=== PATIENT | male | born 1965 | race Two or more races ===

== ENCOUNTER 2023-12-25 09:47 | Emergency (ER) | payer OTHER ==
[~2023-12-25] VITALS: Ht 165.1 cm; Wt 97.7 kg
[2023-12-25] MEDS ORDERED: CEPH500C PO (11:14)
[2023-12-25 11:27] VITALS: BP 117/74; PULSE 60; RESP 14; TEMP 98.1; O2SAT 98
== END 2023-12-25 11:29 | disposition home or self-care (01) ==
LOC: ER 09:47 → EDBD 09:47 → ER 11:29
DX: L03.011 Cellulitis of right finger (principal)

== ENCOUNTER 2024-02-15 07:28 | Inpatient (IN) | payer OTHER ==
[~2024-02-15] VITALS: Ht 165.1 cm; Wt 91.2 kg
[2024-02-15] VITALS (9 sets, daily range): BP systolic 159–192; BP diastolic 97–113; PULSE 81–101; RESP 18–20; TEMP 97.9–98.5; O2SAT 91–97
[~2024-02-15 07:28] MED LIST: CEPH500C PO
[2024-02-15] MEDS: SODIUM CHLORIDE 0.9% 1,000 ML IV ONE (08:10)
[2024-02-15] MEDS: levETIRAcetam 1000 mg/100ml 100 ML IV ONE (08:11)
[2024-02-15] MEDS: LORazepam 2MG/ML-1ML VIAL ONE (08:27)
[2024-02-15] MEDS: LORazepam 2MG/ML-1ML VIAL IV ONE (08:27)
[2024-02-15 08:48] LABS: Basophils # (auto) 0 10 ^3/uL (0-0.2); Basophils % (auto) 0.3 % (0.0-2.0); Eosinophils # (auto) 0.1 10 ^3/uL (0-0.8); Eosinophils % (auto) 1.4 % (0.0-7.0); Hematocrit 46.7 % (41.0-53.0); Hemoglobin 15.5 g/dL (13.5-17.5); Lymphocytes # (auto) 1.5 10 ^3/uL (0.4-5.4); Lymphocytes % (auto) 16.6 % (10.0-50.0); Mean Corpuscular Hemoglobin 25.5 pg (28.0-32.0); Mean Corpuscular Hgb Conc. 33.2 g/dL (32.0-36.0); Mean Corpuscular Volume 76.6 fL (80.0-100.0); Monocytes # (auto) 0.7 10 ^3/uL (0-1.3); Monocytes % (auto) 7.5 % (0.0-12.0); Neutrophils # (auto) 6.9 10 ^3/uL (1.6-8.6); Neutrophils % (auto) 74.2 % (37.0-80.0); Nucleated Red Blood Cells % 0.1 %; Platelet Count (auto) 137 10^3/uL (140-450); Red Blood Cells 6.09 10^6/uL (4.5-5.90); Red Cell Distribution Width 17.2 % (11.8-14.3); White Blood Cell 9.3 10^3/uL (4.4-10.8)
[2024-02-15 09:07] LABS: Alanine Aminotransferase 21 U/L (7-40); Albumin 4.2 g/dL (3.2-4.8); Alkaline Phosphatase 65 U/L (46-116); Anion Gap 5 (5-15); Aspartate Aminotransferase 14 U/L (13-40); BUN/Creatinine Ratio 12.7 (10.0-20.0); Blood Urea Nitrogen 8 mg/dL (9-23); Calcium 9.3 mg/dL (8.7-10.4); Carbon Dioxide 29 mmol/L (20-30); Chloride 102 mmol/L (98-107); Glucose 232 mg/dL (74-106); Potassium 3.9 mmol/L (3.5-5.1); Sodium 136 mmol/L (136-145)
[2024-02-15 09:08] LABS: Bilirubin, Total 0.7 mg/dL (0.2-1.0); Total Protein 7.3 g/dL (5.7-8.2)
[2024-02-15] MEDS ORDERED: NITROGLYCERIN 0.4 MG SL TAB SL PRN (10:45)
[2024-02-15] MEDS ORDERED: LORazepam 2MG/ML-1ML VIAL IV PRN ×2 (10:45)
[2024-02-15] MEDS: SODIUM CHLORIDE 0.9% 1,000 ML IV SCH (10:45)
[2024-02-15] MEDS ORDERED: DOCUSATE SOD 100 MG CAP PO PRN (10:45)
[2024-02-15] MEDS ORDERED: ONDANSETRON HCL 4 MG/2 ML VIAL IV PRN (10:45)
[2024-02-15] MEDS ORDERED: KEP500T PO (14:54)
[2024-02-15] MEDS ORDERED: NAP500T PO (15:03)
[2024-02-15] MEDS ORDERED: CARI-277 PO (15:03)
[2024-02-15] MEDS ORDERED: LORA-1121 PO (15:03)
[2024-02-15] MEDS ORDERED: ACET-1882 PO (15:03)
[2024-02-15] MEDS ORDERED: MELA3TAB27 PO (15:03)
[2024-02-15] MEDS ORDERED: DEXTROSE (50%) 50ML SYRG IV PRN (15:15)
[2024-02-15] MEDS: hydrALAZINE HCL 20 MG/ML VL IV PRN (16:13)
[2024-02-15] MEDS: MORPHINE SULFATE INJ 2 MG/ml SYRG IV PRN (16:52)
[2024-02-15] MEDS: InsuLIN REG 1unit/0.01ml Soln (100units/ml) SC SCH (18:00)
[2024-02-15] MEDS: ACCU-CHEK COMFORT CURVE STRIP VI SCH (18:00)
[2024-02-15] MEDS: LISINOPRIL 20 MG TAB PO ONE (18:54)
[2024-02-15] MEDS: levETIRAcetam 1000 mg/100ml 100 ML IV SCH (21:54)
[2024-02-15] MEDS: HYDROcodone-ACET 5/325MG TAB PO PRN (21:54)
[2024-02-16] VITALS (19 sets, daily range): BP systolic 114–162; BP diastolic 69–97; PULSE 75–93; RESP 13–20; TEMP 97.6–98.5; O2SAT 87–97
[2024-02-16 07:02] LABS: Basophils # (auto) 0 10 ^3/uL (0-0.2); Basophils % (auto) 0.3 % (0.0-2.0); Eosinophils # (auto) 0.1 10 ^3/uL (0-0.8); Eosinophils % (auto) 1.2 % (0.0-7.0); Lymphocytes # (auto) 2.2 10 ^3/uL (0.4-5.4); Mean Corpuscular Hemoglobin 25.6 pg (28.0-32.0); Monocytes # (auto) 0.8 10 ^3/uL (0-1.3); Neutrophils # (auto) 6.5 10 ^3/uL (1.6-8.6)
[2024-02-16 07:03] LABS: Hematocrit 47.1 % (41.0-53.0); Hemoglobin 15.6 g/dL (13.5-17.5); Lymphocytes % (auto) 22.4 % (10.0-50.0); Mean Corpuscular Hgb Conc. 33.1 g/dL (32.0-36.0); Mean Corpuscular Volume 77.3 fL (80.0-100.0); Monocytes % (auto) 8.7 % (0.0-12.0); Neutrophils % (auto) 67.4 % (37.0-80.0); Nucleated Red Blood Cells % 0.3 %; Platelet Count (auto) 149 10^3/uL (140-450); Red Blood Cells 6.08 10^6/uL (4.5-5.90); Red Cell Distribution Width 17.4 % (11.8-14.3); White Blood Cell 9.7 10^3/uL (4.4-10.8)
[2024-02-16 07:06] LABS: Alanine Aminotransferase 18 U/L (7-40); Albumin 4.1 g/dL (3.2-4.8); Alkaline Phosphatase 63 U/L (46-116); Anion Gap 6 (5-15); Aspartate Aminotransferase 17 U/L (13-40); Bilirubin, Total 0.8 mg/dL (0.2-1.0); Blood Urea Nitrogen 6 mg/dL (9-23); Calcium 9.4 mg/dL (8.7-10.4); Carbon Dioxide 28 mmol/L (20-30); Chloride 100 mmol/L (98-107); Glucose 187 mg/dL (74-106); Potassium 3.6 mmol/L (3.5-5.1); Sodium 134 mmol/L (136-145); Total Protein 7.2 g/dL (5.7-8.2)
[2024-02-16] MEDS: LISINOPRIL 20 MG TAB PO SCH (08:55)
[2024-02-16] MEDS: hydroCHLOROthiazide 25 MG TAB PO SCH (08:56)
[2024-02-16] MEDS: ASPirin 81 mg TAB PO ONE (13:48)
[2024-02-16] MEDS: ATORVASTATIN 20 MG TAB PO ONE (13:49)
[2024-02-16] MEDS: ENOXAPARIN SOD 40 MG/0.4 ML SYRINGE SC ONE (13:49)
[2024-02-16] MEDS ORDERED: ASPI-498 PO (13:52)
[2024-02-16] MEDS ORDERED: ATOR40TA52 PO (13:52)
[2024-02-16] MEDS ORDERED: QUET1TAB11 PO (13:52)
[2024-02-16] MEDS ORDERED: LABETALOL HCL 20 MG/4 ML VL IV PRN (18:00)
[2024-02-16 19:21] LABS: Basophils # (auto) 0.1 10 ^3/uL (0-0.2); Basophils % (auto) 0.5 % (0.0-2.0); Eosinophils # (auto) 0.1 10 ^3/uL (0-0.8); Eosinophils % (auto) 1.1 % (0.0-7.0); Hemoglobin 16.3 g/dL (13.5-17.5); Lymphocytes # (auto) 3.1 10 ^3/uL (0.4-5.4); Monocytes # (auto) 1.2 10 ^3/uL (0-1.3)
[2024-02-16 19:22] LABS: Hematocrit 49.3 % (41.0-53.0); Lymphocytes % (auto) 25.6 % (10.0-50.0); Mean Corpuscular Hemoglobin 25.4 pg (28.0-32.0); Mean Corpuscular Hgb Conc. 33.1 g/dL (32.0-36.0); Mean Corpuscular Volume 76.8 fL (80.0-100.0); Monocytes % (auto) 9.8 % (0.0-12.0); Neutrophils # (auto) 7.6 10 ^3/uL (1.6-8.6); Nucleated Red Blood Cells % 0.2 %; Platelet Count (auto) 165 10^3/uL (140-450); Red Blood Cells 6.42 10^6/uL (4.5-5.90); Red Cell Distribution Width 17.4 % (11.8-14.3); White Blood Cell 12.1 10^3/uL (4.4-10.8)
[2024-02-16 19:40] LABS: INR 1.18 (0.9-1.15); Partial Thromboplastin Time 30.5 SEC (24.5-34.5); Prothrombin Time 12.4 sec (9.3-11.8)
[2024-02-16 19:53] LABS: Alanine Aminotransferase 20 U/L (7-40); Albumin 4.4 g/dL (3.2-4.8); Alkaline Phosphatase 69 U/L (46-116); Anion Gap 5 (5-15); Aspartate Aminotransferase 13 U/L (13-40); BUN/Creatinine Ratio 10.4 (10.0-20.0); Blood Urea Nitrogen 7 mg/dL (9-23); Calcium 10.1 mg/dL (8.7-10.4); Carbon Dioxide 29 mmol/L (20-30); Chloride 99 mmol/L (98-107); Glucose 160 mg/dL (74-106); LDL Cholesterol 63 mg/dL (< 100); Magnesium 1.9 mg/dL (1.6-2.6); Potassium 3.5 mmol/L (3.5-5.1); Sodium 133 mmol/L (136-145); Triglycerides 128 mg/dL (< 150)
[2024-02-16 19:54] LABS: Bilirubin, Total 0.9 mg/dL (0.2-1.0); Cholesterol 126 mg/dL (< 200); HDL Cholesterol 41 mg/dL (40-59); Total Protein 7.6 g/dL (5.7-8.2)
[2024-02-17] VITALS (17 sets, daily range): BP systolic 90–141; BP diastolic 45–87; PULSE 77–98; RESP 12–32; TEMP 97.6–98.1; O2SAT 82–97
[2024-02-17 05:17] LABS: Basophils # (auto) 0 10 ^3/uL (0-0.2); Basophils % (auto) 0.4 % (0.0-2.0); Eosinophils # (auto) 0.1 10 ^3/uL (0-0.8); Eosinophils % (auto) 0.8 % (0.0-7.0); Hematocrit 51.4 % (41.0-53.0); Lymphocytes # (auto) 2.7 10 ^3/uL (0.4-5.4); Lymphocytes % (auto) 21.5 % (10.0-50.0); Mean Corpuscular Hemoglobin 25.6 pg (28.0-32.0); Mean Corpuscular Hgb Conc. 33.1 g/dL (32.0-36.0); Mean Corpuscular Volume 77.5 fL (80.0-100.0); Monocytes # (auto) 1.3 10 ^3/uL (0-1.3); Monocytes % (auto) 10.6 % (0.0-12.0); Neutrophils # (auto) 8.4 10 ^3/uL (1.6-8.6); Neutrophils % (auto) 66.7 % (37.0-80.0); Nucleated Red Blood Cells % 0.3 %; Platelet Count (auto) 163 10^3/uL (140-450); Red Blood Cells 6.63 10^6/uL (4.5-5.90); Red Cell Distribution Width 17.3 % (11.8-14.3); White Blood Cell 12.6 10^3/uL (4.4-10.8)
[2024-02-17 05:24] LABS: Alanine Aminotransferase 17 U/L (7-40); Albumin 4.2 g/dL (3.2-4.8); Alkaline Phosphatase 67 U/L (46-116); Anion Gap 7 (5-15); Aspartate Aminotransferase 13 U/L (13-40); BUN/Creatinine Ratio 10.7 (10.0-20.0); Bilirubin, Total 1.1 mg/dL (0.2-1.0); Blood Urea Nitrogen 9 mg/dL (9-23); Carbon Dioxide 27 mmol/L (20-30); Chloride 100 mmol/L (98-107); Glucose 199 mg/dL (74-106); Magnesium 1.9 mg/dL (1.6-2.6); Phosphorus 5.2 mg/dL (2.4-5.1); Potassium 3.9 mmol/L (3.5-5.1); Sodium 134 mmol/L (136-145); Total Protein 7.4 g/dL (5.7-8.2)
[2024-02-17] MEDS ORDERED: ASPirin 81 mg TAB PO SCH (10:00)
[2024-02-17] MEDS ORDERED: ENOXAPARIN SOD 40 MG/0.4 ML SYRINGE SC SCH (10:00)
[2024-02-17] MEDS: LISINOPRIL 20 MG TAB PO SCH (10:09)
[2024-02-17] MEDS ORDERED: ATORVASTATIN 20 MG TAB PO SCH (22:00)
== END 2024-02-17 16:14 | disposition short-term general hospital (02) | DRG 44 ==
LOC: EDBD 07:28 → ER 07:28 → OVERFLOW 10:44 → WEST WING 14:42 → TELE-WESTW 02-16 11:03 → DOU IN ICU 02-16 18:00
PROVIDERS: ADMIT Nurse Practitioner Family; ATTEND Internal Medicine Pulmonary Disease
DX: I62.9 Nontraumatic intracranial hemorrhage, unspecified (principal); I69.854 Hemiplegia and hemiparesis following other cerebrovascular disease affecting left non-dominant side; G40.909 Epilepsy, unspecified, not intractable, without status epilepticus; I16.1 Hypertensive emergency; E78.5 Hyperlipidemia, unspecified; Z79.4 Long term (current) use of insulin; Z79.899 Other long term (current) drug therapy; E11.65 Type 2 diabetes mellitus with hyperglycemia
CPT/HCPCS: 36415; 70450; 70551; 80053; 80061; 82306; 82550; 82607; 82962; 83036; 83605; 83735; 84100; 84443; 85025; 85610; 85730; 93306; 93886; G0378; J1815

== ENCOUNTER 2024-04-15 07:04 | Inpatient (IN) | payer MEDICAID ==
[~2024-04-15] VITALS: Ht 165.1 cm; Wt 107.8 kg
[~2024-04-15 07:04] MED LIST changes: +ACET-1882 PO; +ASPI-498 PO; +ATOR40TA52 PO; +CARI-277 PO; -CEPH500C PO; +LORA-1121 PO; +MELA3TAB27 PO; +NAP500T PO; +QUET1TAB11 PO
--- NOTE | 2024-04-15 07:22 | ED.PDOC ---
HPI (NEURO) HPI Comments 58Y M with PMHx DM, HTN, HLD, CVA with lt sided deficit, and seizure disorder presents to ED via EMS for chief complaint seizure. Pt states he was drinking coffee when his left hand began to shake/tremor. Pt states he also felt his "face stretching". Pt denies headache, SOB, chest pain, and pain, and new weakness. Pt is currently taking Keppra but is unsure of the dosage. Pt was last d/c from [facility] on 02/17/2024 with dx rt parietal-occipital intracranial hemorrhage. No known allergies. Chief Complaint: Seizure Time Seen by MD: 07:10 Primary Care Provider: UNKNOWN Reviewed Notes: Nurses Notes, Non Clinical Advisor Notes, Medications, Allergies Information Source: Patient, Emergency Med Personnel Mode of Arrival: EMS Brought in by: EMS Severity: Mild Dizziness/Weakness Severity: Does not affect activitie Headache Severity: None Timing: Hours Duration: Since onset Prehospital treatment: None Seizure Quality: Single Episodes Weakness Location: (L) Sided (s/p CVA) Onset: At rest Circumstances: Spontaneous Symptoms: None Before: Normal During: Awake After: Normal Mentation History of: CVA, DM, Hypertension, Seizure Disorder Modifying factors: Nothing Associated Signs and Symptoms: None Past Medical History PAST MEDICAL HISTORY: CVA, DM, High Lipids, HTN, Seizures Surgical History: Denies all surgeries Family History Family History: Unknown Social History Smoker: Non-Smoker Alcohol: Denies ETOH Use Drugs: Denies Drug Use Lives In: Other Constitutional: denies: chills, diaphoresis, fatigue, fever, malaise, sweats, weakness, others EENTM: denies: blurred vision, double vision, ear bleeding, ear discharge, ear drainage, ear pain, ear ringing, eye pain, eye redness, hearing loss, mouth pain, mouth swelling, nasal discharge, nose bleeding, nose congestion, nose pain, photophobia, tearing, throat pain, throat swelling, voice changes, others Respiratory: denies: cough, hemoptysis, orthopnea, SOB at rest, shortness of breath, SOB with excertion, stridor, wheezing, others Cardiovascular: denies: chest pain, dizzy spells, diaphoresis, Dyspnea on exertion, edema, irregular heart beat, left arm pain, lightheadedness, palpitations, PND, syncope, others Gastrointestinal: denies: abdomen distended, abdominal pain, blood streaked bowels, constipated, diarrhea, dysphagia, difficulty swallowing, hematemesis, melena, nausea, poor appetite, poor fluid intake, rectal bleeding, rectal pain, vomiting, others Genitourinary: denies: burning, dysuria, flank pain, frequency, hematuria, incontinence, penile discharge, penile sore, pain, testicle pain, testicle swelling, urgency, others Neurological: reports: left sided weakness; denies: dizziness, fainting, headache, left sided numbness, numbness, paresthesia, pre-existing deficit, right sided numbness, right sided weakness, seizure, speech problems, tingling, tremors, weakness, others Musculoskeletal: denies: back pain, gout, joint pain, joint swelling, muscle pain, muscle stiffness, neck pain, others Integumetry: denies: bruises, change in color, change in hair/nails, dryness, laceration, lesions, lumps, rash, wounds, others Allergic/Immunocompromised: denies: Difficulty Healing, Frequent Infections, Hives, Itching, others Hematologic/Lymphatic: denies: anemia, blood clots, easy bleeding, easy bruising, swollen glands, others Endocrine: denies: excessive hunger, excessive sweating, excessive thirst, excessive urination, flushing, intolerance to cold, intolerance to heat, unexplained weight gain, unexplained weight loss, others Psychiatric: denies: anxiety, bipolar disorder, depression, hopeless, panic disorder, schizophrenia, sleepless, suicidal, others All Other Systems: Reviewed and Negative Physical Exam General Appearance: No Apparent Distress, Normal HEENT: Normal ENT Inspection, Pharynx Normal, TMs Normal Neck: Full Range of Motion, Non-Tender, Normal, Normal Inspection Respiratory: Chest Non-Tender, Lungs Clear, No Accessory Muscle Use, No Respiratory Distress, Normal Breath Sounds Cardiovascular: No Edema, No JVD, No Murmur, No Gallop, Normal Peripheral Pulses, Regular Rate/Rhythm Breast Exam: Deferred Gastrointestinal: No Organomegaly, Non Tender, No Pulsatile Mass, Normal Bowel Sounds, Soft Genitalia: Deferred Pelvic: Deferred Rectal: Deferred Extremities: No calf tenderness, Normal capillary refill, Normal inspection, Normal range of motion, Non-tender, No pedal edema Musculoskeletal : Apperance: Normal 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 right bundle branch block, AZ interval 162, QRS duration 152, QTC 472, QRS axis -101. Was a procedure done? Was a procedure done?: No X-Ray, Labs, Meds, VS Vital Signs Date Time Temp Pulse Resp B/P (MAP) Pulse Ox O2 Delivery O2 Flow Rate FiO2 04/15/24 12:00 88 13 173/103 (126) 99 04/15/24 10:00 67 13 145/98 (114) 92 04/15/24 09:13 67 17 167/96 (119) 92 04/15/24 07:35 Room Air* 0 21 04/15/24 07:15 98.7 86 16 182/104 (130) 94 04/15/24 07:11 77 Lab Test 04/15/24 07:42 Range/Units White Blood Count 8.9 4.4-10.8 10^3/uL Red Blood Count 5.51 4.5-5.90 10^6/uL Hemoglobin 13.6 13.5-17.5 g/dL Hematocrit 41.5 41.0-53.0 % Mean Corpuscular Volume 75.3 L 80.0-100.0 fL Mean Corpuscular Hemoglobin 24.8 L 28.0-32.0 pg Mean Corpuscular Hemoglobin Concent 32.9 32.0-36.0 g/dL Red Cell Distribution Width 16.7 H 11.8-14.3 % Platelet Count 129 L 140-450 10^3/uL Mean Platelet Volume 8.4 6.9-10.8 fL Neutrophils (%) (Auto) 68.6 37.0-80.0 % Lymphocytes (%) (Auto) 21.3 10.0-50.0 % Monocytes (%) (Auto) 7.8 0.0-12.0 % Eosinophils (%) (Auto) 2.0 0.0-7.0 % Basophils (%) (Auto) 0.3 0.0-2.0 % Neutrophils # (Auto) 6.1 1.6-8.6 10 ^3/uL Lymphocytes # (Auto) 1.9 0.4-5.4 10 ^3/uL Monocytes # (Auto) 0.7 0-1.3 10 ^3/uL Eosinophils # (Auto) 0.2 0-0.8 10 ^3/uL Basophils # (Auto) 0 0-0.2 10 ^3/uL Nucleated Red Blood Cells 0.0 % Sodium Level 140 136-145 mmol/L Potassium Level 4.3 3.5-5.1 mmol/L Chloride Level 106 98-107 mmol/L Carbon Dioxide Level 27 20-31 mmol/L Anion Gap 7 5-15 Blood Urea Nitrogen 13 9-23 mg/dL Creatinine 0.71 0.700-1.30 mg/dL Glomerular Filtration Rate Calc 108 >90 mL/min BUN/Creatinine Ratio 18.3 10.0-20.0 Serum Glucose 211 H 74-106 mg/dL Calcium Level 9.5 8.7-10.4 mg/dL Total Bilirubin 0.3 0.2-1.0 mg/dL Aspartate Amino Transferase (AST) 11 L 13-40 U/L Alanine Aminotransferase (ALT) 17 7-40 U/L Alkaline Phosphatase 73 46-116 U/L Total Protein 7.3 5.7-8.2 g/dL Albumin 4.2 3.2-4.8 g/dL Current Medications Medications (Trade) Dose Ordered Sig/Cora Route Start Time Stop Time Status Last Admin Levetiracetam 100 ml @ 400 mls/hr ONCE ONCE IV 04/15/24 07:30 04/15/24 07:44 DC 04/15/24 07:35 Sodium Chloride 1,000 ml @ 1,000 mls/hr Q1H ONCE IV 04/15/24 07:30 04/15/24 08:29 DC 04/15/24 07:35 [place] [address] Ph: [phone] DIAGNOSTIC IMAGING Diagnostic Imaging Report : [id number] Signed with Hanane PATIENT: SAPPHIRE VELAZQUEZ ACCT: [id number] UNIT: [id number] : 1965 LOC: ER ROOM / BED: / AGE / SEX: 58 / M ADM STATUS: REG ER SERVICE [id number] ORDERING PHYSICIAN: PRO SALDAÑA MD PROCEDURE(s): HWOCT - HEAD WITHOUT CONTRAST REASON: Seizure, history of CVA and ICH ORDER NUMBER(s): [id number], ACCESSION NUMBER(s): [id number] ADDENDUM Report Patient Name: SAPPHIRE VELAZQUEZ Patient : 1965 Patient Gender: Male Patient Class: Emergency Patient Location: [facility] Reading Location: [facility] Signed Date: 04/15/2024 Ord. Doc: PRO SALDAÑA DOS: 04/15/2024 Status: Final Procedure: CT HEAD WITHOUT CONTRAST EXAM: CT HEAD WITHOUT CONTRAST INDICATION: Seizure, history of intracranial hemorrhage, history of CVA TECHNIQUE: CT of the head without intravenous contrast. Radiation dose : Head: CT Dose: CTDI volume is 68.42 mGy. Dose-length product is 1347.95 mGy*cm The dose indicators for CT are the volume computed tomography (CT) dose index (CTDIvol) and the dose length product (DLP), and are measured in units of mGy and mGy-cm, respectively. These indicators are not patient dose, but values generated from the CT scanner acquisition factors. The report includes radiation exposure data for exposures received during this examination. COMPARISON: CT HEAD WITHOUT CONTRAST on DOS: 02/17/24, CT HEAD WITHOUT CONTRAST on DOS: 02/16/24, CT HEAD WITHOUT CONTRAST on DOS: 02/16/24 FINDINGS: There is no evidence of acute intracranial hemorrhage, extra-axial collection, mass effect, midline shift, herniation or hydrocephalus. The ventricles, sulci and cisterns are age appropriate. The hernandez-white differentiation is intact. There is cystic encephelomalacia at the right vertex consistent with prior infarct or insult. There is a calcification at the left vertex. There is dense calcification of the vertebral and carotid arteries. The visualized paranasal sinuses and mastoid air cells are clear. The surrounding soft tissues and osseous structures are unremarkable. IMPRESSION: 1. No acute intracranial abnormality. Cystic encephelomalacia at the right vertex consistent with old infarct or insult. Previously seen hemorrhage in this region has resolved. Consider MRI of the brain with contrast to exclude underlying lesion. Radiation optimization: All CT scans at this facility use at least one of these dose optimization techniques: Automated exposure control mA and/or kV adjustment per patient size (includes targeted exams where dose is matched to clinical indication) or iterative reconstruction. HS:Y GER INCOME TAX DICTATED BY: JOHN PAZ MD DICTATED DATE/TIME: 04/15/24 0928 SIGNED BY: JOHN PAZ MD SIGNED DATE/TIME: 04/15/24 1044 CC: EXAM: CT HEAD WITHOUT CONTRAST INDICATION: Seizure, history of intracranial hemorrhage, history of CVA TECHNIQUE: CT of the head without intravenous contrast. Radiation dose : Head: CT Dose: CTDI volume is 68.42 mGy. Dose-length product is 1347.95 mGy*cm The dose indicators for CT are the volume computed tomography (CT) dose index (CTDIvol) and the dose length product (DLP), and are measured in units of mGy and mGy-cm, respectively. These indicators are not patient dose, but values generated from the CT scanner acquisition factors. The report includes radiation exposure data for exposures received during this examination. COMPARISON: CT HEAD WITHOUT CONTRAST on DOS: 02/17/24, CT HEAD WITHOUT CONTRAST on DOS: 02/16/24, CT HEAD WITHOUT CONTRAST on DOS: 02/16/24 FINDINGS: There is no evidence of acute intracranial hemorrhage, extra-axial collection, mass effect, midline shift, herniation or hydrocephalus. The ventricles, sulci and cisterns are age appropriate. The hernandez-white differentiation is intact. There is cystic encephelomalacia at the right vertex consistent with prior infarct or insult. There is a calcification at the left vertex. There is dense calcification of the vertebral and carotid arteries. The visualized paranasal sinuses and mastoid air cells are clear. The surrounding soft tissues and osseous structures are unremarkable. IMPRESSION: 1. No acute intracranial abnormality. Cystic encephelomalacia at the right vertex consistent with old infarct or insult. Previously seen hemorrhage in this region has resolved. Consider MRI of the brain with contrast to exclude underlying lesion. Radiation optimization: All CT scans at this facility use at least one of these dose optimization techniques: Automated exposure control mA and/or kV adjustment per patient size (includes targeted exams where dose is matched to clinical indication) or iterative reconstruction. HS:Y ATED BY: JOHN PAZ MD DICTATED DATE/TIME: 04/15/24927 SIGNED BY: JOHN PAZ MD SIGNED DATE/TIME: 04/15/24927 CC: Time of 1ST Reevaluation: 07:40 Reevaluation 1ST: Unchanged Patient Education/Counseling: Diagnosis, Treatment Family Education/Counseling: No Family Present Departure 1 Departure Time of Disposition: 11:17 Impression: Primary Impression: Seizure Disposition: 01 HOME / SELF CARE / HOMELESS Condition: Stable Additional Instructions: ED DISCHARGE INSTRUCTIONS Instructions: Please read all instructions provided in this packet carefully. Although you have been discharged from the Emergency Department, this does not mean that you have a "clean bill of health". It is possible that you are in the process of developing a serious illness. This is why you must return to the ED without fail if any new or worsening symptoms (especially if your symptoms include seizure, weakness, trouble speaking, chest pain, trouble breathing, abdominal pain, fever, headache, confusion, trouble seeing, or trouble walking) It is also very important that you see a primary care doctor within the next 3-5 days to follow up. If you are unable to get an appointment, return to the ED for re-evaluation. Overview Seizures are caused by abnormal patterns of electrical signals in the brain. They are different for each person. Seizures can affect movement, speech, vision, or awareness. Some people have only slight shaking of a hand and do not pass out. Other people may pass out and have shaking of the whole body. Some people appear to stare into space. They are awake, but they can't respond normally. Later, they may not remember what happened. You may need tests to identify the type and cause of the seizures. A seizure may occur only once, or you may have them more than one time. Taking medicines as directed and following up with your doctor may help keep you from having more seizures. The doctor has checked you carefully, but problems can develop later. If you notice any problems or new symptoms, get medical treatment right away. Follow-up care is a hayward part of your treatment and safety. Be sure to make and go to all appointments, and call your doctor if you are having problems. It's also a good idea to know your test results and keep a list of the medicines you take. How can you care for yourself at home? Be safe with medicines. Take your medicines exactly as prescribed. Call your doctor if you think you are having a problem with your medicine. Do not do any activity that could be dangerous to you or others until your doctor says it is safe to do so. For example, do not drive a car, operate Stylistpick, swim, or climb ladders. Be sure that anyone treating you for any health problem knows that you have had a seizure and what medicines you are taking for it. Identify and avoid things that may make you more likely to have a seizure. These may include lack of sleep, alcohol or drug use, stress, or not eating. If possible, take a shower instead of a bath. Having a seizure while in a bath can increase the risk of drowning. When should you call for help? Call 911 anytime you think you may need emergency care. For example, call if: You have another seizure. You have new symptoms, such as trouble walking, speaking, or thinking clearly. Call your doctor now or seek immediate medical care if: You are not acting normally. Watch closely for changes in your health, and be sure to contact your doctor if you have any problems. Discharged With: Relative Comments 58-year-old male with known seizure disorder. Brief focal seizure this morning, initially plan was to discharge patient is however prior to discharge she had a full tonic-clonic seizure lasting 45 seconds. He received Ativan. Patient re- evaluated after seizure, he is awake, oriented. Will admit patient for multiple seizures, not controlled on Keppra. Patient received IV fluids, Keppra bolus while in the ED. Patient admitted for further treatment, evaluation and monitoring. Critical Care Note Critical Care Time?: No Stability Stability form required: No I personally scribed for PRO SALDAÑA MD ([email or web address]) on 04/15/24 at 07:22. Electronically submitted by Samina Jay ([employer]). I personally scribed for PRO SALDAÑA MD ([email or web address]) on 04/15/24 at 10:53. Electronically submitted by Samina Jay ([employer]). PRO SALDAÑA MD Apr 15, 2024 07:22
[2024-04-15] MEDS: SODIUM CHLORIDE 0.9% 1,000 ML IV ONE (07:35)
[2024-04-15] MEDS: levETIRAcetam 1000 mg/100ml 100 ML IV ONE (07:35)
[2024-04-15 08:15] LABS: Basophils # (auto) 0 10 ^3/uL (0-0.2); Eosinophils # (auto) 0.2 10 ^3/uL (0-0.8); Hemoglobin 13.6 g/dL (13.5-17.5); Lymphocytes # (auto) 1.9 10 ^3/uL (0.4-5.4); Monocytes # (auto) 0.7 10 ^3/uL (0-1.3); Neutrophils # (auto) 6.1 10 ^3/uL (1.6-8.6); White Blood Cell 8.9 10^3/uL (4.4-10.8)
[2024-04-15 08:19] LABS: Basophils % (auto) 0.3 % (0.0-2.0); Hematocrit 41.5 % (41.0-53.0); Lymphocytes % (auto) 21.3 % (10.0-50.0); Mean Corpuscular Hemoglobin 24.8 pg (28.0-32.0); Mean Corpuscular Hgb Conc. 32.9 g/dL (32.0-36.0); Mean Corpuscular Volume 75.3 fL (80.0-100.0); Monocytes % (auto) 7.8 % (0.0-12.0); Neutrophils % (auto) 68.6 % (37.0-80.0); Platelet Count (auto) 129 10^3/uL (140-450); Red Blood Cells 5.51 10^6/uL (4.5-5.90); Red Cell Distribution Width 16.7 % (11.8-14.3)
[2024-04-15 08:34] LABS: Alanine Aminotransferase 17 U/L (7-40); Albumin 4.2 g/dL (3.2-4.8); Alkaline Phosphatase 73 U/L (46-116); Anion Gap 7 (5-15); Aspartate Aminotransferase 11 U/L (13-40); BUN/Creatinine Ratio 18.3 (10.0-20.0); Blood Urea Nitrogen 13 mg/dL (9-23); Calcium 9.5 mg/dL (8.7-10.4); Carbon Dioxide 27 mmol/L (20-31); Chloride 106 mmol/L (98-107); Glucose 211 mg/dL (74-106); Potassium 4.3 mmol/L (3.5-5.1); Sodium 140 mmol/L (136-145)
[2024-04-15 08:35] LABS: Bilirubin, Total 0.3 mg/dL (0.2-1.0); Total Protein 7.3 g/dL (5.7-8.2)
--- NOTE | 2024-04-15 10:37 | DVH ---
EXAM: CT HEAD WITHOUT CONTRAST INDICATION: Seizure, history of intracranial hemorrhage, history of CVA TECHNIQUE: CT of the head without intravenous contrast. Radiation dose : Head: CT Dose: CTDI volume is 68.42 mGy. Dose-length product is 1347.95 mGy*cm The dose indicators for CT are the volume computed tomography (CT) dose index (CTDIvol) and the dose length product (DLP), and are measured in units of mGy and mGy-cm, respectively. These indicators are not patient dose, but values generated from the CT scanner acquisition factors. The report includes radiation exposure data for exposures received during this examination. COMPARISON: CT HEAD WITHOUT CONTRAST on DOS: 02/17/24, CT HEAD WITHOUT CONTRAST on DOS: 02/16/24, CT HE AD WITHOUT CONTRAST on DOS: 02/16/24 FINDINGS: There is no evidence of acute intracranial hemorrhage, extra-axial collection, mass effect, midline s hift, herniation or hydrocephalus. The ventricles, sulci and cisterns are age appropriate. The hernandez-white differentiation is intact. There is cystic encephelomalacia at the right vertex consistent with prior infarct or insult. There i s a calcification at the left vertex. There is dense calcification of the vertebral and carotid arter ies. The visualized paranasal sinuses and mastoid air cells are clear. The surrounding soft tissues and osseous structures are unremarkable. IMPRESSION: 1. No acute intracranial abnormality. Cystic encephelomalacia at the right vertex consistent with old infarct or insult. Previously seen hemorrhage in this region has resolved. Consider MRI of the brain with contrast to exclude underlying lesion. Radiation optimization: All CT scans at this facility use at least one of these dose optimization arlet hniques: Automated exposure control mA and/or kV adjustment per patient size (includes targeted exams where dose is matched to clinical indication) or iterative reconstruction. HS:Y
[2024-04-15] MEDS: LORazepam 2MG/ML-1ML VIAL IV ONE (11:40)
[2024-04-15] MEDS: LORazepam 2MG/ML-1ML VIAL ONE (12:09)
[2024-04-15] MEDS ORDERED: ACETAMINOPHEN 325 MG TAB PO PRN (13:15)
[2024-04-15] MEDS ORDERED: DOCUSATE SOD 100 MG CAP PO PRN (13:15)
[2024-04-15] MEDS ORDERED: DEXTROSE (50%) 50ML SYRG IV PRN (13:15)
[2024-04-15] MEDS ORDERED: LORazepam 2MG/ML-1ML VIAL IV PRN (13:15)
[2024-04-15] MEDS ORDERED: ONDANSETRON HCL 4 MG/2 ML VIAL IV PRN (13:15)
--- NOTE | 2024-04-15 13:40 | DVHHP2 ---
History of Present Illness Reason for Visit: Seizure disorder History of Present Illness The patient is a 58-year-old male with past medical history of CVA with left- sided deficit, DM, hypertension, hyperlipidemia, and seizure who presented to [facility] ED for evaluation of seizures activity. Patient reports he was drinking coffee when left hand began to shake/tremor, felt his face stretching. Patient was discharged from [facility] on February 17, 2024 with diagnosis of right parietal occipital intracranial hemorrhage. Patient was seen and evaluated in the ED, laboratory data shows WBC 8.9, platelets 129, sodium 140, potassium 4.3, BUN 13, creatinine 0.71, glucose 211, blood pressure 173/103, heart rate 88, temperature 98.7 F, O2 saturation 99% on oxygen. Head CT showed no acute intracranial abnormality; cystic encephalomalacia at the right vertex consistent with old infarct or insult. Patient was started on IV Keppra, please see medication orders section in the computer. On my assessment, patient denies chest pain, no headache, no dizziness, no loss of consciousness, currently on oxygen, no nausea, no vomiting, no fever, no chills. Patient was admitted for further evaluation and medical management. Past Medical History CVA, DM, High Lipids, HTN, Seizures Past Surgical History Denies all surgeries Family History Reviewed, noncontributory to the management of this case. Past Social History The patient lives at home, denies smoking, alcohol or illicit drugs abuse. Review of Systems Constitutional: Yes: Weakness; No: Fever, Chills, Sweats, Malaise, Other Eyes: No: Pain, Vision change, Conjunctivae inflammation, Eyelid inflammation, Other, Redness ENT: No: Ear pain, Ear discharge, Nose pain, Nose discharge, Nose congestion, Mouth pain, Mouth swelling, Throat pain, Throat swelling, Other Respiratory: No: Cough, Dry, Shortness of breath, SOB with excertion, Wheezing, Hemoptysis, Pleuritic Pain, Sputum, Wheezing, Other Cardiovascular: No: Chest Pain, Palpitations, Orthopnea, Paroxysmal Noc. Dyspnea, Edema, Lt Headedness, Other Gastrointestinal: No: Nausea, Vomiting, Abdominal Pain, Diarrhea, Constipation, Melena, Hematochezia, Other Genitourinary: No Dysuria, No Frequency, No Incontinence, No Hematuria, No Retention, No Other Musculoskeletal: No: other, neck pain, shoulder pain, arm pain, back pain, hand pain, leg pain, foot pain Skin: No: Rash, Lesions, Jaundice, Bruising, Other Neurological: Seizures, Other (Left-sided weakness); No: Weakness, Numbness, Incoordination, Change in speech, Confusion Allergies: Coded Allergies: No Known Drug Allergy (Verified Allergy, Unknown, 12/25/23) Medications Current Medications Medications Dose Ordered Sig/Cora Route Start Time Stop Time Status Last Admin Dose Admin Aspirin 81 mg DAILY PO 04/16/24 10:00 Atorvastatin Calcium 20 mg HS PO 04/15/24 22:00 Levetiracetam 100 ml @ 400 mls/hr BID IV 04/15/24 22:00 Hydralazine HCl 10 mg Q6HP PRN IV 04/15/24 13:15 Lorazepam 1 mg Q2HP PRN IV 04/15/24 13:15 Diagnostic Test (Pha) 1 strip ACHS 04/15/24 17:00 Insulin Human Regular HS SC 04/15/24 22:00 Insulin Human Regular AC SC 04/15/24 17:00 Dextrose 50 ml UD PRN IV 04/15/24 13:15 Sodium Chloride 10 ml Q8HR IV 04/15/24 14:00 Acetaminophen/ Hydrocodone Bitart 1 tab Q4HP PRN PO 04/15/24 13:15 Ondansetron HCl 4 mg Q4HP PRN IV 04/15/24 13:15 Docusate Sodium 100 mg BIDPRN PRN PO 04/15/24 13:15 Acetaminophen 650 mg Q6HP PRN PO 04/15/24 13:15 Melatonin 5 mg HS PO 04/15/24 22:00 Exam Vital Signs Vital Signs Date Time Temp Pulse Resp B/P (MAP) Pulse Ox O2 Delivery O2 Flow Rate FiO2 04/15/24 12:00 88 13 173/103 (126) 99 04/15/24 07:35 Room Air* 0 21 04/15/24 07:15 98.7 General Appearance: Alert, Oriented X3, Cooperative, No acute distress HEENT: Atraumatic, PERRLA, EOMI, Mucous membr. moist/pink Respiratory: Clear to auscultation, Normal air movement Cardiovascular: Regular rate, Normal S1, Normal S2, No murmurs Abdominal: Normal bowel sounds, Soft, No tenderness, No hepatospenomegaly, No masses Extremities: No clubbing, No cyanosis, No edema, Normal pulses, No tenderness/swelling Skin: No rashes, No breakdown, No significant lesion Neuro: Normal speech, Normal tone, Sensation intact, Cranial nerves 3-12 NL, Reflexes 2+, Other (Left-sided weakness) Psych/Mental Status: Mental status NL, Mood NL Labs/Xrays Labs Test 04/15/24 07:42 Range/Units White Blood Count 8.9 4.4-10.8 10^3/uL Red Blood Count 5.51 4.5-5.90 10^6/uL Hemoglobin 13.6 13.5-17.5 g/dL Hematocrit 41.5 41.0-53.0 % Mean Corpuscular Volume 75.3 L 80.0-100.0 fL Mean Corpuscular Hemoglobin 24.8 L 28.0-32.0 pg Mean Corpuscular Hemoglobin Concent 32.9 32.0-36.0 g/dL Red Cell Distribution Width 16.7 H 11.8-14.3 % Platelet Count 129 L 140-450 10^3/uL Mean Platelet Volume 8.4 6.9-10.8 fL Neutrophils (%) (Auto) 68.6 37.0-80.0 % Lymphocytes (%) (Auto) 21.3 10.0-50.0 % Monocytes (%) (Auto) 7.8 0.0-12.0 % Eosinophils (%) (Auto) 2.0 0.0-7.0 % Basophils (%) (Auto) 0.3 0.0-2.0 % Neutrophils # (Auto) 6.1 1.6-8.6 10 ^3/uL Lymphocytes # (Auto) 1.9 0.4-5.4 10 ^3/uL Monocytes # (Auto) 0.7 0-1.3 10 ^3/uL Eosinophils # (Auto) 0.2 0-0.8 10 ^3/uL Basophils # (Auto) 0 0-0.2 10 ^3/uL Nucleated Red Blood Cells 0.0 % Sodium Level 140 136-145 mmol/L Potassium Level 4.3 3.5-5.1 mmol/L Chloride Level 106 98-107 mmol/L Carbon Dioxide Level 27 20-31 mmol/L Anion Gap 7 5-15 Blood Urea Nitrogen 13 9-23 mg/dL Creatinine 0.71 0.700-1.30 mg/dL Glomerular Filtration Rate Calc 108 >90 mL/min BUN/Creatinine Ratio 18.3 10.0-20.0 Serum Glucose 211 H 74-106 mg/dL Calcium Level 9.5 8.7-10.4 mg/dL Total Bilirubin 0.3 0.2-1.0 mg/dL Aspartate Amino Transferase (AST) 11 L 13-40 U/L Alanine Aminotransferase (ALT) 17 7-40 U/L Alkaline Phosphatase 73 46-116 U/L Total Protein 7.3 5.7-8.2 g/dL Albumin 4.2 3.2-4.8 g/dL PATIENT: SAPPHIRE VELAZQUEZ ACCT: [id number] UNIT: [id number] : 1965 LOC: ER ROOM / BED: / AGE / SEX: 58 / M ADM STATUS: REG ER SERVICE [id number] ORDERING PHYSICIAN: PRO SALDAÑA MD PROCEDURE(s): HWOCT - HEAD WITHOUT CONTRAST REASON: Seizure, history of CVA and ICH ORDER NUMBER(s): [id number], ACCESSION NUMBER(s): [id number] ADDENDUM Report Patient Name: SAPPHIRE VELAZQUEZ Patient : 1965 Patient Gender: Male Patient Class: Emergency Patient Location: [facility] Reading Location: [facility] Signed Date: 04/15/2024 Ord. Doc: PRO SALDAÑA DOS: 04/15/2024 Status: Final Procedure: CT HEAD WITHOUT CONTRAST EXAM: CT HEAD WITHOUT CONTRAST INDICATION: Seizure, history of intracranial hemorrhage, history of CVA TECHNIQUE: CT of the head without intravenous contrast. Radiation dose: Head: CT Dose: CTDI volume is 68.42 mGy. Dose-length product is 1347.95 mGy*cm The dose indicators for CT are the volume computed tomography (CT) dose index (CTDIvol) and the dose length product (DLP), and are measured in units of mGy and mGy-cm, respectively. These indicators are not patient dose, but values generated from the CT scanner acquisition factors. The report includes radiation exposure data for exposures received during this examination. COMPARISON: CT HEAD WITHOUT CONTRAST on DOS: 02/17/24, CT HEAD WITHOUT CONTRAST on DOS: 02/16/24, CT HEAD WITHOUT CONTRAST on DOS: 02/16/24 FINDINGS: There is no evidence of acute intracranial hemorrhage, extra-axial collection, mass effect, midline shift, herniation or hydrocephalus. The ventricles, sulci and cisterns are age appropriate. The hernandez-white differentiation is intact. There is cystic encephelomalacia at the right vertex consistent with prior infarct or insult. There is a calcification at the left vertex. There is dense calcification of the vertebral and carotid arteries. The visualized paranasal sinuses and mastoid air cells are clear. The surrounding soft tissues and osseous structures are unremarkable. IMPRESSION: 1. No acute intracranial abnormality. Cystic encephelomalacia at the right vertex consistent with old infarct or insult. Previously seen hemorrhage in this region has resolved. Consider MRI of the brain with contrast to exclude underlying lesion. CC: EXAM: CT HEAD WITHOUT CONTRAST INDICATION: Seizure, history of intracranial hemorrhage, history of CVA TECHNIQUE: CT of the head without intravenous contrast. Radiation dose: Head: CT Dose: CTDI volume is 68.42 mGy. Dose-length product is 1347.95 mGy*cm The dose indicators for CT are the volume computed tomography (CT) dose index (CTDIvol) and the dose length product (DLP), and are measured in units of mGy and mGy-cm, respectively. These indicators are not patient dose, but values generated from the CT scanner acquisition factors. The report includes radiation exposure data for exposures received during this examination. COMPARISON: CT HEAD WITHOUT CONTRAST on DOS: 02/17/24, CT HEAD WITHOUT CONTRAST on DOS: 02/16/24, CT HEAD WITHOUT CONTRAST on DOS: 02/16/24 FINDINGS: There is no evidence of acute intracranial hemorrhage, extra-axial collection, mass effect, midline shift, herniation or hydrocephalus. The ventricles, sulci and cisterns are age appropriate. The hernandez-white differentiation is intact. There is cystic encephelomalacia at the right vertex consistent with prior infarct or insult. There is a calcification at the left vertex. There is dense calcification of the vertebral and carotid arteries. The visualized paranasal sinuses and mastoid air cells are clear. The surrounding soft tissues and osseous structures are unremarkable. IMPRESSION: 1. No acute intracranial abnormality. Cystic encephelomalacia at the right vertex consistent with old infarct or insult. Previously seen hemorrhage in this region has resolved. Consider MRI of the brain with contrast to exclude underlying lesion. Assessment/Plan Assessment/Plan Seizure disorder Hypertensive urgency Generalized weakness Diabetes mellitus with hyperglycemia Plan 1. Admit to telemetry unit 2. Breathing treatment 3. Pain control management 4. Management of fluids and electrolytes 5. Consultation for Neurology/hospitalist 6. Diagnostic tests head CT 7. DVT prophylaxis on SCDs 8. Repeat labs CBC, CMP in a.m. 9. Continue with current medical management 10. Treatment plan discussed with patient and RN. Patient verbalized understanding. Plan discussed with: Patient, Other (RN) My Orders Orders - AMY NIXON DNP Procedure Category Date Status Time Consistent DIET 04/15/24 Transmitted Carb(Ccho)Diabetes Lunch Aspirin Tablet PHA 04/16/24 In Process 10:00 Atorvastatin (Lipitor) PHA 04/15/24 In Process 22:00 Levetiracetam 1000 PHA 04/15/24 In Process Mg/100ml (Levetiracet 22:00 Hydralazine Injection PHA 04/15/24 In Process (Apresoline Inject 13:15 Lorazepam 2mg/Ml Inj PHA 04/15/24 In Process (Ativan Inj) 13:15 Glucose Blood PHA 04/15/24 In Process (Accu-Chek Comfort 17:00 Insulin R (Human) PHA 04/15/24 In Process (Insulin R) 22:00 Insulin R (Human) PHA 04/15/24 In Process (Insulin R) 17:00 Dextrose 50% Syringe PHA 04/15/24 In Process 13:15 Allergies SIDDHARTHA 04/15/24 In Process 13:12 Code Status CODE 04/15/24 Transmitted 13:12 Sodium Chloride Lock PHA 04/15/24 In Process (Saline Lock Ns) 14:00 Oxygen Per Hour RT 04/15/24 Transmitted 13:12 Hydrocodone-Acet PHA 04/15/24 In Process 5/325mg Tab ([place] 13:15 Ondansetron Hcl PHA 04/15/24 In Process (Zofran) 13:15 Docusate Sodium PHA 04/15/24 In Process Capsule (Colace 13:15 Fall Risk Precautions SIDDHARTHA 04/15/[address] 13:12 Complete Blood Count LAB 04/16/24 Verified 04:00 Comprehensive LAB 04/16/24 Verified Metabolic Panel 04:00 Condition: Serious [facility] 04/15/24 In Process 13:12 Acetaminophen Tablet [facility] 04/15/24 In Process (Tylenol Tablet) 13:15 Sequential [facility] 04/15/24 In Process Compression Device Melatonin (Melatonin) PHA 04/15/24 In Process 22:00 Admit ADMIT 04/15/24 Verified 13:38 Nitroglycerin [facility] 04/15/24 Verified Sublingual (Ntrostat 13:45 Morphine Sulfate [facility] 04/15/24 Verified Injection 13:45 Notify Md Of Changes [facility] 04/15/24 Verified From Base 13:38 Supervisor Long Goods For [facility] 04/15/24 Verified 24 Hours 13:38 Emergency Dysrhythmia [facility] 04/15/24 Verified Protocol 13:38 Rhythm Strips Once [facility] 04/15/24 Verified Every Shift 13:38 Oxygen By Nasal RT 04/15/24 Verified Cannula 13:38 Problem List: (1) Seizure disorder (2) Hypertensive urgency (3) Generalized weakness (4) Diabetes mellitus with hyperglycemia Date of Service: Apr 15, 2024 Billing Provider: AMY NIXON DNP Common Visit Codes: [id number] INP/OBS CARE (HIGH) AMY NIXON DNP Apr 15, 2024 13:40
[2024-04-15] MEDS ORDERED: MORPHINE SULFATE INJ 2 MG/ml SYRG IV PRN ×2 (13:45→14:00)
[2024-04-15] MEDS ORDERED: NITROGLYCERIN 0.4 MG SL TAB SL PRN ×2 (13:45→14:00)
[2024-04-15] MEDS: SODIUM CHLOR 0.9% PF (SALINE LOCK) 10ML VIAL/SYR IV SCH (14:09)
[2024-04-15] MEDS: ACCU-CHEK COMFORT CURVE STRIP VI SCH (16:53)
[2024-04-15] MEDS: InsuLIN REG 1unit/0.01ml Soln (100units/ml) SC SCH ×2 (17:11→22:41)
[2024-04-15 19:40] VITALS: PULSE 84; RESP 14; O2SAT 95
[2024-04-15] MEDS: hydrALAZINE HCL 20 MG/ML VL IV PRN (19:52)
[2024-04-15 21:00] VITALS: BP 119/76; PULSE 89; RESP 17; TEMP 98.3; O2SAT 98
[2024-04-15 21:23] VITALS: BP 119/76; PULSE 89; RESP 17; TEMP 98.3; O2SAT 98
[2024-04-15] MEDS: levETIRAcetam 1000 mg/100ml 100 ML IV SCH (22:00)
[2024-04-15] MEDS: ATORVASTATIN 20 MG TAB PO SCH (22:29)
[2024-04-15] MEDS: MELATONIN 5 MG TAB PO SCH (22:29)
[2024-04-16] VITALS (7 sets, daily range): BP systolic 125–151; BP diastolic 78–97; PULSE 80–104; RESP 18; TEMP 97.7–98.6; O2SAT 92–98
[2024-04-16] MEDS: HYDROcodone-ACET 5/325MG TAB PO PRN (05:37)
--- NOTE | 2024-04-16 11:04 | ECG ---
[facility] Test Date: 2024-04-15 Test Time: 07:11:32 Pat Name: SAPPHIRE VELAZQUEZ Department: ED Room: [address] [place] [address] 6 Gender: M Independent [employer] Agent: [id number] : 1965 Requested By: PRO SALDAÑA Order Number: [id number] Reading MD: Jeffry Wright Measurements Intervals Ramona Rate: 77 P: 25 NM: 162 QRS: -101 QRSD: 152 T: 22 QT: 417 QTc: 472 Interpretive Statements Sinus rhythm RBBB and LAFB Baseline wander in lead(s) V1,V2 Electronically Signed On 04-18-2024 14:27:52 PDT by Jeffry Wright Please click the below link to view image of tracing.
[2024-04-16] MEDS: ASPirin 81 mg TAB PO SCH (11:32)
--- NOTE | 2024-04-16 16:14 | DVHPN2 ---
Subjective 52 cc year old male with history of CVA, seizures on Keppra, living in a retirement admitted for seizure. Patient is seen by me today during rounds Patient had a fall today, did not hit head. IV line removed and patient diffuse new IV. We will changing IV to p.o.. Any neuro clearance Reviewed: Care Plan, H&P, Labs, Medications, Previous Orders, Radiology Changes from previous H/P or p: No Changes Eyes: No Pain, No Vision change, No Conjunctivae inflammation, No Eyelid inflammation, No Other, No Redness ENT: No Ear pain, No Ear discharge, No Nose pain, No Nose discharge, No Nose congestion, No Mouth pain, No Mouth swelling, No Throat pain, No Throat swelling, No Other Cardiovascular: No Chest Pain, No Palpitations, No Orthopnea, No Paroxysmal Noc. Dyspnea, No Edema, No Lt Headedness, No Other Respiratory: No Cough, No Dry, No Shortness of breath, No SOB with excertion, No Wheezing, No Hemoptysis, No Pleuritic Pain, No Sputum, No Other Gastrointestinal: No Nausea, No Vomiting, No Abdominal Pain, No Diarrhea, No Constipation, No Melena, No Hematochezia, No Other Genitourinary: No Dysuria, No Frequency, No Incontinence, No Hematuria, No Retention, No Other Musculoskeletal: No other, No neck pain, No shoulder pain, No arm pain, No back pain, No hand pain, No leg pain, No foot pain Skin: No Rash, No Lesions, No Jaundice, No Bruising, No Other Objective Vitals Vital Signs Date Time Temp Pulse Resp B/P (MAP) Pulse Ox O2 Delivery O2 Flow Rate FiO2 04/16/24 13:16 98.0 82 18 137/87 (104) 94 98.0 04/16/24 08:00 Room Air* 0 21 Intake/Output Intake and Output 04/16/24 07:00 Intake Total 1300 ml Balance 1300 ml Intake Oral 200 ml IV Total 1100 ml # Voids 2 Exam Alert, oriented x3 PERRLA No JVD Clear breath sounds bilaterally S1-S2 regular rate and rhythm no murmur Abdomen soft nontender, no hepatomegaly Unable to move the left leg, baseline Left upper extremity weaker than right, baseline No lower extremity edema Medications Current Medications Medications Dose Ordered Sig/Cora Route Start Time Stop Time Status Last Admin Dose Admin Aspirin 81 mg DAILY PO 04/16/24 10:00 04/16/24 11:32 81 MG Atorvastatin Calcium 20 mg HS PO 04/15/24 22:00 04/15/24 22:29 20 MG Levetiracetam 100 ml @ 400 mls/hr BID IV 04/15/24 22:00 04/16/24 11:31 400 MLS/HR Hydralazine HCl 10 mg Q6HP PRN IV 04/15/24 13:15 04/15/24 19:52 10 MG Lorazepam 1 mg Q2HP PRN IV 04/15/24 13:15 Diagnostic Test (Pha) 1 strip ACHS 04/15/24 17:00 04/16/24 11:50 1 STRIP Insulin Human Regular HS SC 04/15/24 22:00 04/15/24 22:41 4 UNITS Insulin Human Regular AC SC 04/15/24 17:00 04/16/24 11:50 6 UNITS Dextrose 50 ml UD PRN IV 04/15/24 13:15 Sodium Chloride 10 ml Q8HR IV 04/15/24 14:00 04/16/24 14:00 10 ML Acetaminophen/ Hydrocodone Bitart 1 tab Q4HP PRN PO 04/15/24 13:15 04/16/24 05:37 1 TAB Ondansetron HCl 4 mg Q4HP PRN IV 04/15/24 13:15 Docusate Sodium 100 mg BIDPRN PRN PO 04/15/24 13:15 Acetaminophen 650 mg Q6HP PRN PO 04/15/24 13:15 Melatonin 5 mg HS PO 04/15/24 22:00 04/15/24 22:29 5 MG Morphine Sulfate 2 mg Q30M PRN IV 04/15/24 14:00 Nitroglycerin 0.4 mg Q5MINP PRN SL 04/15/24 14:00 Laboratory Results Laboratory Tests 04/15/24 07:42 Assessment/Plan Assessment/Plan History of hemorrhagic stroke with left-sided residual deficit Seizure secondary to above Gait instability secondary to above Continue with Keppra Diazepam p.r.n. seizure Neurology consult Patient likely had a breakthrough seizure Would benefit from further increase in antiepileptics Diet DVT prophylaxis Lovenox Plan discussed with: Patient My Orders Orders - ANNIE JAIME MD Procedure Category Date Status Time Levetiracetam Tablet PHA 04/16/24 Verified (Keppra Tablet) 22:00 Date of Service: Apr 16, 2024 Billing Provider: ANNIE JAIME MD Common Visit Codes: [id number] INP/OBS CARE(HIGH) ANNIE JAIME MD Apr 16, 2024 16:14
[2024-04-16] MEDS: levETIRAcetam 500 MG TAB PO SCH (21:38)
--- NOTE | 2024-04-16 23:23 | DVHINCON2 ---
Date of service: Apr 16, 2024 Referring Physician Shi Reason for Consultation Seizure History of Present Illness Mr. Carrion is a 58 years old right-handed gentleman with a history of hypertension, diabetes, dyslipidemia, stroke, obesity the patient came to the hospital on 04/15/24 with a chief company seizure activity. At tis time, he is alert and fully oriented, he provided following history On 04/15/2024, when he was drinking coffee, he developed shaking in the whole left upper extremity, and the left face was stretching, but he has no altered mental status, he relates this is the 1st time in his life In the end of 01/2024, he developed acute left-sided weakness, without headache or other symptoms, the patient was found to have brain bleeding, he was treated conservatively, he was residual left-sided weakness, in that he is not able to move the left leg He snores, his sleep is non-refreshing, he was except time daytime sleepiness/fatigue WBC/HB/PLT/MCV, 04/15/2024: 8.9/13.6/129/75.3 CMP, 04/15/2024: Unremarkable HGB A1c, 02/16/2024: 9.2 TG/HDL/LDL/HDL, 01/2024: 128/126/63/41 Vitamin B12, 01/2024: 1355 TSH, 01/2024: 1.88 CT head, 02/16/2024: 4.0 x 2.2 x 2.2 cm intracranial hemorrhage in the right parietal, occipital lobe. Area of encephalomalacia in the right parietal lobe with mild ex vacuo dilation of the right lateral ventricle. Critical Result: Intracranial hemorrhage CT head, 04/15/2024: No acute intracranial abnormality. Cystic encephelomalacia at the right vertex consistent with old infarct or insult. Previously seen hemorrhage in this region has resolved. Consider MRI of the brain with contrast to exclude underlying lesion MRI head, 02/16/2024: Grossly stable, acute intraparenchymal hematoma in the medial right upper parietal lobe measuring 4.1 x 2.3 cm with mass effect on the adjacent corpus callosum and right lateral ventricle. No midline shift. No intraventricular extension this time. No large acute territorial ischemia Past Medical History Hypertension, diabetes, dyslipidemia, stroke Past Surgical History None Family History: Patient reports no known family medical history. Family History No major medical problems Social History He was tobacco smoke, he was a heavy alcohol drinker, but no history of drug abuse Allergies: Coded Allergies: No Known Drug Allergy (Verified Allergy, Unknown, 12/25/23) Home Meds Reported Medications Aspirin (ASPIRIN 81) 81 Mg Tab, 81 MG PO DAILY, TAB 02/16/24 Quetiapine Fumerate (QUETIAPINE FUMARATE) 25 Mg Tab, 12.5 MG PO BID, TAB 02/16/24 Atorvastatin Calcium (ATORVASTATIN CALCIUM) 40 Mg Tab, 40 MG PO HS, TAB 02/16/24 Melatonin (KP MELATONIN) 3 Mg Tab, 3 MG PO QHSP, TAB 02/15/24 Acetaminophen (Acetaminophen) 325 Mg Tab, 325 MG PO Q6HR PRN for PAIN SCALE 1 THRU 6, TAB 02/15/24 Naproxen (NAPROSYN TABLET) 500 Mg Tb, 250 MG PO TIDP, TAB 02/15/24 Carisoprodol (Soma) 350 Mg Tab, 350 MG PO TIDP, TAB 02/15/24 Lorazepam (ATIVAN TABLET) 0.5 Mg Tb, 0.5 MG PO Q6HPRN, TAB 02/15/24 Current Medications Current Medications Medications (Trade) Dose Ordered Sig/Cora Route PRN Reason Start Time Stop Time Status Last Admin Aspirin 81 mg DAILY PO 04/16/24 10:00 04/16/24 11:32 Levetiracetam (Keppra Tablet) 500 mg BID PO 04/16/24 22:00 04/16/24 21:38 Review of Systems As above, the other systems are negative Vital Signs Vital Signs Date Time Temp Pulse Resp B/P (MAP) Pulse Ox O2 Delivery O2 Flow Rate FiO2 04/16/24 17:00 98.2 87 18 151/97 (115) 95 98.2 04/16/24 08:00 Room Air* 0 21 Physical Exam GENERAL EXAM: General: the patient is well developed and nourished. No acute distress. HEENT: Normocephalic, neck is supple, no carotid bruits. No mass. RESPIRATORY: Normal respiratory effort with symmetrical lung expansion. Lungs clear to auscultation. CARDIOVASCULAR: Regular rate and rhythm with no murmurs. S1, S2. ABDOMEN: Soft, nontender, normal bowel sound NEUROLOGICAL: MENTAL STATUS: Awake and alert. Oriented to person, place, time and general circumstances. Able to give personal history SPEECH, LANGUAGE, HIGHER CORTICAL FUNCTION: no aphasia or dysathria. CRANIAL NERVES: #2: Intact visual myers to confrontation. The optic discs were sharp #3,4,6: Pupils are equal, round and reactive. EOMs full and conjugate. No nystagmus. #5: Facial sensation intact in all three divisions bilaterally. Mandibular strength intact. #7: Facial muscles symmetrical and strength intact. #8: Hearing grossly normal to voice. #9,10: Uvula and soft palate rise in the midline. Swallow and voice are normal. #11: Trapezius and sternomastoid strength intact bilaterally. #12: Tongue midline. No fasciculations or atrophy. SENSATION: Sensation to touch and pinprick is normal. MOTOR: Normal tone in the upper and lower extremity. Normal muscle bulk. No f asciculations. No abnormal movements or posturing. Muscle strength of the major groups in the right extremities is 5/5. Muscle strength of the major groups in the lower extremities is: Arm: 4/5, le/5. REFLEXES: Deep tendon reflexes normal and symmetrical. No pathological reflexes. CEREBELLAR/COORDINATION: Finger to nose is normal bilaterally. GAIT/STATION: deferred. Labs/Diagnostic Data Labs Test 04/16/24 21:40 04/15/24 07:42 Range/Units POC Glucose 226 H 70-106 mg/dl White Blood Count 8.9 4.4-10.8 10^3/uL Red Blood Count 5.51 4.5-5.90 10^6/uL Hemoglobin 13.6 13.5-17.5 g/dL Hematocrit 41.5 41.0-53.0 % Mean Corpuscular Volume 75.3 L 80.0-100.0 fL Mean Corpuscular Hemoglobin 24.8 L 28.0-32.0 pg Mean Corpuscular Hemoglobin Concent 32.9 32.0-36.0 g/dL Red Cell Distribution Width 16.7 H 11.8-14.3 % Platelet Count 129 L 140-450 10^3/uL Mean Platelet Volume 8.4 6.9-10.8 fL Neutrophils (%) (Auto) 68.6 37.0-80.0 % Lymphocytes (%) (Auto) 21.3 10.0-50.0 % Monocytes (%) (Auto) 7.8 0.0-12.0 % Eosinophils (%) (Auto) 2.0 0.0-7.0 % Basophils (%) (Auto) 0.3 0.0-2.0 % Neutrophils # (Auto) 6.1 1.6-8.6 10 ^3/uL Lymphocytes # (Auto) 1.9 0.4-5.4 10 ^3/uL Monocytes # (Auto) 0.7 0-1.3 10 ^3/uL Eosinophils # (Auto) 0.2 0-0.8 10 ^3/uL Basophils # (Auto) 0 0-0.2 10 ^3/uL Nucleated Red Blood Cells 0.0 % Sodium Level 140 136-145 mmol/L Potassium Level 4.3 3.5-5.1 mmol/L Chloride Level 106 98-107 mmol/L Carbon Dioxide Level 27 20-31 mmol/L Anion Gap 7 5-15 Blood Urea Nitrogen 13 9-23 mg/dL Creatinine 0.71 0.700-1.30 mg/dL Glomerular Filtration Rate Calc 108 >90 mL/min BUN/Creatinine Ratio 18.3 10.0-20.0 Serum Glucose 211 H 74-106 mg/dL Calcium Level 9.5 8.7-10.4 mg/dL Total Bilirubin 0.3 0.2-1.0 mg/dL Aspartate Amino Transferase (AST) 11 L 13-40 U/L Alanine Aminotransferase (ALT) 17 7-40 U/L Alkaline Phosphatase 73 46-116 U/L Total Protein 7.3 5.7-8.2 g/dL Albumin 4.2 3.2-4.8 g/dL Assessment Simple partial seizure secondary chronic stroke History of intra cerebral hemorrhage Left hemiplegia Obesity Sleep-related breathing disorder Plan/Recommendation Monitoring Supportive treatment Telemetry EEG Keppra 500 mg b.i.d. Ativan for seizure breakthrough Sleep hygiene tips discussed Weight control Trial of APAP in the hospital Follow-up with his doctors on discharge for ongoing care Progress: Poor This medical document was created using an electronic medical record system with [employer] system. Although this document has been carefully reviewed, there may still be some phonetic and typographical errors. These areas are purely typographical due to imperfections of the software programs, an d do not reflect any compromise in the patient's medical care. Plan discussed with: Patient, Other DELTA TERRELL MD Apr 16, 2024 23:22
[2024-04-17] VITALS (10 sets, daily range): BP systolic 126–151; BP diastolic 86–97; PULSE 75–98; RESP 17–20; TEMP 97.2–98.6; O2SAT 93–96
[2024-04-17] MEDS ORDERED: KEP500T PO (09:54)
--- NOTE | 2024-04-17 12:05 | DVHDS2 ---
Discharge Summary Date of Admission Apr 15, 2024 at 13:38 Date of Discharge: Apr 17, 2024 Labs/Diagnostic Data: Laboratory Results Test 04/17/24 05:34 04/15/24 07:42 POC Glucose 179 mg/dl (70-106) White Blood Count 8.9 10^3/uL (4.4-10.8) Red Blood Count 5.51 10^6/uL (4.5-5.90) Hemoglobin 13.6 g/dL (13.5-17.5) Hematocrit 41.5 % (41.0-53.0) Mean Corpuscular Volume 75.3 fL (80.0-100.0) Mean Corpuscular Hemoglobin 24.8 pg (28.0-32.0) Mean Corpuscular Hemoglobin Concent 32.9 g/dL (32.0-36.0) Red Cell Distribution Width 16.7 % (11.8-14.3) Platelet Count 129 10^3/uL (140-450) Mean Platelet Volume 8.4 fL (6.9-10.8) Neutrophils (%) (Auto) 68.6 % (37.0-80.0) Lymphocytes (%) (Auto) 21.3 % (10.0-50.0) Monocytes (%) (Auto) 7.8 % (0.0-12.0) Eosinophils (%) (Auto) 2.0 % (0.0-7.0) Basophils (%) (Auto) 0.3 % (0.0-2.0) Neutrophils # (Auto) 6.1 10 ^3/uL (1.6-8.6) Lymphocytes # (Auto) 1.9 10 ^3/uL (0.4-5.4) Monocytes # (Auto) 0.7 10 ^3/uL (0-1.3) Eosinophils # (Auto) 0.2 10 ^3/uL (0-0.8) Basophils # (Auto) 0 10 ^3/uL (0-0.2) Nucleated Red Blood Cells 0.0 % Sodium Level 140 mmol/L (136-145) Potassium Level 4.3 mmol/L (3.5-5.1) Chloride Level 106 mmol/L (98-107) Carbon Dioxide Level 27 mmol/L (20-31) Anion Gap 7 (5-15) Blood Urea Nitrogen 13 mg/dL (9-23) Creatinine 0.71 mg/dL (0.700-1.30) Glomerular Filtration Rate Calc 108 mL/min (>90) BUN/Creatinine Ratio 18.3 (10.0-20.0) Serum Glucose 211 mg/dL (74-106) Calcium Level 9.5 mg/dL (8.7-10.4) Total Bilirubin 0.3 mg/dL (0.2-1.0) Aspartate Amino Transferase (AST) 11 U/L (13-40) Alanine Aminotransferase (ALT) 17 U/L (7-40) Alkaline Phosphatase 73 U/L (46-116) Total Protein 7.3 g/dL (5.7-8.2) Albumin 4.2 g/dL (3.2-4.8) Other Laboratory Tests 04/15/24 07:42 Brief Hx & Hospital Course: 58-year-old male with history of hemorrhagic stroke and seizures admitted for breakthrough seizure. Patient was seen by Neurology, continue on Keppra 500 twice a day. Patient to follow up with his outpatient neurologist. Patient also had a fall in this admission, did not hit head. [facility] Condition at Discharge: Good Final Diagnosis/Problems List breakthrough seizure Discharge Disposition: Assisted Living Facility Discharge Instruct/Medications Diet: Consistent carbohydrate Activity: No Restrictions, As Tolerated Follow Up/Referral: follow up with pcp and neurologist Medications: keppra 500 mg twice daily Discharge Statement: "Patient was advised to return to the ER or call 911 if any headaches, dizziness, shortness of breath, chest pain, abdominal pain, bleeding, fevers, or worsening of medical condition. Patient was counseled about treatment plan, medications, possible side effects, patientverbalized understanding. All questions were answered to the best of my ability. This discharge took greater then 30 minutes in planning, reviewing documentation, counseling the patient, and discussing with other team members." ASSESSMENT ASSESSMENT Assessment breakthrough seizure Date of Service: Apr 17, 2024 Billing Provider: ANNIE JAIME MD Common Visit Codes: 28291-KCA/OBS DISCH DAY >30min ANNIE JAIME MD Apr 17, 2024 12:05
--- NOTE | 2024-04-18 00:42 | DVHEEG2 ---
Neurology EEG Procedural Note Procedural Note EXAM DATE: 04/17/2024 REFERRING DOCTOR: Dr. Terrell TECHNIQUE: Eighteen channels of EEG, 2 channels of EOG, and 1 channel of EKG were recorded using the [employer] 10/20 system. CLINICAL DATA: The patient was referred for an EEG evaluation for the evidence of seizure disorder. MEDICATIONS: See chart BACKGROUND ACTIVITY: While the patient was awake, the background activity consisted of fairly regulated 8-9 Hz rhythmic waveforms, symmetrically distributed over both posterior quadrants and was reactive to eye opening. ACTIVATION: Hyperventilation: Not done Photic Stimulation: Not done Sleep: Noticed IMPRESSION: This is a normal EEG. No focal, lateralized, or epileptiform features are noted. If clinically indicated to rule out a seizure disorder, recommend repeat EEG with sleep deprivation. The EKG channel showed a regular heart rate of 84/min. [place] [address] DELTA TERRELL MD Apr 18, 2024 00:42
== END 2024-04-17 17:30 | disposition home or self-care (01) | DRG 53 ==
LOC: EDBD 07:04 → ER 07:04 → TELE 13:38 → ER 13:39 → TELE-E-ADS 21:15
PROVIDERS: ADMIT Nurse Practitioner Family; ATTEND Student in an Organized Health Care Education/Training Program
DX: G40.109 Localization-related (focal) (partial) symptomatic epilepsy and epileptic syndromes with simple partial seizures, not intractable, without status epilepticus (principal); I69.354 Hemiplegia and hemiparesis following cerebral infarction affecting left non-dominant side; E11.65 Type 2 diabetes mellitus with hyperglycemia; I16.0 Hypertensive urgency; I10 Essential (primary) hypertension; E78.5 Hyperlipidemia, unspecified; E66.9 Obesity, unspecified; R26.89 Other abnormalities of gait and mobility; Z68.39 Body mass index [BMI] 39.0-39.9, adult
CPT/HCPCS: 36415; 70450; 80053; 82962; 85025; 93005; 95819; 96365; 96372; G0378; J1815

== ENCOUNTER 2024-08-15 18:23 | Inpatient (IN) | payer OTHER ==
[~2024-08-15] VITALS: Ht 165.1 cm; Wt 90.8 kg
[2024-08-15] MEDS: SODIUM CHLORIDE 0.9% 1,000 ML IV SCH (02:45)
[~2024-08-15 18:23] MED LIST changes: +KEP500T PO
[2024-08-15 19:02] LABS: Basophils # (auto) 0 10 ^3/uL (0-0.2); Basophils % (auto) 0.4 % (0.0-2.0); Eosinophils # (auto) 0.1 10 ^3/uL (0-0.8); Lymphocytes # (auto) 1.7 10 ^3/uL (0.4-5.4); Red Cell Distribution Width 19.4 % (11.8-14.3)
[2024-08-15 19:03] LABS: Eosinophils % (auto) 0.8 % (0.0-7.0); Lymphocytes % (auto) 15.8 % (10.0-50.0); Mean Corpuscular Hemoglobin 23.2 pg (28.0-32.0); Mean Corpuscular Volume 68.2 fL (80.0-100.0); Monocytes % (auto) 9.2 % (0.0-12.0); Neutrophils # (auto) 8.1 10 ^3/uL (1.6-8.6); Neutrophils % (auto) 73.8 % (37.0-80.0); Nucleated Red Blood Cells % 0.1 %; Platelet Count (auto) 267 10^3/uL (140-450); White Blood Cell 10.9 10^3/uL (4.4-10.8)
--- NOTE | 2024-08-15 19:03 | DVH ---
CHEST RADIOGRAPH Indication: weakness Technique: Single frontal view of the chest was obtained Comparison: None FINDINGS: Lines and Tubes: None Lungs: Bibasilar areas of scarring or atelectasis. Pleura: No effusion. No pneumothorax. Cardiomediastinal contours: Unremarkable Bones: No acute osseous abnormality. IMPRESSION: 1. Bibasilar areas of scarring or atelectasis. HS:Y
[2024-08-15 19:12] LABS: Anion Gap 8 (5-15); Carbon Dioxide 29 mmol/L (20-31); Chloride 98 mmol/L (98-107); Potassium 3.5 mmol/L (3.5-5.1)
[2024-08-15 19:13] LABS: Calcium 9.1 mg/dL (8.7-10.4)
[2024-08-15 19:14] LABS: Hemoglobin 4.4 g/dL (13.5-17.5)
[2024-08-15 19:18] LABS: Blood Urea Nitrogen 23 mg/dL (9-23)
[2024-08-15 19:25] LABS: Glucose 170 mg/dL (74-106); Sodium 135 mmol/L (136-145)
[2024-08-15 19:59] LABS: Platelet Estimate Adequate
[2024-08-15 20:02] LABS: Hypochromia Moderate
--- NOTE | 2024-08-15 20:40 | ED.PDOC ---
History of Present Illness HPI Comments This is a 58-year-old male who comes in with chief complaint of generalized weakness. Patient is coming from a halfway and according to the staff, the patient had a low oxygen saturation around 80. The patient denies any vomiting or diarrhea. Upon arrival, the patient was denying any symptoms but looks very pale. They stated that when the paramedics arrived, the patient's oxygen saturation was actually 100%. He denies any previous blood transfusions. He denies any chest pain or shortness for breath. He denies any black stool or hematemesis. Chief Complaint: General Weakness Time Seen by MD: 18:26 Primary Care Provider: UNKNOWN Reviewed Notes: Nurses Notes, Gelatin Maker Utility Notes, Medications, Allergies (No allergies to medications) Allergies: Coded Allergies: No Known Drug Allergy (Verified Allergy, Unknown, 12/25/23) Home Meds Active Scripts Levetiracetam (KEPPRA TABLET) 500 Mg Tb, 500 MG PO BID for 30 Days, #60 TAB Prov:ANNIE JAIME MD 04/17/24 Reported Medications Aspirin (ASPIRIN 81) 81 Mg Tab, 81 MG PO DAILY, TAB 02/16/24 Quetiapine Fumerate (QUETIAPINE FUMARATE) 25 Mg Tab, 12.5 MG PO BID, TAB 02/16/24 Atorvastatin Calcium (ATORVASTATIN CALCIUM) 40 Mg Tab, 40 MG PO HS, TAB 02/16/24 Melatonin (KP MELATONIN) 3 Mg Tab, 3 MG PO QHSP, TAB 02/15/24 Acetaminophen (Acetaminophen) 325 Mg Tab, 325 MG PO Q6HR PRN for PAIN SCALE 1 THRU 6, TAB 02/15/24 Naproxen (NAPROSYN TABLET) 500 Mg Tb, 250 MG PO TIDP, TAB 02/15/24 Carisoprodol (Soma) 350 Mg Tab, 350 MG PO TIDP, TAB 02/15/24 Lorazepam (ATIVAN TABLET) 0.5 Mg Tb, 0.5 MG PO Q6HPRN, TAB 02/15/24 Information Source: Patient, Emergency Med Personnel Mode of Arrival: EMS Severity: Moderate Timing: Days Duration: Since onset Prehospital treatment: IVF Past Medical History PAST MEDICAL HISTORY: CVA, DM, High Lipids, HTN, Seizures Surgical History: Denies all surgeries Family History Family History: Unknown Social History Smoker: Non-Smoker Alcohol: Denies ETOH Use Drugs: Denies Drug Use Lives In: Other Physical Exam General Appearance: Moderate Distress HEENT: Pale [place]ae (L), Pale Conjuntivae (R), Pharynx Normal, TMs Normal Neck: Full Range of Motion, Non-Tender, Normal, Normal Inspection Respiratory: Chest Non-Tender, Lungs Clear, No Accessory Muscle Use, No Respiratory Distress, Normal Breath Sounds Cardiovascular: No Edema, No JVD, No Murmur, No Gallop, Normal Peripheral Pulses, Regular Rate/Rhythm Breast Exam: Deferred Gastrointestinal: No Organomegaly, Non Tender, No Pulsatile Mass, Normal Bowel Sounds, Soft Genitalia: Deferred Pelvic: Deferred Rectal: Deferred Extremities: No calf tenderness, Normal capillary refill, No pedal edema Musculoskeletal : Apperance: Normal 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 Was a procedure done?: No Differential Dx Considerations may include: Generalized weakness, anemia, dehydration X-Ray, Labs, Meds, VS Vital Signs Date Time Temp Pulse Resp B/P (MAP) Pulse Ox O2 Delivery O2 Flow Rate FiO2 08/15/24 18:51 99.3 97 18 108/73 (85) 95 08/15/24 18:29 97 Lab Test 08/15/24 18:40 Range/Units White Blood Count 10.9 H 4.4-10.8 10^3/uL Red Blood Count 1.90 L 4.5-5.90 10^6/uL Hemoglobin 4.4 *L 13.5-17.5 g/dL Hematocrit 13.0 L 41.0-53.0 % Mean Corpuscular Volume 68.2 L 80.0-100.0 fL Mean Corpuscular Hemoglobin 23.2 L 28.0-32.0 pg Mean Corpuscular Hemoglobin Concent 34.0 32.0-36.0 g/dL Red Cell Distribution Width 19.4 H 11.8-14.3 % Platelet Count 267 140-450 10^3/uL Mean Platelet Volume 7.7 6.9-10.8 fL Neutrophils (%) (Auto) 73.8 37.0-80.0 % Lymphocytes (%) (Auto) 15.8 10.0-50.0 % Monocytes (%) (Auto) 9.2 0.0-12.0 % Eosinophils (%) (Auto) 0.8 0.0-7.0 % Basophils (%) (Auto) 0.4 0.0-2.0 % Neutrophils # (Auto) 8.1 1.6-8.6 10 ^3/uL Lymphocytes # (Auto) 1.7 0.4-5.4 10 ^3/uL Monocytes # (Auto) 1.0 0-1.3 10 ^3/uL Eosinophils # (Auto) 0.1 0-0.8 10 ^3/uL Basophils # (Auto) 0 0-0.2 10 ^3/uL Nucleated Red Blood Cells 0.1 % Platelet Estimate Adequate Hypochromasia (manual) Moderate Microcytosis Marked Sodium Level 135 L 136-145 mmol/L Potassium Level 3.5 3.5-5.1 mmol/L Chloride Level 98 98-107 mmol/L Carbon Dioxide Level 29 20-31 mmol/L Anion Gap 8 5-15 Blood Urea Nitrogen 23 9-23 mg/dL Creatinine 0.96 0.700-1.30 mg/dL Glomerular Filtration Rate Calc 93 >90 mL/min BUN/Creatinine Ratio 24.0 H 10.0-20.0 Serum Glucose 170 H 74-106 mg/dL Calcium Level 9.1 8.7-10.4 mg/dL Troponin I High Sensitivity 41 </=54 ng/L IV Hep-Lock was established. The patient's CBC shows an elevated white blood cell count of 10.9 The hemoglobin came back at only 4.4 and hematocrit of 13 The platelets are within normal limits The chemistry panel is within normal limits The troponin is negative We did go ahead and we examined the patient and he still states that he has no symptoms The patient will be admitted to the hospitalist at this time The diagnosis is severe anemia The patient was admitted Images Reviewed?: Images reviewed and evaluated by me Time of 1ST Reevaluation: 20:49 Reevaluation 1ST: Unchanged Patient Education/Counseling: Diagnosis, Treatment, Prognosis Family Education/Counseling: No Family Present Departure 1 Departure Time of Disposition: 20:49 Impression: Primary Impression: Severe anemia Additional Impression: Generalized weakness Disposition: 09 ADMITTED INPATIENT Admit to: [facility] Condition: Fair Critical Care Note Critical Care Time?: Yes (45 min-critical care time only) Stability Stability form required: Yes Unstable for transfer: Telemetry monitoring (Telemetry monitoring required), ED Physician Assesment (Clinical assesment) Heart Score Heart Score: Heart Score Response (Comments) Value History N/A 0 EKG N/A 0 Age N/A 0 Risk Factors N/A 0 Troponin N/A 0 Total 0 ROHAN CORRALES MD Aug 15, 2024 20:40
[2024-08-15 21:15] VITALS: PULSE 94; RESP 12; O2SAT 95
[2024-08-15] MEDS: SODIUM CHLORIDE 0.9% 500 ML IV ONE (21:18)
[2024-08-15] MEDS ORDERED: NITROGLYCERIN 0.4 MG SL TAB SL PRN (21:45)
[2024-08-15] MEDS ORDERED: MORPHINE SULFATE INJ 2 MG/ml SYRG IV PRN (21:45)
[2024-08-15] MEDS ORDERED: ACETAMINOPHEN 325 MG TAB PO PRN (21:45)
[2024-08-15] MEDS: SODIUM CHLOR 0.9% PF (SALINE LOCK) 10ML VIAL/SYR IV SCH (22:09)
[2024-08-15 22:15] VITALS: BP 108/68; PULSE 92; RESP 12; TEMP 97.7
[2024-08-15 22:31] LABS: INR 1.16 (0.9-1.15); Partial Thromboplastin Time 25.7 SEC (24.5-34.5); Prothrombin Time 12.1 sec (9.3-11.8)
[2024-08-15 22:42] LABS: Blood Alcohol 3.4 mg/dL (<10)
[2024-08-15 22:43] VITALS: BP 108/61; PULSE 92; RESP 12; RESP 20; TEMP 97.8
[2024-08-15 22:43] LABS: Magnesium 2.2 mg/dL (1.6-2.6)
[2024-08-15 23:39] LABS: % Iron Saturation 87.3 % (20-55)
[2024-08-15 23:50] LABS: Albumin 3.8 g/dL (3.2-4.8); Alkaline Phosphatase 65 U/L (46-116); Bilirubin, Direct 0.3 mg/dL (<0.3); Bilirubin, Total 0.5 mg/dL (0.2-1.0)
--- NOTE | 2024-08-15 23:54 | DVHHPRES ---
History of Present Illness Resident Creating Document: NIKOLAI ÁLVAREZ RESIDENT History of Present Illness Tin Carrion 58 years old male with a PMH of type 2 DM, HTN, CVA x3, seizures presented to the ED with the chief complaints of shortness of breath and generalized weakness. Patient reported that he has been having sudden shortness of breath associated with palpitations and cough for 1 day, patient is living in [facility] which showed oxygen saturation around 80 which prompted them to visit ED. on my assessment patient denies fever, nausea, vomiting, active blood loss, abdominal pain, melena, hematochezia, hematemesis, recent trauma, sick contacts and other associated symptoms. PMH: Type 2 DM, HTN, CVA x3, seizure disorder PSH: Denies Family history: Unknown Social history: [facility]. Denies smoking, alcohol and other drug abuse Allergies: No known allergies Review of Systems Constitutional: Yes: Weakness Eyes: No: Pain, Vision change, Conjunctivae inflammation, Eyelid inflammation, Other, Redness Respiratory: Shortness of breath Cardiovascular: Palpitations Gastrointestinal: No: Nausea, Vomiting, Abdominal Pain, Diarrhea, Constipation, Melena, Hematochezia, Other Genitourinary: No Dysuria, No Frequency, No Incontinence, No Hematuria, No Retention, No Other Musculoskeletal: No: other, neck pain, shoulder pain, arm pain, back pain, hand pain, leg pain, foot pain Skin: No: Rash, Lesions, Jaundice, Bruising, Other Neurological: Weakness Allergies: Coded Allergies: No Known Drug Allergy (Verified Allergy, Unknown, 12/25/23) Medications Current Medications Medications Dose Ordered Sig/Cora Route Start Time Stop Time Status Last Admin Dose Admin Sodium Chloride 10 ml Q8HR IV 08/15/24 22:00 08/15/24 22:09 10 ML Sodium Chloride 1,000 ml @ 120 mls/hr Q8H20M IV 08/15/24 21:45 Acetaminophen 650 mg Q6HP PRN PO 08/15/24 21:45 Nitroglycerin 0.4 mg Q5MINP PRN SL 08/15/24 21:45 Morphine Sulfate 2 mg Q30M PRN IV 08/15/24 21:45 Pantoprazole Sodium 40 mg DAILY IV 08/16/24 10:00 Exam Vital Signs Vital Signs Date Time Temp Pulse Resp B/P (MAP) Pulse Ox O2 Delivery O2 Flow Rate FiO2 08/15/24 22:43 97.8 92 20 108/61 97.8 08/15/24 21:06 93 Exam Pt is lying on bed General Appearance: Alert, Oriented X3, Cooperative, mild distress HEENT: Atraumatic, Mucous membranes dry, conjunctiva pallor Respiratory: Clear to auscultation, Normal air movement, Cardiovascular: Regular rate, Normal S1, Normal S2, Abdominal: Active bowel sounds, Soft, no distention, no tenderness Extremities: No edema, Normal pulses, No tenderness/swelling Skin: No Significant rash, except past surgical scars Neuro: Normal speech, left-sided weakness due to old CVA Psych/Mental Status: Mental status NL, Mood NL Nurse was there as sharperone during examination Labs/Xrays Labs Test 08/15/24 22:00 08/15/24 18:40 Range/Units Reticulocyte Count (auto) 0.29 L 0.5-1.5 % Magnesium Level 2.2 1.6-2.6 mg/dL Iron Level 186 H 65-175 ug/dL Total Iron Binding Capacity 213 L 250-425 ug/dL Percent Iron Saturation 87.3 H 20-55 % Ammonia < 10 L 11-32 umol/L Troponin I High Sensitivity 34 </=54 ng/L Plasma/Serum Blood Alcohol 3.4 <10 mg/dL White Blood Count 10.9 H 4.4-10.8 10^3/uL Red Blood Count 1.90 L 4.5-5.90 10^6/uL Hemoglobin 4.4 *L 13.5-17.5 g/dL Hematocrit 13.0 L 41.0-53.0 % Mean Corpuscular Volume 68.2 L 80.0-100.0 fL Mean Corpuscular Hemoglobin 23.2 L 28.0-32.0 pg Mean Corpuscular Hemoglobin Concent 34.0 32.0-36.0 g/dL Red Cell Distribution Width 19.4 H 11.8-14.3 % Platelet Count 267 140-450 10^3/uL Mean Platelet Volume 7.7 6.9-10.8 fL Neutrophils (%) (Auto) 73.8 37.0-80.0 % Lymphocytes (%) (Auto) 15.8 10.0-50.0 % Monocytes (%) (Auto) 9.2 0.0-12.0 % Eosinophils (%) (Auto) 0.8 0.0-7.0 % Basophils (%) (Auto) 0.4 0.0-2.0 % Neutrophils # (Auto) 8.1 1.6-8.6 10 ^3/uL Lymphocytes # (Auto) 1.7 0.4-5.4 10 ^3/uL Monocytes # (Auto) 1.0 0-1.3 10 ^3/uL Eosinophils # (Auto) 0.1 0-0.8 10 ^3/uL Basophils # (Auto) 0 0-0.2 10 ^3/uL Nucleated Red Blood Cells 0.1 % Platelet Estimate Adequate Hypochromasia (manual) Moderate Microcytosis Marked Prothrombin Time 12.1 H 9.3-11.8 sec Prothrombin Time INR 1.16 H 0.9-1.15 Activated Partial Thromboplast Time 25.7 24.5-34.5 SEC D-Dimer, Quantitative 0.34 0.0-0.49 mg/L FEU Sodium Level 135 L 136-145 mmol/L Potassium Level 3.5 3.5-5.1 mmol/L Chloride Level 98 98-107 mmol/L Carbon Dioxide Level 29 20-31 mmol/L Anion Gap 8 5-15 Blood Urea Nitrogen 23 9-23 mg/dL Creatinine 0.96 0.700-1.30 mg/dL Glomerular Filtration Rate Calc 93 >90 mL/min BUN/Creatinine Ratio 24.0 H 10.0-20.0 Serum Glucose 170 H 74-106 mg/dL Calcium Level 9.1 8.7-10.4 mg/dL B-Type Natriuretic Peptide 67.64 0-100 pg/mL Thyroid Stimulating Hormone (TSH) 2.38 0.55-4.78 uIU/mL Assessment/Plan Assessment/Plan # chronic vs acute hypochromic, microcytic anemia -currently receiving 2 PRBC -ordered iron panel -ordered CT abdominal pelvis -giving IVF -closely monitor lab # T2 DM -closely monitor with Accu-Cheks # history of CVA # seizure disorder -resumed home meds -seizure precaution # bed-bound status PUD PPX: Protonix VTE PPX: SCD ( no lovenox bc anemic) Diet: Cardiac diet Goals of care discussed with the patient for more than 29 minutes: Full code status Case discussed with Dr. Gaming, patient and nurse Plan discussed with: Patient My Orders Orders - NIKOLAI ÁLVAREZ RESIDENT Procedure Category Date Status Time Admit ADMIT 08/15/24 Transmitted 21:42 Allergies SIDDHARTHA 08/15/24 In Process 21:42 Code Status CODE 08/15/24 Transmitted 21:42 Sodium Chloride Lock PHA 08/15/24 In Process (Saline Lock Ns) 22:00 Sodium Chloride 0.9% PHA 08/15/24 In Process 21:45 Complete Blood Count LAB 08/16/24 Verified 04:00 Comprehensive LAB 08/16/24 Verified Metabolic Panel 04:00 Npo (Nothing By DIET 08/16/24 Transmitted Mouth) Diet Breakfast Echo 2d Mode Cardiac US 08/15/24 Logged DOP 21:42 Condition: Fair SIDDHARTHA 08/15/24 In Process 21:42 Acetaminophen Tablet PHA 08/15/24 In Process (Tylenol Tablet) 21:45 Sequential SIDDHARTHA 08/15/24 In Process Compression Device Nitroglycerin PHA 08/15/24 In Process Sublingual (Ntrostat 21:45 Morphine Sulfate PHA 08/15/24 In Process Injection 21:45 Oxygen By Nasal RT 08/15/24 Transmitted Cannula 21:42 Stat Ekg For Chest SIDDHARTHA 08/15/24 In Process Pain 21:42 Notify Of Changes SIDDHARTHA 08/15/24 In Process From Base 21:42 Betting Agency Counter Clerk For SIDDHARTHA 08/15/24 In Process 24 Hours 21:42 Emergency Dysrhythmia SIDDHARTHA 08/15/24 In Process Protocol 21:42 Rhythm Strips Once SIDDHARTHA 08/15/24 In Process Every Shift 21:42 Urinalysis LAB 08/15/24 Logged 21:42 Rapid Influenza A&B LAB 08/15/24 Logged 21:42 Drug Screen LAB 08/15/24 Logged 21:42 Stool Occult Blood LAB 08/15/24 Logged 21:42 Fibrinogen LAB 08/15/24 In Process 22:55 Pantoprazole PHA 08/16/24 In Process (Protonix) 10:00 Ferritin LAB 08/15/24 In Process 22:57 Hepatic Panel LAB 08/15/24 In Process 23:28 Ct Ab Pel Wo Con-No CT 08/15/24 Logged Oral Or Iv 23:30 Hemoglobin A1c LAB 08/15/24 Logged 23:49 Date of Service: Aug 15, 2024 Billing Provider: ELSA GAMING MD Common Visit Codes: [id number] INP/OBS CARE (HIGH) NIKOLAI ÁLVAREZ RESIDENT Aug 15, 2024 23:54 ELSA GAMING MD Aug 16, 2024 08:55
[2024-08-16] VITALS (12 sets, daily range): BP systolic 103–118; BP diastolic 61–78; PULSE 72–85; RESP 14–19; TEMP 96.6–98.2; O2SAT 100
[2024-08-16] MEDS ORDERED: DEXTROSE (50%) 50ML SYRG IV PRN
[2024-08-16 00:07] LABS: Alanine Aminotransferase < 9 U/L (7-40); Aspartate Aminotransferase 10 U/L (13-40)
[2024-08-16] MEDS: ATORVASTATIN 20 MG TAB PO ONE (00:30)
[2024-08-16] MEDS: levETIRAcetam 500 MG TAB PO ONE (00:30)
[2024-08-16] MEDS: QUEtiapine FUMARATE 25 MG TAB PO ONE (00:30)
[2024-08-16] MEDS ORDERED: LORazepam 2MG/ML-1ML VIAL IV PRN (00:30)
--- NOTE | 2024-08-16 03:33 | DVH ---
Exam: CT CT AB PEL WO CON-NO ORAL OR IV History: gi bleed or lesion Comparison Study: None available at time of dictation. Technique: Multidetector spiral CT of the abdomen was performed from lung bases to pubic symphysis. Imaging was performed without IV contrast. Axial, coronal and sagittal multiplanar reformats were ob tained from the axial data set by the technologist. Radiation Dose : 1. Abdomen/Pelvis: CTDIvol 22.91 mGy, DLP 1536.05 mGy*cm. Findings: Evaluation of solid organs is limited due to lack of intravenous contrast use. Lung Bases: Streaky and ground-glass opacities are noted in the visualized portions of the lungs. Liver: The liver is normal in size. No focal lesions. Gallbladder and Biliary Tree: A calcified stone is noted within the partially distended gallbladder. Spleen: Unremarkable Pancreas: The pancreas is grossly normal in appearance. Adrenal Glands: Unremarkable Kidneys: Kidneys are grossly normal without calculi or hydronephrosis. Bladder: Grossly unremarkable for degree of distention. Bowel: The stomach is grossly normal in appearance. Small bowel and colon are normal in caliber and d istribution. Normal appendix is visualized in the right lower quadrant without findings of appendici tis. Ascites: Absent Lymphadenopathy: No mesenteric, retroperitoneal or periportal lymphadenopathy. Abdominal Wall and Mesentery: Unremarkable. Vasculature: The visualized abdominal aorta is normal in size and caliber. Evaluation of abdominal a nd pelvic vessels is limited due to lack of intravenous contrast. Pelvic Organs: Unremarkable Musculoskeletal: No aggressive focal bony lesions, acute fractures or dislocation. IMPRESSION: 1. Cholelithiasis. Radiation optimization: All CT scans at this facility use at least one of these dose optimization arlet hniques: automated exposure control mA and/or kV adjustment per patient size (includes targeted exam s where dose is matched to clinical indication) or iterative reconstruction.
[2024-08-16 04:55] LABS: COVID19 ANTIGEN SOFIA FIA NEGATIVE (NEGATIVE); Rapid Influenza A Negative (Negative); Rapid Influenza B Negative (Negative)
[2024-08-16 05:16] LABS: Basophils # (auto) 0.1 10 ^3/uL (0-0.2); Basophils % (auto) 0.6 % (0.0-2.0); Eosinophils # (auto) 0.1 10 ^3/uL (0-0.8); Monocytes # (auto) 0.8 10 ^3/uL (0-1.3); Platelet Count (auto) 211 10^3/uL (140-450)
[2024-08-16 05:19] LABS: Eosinophils % (auto) 1.3 % (0.0-7.0); Hematocrit 19.9 % (41.0-53.0); Lymphocytes # (auto) 1.3 10 ^3/uL (0.4-5.4); Lymphocytes % (auto) 14.8 % (10.0-50.0); Mean Corpuscular Hemoglobin 26.1 pg (28.0-32.0); Mean Corpuscular Hgb Conc. 33.9 g/dL (32.0-36.0); Mean Corpuscular Volume 76.9 fL (80.0-100.0); Monocytes % (auto) 9.2 % (0.0-12.0); Neutrophils # (auto) 6.6 10 ^3/uL (1.6-8.6); Neutrophils % (auto) 74.1 % (37.0-80.0); Red Blood Cells 2.58 10^6/uL (4.5-5.90)
[2024-08-16 05:29] LABS: Red Cell Distribution Width 21.8 % (11.8-14.3)
[2024-08-16 05:30] LABS: Albumin 3.4 g/dL (3.2-4.8); Alkaline Phosphatase 58 U/L (46-116); Anion Gap 10 (5-15); Bilirubin, Total 0.8 mg/dL (0.2-1.0); Blood Urea Nitrogen 21 mg/dL (9-23); Carbon Dioxide 25 mmol/L (20-31); Chloride 102 mmol/L (98-107); Hemoglobin 6.7 g/dL (13.5-17.5); Potassium 3.7 mmol/L (3.5-5.1); Sodium 137 mmol/L (136-145)
[2024-08-16 05:42] LABS: Alanine Aminotransferase < 9 U/L (7-40); Aspartate Aminotransferase 10 U/L (13-40); Calcium 8.4 mg/dL (8.7-10.4); Glucose 157 mg/dL (74-106); Total Protein 5.2 g/dL (5.7-8.2)
[2024-08-16 06:12] LABS: Anisocytosis Slight
[2024-08-16 06:13] LABS: Ovalocytes FEW; Platelet Estimate Adequate
--- NOTE | 2024-08-16 06:56 | ECG ---
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
[2024-08-16] MEDS: InsuLIN REG 1unit/0.01ml Soln (100units/ml) SC SCH (07:00)
[2024-08-16] MEDS: ACCU-CHEK COMFORT CURVE STRIP VI SCH (07:00)
--- NOTE | 2024-08-16 07:07 | DVHPNRES ---
Progress Note Date Seen: Aug 16, 2024 Resident Creating Document: MED BRIONES RESIDENT Medical Necessity Reason Pt with a Central, PICC or Fol: No Subjective Review of Systems Tin Carrion is a 58-year-old male patient who presents to the ED with the complaint of generalized weakness, fatigue and shortness of breath for the past week. Patient reports melena. Reports that last bowel movement was more than 1 week ago. Denies chest pain/cough/diarrhea/fevers/chills. Patient is a poor historian, lives at [facility]. Per chart review, his O2 saturation was around 80 at [facility] therefore he was sent to the ER. Denies lifetime history of colonoscopy. 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 Patient refers to have had a brain bleed two years ago (patient has mild-moderate amnesia) Surgical history: Thrombectomy Family history: Noncontributory Social history: Lives in assisted living facility. Denies current tobacco, alcohol and other drug abuse Allergies: Denies Home medication: Tylenol, aspirin 81 mg p.o. daily, atorvastatin 40 mg p.o. daily, carisoprodol 350 mg p.o. t.i.d., lorazepam 0.5 mg p.o. p.r.n., melatonin 3 mg p.o. daily, Naprosyn 500 mg p.o. t.i.d., quetiapine 12.5 PO bid, levetiracetam 500 mg p.o. bid Admitted in 2024 for breakthrough seizure.Patient was seen by Neurology, continue on Keppra 500 twice a day. Patient seen and examined at bedside. Rectal exam performed, normal tone, no hemorrhoids, no masses felt, prostatomegaly, no active bleeding, dark brown stool collected sent to lab, stool occult negative. CT head ordered, ABG ordered. Objective vital signs Vital Sign Date Time Temp Pulse Resp B/P (MAP) Pulse Ox O2 Delivery O2 Flow Rate FiO2 08/16/24 05:15 83 11 109/77 (88) 100 08/16/24 02:55 98.0 98.0 08/15/24 21:15 Nasal Cannula* 08 16 Total Intake and Output 08/15/24 08/15/24 08/16/24 15:00 23:00 07:00 Intake Total 1145 ml Output Total 0 ml Balance 1145 ml medications Current Medications Medications Dose Ordered Sig/Cora Route Start Time Stop Time Status Last Admin Dose Admin Sodium Chloride 10 ml Q8HR IV 08/15/24 22:00 08/16/24 06:12 10 ML Sodium Chloride 1,000 ml @ 120 mls/hr Q8H20M IV 08/15/24 21:45 08/16/24 06:12 120 MLS/HR Acetaminophen 650 mg Q6HP PRN PO 08/15/24 21:45 Nitroglycerin 0.4 mg Q5MINP PRN SL 08/15/24 21:45 Morphine Sulfate 2 mg Q30M PRN IV 08/15/24 21:45 Pantoprazole Sodium 40 mg DAILY IV 08/16/24 10:00 Diagnostic Test (Pha) 1 strip ACHS 08/16/24 07:00 Insulin Human Regular ACHS SC 08/16/24 07:00 Dextrose 50 ml UD PRN IV 08/16/24 00:00 Atorvastatin Calcium 40 mg HS PO 08/16/24 22:00 Levetiracetam 500 mg BID PO 08/16/24 10:00 Lorazepam 0.5 mg Q6HP PRN IV 08/16/24 00:30 Quetiapine Fumarate 25 mg BID PO 08/16/24 10:00 Examination Patient lying in bed, in no acute distress General: Well-built, afebrile, palor, mucosae are moist Cardiovascular: Regular S1 and S2. No murmurs, gallops or rubs. No JVD elevation. Minimal pitting edema bilaterally Respiratory: Bilateral basilar crackles heard on auscultation. Abdomen: Soft, nontender, nondistended, normoactive bowel sounds, no rebound tenderness, no organomegaly, no masses. Rectal exam performed, normal tone, no hemorrhoids, no masses felt, prostatomegaly, no active bleeding, dark brown stool collected sent to lab, stool occult negative Genitourinary: Deferred MSK/skin: Mobilizes 4 limbs. Skin is dry and warm Neurological: No motor, no sensitive deficits, normal speech. Pupils are isocoric and reactive. Psych/Mental Status: A/Ox3 laboratory and microbiology Laboratory Tests 08/16/24 05:00 Test 08/16/24 05:00 Range/Units Serum Glucose 157 H 74-106 mg/dL Labs and/or images reviewed: Labs reviewed by me, Image(s) reviewed by me Problem List/Assessment/Plan Problem List/Assessment/Plan Severe microcytic anemia with minimal reticulocyte count requiring transfusion Iron-deficiency versus chronic anemia versus thalassemia versus sideroblastic anemia with increased iron and ferritin Reticulocyte production index 0 Retic count 0.29 Hemoglobin 13.6 on 03/2024 Hemoglobin on arrival 4.4, MCV 68 - transfuse 2 packed RBCs, 1 pending [employer] consulted-recommends marrow biopsy by Radiology and sent for pathology, flow cytometry and cytogenetic CT abdomen unremarkable Stool occult is negative. Rectal exam performed, normal tone, no hemorrhoids, no masses felt, prostatomegaly, no active bleeding, dark brown stool collected sent to lab, stool occult negative Ferritin 600s Fibrinogen/D-dimer unremarkable SUKH/rheumatoid/anti CCP/hepatitis/HIV panel pending CT head ordered, ABG ordered. Type 2 diabetes mellitus-hemoglobin A1c 8.9 On ISS History of stroke Seizure disorder Continue home medication Keppra 500 b.i.d. PUD PPX: Protonix VTE PPX: SCD ( no lovenox bc anemic) Diet: Cardiac diet Plan discussed with patient in which all questions have been answered Goals of care discussed with patient for more than 27 minutes, full code status Case discussed with Dr. Hanson Plan discussed with: Patient CC Plasma Assessment Blood Product Administration S: 0100 Date of Service: Aug 16, 2024 Billing Provider: STAN TAYLOR MD Common Visit Codes: [id number] INP/OBS CARE(HIGH) MED BRIONES RESIDENT Aug 16, 2024 07:07 STAN TAYLOR MD Aug 26, 2024 01:20
[2024-08-16] MEDS: PANTOPRAZOLE 40 MG/10 ML VIAL INJ IV SCH (09:58)
[2024-08-16] MEDS: levETIRAcetam 500 MG TAB PO SCH (09:58)
[2024-08-16] MEDS: QUEtiapine FUMARATE 25 MG TAB PO SCH (09:58)
--- NOTE | 2024-08-16 12:09 | DVH ---
Bilateral lower extremity venous duplex Clinical History: Swelling, r/o dvt Comparison: None Technique: Duplex Doppler evaluation of the deep venous systems of both lower extremities from the common femora l veins to the popliteal veins including color Doppler and spectral/pulsed waveform analysis was perf ormed. Findings: RIGHT SIDE: The common femoral vein demonstrates appropriate compressibility and waveform variability. There is compressibility/patency of the great saphenous vein at the proximal thigh. The femoral vein demonstrates appropriate compressibility and waveform variability. The deep femoral vein demonstrates appropriate compressibility and waveform variability. The popliteal vein demonstrates appropriate compressibility and waveform variability. There is normal compressibility at the tibioperoneal trunk. LEFT SIDE: The common femoral vein demonstrates appropriate compressibility and waveform variability. There is compressibility/patency of the great saphenous vein at the proximal thigh. The femoral vein demonstrates appropriate compressibility and waveform variability. The deep femoral vein demonstrates appropriate compressibility and waveform variability. The popliteal vein demonstrates appropriate compressibility and waveform variability. There is normal compressibility at the tibioperoneal trunk. Impression: No right or left femoropopliteal venous thrombosis.
[2024-08-16] MEDS ORDERED: LOSA-534 PO (16:04)
[2024-08-16] MEDS ORDERED: HYDR12.59 PO (16:04)
[2024-08-16] MEDS ORDERED: FERR325T20 PO (16:04)
[2024-08-16] MEDS ORDERED: INSUINJ37 SC (16:04)
[2024-08-16] MEDS ORDERED: ITRA100C3 PO (16:04)
[2024-08-16] MEDS ORDERED: FLUO1TAB12 PO (16:04)
[2024-08-16] MEDS ORDERED: DICL1GEL59 EX (16:04)
[2024-08-16] MEDS ORDERED: FOLI-119 PO (16:04)
[2024-08-16] MEDS ORDERED: DOCU250C12 PO (16:04)
[2024-08-16] MEDS ORDERED: INSREG3 SUBCUT (16:04)
[2024-08-16] MEDS ORDERED: METF-370 PO (16:04)
--- NOTE | 2024-08-16 18:54 | DVHSR ---
APPROVED REPORT EXAM: LIMITED Two-dimensional and M-mode echocardiogram with Doppler and color Doppler. Blood Pressure: 109/77 mmHg INDICATION possible heart failure RISK FACTORS Obesity: Height: 5'9, Weight: 180 DIMENSIONS LVDd3.8 (3.8-5.7cm)LA (2D)3.6 (1.9-4.0cm)Aortic Root3.8 (2.0-3.7cm) LVDs2.3 (2.5-4.0cm)LA (MM) (1.9-4.0cm)Aortic Cusp Exc0.8 (1.5-2.0cm) EF (%) 70.0 (55-70%)Rt. Atrium3.9 (1.9-4.0cm)Asc. Aorta3.3 cm IVSd1.7 (0.7-1.1cm)RV (D) (1.8-2.4cm) PWd1.5 (0.7-1.1cm) Mitral Valve MitralMitral Stenosis E wave0.85m/sMV Mean GR.mmHg A wave0.96m/sMV Peak GR.mmHg E/A ratio0.92D MVAcm2 DECEL [id number] 1/2 Timems Aortic Valve Aortic ValveAortic Stenosis V11.01m/Alverto Mean GR.7mmHg V21.73m/Alverto Peak GR.12mmHg LVOT Diameter2.1 (1.8-2.4cm)Doppler AVA2.02cm2 Pulmonic Valve V20.89m/s Tricuspid Valve TR Velocity2.80m/s [id number] Other Information Quality : Technically LimitedRhythm : Technically limited study due to body habitus.pt sitting up Conclusion Technically difficult study. Difficult acoustic windows. Concentric LVH. Mild aortic root enlargement. Dilation of the sinuses of Valsalva. Moderate mitral annular calcification. Thickening of the base of the posterior mitral leaflet. Mild aortic sclerosis. Calcification of the sinuses of Valsalva. The tricuspid and pulmonic or structur ally normal. Left ventricular function is preserved at 60% with normal RV function. Dopplers unremarkable. No pericardial effusion masses or vegetations noted
--- NOTE | 2024-08-16 21:11 | DVH ---
CT STROKE CTH INDICATION: Possible stroke EXAM DATE: 08/16/2024 08:46 PM COMPARISON: CT HEAD WITHOUT CONTRAST on DOS: 04/15/24, CT HEAD WITHOUT CONTRAST on DOS: 02/17/24, CT H EAD WITHOUT CONTRAST on DOS: 02/16/24 TECHNIQUE: CT of the head without intravenous contrast. RADIATION DOSE: CTDIvol: 58.53 mGy, DLP: 1036.38 mGy*cm FINDINGS: There are dense calcifications in the vertebral arteries. There is generalized cortical atrophy which extends into the cerebellum. There is evidence for old stroke with encephalomalacia involving right anterior watershed and associa cristin white matter. Orbits are unremarkable. There is moderately severe sinus disease involving the maxillary sinuses, et hmoid air cells and sphenoid sinuses. There is sparing of the frontal sinuses. Mastoid air cells internal auditory canals and middle ears are generally unremarkable. The calvarium is intact. Hippocampal structures are symmetric and there are no midline shifts. . IMPRESSION: 1. Moderately large old stroke involving the right anterior watershed and associated right frontal lo be. Sinus disease. Generalized cortical atrophy. No evidence for acute stroke. But I would recommend follow-up MRI examination.
[2024-08-16 21:22] LABS: Base Excess 1.5 mmol/L (-2.0-3.0)
[2024-08-16] MEDS: ATORVASTATIN 20 MG TAB PO SCH (22:00)
[2024-08-17] VITALS (7 sets, daily range): BP systolic 104–135; BP diastolic 63–66; PULSE 72–82; RESP 14–19; TEMP 97.5–98.7; O2SAT 96–100
[2024-08-17 07:18] LABS: Basophils # (auto) 0 10 ^3/uL (0-0.2); Basophils % (auto) 0.2 % (0.0-2.0); Eosinophils # (auto) 0.1 10 ^3/uL (0-0.8); Eosinophils % (auto) 1.7 % (0.0-7.0); Hematocrit 21.7 % (41.0-53.0); Hemoglobin 7.2 g/dL (13.5-17.5); Lymphocytes # (auto) 1.1 10 ^3/uL (0.4-5.4); Lymphocytes % (auto) 20.4 % (10.0-50.0); Mean Corpuscular Hemoglobin 26.1 pg (28.0-32.0); Mean Corpuscular Hgb Conc. 33.5 g/dL (32.0-36.0); Mean Corpuscular Volume 78.1 fL (80.0-100.0); Monocytes # (auto) 0.4 10 ^3/uL (0-1.3); Monocytes % (auto) 8.1 % (0.0-12.0); Neutrophils # (auto) 3.6 10 ^3/uL (1.6-8.6); Neutrophils % (auto) 69.6 % (37.0-80.0); Nucleated Red Blood Cells % 0.2 %; Platelet Count (auto) 190 10^3/uL (140-450); Red Blood Cells 2.77 10^6/uL (4.5-5.90); Red Cell Distribution Width 20.5 % (11.8-14.3); White Blood Cell 5.2 10^3/uL (4.4-10.8)
[2024-08-17 07:49] LABS: Alanine Aminotransferase < 9 U/L (7-40); Albumin 3.3 g/dL (3.2-4.8); Alkaline Phosphatase 61 U/L (46-116); Anion Gap 7 (5-15); Aspartate Aminotransferase 12 U/L (13-40); BUN/Creatinine Ratio 21.4 (10.0-20.0); Bilirubin, Total 0.8 mg/dL (0.2-1.0); Blood Urea Nitrogen 15 mg/dL (9-23); Calcium 8.1 mg/dL (8.7-10.4); Carbon Dioxide 26 mmol/L (20-31); Chloride 105 mmol/L (98-107); Glucose 122 mg/dL (74-106); Potassium 3.6 mmol/L (3.5-5.1); Sodium 138 mmol/L (136-145); Total Protein 5.5 g/dL (5.7-8.2)
[2024-08-17 08:07] LABS: Rheumatoid Arthritis Factor <10.0 IU/mL (<14.0)
--- NOTE | 2024-08-17 18:40 | DVHPN2 ---
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 Patient refers to have had a brain bleed two years ago (patient has mild-moderate amnesia); Presents to the ED with the complaint of generalized weakness, fatigue and shortness of breath for the past week. Patient reports melena. Reports that last bowel movement was more than 1 week ago. Denies chest pain/cough/diarrhea/fevers/chills. Patient is a poor historian, lives at [facility]. Per chart review, [facility] therefore he was sent to the ER. Denies lifetime history of colonoscopy. 08/17 patient remains at his baseline, this hemoglobin this a.m. is improved to 7.1. Patient continues to remain on oxygen. Oncology/hematology is on board IR bone marrow sample pending. We will evaluate and monitor for another 24 hours to still ensure hemoglobin stabilization Reviewed: H&P Changes from previous H/P or p: No Changes General: Per HPI Eyes: No Pain, No Vision change, No Conjunctivae inflammation, No Eyelid inflammation, No Other, No Redness Cardiovascular: Palpitations Respiratory: Shortness of breath Gastrointestinal: No Nausea, No Vomiting, No Abdominal Pain, No Diarrhea, No Constipation, No Melena, No Hematochezia, No Other Genitourinary: No Dysuria, No Frequency, No Incontinence, No Hematuria, No Retention, No Other Musculoskeletal: No other, No neck pain, No shoulder pain, No arm pain, No back pain, No hand pain, No leg pain, No foot pain Skin: No Rash, No Lesions, No Jaundice, No Bruising, No Other Objective Vitals Vital Signs Date Time Temp Pulse Resp B/P (MAP) Pulse Ox O2 Delivery O2 Flow Rate FiO2 08/17/24 17:00 97.8 77 16 135/63 (87) 98 97.8 08/17/24 09:00 Nasal Cannula* 2 28 Intake/Output Intake and Output 08/17/24 07:00 Intake Total 900 ml Balance 900 ml Intake Oral 400 ml Blood Product 250 ml Other 250 ml # Voids 1 Exam General: Well-built, afebrile, palor, mucosae are moist Cardiovascular: Regular S1 and S2. No murmurs, gallops or rubs. No JVD elevation. Minimal pitting edema bilaterally Respiratory: Bilateral basilar crackles heard on auscultation. Abdomen: Soft, nontender, nondistended, normoactive bowel sounds, no rebound tenderness, no organomegaly, no masses. Rectal exam performed, normal tone, no hemorrhoids, no masses felt, prostatomegaly, no active bleeding, dark brown stool collected sent to lab, stool occult negative Genitourinary: Deferred MSK/skin: Mobilizes 4 limbs. Skin is dry and warm Neurological: No motor, no sensitive deficits, normal speech. Pupils are isocoric and reactive. Psych/Mental Status: A/Ox3 Medications Current Medications Medications Dose Ordered Sig/Cora Route Start Time Stop Time Status Last Admin Dose Admin Sodium Chloride 10 ml Q8HR IV 08/15/24 22:00 08/17/24 14:00 10 ML Sodium Chloride 1,000 ml @ 120 mls/hr Q8H20M IV 08/15/24 21:45 08/17/24 16:00 120 MLS/HR Acetaminophen 650 mg Q6HP PRN PO 08/15/24 21:45 Nitroglycerin 0.4 mg Q5MINP PRN SL 08/15/24 21:45 Morphine Sulfate 2 mg Q30M PRN IV 08/15/24 21:45 Pantoprazole Sodium 40 mg DAILY IV 08/16/24 10:00 08/17/24 08:56 40 MG Diagnostic Test (Pha) 1 strip ACHS 08/16/24 07:00 08/17/24 17:00 1 STRIP Insulin Human Regular ACHS SC 08/16/24 07:00 08/17/24 11:53 2 UNITS Dextrose 50 ml UD PRN IV 08/16/24 00:00 Atorvastatin Calcium 40 mg HS PO 08/16/24 22:00 Levetiracetam 500 mg BID PO 08/16/24 10:00 08/17/24 08:55 500 MG Lorazepam 0.5 mg Q6HP PRN IV 08/16/24 00:30 Quetiapine Fumarate 25 mg BID PO 08/16/24 10:00 08/17/24 08:55 25 MG Laboratory Results Laboratory Tests 08/17/24 06:29 Chemistry Test 08/17/24 06:29 Albumin 3.3 g/dL (3.2-4.8) Calcium Level 8.1 mg/dL (8.7-10.4) L Total Protein 5.5 g/dL (5.7-8.2) L LFT Test 08/17/24 06:29 Alanine Aminotransferase (ALT) < 9 U/L (7-40) Alkaline Phosphatase 61 U/L (46-116) Aspartate Amino Transferase (AST) 12 U/L (13-40) L Total Bilirubin 0.8 mg/dL (0.2-1.0) Blood Gas Results Test 08/16/24 21:16 Arterial Blood pH 7.418 (7.350-7.450) FiO2 % 28.0 Labs and/or images reviewed: Labs reviewed by me, Image(s) reviewed by me Assessment/Plan Assessment/Plan 08/17 patient remains at his baseline, this hemoglobin this a.m. is improved to 7.1. Patient continues to remain on oxygen. Oncology/hematology is on board IR bone marrow sample pending. We will evaluate and monitor for another 24 hours to still ensure hemoglobin stabilization Severe microcytic anemia with minimal reticulocyte count requiring transfusion Iron-deficiency versus chronic anemia versus thalassemia versus sideroblastic anemia with increased iron and ferritin Reticulocyte production index 0 Retic count 0.29 Hemoglobin 13.6 on 03/2024 Hemoglobin on arrival 4.4, MCV 68 - transfuse 2 packed RBCs, 1 pending Facilities Administrator consulted-recommends marrow biopsy by Radiology and sent for pathology, flow cytometry and cytogenetic CT abdomen unremarkable Stool occult is negative. Rectal exam performed, normal tone, no hemorrhoids, no masses felt, prostatomegaly, no active bleeding, dark brown stool collected sent to lab, stool occult negative Ferritin 600s Fibrinogen/D-dimer unremarkable SUKH/rheumatoid/anti CCP/hepatitis/HIV panel pending CT head ordered, ABG ordered. - hemoglobin this a.m. is improved to 7.1. Patient continues to remain on oxygen. Oncology/hematology is on board IR bone marrow sample pending. We will evaluate and monitor for another 24 hours to still ensure hemoglobin stabilization Type 2 diabetes mellitus-hemoglobin A1c 8.9 On ISS History of stroke Seizure disorder Continue home medication Keppra 500 b.i.d. PUD PPX: Protonix VTE PPX: SCD ( no lovenox bc anemic) Diet: Cardiac diet Plan discussed with: Patient Date of Service: Aug 17, 2024 Billing Provider: STAN TAYLOR MD Common Visit Codes: [id number] INP/OBS CARE(HIGH) STAN TAYLOR MD Aug 17, 2024 18:40
[2024-08-17 20:06] LABS: CCP IgG/IgA Antibody 0 units (0-19)
[2024-08-18] VITALS (13 sets, daily range): BP systolic 119–151; BP diastolic 57–81; PULSE 71–86; RESP 16–18; TEMP 97.4–98.9; O2SAT 96–100
[2024-08-18 07:11] LABS: Basophils # (auto) 0 10 ^3/uL (0-0.2); Eosinophils # (auto) 0.1 10 ^3/uL (0-0.8); Lymphocytes # (auto) 0.8 10 ^3/uL (0.4-5.4); Monocytes # (auto) 0.3 10 ^3/uL (0-1.3); Neutrophils # (auto) 1.8 10 ^3/uL (1.6-8.6); Red Blood Cells 2.66 10^6/uL (4.5-5.90); White Blood Cell 2.9 10^3/uL (4.4-10.8)
[2024-08-18 07:15] LABS: Basophils % (auto) 0.3 % (0.0-2.0); Eosinophils % (auto) 2.3 % (0.0-7.0); Hematocrit 20.8 % (41.0-53.0); Lymphocytes % (auto) 26.8 % (10.0-50.0); Mean Corpuscular Hemoglobin 26.1 pg (28.0-32.0); Mean Corpuscular Hgb Conc. 33.3 g/dL (32.0-36.0); Mean Corpuscular Volume 78.4 fL (80.0-100.0); Neutrophils % (auto) 60.6 % (37.0-80.0); Platelet Count (auto) 151 10^3/uL (140-450); Red Cell Distribution Width 20.2 % (11.8-14.3)
[2024-08-18 07:23] LABS: Hemoglobin 6.9 g/dL (13.5-17.5)
[2024-08-18 07:29] LABS: Urine Bacteria FEW /hpf (None Seen); Urine Blood Negative /uL (Negative); Urine Clarity Turbid (Clear); Urine Color Colorless (Yellow); Urine Protein, UAD Negative (Negative); Urine Specific Gravity 1.011 (1.001-1.035); Urine Squamous Epithelial Cell FEW /hpf (<5); Urine Urobilinogen 2 mg/dL (Negative); Urine WBC 17 /HPF (0-3)
[2024-08-18 07:35] LABS: Alkaline Phosphatase 57 U/L (46-116); Anion Gap 7 (5-15); BUN/Creatinine Ratio 18.4 (10.0-20.0); Carbon Dioxide 25 mmol/L (20-31); Sodium 140 mmol/L (136-145)
[2024-08-18 07:36] LABS: Bilirubin, Total 0.6 mg/dL (0.2-1.0)
[2024-08-18 07:38] LABS: Aspartate Aminotransferase 12 U/L (13-40); Blood Urea Nitrogen 9 mg/dL (9-23); Chloride 108 mmol/L (98-107); Glucose 113 mg/dL (74-106); Potassium 3.5 mmol/L (3.5-5.1)
[2024-08-18 07:39] LABS: Alanine Aminotransferase < 9 U/L (7-40); Albumin 3.2 g/dL (3.2-4.8); Calcium 8.4 mg/dL (8.7-10.4); Total Protein 5.4 g/dL (5.7-8.2)
[2024-08-18] MEDS: cefTRIAXone 1GM/50ML D5W 50 ML IV SCH (09:50)
--- NOTE | 2024-08-18 14:07 | DVH ---
Date: 08/18/2024 12:34 PM Examination: XY KUB ABDOMEN SINGLE VIEW History: hypoactive BS, r/o sbo Comparison: None TECHNIQUE: Frontal views of the abdomen was obtained. FINDINGS: Bowel gas pattern is unremarkable. The lung bases are unremarkable. No acute osseous abnormality identified. RUQ gallstotnes IMPRESSION: Nonobstructive bowel gas pattern.
--- NOTE | 2024-08-18 15:31 | DVHPNRES ---
Progress Note Date Seen: Aug 18, 2024 Resident Creating Document: MED BRIONES RESIDENT Medical Necessity Reason Pt with a Central, PICC or Fol: No Subjective Review of Systems Tin Carrion is a 58-year-old male patient who presents to the ED with the complaint of generalized weakness, fatigue and shortness of breath for the past week. Patient reports melena. Reports that last bowel movement was more than 1 week ago. Denies chest pain/cough/diarrhea/fevers/chills. Patient is a poor historian, lives at [facility]. Per chart review, his O[facility] therefore he was sent to the ER. Denies lifetime history of colonoscopy. 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 Patient refers to have had a brain bleed two years ago (patient has mild-moderate amnesia) Surgical history: Thrombectomy Family history: Noncontributory Social history: Lives in assisted living facility. Denies current tobacco, alcohol and other drug abuse Allergies: Denies Home medication: Tylenol, aspirin 81 mg p.o. daily, atorvastatin 40 mg p.o. daily, carisoprodol 350 mg p.o. t.i.d., lorazepam 0.5 mg p.o. p.r.n., melatonin 3 mg p.o. daily, Naprosyn 500 mg p.o. t.i.d., quetiapine 12.5 PO bid, levetiracetam 500 mg p.o. bid Admitted in 2024 for breakthrough seizure.Patient was seen by Neurology, continue on Keppra 500 twice a day. 08/16 - Patient seen and examined at bedside. Rectal exam performed, normal tone, no hemorrhoids, no masses felt, prostatomegaly, no active bleeding, dark brown stool collected sent to lab, stool occult negative. CT head ordered, ABG ordered. 08/18-patient seen and examined at bedside. Denies urinary complaints but UA shows UTI. IV ceftriaxone started. Patient declined Hawikns catheter he is incontinent. Hemoglobin dropped to 6.9, 1 packed RBC transfused. Objective vital signs Vital Sign Date Time Temp Pulse Resp B/P (MAP) Pulse Ox O2 Delivery O2 Flow Rate FiO2 08/18/24 15:13 97.6 75 18 141/81 97.6 08/18/24 13:00 99 08/18/24 08:00 Nasal Cannula* 2 28 Total Intake and Output 08/17/24 08/17/24 08/18/24 15:00 23:00 07:00 Intake Total 300 ml 1720 ml Output Total 3 ml 200 ml Balance 297 ml 1520 ml medications Current Medications Medications Dose Ordered Sig/Cora Route Start Time Stop Time Status Last Admin Dose Admin Sodium Chloride 10 ml Q8HR IV 08/15/24 22:00 08/18/24 06:02 10 ML Sodium Chloride 1,000 ml @ 120 mls/hr Q8H20M IV 08/15/24 21:45 08/18/24 04:02 120 MLS/HR Acetaminophen 650 mg Q6HP PRN PO 08/15/24 21:45 Nitroglycerin 0.4 mg Q5MINP PRN SL 08/15/24 21:45 Morphine Sulfate 2 mg Q30M PRN IV 08/15/24 21:45 Pantoprazole Sodium 40 mg DAILY IV 08/16/24 10:00 08/18/24 10:03 40 MG Diagnostic Test (Pha) 1 strip ACHS 08/16/24 07:00 08/18/24 10:04 1 STRIP Insulin Human Regular ACHS SC 08/16/24 07:00 08/17/24 22:31 2 UNITS Dextrose 50 ml UD PRN IV 08/16/24 00:00 Atorvastatin Calcium 40 mg HS PO 08/16/24 22:00 Levetiracetam 500 mg BID PO 08/16/24 10:00 08/18/24 09:58 500 MG Lorazepam 0.5 mg Q6HP PRN IV 08/16/24 00:30 Quetiapine Fumarate 25 mg BID PO 08/16/24 10:00 08/18/24 09:58 25 MG Ceftriaxone Sodium 50 ml @ 100 mls/hr DAILY@09 IV 08/18/24 09:00 08/18/24 09:50 100 MLS/HR Examination Patient lying in bed, in no acute distress General: Well-built, afebrile, palor, mucosae are moist Cardiovascular: Regular S1 and S2. No murmurs, gallops or rubs. No JVD elevation. Minimal pitting edema bilaterally Respiratory: Bilateral basilar crackles heard on auscultation. Abdomen: Soft, nontender, nondistended, normoactive bowel sounds, no rebound tenderness, no organomegaly, no masses. Rectal exam performed, normal tone, no hemorrhoids, no masses felt, prostatomegaly, no active bleeding, dark brown stool collected sent to lab, stool occult negative Genitourinary: Deferred MSK/skin: Mobilizes 4 limbs. Skin is dry and warm Neurological: No motor, no sensitive deficits, normal speech. Pupils are isocoric and reactive. Psych/Mental Status: A/Ox3 laboratory and microbiology Laboratory Tests 08/18/24 05:40 Test 08/18/24 05:40 Range/Units Serum Glucose 113 H 74-106 mg/dL Labs and/or images reviewed: Labs reviewed by me, Image(s) reviewed by me Problem List/Assessment/Plan Problem List/Assessment/Plan Severe microcytic anemia with minimal reticulocyte count requiring transfusion Iron-deficiency versus chronic anemia versus thalassemia versus sideroblastic anemia with increased iron and ferritin Reticulocyte production index 0 Retic count 0.29 Hemoglobin 13.6 on 03/2024 Hemoglobin on arrival 4.4, MCV 68 - transfuse 3 packed RBCs, 1 pending [employer] consulted-recommends marrow biopsy by Radiology and sent for pathology, flow cytometry and cytogenetic CT abdomen unremarkable Stool occult is negative. Rectal exam performed, normal tone, no hemorrhoids, no masses felt, prostatomegaly, no active bleeding, dark brown stool collected sent to lab, stool occult negative Ferritin 600s Fibrinogen/D-dimer unremarkable rheumatoid/HIV panel unremarkable EBV studies pending, hepatitis panel pending, SUKH pending ABG unremarkable Prior CVA Head CT shows moderately large old stroke involving the right anterior watershed and associated right frontal lobe Holding aspirin for now Atorvastatin 40 mg daily Constipation: X-ray KUB shows nonobstructive bowel gas pattern Docusate 100 mg b.i.d. along with MiraLax 17 g p.o. daily Acute cystitis IV ceftriaxone starting 08/18 Urine bacterial culture pending Type 2 diabetes mellitus-hemoglobin A1c 8.9 On ISS History of stroke Seizure disorder Continue home medication Keppra 500 b.i.d. PUD PPX: Protonix VTE PPX: SCD ( no lovenox bc anemic) Diet: Cardiac diet , NPO starting midnight for bone marrow biopsy 08/19 Plan discussed with patient in which all questions have been answered Goals of care discussed with patient for more than 27 minutes, full code status Case discussed with Dr. Hanson Plan discussed with: Patient My Orders My Orders Orders - MED BRIONES Procedure Category Date Status Time Type And Screen BBK 08/18/24 In Process 08:05 Ceftriaxone 1gm/50ml PHA 08/18/24 In Process D5w (Rocephin) 09:00 Urine Bacterial RODRICK 08/18/24 In Process Culture 08:05 Pt Request For Service PT 08/18/24 Logged 10:12 Kub Abdomen Single XY 08/18/24 Resulted View 10:44 Bladder Scan ED NURSING 08/18/24 Transmitted Npo After Midnight DIET 08/18/24 Transmitted Lunch Dietary Evaluation Review Recommendations by RD: Dietary education by RD Comments: 1) Advance to 60g CCHO cardiac diet when medically feasible, per COMMUNITY COORDINATOR approval 2) Consider ferrous sulfate @ 325 mg qd if iron-deficiency anemia does not improve s/p additional PRBC 3) Continue to monitor appetite, labs, and skin integrity. Will consider oral nutrition supplementation if PO intake drops < 50%. 4) F/u with oncology and hematology 5) Refer to outpatient RD/CDCES for diabetes education d/t uncontrolled HbA1c - 8.9% Expected Outcomes/Goals: 1) appetite and labs to improve 2) diet to advance 3) skin integrity to improve 4) f/u in 5 days CC Plasma Assessment Blood Product Administration S: [id number] Date of Service: Aug 18, 2024 Billing Provider: STAN TAYLOR MD Common Visit Codes: [id number] INP/OBS CARE(HIGH) MED BRIONES Aug 18, 2024 15:31 STAN TAYLOR MD Aug 26, 2024 01:30
[2024-08-18] MEDS: DOCUSATE SOD 100 MG CAP PO ONE (18:06)
[2024-08-18] MEDS: POLYETHYLENE GLYCOL 17 GM PWDR PO ONE (18:07)
[2024-08-18] MEDS: DOCUSATE SOD 100 MG CAP PO SCH (21:25)
[2024-08-19] VITALS (9 sets, daily range): BP systolic 112–149; BP diastolic 70–83; PULSE 74–87; RESP 16–18; TEMP 97.6–98.7; O2SAT 93–100
[2024-08-19] MEDS: LIDOCAINE 2%HCL (LOCAL ANESTH.) INJ 10ml MDV ONE (07:36)
[2024-08-19 07:53] LABS: Anion Gap 9 (5-15); Carbon Dioxide 26 mmol/L (20-31); Chloride 105 mmol/L (98-107); Potassium 3.6 mmol/L (3.5-5.1); Sodium 140 mmol/L (136-145)
[2024-08-19 07:55] LABS: Calcium 8.8 mg/dL (8.7-10.4)
[2024-08-19 07:59] LABS: BUN/Creatinine Ratio 10.3 (10.0-20.0); Glucose 105 mg/dL (74-106)
[2024-08-19 08:00] LABS: Basophils # (auto) 0 10 ^3/uL (0-0.2); Eosinophils # (auto) 0.1 10 ^3/uL (0-0.8); Magnesium 1.9 mg/dL (1.6-2.6); Monocytes # (auto) 0.3 10 ^3/uL (0-1.3); Neutrophils # (auto) 2.4 10 ^3/uL (1.6-8.6); White Blood Cell 3.6 10^3/uL (4.4-10.8)
[2024-08-19 08:02] LABS: Blood Urea Nitrogen 6 mg/dL (9-23)
[2024-08-19 08:04] LABS: Basophils % (auto) 0.5 % (0.0-2.0); Eosinophils % (auto) 1.9 % (0.0-7.0); Hematocrit 23.8 % (41.0-53.0); Hemoglobin 7.9 g/dL (13.5-17.5); Lymphocytes # (auto) 0.9 10 ^3/uL (0.4-5.4); Lymphocytes % (auto) 24.6 % (10.0-50.0); Mean Corpuscular Hemoglobin 26.8 pg (28.0-32.0); Mean Corpuscular Hgb Conc. 33.3 g/dL (32.0-36.0); Mean Corpuscular Volume 80.5 fL (80.0-100.0); Monocytes % (auto) 7.5 % (0.0-12.0); Neutrophils % (auto) 65.5 % (37.0-80.0); Platelet Count (auto) 175 10^3/uL (140-450); Red Blood Cells 2.96 10^6/uL (4.5-5.90); Red Cell Distribution Width 19.3 % (11.8-14.3)
[2024-08-19] MEDS: MIDAZOLAM HCL 2MG/2ML 2ml VIAL (1mg/ml) IV ONE (08:15)
[2024-08-19] MEDS: fentaNYL CITRATE 100 MCG/2 ML VL IV ONE (08:15)
--- NOTE | 2024-08-19 08:59 | DVH ---
CT PELVIS WO CONTRAST, HISTORY: BONE MARROW BX COMPARISON: None PROCEDURE: Informed consent and time-out was performed before the procedure. Conscious sedation was p erformed by the interventional radiology nurse. The pelvic bone was marked, sterilized, draped, and l ocally anesthetized using approximately 9 ml of 1% lidocaine. Axial CT images were used for localizat ion. A 11 gauge [employer] Bone Biopsy kit was used to take 14 mL aspirate and 1 core sample. The biop sy needle was then removed. No immediate complications noted. FINDINGS: Axial CT images demonstrates biopsy needle within the left posterior pelvic bone. IMPRESSION: Successful CT-guided biopsy of the left posterior pelvic bone.
--- NOTE | 2024-08-19 08:59 | DVH ---
PROCEDURE: CT GUIDED BIOPSY OF HISTORY: BONE MARROW BX COMPARISON: None PROCEDURE: Informed consent and time-out was performed before the procedure. Conscious sedation was p erformed by the interventional radiology nurse. The pelvic bone was marked, sterilized, draped, and l ocally anesthetized using approximately 9 ml of 1% lidocaine. Axial CT images were used for localizat ion. A 11 gauge [employer] Bone Biopsy kit was used to take 14 mL aspirate and 1 core sample. The biop sy needle was then removed. No immediate complications noted. FINDINGS: Axial CT images demonstrates biopsy needle within the left posterior pelvic bone. IMPRESSION: Successful CT-guided biopsy of the left posterior pelvic bone.
--- NOTE | 2024-08-19 09:17 | DVHINCON2 ---
Date of service: Aug 19, [address] Pancho Noble Reason for Consultation Microcytic hypochromic anemia History of Present Illness 58 years old gentleman with a past history of type 2 diabetes, hypertension, CVA x3, seizures. He was admitted with severe weakness and tiredness and microcytic hypochromic anemia and some shortness of breath and palpitations. He does complain of having black stools at least for the last one week. No abdominal pains nausea or vomiting On 08/08 [address]1991: White count 10.9 hemoglobin 4.4 hematocrit [address] atelets 267 confirmed on the blood smear with a normal differential. Retic count 0.29. Haptoglobin 195 Normal renal functions and hepatic functions. B12 1647 , TSH 2.38. Total protein 5.4 albumin 3.2 LDH 128 alkaline phosphatase 57 0.6. Serum iron 86 saturation 87.3 (before the transfusion). Direct Ford was negative He has been transfused 4 units of packed red cells The CBC from 08/19/2024 showed a white count of 3.6 hemoglobin 7.9 platelets 175 Stool guaiac is reported negative. Rheumatoid factor less than 10 anti CCP antibodies 0 HIV one and two is negative, COVID is negative CT of the abdomen pelvis without contrast showed cholelithiasis otherwise unremarkable. No splenomegaly or hepatomegaly Chest x-ray showed bibasilar area of scarring or atelectasis No complaints of weight loss. No fevers night sweats Past Medical History Diabetes Hypertension CVA Seizures Family History: Patient reports no known family medical history. Family History Unremarkable for malignancy or hematological disorder Social History No smoking drinking or drugs Allergies: Coded Allergies: No Known Drug Allergy (Verified Allergy, Unknown, 12/25/23) Home Meds Active Scripts Levetiracetam (KEPPRA TABLET) 500 Mg Tb, 500 MG PO BID for 30 Days, #60 TAB Prov:ANNIE JAIME MD 04/17/24 Reported Medications Metformin Hydrochloride (Metformin Hcl) 500 Mg Tab, 1 TAB PO BID, #60 TAB 3 Refills 08/16/24 Losartan Potassium (Losartan Potassium) 50 Mg Tab, 1 TAB PO BID, #30 TAB 5 Refills 08/16/24 Insulin Glargine (Lantus Solostar) 100 Unit/Ml Inj, 10 UNIT SC DAILY, INJ 08/16/24 Itraconazole (Itraconazole) 100 Mg Cap, 200 MG PO DAILY, CAP 2/28/25 Hydrochlorothiazide (Hydrochlorothiazide) 12.5 Mg Cap, 1 CAP PO DAILY, #30 CAP 5 Refills 08/16/24 Insulin Regular (Human) (Humulin R) 100 Unit/Ml Inj, 100 UNIT SUBCUT, INJ 08/16/24 Folic Acid (Folic Acid) 1 Mg Tab, 1 MG PO DAILY, TAB 08/16/24 Fluoxetine HCl (Pmdd) (Fluoxetine HCl) 10 Mg Tab, 10 MG PO DAILY, TAB 08/16/24 Ferrous Sulfate (Ferosul) 325 Mg Tab, 325 MG PO DAILY, TAB 08/16/24 Docusate Sodium (Docusate Sodium) 250 Mg Cap, 250 MG PO DAILY, CAP 08/16/24 Diclofenac Sodium (Topical) (Voltaren Arthritis Pain) 1 % Gel, 1 % EX, GEL 08/16/24 Aspirin (ASPIRIN 81) 81 Mg Tab, 81 MG PO DAILY, TAB 02/16/24 Quetiapine Fumerate (QUETIAPINE FUMARATE) 25 Mg Tab, 12.5 MG PO BID, TAB 02/16/24 Atorvastatin Calcium (ATORVASTATIN CALCIUM) 40 Mg Tab, 40 MG PO HS, TAB 02/16/24 Melatonin (KP MELATONIN) 3 Mg Tab, 3 MG PO QHSP, TAB 02/15/24 Acetaminophen (Acetaminophen) 325 Mg Tab, 325 MG PO Q6HR PRN for PAIN SCALE 1 THRU 6, TAB 02/15/24 Naproxen (NAPROSYN TABLET) 500 Mg Tb, 250 MG PO TIDP, TAB 02/15/24 Carisoprodol (Soma) 350 Mg Tab, 350 MG PO TIDP, TAB 02/15/24 Lorazepam (ATIVAN TABLET) 0.5 Mg Tb, 0.5 MG PO Q6HPRN, TAB 02/15/24 Current Medications Current Medications Medications (Trade) Dose Ordered Sig/Cora Route PRN Reason Start Time Stop Time Status Last Admin Polyethylene Glycol (Miralax 17GM Powder) 17 gm DAILY PO 08/19/24 10:00 Docusate Sodium (Colace Capsule) 100 mg BID PO 08/18/24 22:00 08/18/24 21:25 Vital Signs Vital Signs Date Time Temp Pulse Resp B/P (MAP) Pulse Ox O2 Delivery O2 Flow Rate FiO2 08/19/24 08:30 83 16 93 Room Air* 0 21 08/19/24 05:00 98.0 149/70 (96) 98.0 Physical Exam Moderately built and nourished, in no acute distress, alert and oriented. No jaundice Head and neck: Unremarkable for any masses or neck nodes. No conjunctival or mucosal hemorrhage Lungs: Clear Cardiovascular: S1-S2 heard well Abdomen: No organomegaly, tenderness or ascites. Bowel sounds are present. Extremities: No clubbing edema cyanosis or calf tenderness. Skin: Unremarkable for petechia purpura ecchymosis Lymphadenopathy: None Neurological exam: No focal deficit Labs/Diagnostic Data Labs Test 08/19/24 06:53 08/19/24 06:28 08/18/24 06:50 08/18/24 05:40 Range/Units White Blood Count 3.6 L 4.4-10.8 10^3/uL Red Blood Count 2.96 L 4.5-5.90 10^6/uL Hemoglobin 7.9 L 13.5-17.5 g/dL Hematocrit 23.8 #L 41.0-53.0 % Mean Corpuscular Volume 80.5 80.0-100.0 fL Mean Corpuscular Hemoglobin 26.8 L 28.0-32.0 pg Mean Corpuscular Hemoglobin Concent 33.3 32.0-36.0 g/dL Red Cell Distribution Width 19.3 H 11.8-14.3 % Platelet Count 175 140-450 10^3/uL Mean Platelet Volume 7.9 6.9-10.8 fL Neutrophils (%) (Auto) 65.5 37.0-80.0 % Lymphocytes (%) (Auto) 24.6 10.0-50.0 % Monocytes (%) (Auto) 7.5 0.0-12.0 % Eosinophils (%) (Auto) 1.9 0.0-7.0 % Basophils (%) (Auto) 0.5 0.0-2.0 % Neutrophils # (Auto) 2.4 1.6-8.6 10 ^3/uL Lymphocytes # (Auto) 0.9 0.4-5.4 10 ^3/uL Monocytes # (Auto) 0.3 0-1.3 10 ^3/uL Eosinophils # (Auto) 0.1 0-0.8 10 ^3/uL Basophils # (Auto) 0 0-0.2 10 ^3/uL Nucleated Red Blood Cells 0.0 % Sodium Level 140 136-145 mmol/L Potassium Level 3.6 3.5-5.1 mmol/L Chloride Level 105 98-107 mmol/L Carbon Dioxide Level 26 20-31 mmol/L Anion Gap 9 5-15 Blood Urea Nitrogen 6 L 9-23 mg/dL Creatinine 0.58 L 0.700-1.30 mg/dL Glomerular Filtration Rate Calc 114 >90 mL/min BUN/Creatinine Ratio 10.3 10.0-20.0 Serum Glucose 105 74-106 mg/dL Calcium Level 8.8 8.7-10.4 mg/dL Magnesium Level 1.9 1.6-2.6 mg/dL POC Glucose 107 H 70-106 mg/dl Urine Color Colorless Yellow Urine Clarity Turbid H Clear Urine pH 6.0 5.0-9.0 Urine Specific [place] 1.011 1.001-1.035 Urine Protein Negative Negative Urine Ketones Negative Negative Urine Blood Negative Negative /uL Urine Nitrite Negative Negative Urine Bilirubin Negative Negative Urine Urobilinogen 2 H Negative mg/dL Urine Leukocyte Esterase 1+ Negative /uL Urine RBC <1 0 - 3 /hpf Urine Microscopic WBC 17 H 0-3 /HPF Urine Squamous Epithelial Cells Few <5 /hpf Urine Bacteria Few H None Seen /hpf Urine Glucose Normal Normal mg/dL Total Bilirubin 0.6 0.2-1.0 mg/dL Aspartate Amino Transferase (AST) 12 L 13-40 U/L Alanine Aminotransferase (ALT) < 9 7-40 U/L Alkaline Phosphatase 57 46-116 U/L Total Protein 5.4 L 5.7-8.2 g/dL Albumin 3.2 3.2-4.8 g/dL Test 08/17/24 06:29 08/16/24 21:16 08/16/24 12:55 08/16/24 11:15 Range/Units Haptoglobin 195 29-370 mg/dL Lactate Dehydrogenase 128 120-246 U/L Vitamin B12 Level 1647 H 211-911 pg/mL Blood Gas Specimen Type Arterial Blood Gas Sample Site Right radial Blood Gas Patient Temperature 37.0 Arterial Blood Date Drawn [id number] Arterial Blood pH 7.418 7.350-7.450 Arterial Blood Partial Pressure CO2 41.4 35.0-48.0 mmHg Arterial Blood Partial Pressure O2 108.7 H 83.0-108.0 mmHg Arterial Blood HCO3 26.1 21.0-28.0 mmol/L Arterial Blood Oxygen Saturation 97.3 94.0-98.0 % Arterial Blood Base Excess 1.5 -2.0-3.0 mmol/L Arterial Blood Oxyhemoglobin 96.1 94.0-98.0 % Arterial Blood Carboxyhemoglobin 0.8 0.5-1.5 % Arterial Blood Methemoglobin 0.4 0.0-1.5 % Arun Test Yes Blood Gas Total Hemoglobin 7.50 L 13.5-17.5 g/dL Blood Gas Modality Nasal cannula FiO2 % 28.0 Stool Occult Blood Negative Negative Stool Occult Blood Sample #3 Negative Rheumatoid Factor <10.0 <14.0 IU/mL Anti-Cyclic Citrullinated Peptide 0 0-19 units HIV (1&2) Antibody Negative Negative Test 08/16/24 05:00 08/16/24 03:55 08/15/24 22:00 08/15/24 18:40 Range/Units Platelet Estimate Adequate Anisocytosis (manual) Slight Microcytosis Slight Ovalocytes Few Influenza Type A Antigen Negative Negative Influenza Type B Antigen Negative Negative SARS-CoV-2 Antigen (Rapid) Negative NEGATIVE Reticulocyte Count (auto) 0.29 L 0.5-1.5 % Fibrinogen 405 H 177-375 mg/dL Iron Level 186 H 65-175 ug/dL Total Iron Binding Capacity 213 L 250-425 ug/dL Percent Iron Saturation 87.3 H 20-55 % Ferritin 677.9 H 22-322 ng/mL Direct Bilirubin 0.3 <0.3 mg/dL Ammonia < 10 L 11-32 umol/L Troponin I High Sensitivity 34 </=54 ng/L Plasma/Serum Blood Alcohol 3.4 <10 mg/dL Hypochromasia (manual) Moderate Prothrombin Time 12.1 H 9.3-11.8 sec Prothrombin Time INR 1.16 H 0.9-1.15 Activated Partial Thromboplast Time 25.7 24.5-34.5 SEC D-Dimer, Quantitative 0.34 0.0-0.49 mg/L FEU Hemoglobin A1c 8.9 H <5.7 % A1C B-Type Natriuretic Peptide 67.64 0-100 pg/mL Thyroid Stimulating Hormone (TSH) 2.38 0.55-4.78 uIU/mL Assessment 1. Microcytic hypochromic anemia with black stools, may rule out GI bleeding, iron saturation is increased, may rule out sideroblastic anemia (his hemoglobin on 04/15/2024 was 13.6 and MCV was 75.3). Retic count 0.29% Status post 4 units of packed red cells Direct Ford was negative. LDH is normal A bone marrow biopsy down today Anti CCP antibodies, rheumatoid factor was negative HIV and COVID was negative CT abdomen pelvis was not Chest x-ray showed some atelectasis 2. History of CVA 4. history of type 2 diabetes Plan/Recommendation For the black stools and microcytic hypochromic anemia we will suggest a GI evaluation Wait for the bone marrow report to rule out the possibility of sideroblastic anemia or myelodysplasia Try to keep the hemoglobin over seven Plan discussed with: Patient SARAVANANOSCAR MD Aug 19, 2024 09:17
[2024-08-19 09:39] LABS: Hepatitis B Surface Antibody Negative (Negative); Hepatitis B Surface Antigen Negative (Negative)
[2024-08-19] MEDS: POLYETHYLENE GLYCOL 17 GM PWDR PO SCH (10:12)
[2024-08-19 10:43] LABS: Hepatitis B Core IgM Negative (Negative)
[2024-08-19 11:14] LABS: Folate (Folic Acid) 7.22 ng/mL (>5.38)
[2024-08-19] MEDS: POTASSIUM EFFERVESENT TAB 25 MEQ PO ONE (11:47)
--- NOTE | 2024-08-19 15:54 | DVHPNRES ---
Progress Note Date Seen: Aug 19, 2024 Resident Creating Document: MED BRIONES RESIDENT Medical Necessity Reason Pt with a Central, PICC or Fol: No Subjective Review of Systems Tin Carrion is a 58-year-old male patient who presents to the ED with the complaint of generalized weakness, fatigue and shortness of breath for the past week. Patient reports melena. Reports that last bowel movement was more than 1 week ago. Denies chest pain/cough/diarrhea/fevers/chills. Patient is a poor historian, lives at [facility]. Per chart review, his O2 saturation [facility] around [facility] therefore he was sent to the ER. Denies lifetime history of colonoscopy. 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 Patient refers to have had a brain bleed two years ago (patient has mild-moderate amnesia) Surgical history: Thrombectomy Family history: Noncontributory Social history: Lives in assisted living facility. Denies current tobacco, alcohol and other drug abuse Allergies: Denies Home medication: Tylenol, aspirin 81 mg p.o. daily, atorvastatin 40 mg p.o. daily, carisoprodol 350 mg p.o. t.i.d., lorazepam 0.5 mg p.o. p.r.n., melatonin 3 mg p.o. daily, Naprosyn 500 mg p.o. t.i.d., quetiapine 12.5 PO bid, levetiracetam 500 mg p.o. bid Admitted in 2024 for breakthrough seizure.Patient was seen by Neurology, continue on Keppra 500 twice a day. 08/16 - Patient seen and examined at bedside. Rectal exam performed, normal tone, no hemorrhoids, no masses felt, prostatomegaly, no active bleeding, dark brown stool collected sent to lab, stool occult negative. CT head ordered, ABG ordered. 08/18-patient seen and examined at bedside. Denies urinary complaints but UA shows UTI. IV ceftriaxone started. Patient declined Hawkins catheter he is incontinent. Hemoglobin dropped to 6.9, 1 packed RBC transfused. 08/19-patient seen and examined at the bedside hemoglobin stable. Consulted GI. Objective vital signs Vital Sign Date Time Temp Pulse Resp B/P (MAP) Pulse Ox O2 Delivery O2 Flow Rate FiO2 08/19/24 12:34 98.2 87 18 112/71 (85) 95 98.2 08/19/24 08:30 Room Air* 0 21 Total Intake and Output 08/18/24 08/18/24 08/19/24 15:00 23:00 07:00 Intake Total 50 ml 537 ml 0 ml Balance 50 ml 537 ml 0 ml medications Current Medications Medications Dose Ordered Sig/Cora Route Start Time Stop Time Status Last Admin Dose Admin Sodium Chloride 10 ml Q8HR IV 08/15/24 22:00 08/19/24 06:00 10 ML Acetaminophen 650 mg Q6HP PRN PO 08/15/24 21:45 Nitroglycerin 0.4 mg Q5MINP PRN SL 08/15/24 21:45 Morphine Sulfate 2 mg Q30M PRN IV 08/15/24 21:45 Pantoprazole Sodium 40 mg DAILY IV 08/16/24 10:00 08/19/24 10:12 40 MG Diagnostic Test (Pha) 1 strip ACHS 08/16/24 07:00 08/19/24 11:47 1 STRIP Insulin Human Regular ACHS SC 08/16/24 07:00 08/19/24 11:50 2 UNITS Dextrose 50 ml UD PRN IV 08/16/24 00:00 Atorvastatin Calcium 40 mg HS PO 08/16/24 22:00 Levetiracetam 500 mg BID PO 08/16/24 10:00 08/19/24 10:12 500 MG Lorazepam 0.5 mg Q6HP PRN IV 08/16/24 00:30 Quetiapine Fumarate 25 mg BID PO 08/16/24 10:00 08/19/24 10:12 25 MG Ceftriaxone Sodium 50 ml @ 100 mls/hr DAILY@09 IV 08/18/24 09:00 08/19/24 08:55 100 MLS/HR Polyethylene Glycol 17 gm DAILY PO 08/19/24 10:00 08/19/24 10:12 17 GM Docusate Sodium 100 mg BID PO 08/18/24 22:00 08/19/24 10:12 100 MG Examination Patient lying in bed, in no acute distress General: Well-built, afebrile, palor, mucosae are moist Cardiovascular: Regular S1 and S2. No murmurs, gallops or rubs. No JVD elevation. Minimal pitting edema bilaterally Respiratory: Bilateral basilar crackles heard on auscultation. Abdomen: Soft, nontender, nondistended, normoactive bowel sounds, no rebound tenderness, no organomegaly, no masses. Rectal exam performed, normal tone, no hemorrhoids, no masses felt, prostatomegaly, no active bleeding, dark brown stool collected sent to lab, stool occult negative Genitourinary: Deferred MSK/skin: Mobilizes 4 limbs. Skin is dry and warm Neurological: No motor, no sensitive deficits, normal speech. Pupils are isocoric and reactive. Psych/Mental Status: A/Ox3 laboratory and microbiology Laboratory Tests 08/19/24 06:53 Test 08/19/24 06:53 Range/Units Serum Glucose 105 74-106 mg/dL Microbiology Date/Time Source Procedure Growth Status 08/18/24 06:50 Voided Urine Urine Culture - Preliminary Resulted Labs and/or images reviewed: Labs reviewed by me, Image(s) reviewed by me Problem List/Assessment/Plan Problem List/Assessment/Plan Severe microcytic anemia with minimal reticulocyte count requiring transfusion Iron-deficiency versus chronic anemia versus thalassemia versus sideroblastic anemia with increased iron and ferritin status post bone marrow biopsy 08/19 Reticulocyte production index 0 Retic count 0.29 Hemoglobin 13.6 on 03/2024 Hemoglobin on arrival 4.4, MCV 68 - transfuse 3 packed RBCs, 1 pending [employer] Consultant consulted-recommends marrow biopsy by Radiology and sent for pathology, flow cytometry and cytogenetic CT abdomen unremarkable Stool occult is negative. Rectal exam performed, normal tone, no hemorrhoids, no masses felt, prostatomegaly, no active bleeding, dark brown stool collected sent to lab, stool occult negative Ferritin 600s Fibrinogen/D-dimer unremarkable rheumatoid/HIV panel unremarkable EBV studies pending, hepatitis panel pending, SUKH pending ABG unremarkable GI consulted. Prior CVA Head CT shows moderately large old stroke involving the right anterior watershed and associated right frontal lobe Holding aspirin for now Atorvastatin 40 mg daily Constipation: X-ray KUB shows nonobstructive bowel gas pattern Docusate 100 mg b.i.d. along with MiraLax 17 g p.o. daily Acute cystitis IV ceftriaxone starting 08/18 Urine bacterial culture showing Gram-negative rods Type 2 diabetes mellitus-hemoglobin A1c 8.9 On ISS History of stroke Seizure disorder Continue home medication Keppra 500 b.i.d. PUD PPX: Protonix VTE PPX: SCD ( no lovenox bc anemic) Diet: Cardiac diet , pending GI consultation Plan discussed with patient in which all questions have been answered Goals of care discussed with patient for more than 27 minutes, full code status Case discussed with Dr. Hanson Plan discussed with: Patient My Orders My Orders Orders - MED BRIONES Procedure Category Date Status Time Ct Guidance For CT 08/19/24 Resulted Needle Placeme 08:[address] 08/19/24 Resulted 08:18 * Dietary Consult CONS 08/19/24 Transmitted 09:23 * Wound Consult CONS 08/19/24 Transmitted Cardiac DIET 08/19/24 Transmitted Diet-2gna,Lofat,Lochol Lunch * Gi Dvh Geochemical Manager CONS 08/19/24 Transmitted 11:29 Dietary Evaluation Review Recommendations by RD: Dietary education by RD Comments: 1) Advance to 60g CCHO cardiac diet when medically feasible, per AT [employer] SPECIALIST approval 2) Consider ferrous sulfate @ 325 mg qd if iron-deficiency anemia does not improve s/p additional PRBC 3) Continue to monitor appetite, labs, and skin integrity. Will consider oral nutrition supplementation if PO intake drops < 50%. 4) F/u with oncology and hematology 5) Refer to outpatient RD/CDCES for diabetes education d/t uncontrolled HbA1c - 8.9% Expected Outcomes/Goals: 1) appetite and labs to improve 2) diet to advance 3) skin integrity to improve 4) f/u in 5 days CC Plasma Assessment Blood Product Administration S: [id number] Date of Service: Aug 19, 2024 Billing Provider: STAN TAYLOR MD Common Visit Codes: [id number] INP/OBS CARE(HIGH) MED BRIONES Aug 19, 2024 15:54 STAN TAYLOR MD Aug 26, 2024 01:35
[2024-08-20] VITALS (8 sets, daily range): BP systolic 106–148; BP diastolic 56–82; PULSE 68–88; RESP 17–20; TEMP 97.7–98.6; O2SAT 93–98
[2024-08-20 08:11] LABS: Anion Gap 7 (5-15); Carbon Dioxide 29 mmol/L (20-31); Chloride 105 mmol/L (98-107); Potassium 3.5 mmol/L (3.5-5.1); Sodium 141 mmol/L (136-145)
[2024-08-20 08:12] LABS: Calcium 8.9 mg/dL (8.7-10.4)
[2024-08-20 08:13] LABS: Basophils # (auto) 0 10 ^3/uL (0-0.2); Basophils % (auto) 0.7 % (0.0-2.0); Eosinophils # (auto) 0.1 10 ^3/uL (0-0.8); Monocytes # (auto) 0.3 10 ^3/uL (0-1.3); Nucleated Red Blood Cells % 0.2 %
[2024-08-20 08:16] LABS: Eosinophils % (auto) 2.4 % (0.0-7.0); Hematocrit 23.7 % (41.0-53.0); Hemoglobin 8.2 g/dL (13.5-17.5); Mean Corpuscular Hemoglobin 27.4 pg (28.0-32.0); Mean Corpuscular Hgb Conc. 34.4 g/dL (32.0-36.0); Mean Corpuscular Volume 79.7 fL (80.0-100.0); Monocytes % (auto) 9.1 % (0.0-12.0); Neutrophils % (auto) 57.8 % (37.0-80.0); Platelet Count (auto) 185 10^3/uL (140-450); Red Blood Cells 2.98 10^6/uL (4.5-5.90); Red Cell Distribution Width 19.8 % (11.8-14.3); White Blood Cell 3.4 10^3/uL (4.4-10.8)
[2024-08-20 08:17] LABS: BUN/Creatinine Ratio 9.7 (10.0-20.0)
[2024-08-20 08:18] LABS: Blood Urea Nitrogen 6 mg/dL (9-23); Glucose 113 mg/dL (74-106); Magnesium 1.9 mg/dL (1.6-2.6)
[2024-08-20] MEDS: POTASSIUM EFFERVESENT TAB 25 MEQ PO ONE (11:58)
--- NOTE | 2024-08-20 14:35 | DVHPNRES ---
Progress Note Date Seen: Aug 20, 2024 Resident Creating Document: MED BRIONES RESIDENT Medical Necessity Reason Pt with a Central, PICC or Fol: No Subjective Review of Systems Tin Carrion is a 58-year-old male patient who presents to the ED with the complaint of generalized weakness, fatigue and shortness of breath for the past week. Patient reports melena. Reports that last bowel movement was more than 1 week ago. Denies chest pain/cough/diarrhea/fevers/chills. Patient is a poor historian, [facility]. Per chart review, [facility] therefore he was sent to the ER. Denies lifetime history of colonoscopy. 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 Patient refers to have had a brain bleed two years ago (patient has mild-moderate amnesia) Surgical history: Thrombectomy Family history: Noncontributory Social history: Lives in assisted living facility. Denies current tobacco, alcohol and other drug abuse Allergies: Denies Home medication: Tylenol, aspirin 81 mg p.o. daily, atorvastatin 40 mg p.o. daily, carisoprodol 350 mg p.o. t.i.d., lorazepam 0.5 mg p.o. p.r.n., melatonin 3 mg p.o. daily, Naprosyn 500 mg p.o. t.i.d., quetiapine 12.5 PO bid, levetiracetam 500 mg p.o. bid Admitted in 2024 for breakthrough seizure.Patient was seen by Neurology, continue on Keppra 500 twice a day. 08/16 - Patient seen and examined at bedside. Rectal exam performed, normal tone, no hemorrhoids, no masses felt, prostatomegaly, no active bleeding, dark brown stool collected sent to lab, stool occult negative. CT head ordered, ABG ordered. 08/18-patient seen and examined at bedside. Denies urinary complaints but UA shows UTI. IV ceftriaxone started. Patient declined Hawkins catheter he is incontinent. Hemoglobin dropped to 6.9, 1 packed RBC transfused. 08/19-patient seen and examined at the bedside hemoglobin stable. Consulted GI. 08/20 - patient seen and examined at the bedside, hemoglobin 8.2 today., GI recommended EGD, patient agreed. EGD planned for 08/21. Objective vital signs Vital Sign Date Time Temp Pulse Resp B/P (MAP) Pulse Ox O2 Delivery O2 Flow Rate FiO2 08/20/24 13:00 97.8 83 17 134/82 (99) 93 97.8 08/20/24 08:29 Room Air* 0 21 Total Intake and Output 08/19/24 08/19/24 08/20/24 15:00 23:00 07:00 Intake Total 50 ml 400 ml 900 ml Balance 50 ml 400 ml 900 ml medications Current Medications Medications Dose Ordered Sig/Cora Route Start Time Stop Time Status Last Admin Dose Admin Sodium Chloride 10 ml Q8HR IV 08/15/24 22:00 08/20/24 05:27 10 ML Acetaminophen 650 mg Q6HP PRN PO 08/15/24 21:45 Nitroglycerin 0.4 mg Q5MINP PRN SL 08/15/24 21:45 Morphine Sulfate 2 mg Q30M PRN IV 08/15/24 21:45 Pantoprazole Sodium 40 mg DAILY IV 08/16/24 10:00 08/20/24 09:54 40 MG Diagnostic Test (Pha) 1 strip ACHS 08/16/24 07:00 08/20/24 11:58 1 STRIP Insulin Human Regular ACHS SC 08/16/24 07:00 08/20/24 12:01 3 UNITS Dextrose 50 ml UD PRN IV 08/16/24 00:00 Atorvastatin Calcium 40 mg HS PO 08/16/24 22:00 08/19/24 22:10 40 MG Levetiracetam 500 mg BID PO 08/16/24 10:00 08/20/24 09:55 500 MG Lorazepam 0.5 mg Q6HP PRN IV 08/16/24 00:30 Quetiapine Fumarate 25 mg BID PO 08/16/24 10:00 08/19/24 22:10 25 MG Ceftriaxone Sodium 50 ml @ 100 mls/hr DAILY@09 IV 08/18/24 09:00 08/20/24 09:54 100 MLS/HR Polyethylene Glycol 17 gm DAILY PO 08/19/24 10:00 08/20/24 09:54 17 GM Docusate Sodium 100 mg BID PO 08/18/24 22:00 08/20/24 09:55 100 MG Examination Patient lying in bed, in no acute distress General: Well-built, afebrile, palor, mucosae are moist Cardiovascular: Regular S1 and S2. No murmurs, gallops or rubs. No JVD elevation. Minimal pitting edema bilaterally Respiratory: Bilateral basilar crackles heard on auscultation. Abdomen: Soft, nontender, nondistended, normoactive bowel sounds, no rebound tenderness, no organomegaly, no masses. Rectal exam performed, normal tone, no hemorrhoids, no masses felt, prostatomegaly, no active bleeding, dark brown stool collected sent to lab, stool occult negative Genitourinary: Deferred MSK/skin: Mobilizes 4 limbs. Skin is dry and warm Neurological: No motor, no sensitive deficits, normal speech. Pupils are isocoric and reactive. Psych/Mental Status: A/Ox3 laboratory and microbiology Laboratory Tests 08/20/24 07:37 Test 08/20/24 07:37 Range/Units Serum Glucose 113 H 74-106 mg/dL Microbiology Date/Time Source Procedure Growth Status 08/18/24 06:50 Voided Urine Urine Culture - Final Escherichia coli Complete Labs and/or images reviewed: Labs reviewed by me, Image(s) reviewed by me Problem List/Assessment/Plan Problem List/Assessment/Plan Severe microcytic anemia with minimal reticulocyte count requiring transfusion Iron-deficiency versus chronic anemia versus thalassemia versus sideroblastic anemia with increased iron and ferritin status post bone marrow biopsy 08/19 Reticulocyte production index 0 Retic count 0.29 Hemoglobin 13.6 on 03/2024 Hemoglobin on arrival 4.4, MCV 68 - transfuse 3 packed RBCs, 1 pending 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 Rectal exam performed, normal tone, no hemorrhoids, no masses felt, prostatomegaly, no active bleeding, dark brown stool collected sent to lab, stool occult negative Ferritin 600s Fibrinogen/D-dimer unremarkable rheumatoid/HIV panel unremarkable EBV studies pending, hepatitis panel pending, SUKH pending ABG unremarkable GI consulted, scheduled for EGD 08/21. NPO after midnight. Prior CVA Head CT shows moderately large old stroke involving the right anterior watershed and associated right frontal lobe Holding aspirin for now Atorvastatin 40 mg daily Constipation: X-ray KUB shows nonobstructive bowel gas pattern Docusate 100 mg b.i.d. along with MiraLax 17 g p.o. daily Acute cystitis IV ceftriaxone starting 08/18 Urine bacterial culture showing Gram-negative rods Type 2 diabetes mellitus-hemoglobin A1c 8.9 On ISS History of stroke Seizure disorder Continue home medication Keppra 500 b.i.d. PUD PPX: Protonix VTE PPX: SCD ( no lovenox bc anemic) Diet: Cardiac diet , NPO after midnight Scheduled for EGD 08/21 Plan discussed with patient in which all questions have been answered Goals of care discussed with patient for more than 27 minutes, full code status Case discussed with Dr. 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 Will consider oral nutrition supplementation if PO intake drops < 50%. 4) F/u with oncology and hematology 5) Refer to outpatient RD/CDCES for diabetes education d/t uncontrolled HbA1c - 8.9% Expected Outcomes/Goals: 1) appetite and labs to improve 2) diet to advance 3) skin integrity to improve 4) f/u in 5 days CC Plasma Assessment Blood Product Administration S: 2227 Date of Service: Aug 20, 2024 Billing Provider: STAN TAYLOR MD Common Visit Codes: [id number] INP/OBS CARE(HIGH) MED BRIONES Aug 20, 2024 14:35 STAN TAYLOR MD Aug 26, 2024 01:57
--- NOTE | 2024-08-20 17:08 | DVHINCON2 ---
Date of service: Aug 20, [address] Noble Reason for Consultation Microcytic anemia History of Present Illness 58 years old gentleman with a past history of type 2 diabetes, hypertension, CVA x3, seizures. He was admitted with severe weakness and tiredness and microcytic hypochromic anemia and some shortness of breath and palpitations. He does complain of having black stools at least for the last one week. No abdominal pains nausea or vomiting. Patient has not had a recent endoscopy or colonoscopy Patient states he had a history of anemia since his childhood. Stool guaiac is reported negative. Patient underwent a bone marrow biopsy yesterday and is be ing evaluated by Hematology CT of the abdomen pelvis without contrast showed cholelithiasis otherwise unremarkable. No splenomegaly or hepatomegaly Chest x-ray showed bibasilar area of scarring or atelectasis Patient initially had a hemoglobin of 4.4 and has received 4 units PRBC. 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 Allergies: Coded Allergies: No Known Drug Allergy (Verified Allergy, Unknown, 12/25/23) Home Meds Active Scripts Levetiracetam (KEPPRA TABLET) 500 Mg Tb, 500 MG PO BID for 30 Days, #60 TAB Prov:ANNIE JAIME MD 04/17/24 Reported Medications Metformin Hydrochloride (Metformin Hcl) 500 Mg Tab, 1 TAB PO BID, #60 TAB 3 Refills 08/16/24 Losartan Potassium (Losartan Potassium) 50 Mg Tab, 1 TAB PO BID, #30 TAB 5 Refills 08/16/24 Insulin Glargine (Lantus Solostar) 100 Unit/Ml Inj, 10 UNIT SC DAILY, INJ 08/16/24 Itraconazole (Itraconazole) 100 Mg Cap, 200 MG PO DAILY, CAP 08/16/24 Hydrochlorothiazide (Hydrochlorothiazide) 12.5 Mg Cap, 1 CAP PO DAILY, #30 CAP 5 Refills 08/16/24 Insulin Regular (Human) (Humulin R) 100 Unit/Ml Inj, 100 UNIT SUBCUT, INJ 08/16/24 Folic Acid (Folic Acid) 1 Mg Tab, 1 MG PO DAILY, TAB 08/16/24 Fluoxetine HCl (Pmdd) (Fluoxetine HCl) 10 Mg Tab, 10 MG PO DAILY, TAB 08/16/24 Ferrous Sulfate (Ferosul) 325 Mg Tab, 325 MG PO DAILY, TAB 08/16/24 Docusate Sodium (Docusate Sodium) 250 Mg Cap, 250 MG PO DAILY, CAP 08/16/24 Diclofenac Sodium (Topical) (Voltaren Arthritis Pain) 1 % Gel, 1 % EX, GEL 08/16/24 Aspirin (ASPIRIN 81) 81 Mg Tab, 81 MG PO DAILY, TAB 02/16/24 Quetiapine Fumerate (QUETIAPINE FUMARATE) 25 Mg Tab, 12.5 MG PO BID, TAB 02/16/24 Atorvastatin Calcium (ATORVASTATIN CALCIUM) 40 Mg Tab, 40 MG PO HS, TAB 02/16/24 Melatonin (KP MELATONIN) 3 Mg Tab, 3 MG PO QHSP, TAB 02/15/24 Acetaminophen (Acetaminophen) 325 Mg Tab, 325 MG PO Q6HR PRN for PAIN SCALE 1 THRU 6, TAB 02/15/24 Naproxen (NAPROSYN TABLET) 500 Mg Tb, 250 MG PO TIDP, TAB 02/15/24 Carisoprodol (Soma) 350 Mg Tab, 350 MG PO TIDP, TAB 02/15/24 Lorazepam (ATIVAN TABLET) 0.5 Mg Tb, 0.5 MG PO Q6HPRN, TAB 02/15/24 Vital Signs Vital Signs Date Time Temp Pulse Resp B/P (MAP) Pulse Ox O2 Delivery O2 Flow Rate FiO2 08/20/24 13:00 97.8 83 17 134/82 (99) 93 97.8 08/20/24 08:29 Room Air* 0 21 Physical Exam Moderately built and nourished, in no acute distress, alert and oriented. Head and neck: Pupils equal and react to light, no scleral icterus No conjunctival or mucosal hemorrhage Lungs: Clear Cardiovascular: S1-S2 heard well Abdomen: No organomegaly, tenderness or ascites. Bowel sounds are present. Extremities: No clubbing edema cyanosis or calf tenderness. Skin: Unremarkable for petechia purpura ecchymosis Lymphadenopathy: None Neurological exam: No focal deficit Labs/Diagnostic Data Labs Test 08/20/24 11:36 08/20/24 07:37 08/18/24 06:50 08/18/24 05:40 Range/Units POC Glucose 172 H 70-106 mg/dl White Blood Count 3.4 L 4.4-10.8 10^3/uL Red Blood Count 2.98 L 4.5-5.90 10^6/uL Hemoglobin 8.2 L 13.5-17.5 g/dL Hematocrit 23.7 L 41.0-53.0 % Mean Corpuscular Volume 79.7 L 80.0-100.0 fL Mean Corpuscular Hemoglobin 27.4 L 28.0-32.0 pg Mean Corpuscular Hemoglobin Concent 34.4 32.0-36.0 g/dL Red Cell Distribution Width 19.8 H 11.8-14.3 % Platelet Count 185 140-450 10^3/uL Mean Platelet Volume 8.1 6.9-10.8 fL Neutrophils (%) (Auto) 57.8 37.0-80.0 % Lymphocytes (%) (Auto) 30.0 10.0-50.0 % Monocytes (%) (Auto) 9.1 0.0-12.0 % Eosinophils (%) (Auto) 2.4 0.0-7.0 % Basophils (%) (Auto) 0.7 0.0-2.0 % Neutrophils # (Auto) 2.0 1.6-8.6 10 ^3/uL Lymphocytes # (Auto) 1.0 0.4-5.4 10 ^3/uL Monocytes # (Auto) 0.3 0-1.3 10 ^3/uL Eosinophils # (Auto) 0.1 0-0.8 10 ^3/uL Basophils # (Auto) 0 0-0.2 10 ^3/uL Nucleated Red Blood Cells 0.2 % Sodium Level 141 136-145 mmol/L Potassium Level 3.5 3.5-5.1 mmol/L Chloride Level 105 98-107 mmol/L Carbon Dioxide Level 29 20-31 mmol/L Anion Gap 7 5-15 Blood Urea Nitrogen 6 L 9-23 mg/dL Creatinine 0.62 L 0.700-1.30 mg/dL Glomerular Filtration Rate Calc 112 >90 mL/min BUN/Creatinine Ratio 9.7 L 10.0-20.0 Serum Glucose 113 H 74-106 mg/dL Calcium Level 8.9 8.7-10.4 mg/dL Magnesium Level 1.9 1.6-2.6 mg/dL Urine Color Colorless Yellow Urine Clarity Turbid H Clear Urine pH 6.0 5.0-9.0 Urine Specific [place] 1.011 1.001-1.035 Urine Protein Negative Negative Urine Ketones Negative Negative Urine Blood Negative Negative /uL Urine Nitrite Negative Negative Urine Bilirubin Negative Negative Urine Urobilinogen 2 H Negative mg/dL Urine Leukocyte Esterase 1+ Negative /uL Urine RBC <1 0 - 3 /hpf Urine Microscopic WBC 17 H 0-3 /HPF Urine Squamous Epithelial Cells Few <5 /hpf Urine Bacteria Few H None Seen /hpf Urine Glucose Normal Normal mg/dL Total Bilirubin 0.6 0.2-1.0 mg/dL Aspartate Amino Transferase (AST) 12 L 13-40 U/L Alanine Aminotransferase (ALT) < 9 7-40 U/L Alkaline Phosphatase 57 46-116 U/L Total Protein 5.4 L 5.7-8.2 g/dL Albumin 3.2 3.2-4.8 g/dL Test 08/17/24 06:29 08/16/24 21:16 08/16/24 12:55 08/16/24 11:15 Range/Units Haptoglobin 195 29-370 mg/dL Lactate Dehydrogenase 128 120-246 U/L Vitamin B12 Level 1647 H 211-911 pg/mL Folic Acid 7.22 >5.38 ng/mL Blood Gas Specimen Type Arterial Blood Gas Sample Site Right radial Blood Gas Patient Temperature 37.0 Arterial Blood Date Drawn [id number] Arterial Blood pH 7.418 7.350-7.450 Arterial Blood Partial Pressure CO2 41.4 35.0-48.0 mmHg Arterial Blood Partial Pressure O2 108.7 H 83.0-108.0 mmHg Arterial Blood HCO3 26.1 21.0-28.0 mmol/L Arterial Blood Oxygen Saturation 97.3 94.0-98.0 % Arterial Blood Base Excess 1.5 -2.0-3.0 mmol/L Arterial Blood Oxyhemoglobin 96.1 94.0-98.0 % Arterial Blood Carboxyhemoglobin 0.8 0.5-1.5 % Arterial Blood Methemoglobin 0.4 0.0-1.5 % Arun Test Yes Blood Gas Total Hemoglobin 7.50 L 13.5-17.5 g/dL Blood Gas Modality Nasal cannula FiO2 % 28.0 Stool Occult Blood Negative Negative Stool Occult Blood Sample #3 Negative Rheumatoid Factor <10.0 <14.0 IU/mL Anti-Cyclic Citrullinated Peptide 0 0-19 units Hepatitis B Surface Antigen Negative Negative Hepatitis B Surface Antibody Negative Negative Hepatitis B Core IgM Antibody Negative Negative HIV (1&2) Antibody Negative Negative Test 08/16/24 05:00 08/16/24 03:55 08/15/24 22:00 08/15/24 18:40 Range/Units Platelet Estimate Adequate Anisocytosis (manual) Slight Microcytosis Slight Ovalocytes Few Influenza Type A Antigen Negative Negative Influenza Type B Antigen Negative Negative SARS-CoV-2 Antigen (Rapid) Negative NEGATIVE Reticulocyte Count (auto) 0.29 L 0.5-1.5 % Fibrinogen 405 H 177-375 mg/dL Iron Level 186 H 65-175 ug/dL Total Iron Binding Capacity 213 L 250-425 ug/dL Percent Iron Saturation 87.3 H 20-55 % Ferritin 677.9 H 22-322 ng/mL Direct Bilirubin 0.3 <0.3 mg/dL Ammonia < 10 L 11-32 umol/L Troponin I High Sensitivity 34 </=54 ng/L Plasma/Serum Blood Alcohol 3.4 <10 mg/dL Hypochromasia (manual) Moderate Prothrombin Time 12.1 H 9.3-11.8 sec Prothrombin Time INR 1.16 H 0.9-1.15 Activated Partial Thromboplast Time 25.7 24.5-34.5 SEC D-Dimer, Quantitative 0.34 0.0-0.49 mg/L FEU Hemoglobin A1c 8.9 H <5.7 % A1C B-Type Natriuretic Peptide 67.64 0-100 pg/mL Thyroid Stimulating Hormone (TSH) 2.38 0.55-4.78 uIU/mL Microbiology Date/Time Source Procedure Growth Status 08/18/24 06:50 Voided Urine Urine Culture - Final Escherichia coli Complete Problems(with codes): (1) Generalized weakness (2) Severe anemia (3) Seizure (4) Diabetes mellitus with hyperglycemia (5) Hypertensive urgency Plan/Recommendation Plan I will plan an endoscopy for 08/21/2024 NPO after midnight Protonix 40 mg IV daily Continue to monitor labs Elective colonoscopy to be considered after the above if there was no active source of GI bleeding Plan discussed with: Patient, Other (Nurse) IRMA NERI MD Aug 20, 2024 17:08
[2024-08-21] VITALS (9 sets, daily range): BP systolic 120–144; BP diastolic 69–91; PULSE 75–85; RESP 16–19; TEMP 97.4–97.9; O2SAT 91–100
--- NOTE | 2024-08-21 05:18 | DVH ---
EXAM: XR Chest, 1 View CLINICAL INDICATION: Procedure TECHNIQUE: Frontal view of the chest. COMPARISON: XY CHEST PORTABLE on DOS: 08/15/24 FINDINGS: LUNGS AND PLEURAL SPACES: Unremarkable. No consolidation. No pneumothorax. HEART: Unremarkable. No cardiomegaly. MEDIASTINUM: Unremarkable. Normal mediastinal contour. BONES/JOINTS: Unremarkable. No acute fracture. OTHER FINDINGS: . None. IMPRESSION: No acute cardiopulmonary process.
[2024-08-21 06:06] LABS: Basophils # (auto) 0 10 ^3/uL (0-0.2); Basophils % (auto) 0.7 % (0.0-2.0); Eosinophils # (auto) 0.1 10 ^3/uL (0-0.8); Lymphocytes # (auto) 1.2 10 ^3/uL (0.4-5.4); Monocytes # (auto) 0.4 10 ^3/uL (0-1.3); Neutrophils # (auto) 1.8 10 ^3/uL (1.6-8.6)
[2024-08-21 06:09] LABS: Eosinophils % (auto) 3.4 % (0.0-7.0); Hematocrit 23.3 % (41.0-53.0); Hemoglobin 7.9 g/dL (13.5-17.5); Lymphocytes % (auto) 34.2 % (10.0-50.0); Mean Corpuscular Hemoglobin 27.2 pg (28.0-32.0); Mean Corpuscular Hgb Conc. 34.1 g/dL (32.0-36.0); Mean Corpuscular Volume 79.8 fL (80.0-100.0); Monocytes % (auto) 11.1 % (0.0-12.0); Neutrophils % (auto) 50.6 % (37.0-80.0); Nucleated Red Blood Cells % 0.1 %; Platelet Count (auto) 191 10^3/uL (140-450); Red Blood Cells 2.92 10^6/uL (4.5-5.90); Red Cell Distribution Width 19.6 % (11.8-14.3); White Blood Cell 3.5 10^3/uL (4.4-10.8)
[2024-08-21 06:20] LABS: INR 1.19 (0.9-1.15); Partial Thromboplastin Time 29.2 SEC (24.5-34.5); Prothrombin Time 12.4 sec (9.3-11.8)
[2024-08-21 06:25] LABS: Chloride 101 mmol/L (98-107); Potassium 3.5 mmol/L (3.5-5.1); Sodium 139 mmol/L (136-145)
[2024-08-21 06:26] LABS: Anion Gap 5 (5-15); Calcium 9.2 mg/dL (8.7-10.4)
[2024-08-21 06:31] LABS: BUN/Creatinine Ratio 9.5 (10.0-20.0)
[2024-08-21 06:32] LABS: Magnesium 1.7 mg/dL (1.6-2.6)
[2024-08-21 06:34] LABS: Blood Urea Nitrogen 6 mg/dL (9-23); Carbon Dioxide 33 mmol/L (20-31); Glucose 110 mg/dL (74-106)
[2024-08-21] MEDS ORDERED: LIDOCAINE 2% (LOCAL ANESTH.) PF 5ml SDV ONE (12:00)
[2024-08-21] MEDS ORDERED: fentaNYL CITRATE 100 MCG/2 ML VL ONE (12:00)
[2024-08-21] MEDS ORDERED: PROPOFOL 10 MG/ML 20 ML IV ONE (12:00)
[2024-08-21] MEDS ORDERED: ONDANSETRON HCL 4 MG/2 ML VIAL ONE (12:00)
[2024-08-21] MEDS ORDERED: MIDAZOLAM HCL 2MG/2ML 2ml VIAL (1mg/ml) ONE (12:00)
[2024-08-21] MEDS ORDERED: GLYCOPYRROLATE 0.2 MG/ML 1ML VIAL ONE (12:01)
[2024-08-21] MEDS ORDERED: HYDROmorphone HCL 2 MG/ML VL/or syr IV PRN (12:30)
--- NOTE | 2024-08-21 12:56 | DVHOP2 ---
Operative Report DATE OF OPERATION: 08/21/24 PROCEDURE: Upper Endoscopy with biopsy. PREOPERATIVE INDICATION: The patient is a 58 -year-old male undergoing endoscopy for anemia POSTOPERATIVE DIAGNOSES: 1. Mild gastroduodenitis with some superficial erosions 2. 0.5-1 cm sliding-type hiatal hernia otherwise normal examination up to the 2nd and 3rd part of the duodenum PROCEDURE PERFORMED BY: Irma Alejandre GI NURSE: Laura SCOPE: Olympus videoendoscope. ASA CLASS: PREOPERATIVE MEDICATIONS: Dr. Shiva Suggs PROCEDURE IN DETAIL: After obtaining an informed consent, the patient was placed on left lateral decubitus position. The patient was then sedated with th e above medications. A bite block was placed between her teeth. The endoscope was then passed through the oropharynx, into the esophagus, and through the stomach and pylorus up to the second and third part of the duodenum. The endoscope was then withdrawn. The 2nd and 3rd part of the duodenal were normal. Duodenal bulb showed mild duodenitis with hyperemia erythema The pre-pyloric area antrum and distal body showed mild gastritis with superficial gastric erosions. There was no fresh or old blood in the stomach On retroflexion the fundus cardia and angularis were normal. Gastric biopsies were obtained. The endoscope was then withdrawn into the distal esophagus. Patient had a 0.5-1 cm sliding-type hiatal hernia with no significant erosive esophagitis. The remaining distal and proximal esophagus and oropharynx were unremarkable The patient tolerated the procedure well without difficulty. COMPLICATIONS : None SPECIMENS: Duodenal biopsies Gastric biopsies DISPOSITION: Transfer back to the floor Stable PLAN: 1. Await for biopsy result 2. Will place pt on Protonix 40 mg bid p.o. 3. Carafate 1 g p.o. 2 times a day 4. Clear liquid diet bowel prep and schedule colonoscopy on 08/23/2024 IRMA ALEJANDRE MD Aug 21, 2024 12:56
--- NOTE | 2024-08-21 14:46 | DVHPNRES ---
Progress Note Date Seen: Aug 21, 2024 Resident Creating Document: MED BRIONES RESIDENT Medical Necessity Reason Pt with a Central, PICC or Fol: No Subjective Review of Systems Tin Carrion is a 58-year-old male patient who presents to the ED with the complaint of generalized weakness, fatigue and shortness of breath for the past week. Patient reports melena. Reports that last bowel movement was more than 1 week ago. Denies chest pain/cough/diarrhea/fevers/chills. Patient is a poor historian, lives at [facility]. Per chart review, [facility] therefore he was sent to the ER. Denies lifetime history of colonoscopy. 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 Patient refers to have had a brain bleed two years ago (patient has mild-moderate amnesia) Surgical history: Thrombectomy Family history: Noncontributory Social history: Lives in assisted living facility. Denies current tobacco, alcohol and other drug abuse Allergies: Denies Home medication: Tylenol, aspirin 81 mg p.o. daily, atorvastatin 40 mg p.o. daily, carisoprodol 350 mg p.o. t.i.d., lorazepam 0.5 mg p.o. p.r.n., melatonin 3 mg p.o. daily, Naprosyn 500 mg p.o. t.i.d., quetiapine 12.5 PO bid, levetiracetam 500 mg p.o. bid Admitted in 2024 for breakthrough seizure.Patient was seen by Neurology, continue on Keppra 500 twice a day. 08/16 - Patient seen and examined at bedside. Rectal exam performed, normal tone, no hemorrhoids, no masses felt, prostatomegaly, no active bleeding, dark brown stool collected sent to lab, stool occult negative. CT head ordered, ABG ordered. 08/18-patient seen and examined at bedside. Denies urinary complaints but UA shows UTI. IV ceftriaxone started. Patient declined Hawkins catheter he is incontinent. Hemoglobin dropped to 6.9, 1 packed RBC transfused. 08/19-patient seen and examined at the bedside hemoglobin stable. Consulted GI. 08/20 - patient seen and examined at the bedside, hemoglobin 8.2 today., GI recommended EGD, patient agreed. EGD planned for 08/21. 08/21-patient seen and examined at bedside. Underwent EGD, no active bleeding. GI scheduled for colonoscopy 08/23. Objective vital signs Vital Sign Date Time Temp Pulse Resp B/P (MAP) Pulse Ox O2 Delivery O2 Flow Rate FiO2 08/21/24 12:40 89 14 142/91 (108) 97 08/21/24 12:12 Mask 7.0 100 08/21/24 12:12 97.4 97.4 Total Intake and Output 08/20/24 08/20/24 08/21/24 15:00 23:00 07:00 Intake Total 50 ml 0 ml Balance 50 ml 0 ml medications Current Medications Medications Dose Ordered Sig/Cora Route Start Time Stop Time Status Last Admin Dose Admin Sodium Chloride 10 ml Q8HR IV 08/15/24 22:00 08/21/24 05:53 10 ML Acetaminophen 650 mg Q6HP PRN PO 08/15/24 21:45 Nitroglycerin 0.4 mg Q5MINP PRN SL 08/15/24 21:45 Morphine Sulfate 2 mg Q30M PRN IV 08/15/24 21:45 Pantoprazole Sodium 40 mg DAILY IV 08/16/24 10:00 08/21/24 09:27 40 MG Diagnostic Test (Pha) 1 strip ACHS 08/16/24 07:00 08/21/24 11:04 1 STRIP Insulin Human Regular ACHS SC 08/16/24 07:00 08/20/24 21:27 2 UNITS Dextrose 50 ml UD PRN IV 08/16/24 00:00 Atorvastatin Calcium 40 mg HS PO 08/16/24 22:00 08/20/24 21:02 40 MG Levetiracetam 500 mg BID PO 08/16/24 10:00 08/21/24 10:04 500 MG Lorazepam 0.5 mg Q6HP PRN IV 08/16/24 00:30 Quetiapine Fumarate 25 mg BID PO 08/16/24 10:00 08/21/24 10:04 25 MG Ceftriaxone Sodium 50 ml @ 100 mls/hr DAILY@09 IV 08/18/24 09:00 08/21/24 09:27 100 MLS/HR Polyethylene Glycol 17 gm DAILY PO 08/19/24 10:00 08/20/24 09:54 17 GM Docusate Sodium 100 mg BID PO 08/18/24 22:00 08/20/24 21:01 100 MG Examination Patient lying in bed, in no acute distress General: Well-built, afebrile, palor, mucosae are moist Cardiovascular: Regular S1 and S2. No murmurs, gallops or rubs. No JVD elevation. Minimal pitting edema bilaterally Respiratory: Bilateral basilar crackles heard on auscultation. Abdomen: Soft, nontender, nondistended, normoactive bowel sounds, no rebound tenderness, no organomegaly, no masses. Rectal exam performed, normal tone, no hemorrhoids, no masses felt, prostatomegaly, no active bleeding, dark brown stool collected sent to lab, stool occult negative Genitourinary: Deferred MSK/skin: Mobilizes 4 limbs. Skin is dry and warm Neurological: No motor, no sensitive deficits, normal speech. Pupils are isocoric and reactive. Psych/Mental Status: A/Ox3 laboratory and microbiology Laboratory Tests 08/21/24 05:17 Test 08/21/24 05:17 Range/Units Serum Glucose 110 H 74-106 mg/dL Microbiology Date/Time Source Procedure Growth Status 08/18/24 06:50 Voided Urine Urine Culture - Final Escherichia coli Complete Labs and/or images reviewed: Labs reviewed by me, Image(s) reviewed by me Problem List/Assessment/Plan Problem List/Assessment/Plan Acute blood loss anemia --- Iron-deficiency versus chronic anemia versus thalassemia versus sideroblastic anemia with increased iron and ferritin Severe microcytic anemia with minimal reticulocyte count requiring transfusion status post bone marrow biopsy 08/19 Reticulocyte production index 0 Retic count 0.29 Hemoglobin 13.6 on 03/2024 Hemoglobin on arrival 4.4, MCV 68 - transfuse 3 packed RBCs, 1 pending Proposal Editor consulted-recommends marrow biopsy by Radiology and sent for pathology, flow cytometry and cytogenetic CT abdomen unremarkable Stool occult is negative. Rectal exam performed, normal tone, no hemorrhoids, no masses felt, prostatomegaly, no active bleeding, dark brown stool collected sent to lab, stool occult negative Ferritin 600s Fibrinogen/D-dimer unremarkable rheumatoid/HIV panel unremarkable EBV studies pending, hepatitis panel pending, SUKH pending ABG unremarkable GI consulted, EGD 08/21 showed Mild gastroduodenitis with some superficial erosions. 0.5-1 cm sliding-type hiatal hernia otherwise normal examination up to the 2nd and 3rd part of the duodenum Await for biopsy result Continue Protonix 40 mg bid p.o. and Carafate 1 g p.o. 2 times a day Clear liquid diet bowel prep and schedule colonoscopy on 08/23/[address] shows moderately large old stroke involving the right anterior watershed and associated right frontal lobe Holding aspirin for now Atorvastatin 40 mg daily Constipation: X-ray KUB shows nonobstructive bowel gas pattern Docusate 100 mg b.i.d. along with MiraLax 17 g p.o. daily Acute cystitis IV ceftriaxone starting 08/18 Urine bacterial culture showing Gram-negative rods Type 2 diabetes mellitus-hemoglobin A1c 8.9 On ISS History of stroke Seizure disorder Continue home medication Keppra 500 b.i.d. PUD PPX: Protonix VTE PPX: SCD ( no lovenox bc anemic) Diet: Cardiac diet Scheduled for colonoscopy on 08/23/2024. Plan discussed with patient in which all questions have been answered Goals of care discussed with patient for more than 27 minutes, full code status Case discussed with Dr. Hanson Plan discussed with: Patient My Orders My Orders Orders - MED BRIONES Procedure Category Date Status Time Chest Portable XY 08/21/24 Resulted 03:24 Electrocardigram EKG 08/21/24 Logged 03:24 Electrocardigram EKG 08/21/24 Logged 06:24 Dietary Evaluation Review Recommendations by RD: Dietary education by RD Comments: 1) Advance to 60g CCHO cardiac diet when medically feasible, per PROOFER approval 2) Consider ferrous sulfate @ 325 mg qd if iron-deficiency anemia does not improve s/p additional PRBC 3) Continue to monitor appetite, labs, and skin integrity. Will consider oral nutrition supplementation if PO intake drops < 50%. 4) F/u with oncology and hematology 5) Refer to outpatient RD/CDCES for diabetes education d/t uncontrolled HbA1c - 8.9% Expected Outcomes/Goals: 1) appetite and labs to improve 2) diet to advance 3) skin integrity to improve 4) f/u in 5 days CC Plasma Assessment Blood Product Administration S: 2227 Date of Service: Aug 21, 2024 Billing Provider: STAN TAYLOR MD Common Visit Codes: [id number] INP/OBS CARE(HIGH) MED BRIONES Aug 21, 2024 14:46 STAN TAYLOR MD Aug 26, 2024 01:39
[2024-08-21] MEDS: PANTOPRAZOLE 40 MG/10 ML VIAL INJ IV ONE (15:00)
[2024-08-21] MEDS: SUCRALFATE 1 GM/10 ML ORAL SUSP PO SCH (22:42)
[2024-08-22] VITALS (8 sets, daily range): BP systolic 116–150; BP diastolic 64–78; PULSE 71–81; RESP 16–20; TEMP 97.3–98.2; O2SAT 89–95
[2024-08-22] MEDS: PANTOPRAZOLE 40 MG/10 ML VIAL INJ IV SCH (09:33)
[2024-08-22 09:56] LABS: Basophils # (auto) 0 10 ^3/uL (0-0.2); Basophils % (auto) 0.9 % (0.0-2.0); Eosinophils # (auto) 0.1 10 ^3/uL (0-0.8); Eosinophils % (auto) 3.2 % (0.0-7.0); Hematocrit 23.9 % (41.0-53.0); Hemoglobin 8.2 g/dL (13.5-17.5); Lymphocytes # (auto) 1.6 10 ^3/uL (0.4-5.4); Lymphocytes % (auto) 38.4 % (10.0-50.0); Mean Corpuscular Hemoglobin 27.6 pg (28.0-32.0); Mean Corpuscular Hgb Conc. 34.3 g/dL (32.0-36.0); Mean Corpuscular Volume 80.5 fL (80.0-100.0); Monocytes # (auto) 0.4 10 ^3/uL (0-1.3); Monocytes % (auto) 9.3 % (0.0-12.0); Neutrophils % (auto) 48.2 % (37.0-80.0); Nucleated Red Blood Cells % 0.2 %; Platelet Count (auto) 225 10^3/uL (140-450); Red Blood Cells 2.97 10^6/uL (4.5-5.90); White Blood Cell 4.1 10^3/uL (4.4-10.8)
[2024-08-22 10:07] LABS: Chloride 105 mmol/L (98-107); Potassium 3.5 mmol/L (3.5-5.1); Sodium 139 mmol/L (136-145)
[2024-08-22 10:08] LABS: Anion Gap 1 (5-15); Calcium 9.2 mg/dL (8.7-10.4)
[2024-08-22 10:13] LABS: Glucose 97 mg/dL (74-106)
[2024-08-22 10:14] LABS: Magnesium 1.8 mg/dL (1.6-2.6)
[2024-08-22 10:22] LABS: BUN/Creatinine Ratio 7.1 (10.0-20.0); Blood Urea Nitrogen < 5 mg/dL (9-23); Carbon Dioxide 33 mmol/L (20-31)
[2024-08-22] MEDS: GOLYTELY 4L KIT PO ONE (13:47)
--- NOTE | 2024-08-22 18:48 | DVHPN2 ---
Progress Note - Dictate Date Seen: Aug 22, 2024 Medical Necessity Reason Pt with a Central, PICC or Fol: No Subjective No new complaints Pt has started his bowel prep Hb stable at 8.2 vital signs Vital Sign Date Time Temp Pulse Resp B/P (MAP) Pulse Ox O2 Delivery O2 Flow Rate FiO2 08/22/24 17:00 97.3 74 16 144/78 (100) 92 97.3 08/22/24 08:00 Room Air* 0 21 Total Intake and Output 08/21/24 08/21/24 08/22/24 15:00 23:00 07:00 Intake Total 150 ml 220 ml 200 ml Balance 150 ml 220 ml 200 ml medications Current Medications Medications Dose Ordered Sig/Cora Route Start Time Stop Time Status Last Admin Dose Admin Sodium Chloride 10 ml Q8HR IV 08/15/24 22:00 08/22/24 14:40 10 ML Acetaminophen 650 mg Q6HP PRN PO 08/15/24 21:45 Nitroglycerin 0.4 mg Q5MINP PRN SL 08/15/24 21:45 Morphine Sulfate 2 mg Q30M PRN IV 08/15/24 21:45 Pantoprazole Sodium 40 mg DAILY IV 08/16/24 10:00 08/22/24 09:24 40 MG Diagnostic Test (Pha) 1 strip ACHS 08/16/24 07:00 08/22/24 17:24 1 STRIP Insulin Human Regular ACHS SC 08/16/24 07:00 08/20/24 21:27 2 UNITS Dextrose 50 ml UD PRN IV 08/16/24 00:00 Atorvastatin Calcium 40 mg HS PO 08/16/24 22:00 08/21/24 22:42 40 MG Levetiracetam 500 mg BID PO 08/16/24 10:00 08/22/24 09:24 500 MG Lorazepam 0.5 mg Q6HP PRN IV 08/16/24 00:30 Quetiapine Fumarate 25 mg BID PO 08/16/24 10:00 08/22/24 09:24 25 MG Ceftriaxone Sodium 50 ml @ 100 mls/hr DAILY@09 IV 08/18/24 09:00 08/22/24 09:29 100 MLS/HR Polyethylene Glycol 17 gm DAILY PO 08/19/24 10:00 08/22/24 09:24 17 GM Docusate Sodium 100 mg BID PO 08/18/24 22:00 08/22/24 09:24 100 MG Pantoprazole Sodium 40 mg DAILY IV 08/22/24 10:00 08/22/24 09:33 40 MG Sucralfate 1 gm TID@0600,1130,2200 PO 08/21/24 22:00 08/22/24 11:04 1 GM objective Moderately built and nourished, in no acute distress, alert and oriented. Head and neck: Pupils equal and react to light, no scleral icterus No conjunctival or mucosal hemorrhage Lungs: Clear; Cardiovascular: S1-S2 rrr Abdomen: No organomegaly, tenderness or ascites. Bowel sounds are present. Extremities: No clubbing edema cyanosis or calf tenderness. Skin: Unremarkable for petechia purpura ecchymosis Lymphadenopathy: None Neurological exam: pt bedbound unable to move laboratory and microbiology Laboratory Tests 08/22/24 09:42 Test 08/22/24 09:42 Range/Units Serum Glucose 97 74-106 mg/dL Problems(with codes): (1) Diabetes mellitus with hyperglycemia (2) Hypertensive urgency (3) Seizure (4) Generalized weakness (5) Severe anemia Prognosis PLAN Complete bowel prep tonight Nurse advised on NGT and rectal tube if required Colonoscopy tomorrow Dietary Evaluation Review Recommendations by RD: Dietary education by RD Comments: 1) Advance to 60g [facility] cardiac diet when medically feasible, per CNC MACHINIST approval 2) Consider ferrous sulfate @ 325 mg qd if iron-deficiency anemia does not improve s/p additional PRBC 3) Continue to monitor appetite, labs, and skin integrity. Will consider oral nutrition supplementation if PO intake drops < 50%. 4) F/u with oncology and hematology 5) Refer to outpatient RD/CDCES for diabetes education d/t uncontrolled HbA1c - 8.9% Expected Outcomes/Goals: 1) appetite and labs to improve 2) diet to advance 3) skin integrity to improve 4) f/u in 5 days Plan discussed with: Patient, Other (Nurse) CC Plasma Assessment Blood Product Administration S: [id number] IRMA NERI MD Aug 22, 2024 18:48
--- NOTE | 2024-08-22 19:05 | DVHPNRES ---
Progress Note Date Seen: Aug 22, 2024 Resident Creating Document: MED BRIONES RESIDENT Medical Necessity Reason Pt with a Central, PICC or Fol: No Subjective Review of Systems Tin Carrion is a 58-year-old male patient who presents to the ED with the complaint of generalized weakness, fatigue and shortness of breath for the past week. Patient reports melena. Reports that last bowel movement was more than 1 week ago. Denies chest pain/cough/diarrhea/fevers/chills. Patient is a poor historian, lives at [facility]. Per chart review, his O[facility] saturation was around [facility] at [facility] therefore he was sent to the ER. Denies lifetime history of colonoscopy. 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 Patient refers to have had a brain bleed two years ago (patient has mild-moderate amnesia) Surgical history: Thrombectomy Family history: Noncontributory Social history: Lives in assisted living facility. Denies current tobacco, alcohol and other drug abuse Allergies: Denies Home medication: Tylenol, aspirin 81 mg p.o. daily, atorvastatin 40 mg p.o. daily, carisoprodol 350 mg p.o. t.i.d., lorazepam 0.5 mg p.o. p.r.n., melatonin 3 mg p.o. daily, Naprosyn 500 mg p.o. t.i.d., quetiapine 12.5 PO bid, levetiracetam 500 mg p.o. bid Admitted in 2024 for breakthrough seizure.Patient was seen by Neurology, continue on Keppra 500 twice a day. 08/16 - Patient seen and examined at bedside. Rectal exam performed, normal tone, no hemorrhoids, no masses felt, prostatomegaly, no active bleeding, dark brown stool collected sent to lab, stool occult negative. CT head ordered, ABG ordered. 08/18-patient seen and examined at bedside. Denies urinary complaints but UA shows UTI. IV ceftriaxone started. Patient declined Hawkins catheter he is incontinent. Hemoglobin dropped to 6.9, 1 packed RBC transfused. 08/19-patient seen and examined at the bedside hemoglobin stable. Consulted GI. 08/20 - patient seen and examined at the bedside, hemoglobin 8.2 today., GI recommended EGD, patient agreed. EGD planned for 08/21-patient seen and examined at bedside. Underwent EGD, no active bleeding. GI scheduled for colonoscopy 08/22-patient seen and examined at bedside. Bowel prep started. No active complaint. Objective vital signs Vital Sign Date Time Temp Pulse Resp B/P (MAP) Pulse Ox O2 Delivery O2 Flow Rate FiO2 08/22/24 17:00 97.3 74 16 144/78 (100) 92 97.3 08/22/24 08:00 Room Air* 0 21 Total Intake and Output 08/21/24 08/21/24 08/22/24 15:00 23:00 07:00 Intake Total 150 ml 220 ml 200 ml Balance 150 ml 220 ml 200 ml medications Current Medications Medications Dose Ordered Sig/Cora Route Start Time Stop Time Status Last Admin Dose Admin Sodium Chloride 10 ml Q8HR IV 08/15/24 22:00 08/22/24 14:40 10 ML Acetaminophen 650 mg Q6HP PRN PO 08/15/24 21:45 Nitroglycerin 0.4 mg Q5MINP PRN SL 08/15/24 21:45 Morphine Sulfate 2 mg Q30M PRN IV 08/15/24 21:45 Pantoprazole Sodium 40 mg DAILY IV 08/16/24 10:00 08/22/24 09:24 40 MG Diagnostic Test (Pha) 1 strip ACHS 08/16/24 07:00 08/22/24 17:24 1 STRIP Insulin Human Regular ACHS SC 08/16/24 07:00 08/20/24 21:27 2 UNITS Dextrose 50 ml UD PRN IV 08/16/24 00:00 Atorvastatin Calcium 40 mg HS PO 08/16/24 22:00 08/21/24 22:42 40 MG Levetiracetam 500 mg BID PO 08/16/24 10:00 08/22/24 09:24 500 MG Lorazepam 0.5 mg Q6HP PRN IV 08/16/24 00:30 Quetiapine Fumarate 25 mg BID PO 08/16/24 10:00 08/22/24 09:24 25 MG Ceftriaxone Sodium 50 ml @ 100 mls/hr DAILY@09 IV 08/18/24 09:00 08/22/24 09:29 100 MLS/HR Polyethylene Glycol 17 gm DAILY PO 08/19/24 10:00 08/22/24 09:24 17 GM Docusate Sodium 100 mg BID PO 08/18/24 22:00 08/22/24 09:24 100 MG Pantoprazole Sodium 40 mg DAILY IV 08/22/24 10:00 08/22/24 09:33 40 MG Sucralfate 1 gm TID@0600,1130,2200 PO 08/21/24 22:00 08/22/24 11:04 1 GM Examination Patient lying in bed, in no acute distress General: Well-built, afebrile, palor, mucosae are moist Cardiovascular: Regular S1 and S2. No murmurs, gallops or rubs. No JVD elevation. Minimal pitting edema bilaterally Respiratory: Bilateral basilar crackles heard on auscultation. Abdomen: Soft, nontender, nondistended, normoactive bowel sounds, no rebound tenderness, no organomegaly, no masses. Rectal exam performed, normal tone, no hemorrhoids, no masses felt, prostatomegaly, no active bleeding, dark brown stool collected sent to lab, stool occult negative Genitourinary: Deferred MSK/skin: Mobilizes 4 limbs. Skin is dry and warm Neurological: No motor, no sensitive deficits, normal speech. Pupils are isocoric and reactive. Psych/Mental Status: A/Ox3 laboratory and microbiology Laboratory Tests 08/22/24 09:42 Test 08/22/24 09:42 Range/Units Serum Glucose 97 74-106 mg/dL Microbiology Date/Time Source Procedure Growth Status 08/18/24 06:50 Voided Urine Urine Culture - Final Escherichia coli Complete Labs and/or images reviewed: Labs reviewed by me, Image(s) reviewed by me Problem List/Assessment/Plan Problem List/Assessment/Plan Acute blood loss anemia --- Iron-deficiency versus chronic anemia versus thalassemia versus sideroblastic anemia with increased iron and ferritin Severe microcytic anemia with minimal reticulocyte count requiring transfusion status post bone marrow biopsy 08/19 Reticulocyte production index 0 Retic count 0.29 Hemoglobin 13.6 on 03/2024 Hemoglobin on arrival 4.4, MCV 68 - transfuse 3 packed RBCs, 1 pending Spool Worker consulted-recommends marrow biopsy by Radiology and sent for pathology, flow cytometry and cytogenetic CT abdomen unremarkable Stool occult is negative. Rectal exam performed, normal tone, no hemorrhoids, no masses felt, prostatomegaly, no active bleeding, dark brown stool collected sent to lab, stool occult negative Ferritin 600s Fibrinogen/D-dimer unremarkable rheumatoid/HIV panel unremarkable EBV studies pending, hepatitis panel pending, SUKH pending ABG unremarkable GI consulted, EGD 08/21 showed Mild gastroduodenitis with some superficial erosions. 0.5-1 cm sliding-type hiatal hernia otherwise normal examination up to the 2nd and 3rd part of the duodenum Await for biopsy result Continue Protonix 40 mg bid p.o. and Carafate 1 g p.o. 2 times a day Clear liquid diet bowel prep and schedule colonoscopy on 08/23/[address] shows moderately large old stroke involving the right anterior watershed and associated right frontal lobe Holding aspirin for now Atorvastatin 40 mg daily Constipation: X-ray KUB shows nonobstructive bowel gas pattern Docusate 100 mg b.i.d. along with MiraLax 17 g p.o. daily Acute cystitis IV ceftriaxone starting 08/18 Urine bacterial culture showing Gram-negative rods Type 2 diabetes mellitus-hemoglobin A1c 8.9 On ISS History of stroke Seizure disorder Continue home medication Keppra 500 b.i.d. PUD PPX: Protonix VTE PPX: SCD ( no lovenox bc anemic) Diet: Clear liquid Scheduled for colonoscopy on 08/23/2024. Clear liquid diet Plan discussed with patient in which all questions have been answered Goals of care discussed with patient for more than 27 minutes, full code status Case discussed with Dr. Hanson Plan discussed with: Patient Dietary Evaluation Review Recommendations by RD: Dietary education by RD Comments: 1) Advance to 60g CCHO cardiac diet when medically feasible, per DIGITAL FIELD SERVICE TECHNICIAN approval 2) Consider ferrous sulfate @ 325 mg qd if iron-deficiency anemia does not improve s/p additional PRBC 3) Continue to monitor appetite, labs, and skin integrity. Will consider oral nutrition supplementation if PO intake drops < 50%. 4) F/u with oncology and hematology 5) Refer to outpatient RD/CDCES for diabetes education d/t uncontrolled HbA1c - 8.9% Expected Outcomes/Goals: 1) appetite and labs to improve 2) diet to advance 3) skin integrity to improve 4) f/u in 5 days CC Plasma Assessment Blood Product Administration S: 2227 Date of Service: Aug 22, 2024 Billing Provider: STAN TAYLOR MD Common Visit Codes: [id number] INP/OBS CARE(HIGH) MED BRIONES RESIDENT Aug 22, 2024 19:05 STAN TAYLOR MD Aug 26, 2024 01:46
[2024-08-23] VITALS (9 sets, daily range): BP systolic 117–145; BP diastolic 67–78; PULSE 73–95; RESP 18–20; TEMP 97.4–98.4; O2SAT 91–99
[2024-08-23] MEDS: MAGNESIUM CITRATE SOLUTION 300 ML BTL PO ONE (06:06)
[2024-08-23] MEDS: GOLYTELY 4L KIT PO ONE (06:19)
[2024-08-23 06:58] LABS: Anion Gap 5 (5-15); Carbon Dioxide 31 mmol/L (20-31); Chloride 103 mmol/L (98-107); Potassium 3.8 mmol/L (3.5-5.1); Sodium 139 mmol/L (136-145)
[2024-08-23 06:59] LABS: Calcium 9.4 mg/dL (8.7-10.4)
[2024-08-23 07:04] LABS: Glucose 98 mg/dL (74-106)
[2024-08-23 07:08] LABS: BUN/Creatinine Ratio 7.6 (10.0-20.0); Blood Urea Nitrogen < 5 mg/dL (9-23)
[2024-08-23 07:11] LABS: Basophils # (auto) 0 10 ^3/uL (0-0.2); Basophils % (auto) 0.6 % (0.0-2.0); Eosinophils # (auto) 0.1 10 ^3/uL (0-0.8); Eosinophils % (auto) 2.3 % (0.0-7.0); Hematocrit 24.2 % (41.0-53.0); Hemoglobin 8.5 g/dL (13.5-17.5); Lymphocytes # (auto) 1.3 10 ^3/uL (0.4-5.4); Lymphocytes % (auto) 32.4 % (10.0-50.0); Mean Corpuscular Hgb Conc. 35.1 g/dL (32.0-36.0); Mean Corpuscular Volume 79.8 fL (80.0-100.0); Monocytes # (auto) 0.4 10 ^3/uL (0-1.3); Monocytes % (auto) 8.9 % (0.0-12.0); Neutrophils # (auto) 2.2 10 ^3/uL (1.6-8.6); Neutrophils % (auto) 55.8 % (37.0-80.0); Nucleated Red Blood Cells % 0.1 %; Platelet Count (auto) 252 10^3/uL (140-450); Red Blood Cells 3.04 10^6/uL (4.5-5.90); Red Cell Distribution Width 19.7 % (11.8-14.3)
[2024-08-23] MEDS ORDERED: MIDAZOLAM HCL 2MG/2ML 2ml VIAL (1mg/ml) ONE (13:56)
[2024-08-23] MEDS ORDERED: ONDANSETRON HCL 4 MG/2 ML VIAL ONE (13:57)
[2024-08-23] MEDS ORDERED: GLYCOPYRROLATE 0.2 MG/ML 1ML VIAL ONE (13:57)
[2024-08-23] MEDS ORDERED: PROPOFOL 10 MG/ML 20 ML IV ONE (13:57)
--- NOTE | 2024-08-23 14:40 | DVHOP2 ---
Operative Report DATE OF OPERATION: 08/23/24 PROCEDURE: Colonoscopy with cold biopsy. PREOPERATIVE INDICATION: The patient is a 58 -year-old male undergoing colonoscopy for evaluation of anemia and colon cancer screening POSTOPERATIVE DIAGNOSES: 1. There was a 2 mm benign-appearing polyp seen in the cecum that was removed completely via cold biopsy forceps 2. Trace to 1+ internal hemorrhoids, long and tortuous colon otherwise normal examination up to the cecum and terminal ileum PROCEDURE PERFORMED BY: Irma Alejandre M.D. SCOPE: Olympus videocolonoscope. ASA CLASS: 3 PREOPERATIVE MEDICATIONS: Dr. Shiva Suggs PROCEDURE IN DETAIL: After obtaining an informed consent, the patient was placed on left lateral decubitus position. He was then sedated with the above medications. A rectal examination was performed that was normal. The colonoscope was then passed through the anus into the rectosigmoid and through the descending, transverse, and ascending colon up to the cecum with visualization of the appendiceal orifice, base of the cecum and the ileocecal valve. The colonoscope was then withdrawn. The distal 5 cm of the terminal ileum were normal In the base of the cecum there was a 1-2 mm polyp that was removed completely via cold biopsy forceps No other polyps or masses were seen. Patient had a somewhat long tortuous and redundant colon. On retroflexion and straight on view he had trace to 1+ internal hemorrhoids The patient tolerated the procedure well without difficulty. WITHDRAWAL TIME: 7 minutes QUALITY OF THE PREP: [place] Bowel Prep score: 8. COMPLICATIONS : None SPECIMENS: Cecal polyp DISPOSITION: Transfer back to the floor Stable PLAN: 1. Repeat colonoscopy base on biopsy result likely in 5-7 years 2. Resume GI soft diet advance as tolerated 3. Continue stool softeners and increase fluid and fiber intake 4. [facility] or as needed IRMA ALEJANDRE MD Aug 23, 2024 14:40
[2024-08-23] MEDS ORDERED: HYDROmorphone HCL 2 MG/ML VL/or syr IV PRN (14:45)
--- NOTE | 2024-08-23 15:40 | DVHDSRES ---
Discharge Summary Date of Admission Resident Creating Document: MED BRIONES RESIDENT Aug 15, 2024 at 21:42 Date of Discharge: Aug 24, 2024 Labs/Diagnostic Data: Laboratory Results Test 08/23/24 12:44 08/23/24 06:02 08/22/24 09:42 08/21/24 05:17 POC Glucose 101 mg/dl (70-106) White Blood Count 4.0 10^3/uL (4.4-10.8) Red Blood Count 3.04 10^6/uL (4.5-5.90) Hemoglobin 8.5 g/dL (13.5-17.5) Hematocrit 24.2 % (41.0-53.0) Mean Corpuscular Volume 79.8 fL (80.0-100.0) Mean Corpuscular Hemoglobin 28.0 pg (28.0-32.0) Mean Corpuscular Hemoglobin Concent 35.1 g/dL (32.0-36.0) Red Cell Distribution Width 19.7 % (11.8-14.3) Platelet Count 252 10^3/uL (140-450) Mean Platelet Volume 7.5 fL (6.9-10.8) Neutrophils (%) (Auto) 55.8 % (37.0-80.0) Lymphocytes (%) (Auto) 32.4 % (10.0-50.0) Monocytes (%) (Auto) 8.9 % (0.0-12.0) Eosinophils (%) (Auto) 2.3 % (0.0-7.0) Basophils (%) (Auto) 0.6 % (0.0-2.0) Neutrophils # (Auto) 2.2 10 ^3/uL (1.6-8.6) Lymphocytes # (Auto) 1.3 10 ^3/uL (0.4-5.4) Monocytes # (Auto) 0.4 10 ^3/uL (0-1.3) Eosinophils # (Auto) 0.1 10 ^3/uL (0-0.8) Basophils # (Auto) 0 10 ^3/uL (0-0.2) Nucleated Red Blood Cells 0.1 % Sodium Level 139 mmol/L (136-145) Potassium Level 3.8 mmol/L (3.5-5.1) Chloride Level 103 mmol/L (98-107) Carbon Dioxide Level 31 mmol/L (20-31) Anion Gap 5 (5-15) Blood Urea Nitrogen < 5 mg/dL (9-23) Creatinine 0.66 mg/dL (0.700-1.30) Glomerular Filtration Rate Calc 110 mL/min (>90) BUN/Creatinine Ratio 7.6 (10.0-20.0) Serum Glucose 98 mg/dL (74-106) Calcium Level 9.4 mg/dL (8.7-10.4) Magnesium Level 1.8 mg/dL (1.6-2.6) Prothrombin Time 12.4 sec (9.3-11.8) Prothrombin Time INR 1.19 (0.9-1.15) Activated Partial Thromboplast Time 29.2 SEC (24.5-34.5) Test 08/18/24 06:50 08/18/24 05:40 08/17/24 06:29 08/16/24 21:16 Urine Color Colorless (Yellow) Urine Clarity Turbid (Clear) Urine pH 6.0 (5.0-9.0) Urine Specific [place] 1.011 (1.001-1.035) Urine Protein Negative (Negative) Urine Ketones Negative (Negative) Urine Blood Negative /uL (Negative) Urine Nitrite Negative (Negative) Urine Bilirubin Negative (Negative) Urine Urobilinogen 2 mg/dL (Negative) Urine Leukocyte Esterase 1+ /uL (Negative) Urine RBC <1 /hpf (0 - 3) Urine Microscopic WBC 17 /HPF (0-3) Urine Squamous Epithelial Cells Few /hpf (<5) Urine Bacteria Few /hpf (None Seen) Urine Glucose Normal mg/dL (Normal) Total Bilirubin 0.6 mg/dL (0.2-1.0) Aspartate Amino Transferase (AST) 12 U/L (13-40) Alanine Aminotransferase (ALT) < 9 U/L (7-40) Alkaline Phosphatase 57 U/L (46-116) Total Protein 5.4 g/dL (5.7-8.2) Albumin 3.2 g/dL (3.2-4.8) Haptoglobin 195 mg/dL (29-370) Lactate Dehydrogenase 128 U/L (120-246) Vitamin B12 Level 1647 pg/mL (211-911) Folic Acid 7.22 ng/mL (>5.38) Blood Gas Specimen Type Arterial Blood Gas Sample Site Right radial Blood Gas Patient Temperature 37.0 Arterial Blood Date Drawn [id number] Arterial Blood pH 7.418 (7.350-7.450) Arterial Blood Partial Pressure CO2 41.4 mmHg (35.0-48.0) Arterial Blood Partial Pressure O2 108.7 mmHg (83.0-108.0) Arterial Blood HCO3 26.1 mmol/L (21.0-28.0) Arterial Blood Oxygen Saturation 97.3 % (94.0-98.0) Arterial Blood Base Excess 1.5 mmol/L (-2.0-3.0) Arterial Blood Oxyhemoglobin 96.1 % (94.0-98.0) Arterial Blood Carboxyhemoglobin 0.8 % (0.5-1.5) Arterial Blood Methemoglobin 0.4 % (0.0-1.5) Arun Test Yes Blood Gas Total Hemoglobin 7.50 g/dL (13.5-17.5) Blood Gas Modality Nasal cannula FiO2 % 28.0 Test 08/16/24 12:55 08/16/24 11:15 08/16/24 05:00 08/16/24 03:55 Stool Occult Blood Negative (Negative) Stool Occult Blood Sample #3 (Negative) Rheumatoid Factor <10.0 IU/mL (<14.0) Anti-Cyclic Citrullinated Peptide 0 units (0-19) Hepatitis B Surface Antigen Negative (Negative) Hepatitis B Surface Antibody Negative (Negative) Hepatitis B Core IgM Antibody Negative (Negative) HIV (1&2) Antibody Negative (Negative) Platelet Estimate Adequate Anisocytosis (manual) Slight Microcytosis Slight Ovalocytes Few Influenza Type A Antigen Negative (Negative) Influenza Type B Antigen Negative (Negative) SARS-CoV-2 Antigen (Rapid) Negative (NEGATIVE) Test 08/15/24 22:00 08/15/24 18:40 Reticulocyte Count (auto) 0.29 % (0.5-1.5) Fibrinogen 405 mg/dL (177-375) Iron Level 186 ug/dL (65-175) Total Iron Binding Capacity 213 ug/dL (250-425) Percent Iron Saturation 87.3 % (20-55) Ferritin 677.9 ng/mL (22-322) Direct Bilirubin 0.3 mg/dL (<0.3) Ammonia < 10 umol/L (11-32) Troponin I High Sensitivity 34 ng/L (</=54) Plasma/Serum Blood Alcohol 3.4 mg/dL (<10) Hypochromasia (manual) Moderate D-Dimer, Quantitative 0.34 mg/L FEU (0.0-0.49) Hemoglobin A1c 8.9 % A1C (<5.7) B-Type Natriuretic Peptide 67.64 pg/mL (0-100) Thyroid Stimulating Hormone (TSH) 2.38 uIU/mL (0.55-4.78) Other Laboratory Tests 08/23/24 06:02 Brief Hx & Hospital Course: Tin Carrion is a 58-year-old male patient who presents to the ED with the complaint of generalized weakness, fatigue and shortness of breath for the past week. Patient reports melena. Reports that last bowel movement was more than 1 week ago. Denies chest pain/cough/diarrhea/fevers/chills. Patient is a poor historian, lives at [facility]. Per chart review, [facility] therefore he was sent to the ER. Denies lifetime history of colonoscopy. 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 Patient refers to have had a brain bleed two years ago (patient has mild-moderate amnesia) Surgical history: Thrombectomy Family history: Noncontributory Social history: Lives in assisted living facility. Denies current tobacco, alcohol and other drug abuse Allergies: Denies Home medication: Tylenol, aspirin 81 mg p.o. daily, atorvastatin 40 mg p.o. daily, carisoprodol 350 mg p.o. t.i.d., lorazepam 0.5 mg p.o. p.r.n., melatonin 3 mg p.o. daily, Naprosyn 500 mg p.o. t.i.d., quetiapine 12.5 PO bid, levetiracetam 500 mg p.o. bid Admitted in 2024 for breakthrough seizure.Patient was seen by Neurology, continue on Keppra 500 twice a day. During the hospitalization, patient's hemoglobin was 4.4 grams/deciliter on arrival, Rectal exam performed, normal tone, no hemorrhoids, no masses felt, prostatomegaly, no active bleeding, dark brown stool collected sent to lab, stool occult negative. He was transfused 4 packed RBCs. Hemoglobin went up to 8. Given low reticulocyte production index, station gateman was consulted who recommended bone marrow biopsy. Patient underwent bone marrow biopsy 08/19 which was sent for pathology/flow cytometry and cytogenetic studies. Patient's fibrinogen/D-dimer were unremarkable. HIV and rheumatoid panel unremarkable. Hepatitis studies were negative, station gateman also recommended GI consultation for microcytic anemia. Patient underwent upper EGD 08/21 showed Mild gastroduodenitis with some superficial erosions. 0.5-1 cm sliding-type hiatal hernia otherwise normal examination up to the 2nd and 3rd part of the duodenum Await for biopsy result. GI recommended colonoscopy patient underwent bowel prep 08/22 and had colonoscopy 08/23 which showed 2 mm benign-appearing polyp seen in the cecum that was removed completely via cold biopsy forceps. Patient was started on Protonix 40 mg and Carafate 1 g p.o. twice daily.Head CT shows moderately large old stroke involving the right anterior watershed and associated right frontal lobe, we started aspirin after ruling out GI bleed. Atorvastatin 40 mg daily HS was started. He was also diagnosed with the acute cystitis for which she received IV ceftriaxone. Patient was incontinent and denied Hawkins catheterization. We continued his home medication Keppra 500 mg b.i.d. for seizures. 08/23/2024-patient is hemodynamically stable, clinically stable and vitally stable therefore is being discharged to his previous living facility with the following instructions: Follow up with primary care physician within 7 days Follow up with discharge clinic appointment within 7 days Follow up with GI as outpatient within 2 weeks to follow up with colonoscopy and endoscopy biopsy results Follow up with the station gateman as outpatient within 2 weeks to follow up with bone marrow biopsy results Continue Protonix 40 mg daily and Carafate 1 g p.o. b.i.d. Continue aspirin 81 mg daily and atorvastatin 40 mg HS daily Discharge diagnosis: Acute blood loss anemia --- Iron-deficiency versus chronic anemia versus thalassemia versus sideroblastic anemia with increased iron and ferritin Severe microcytic anemia with minimal reticulocyte count requiring transfusion status post bone marrow biopsy 08/19 Ruled out active GI bleeding status post EGD and colonoscopy Prior CVA-started aspirin 81 mg daily and atorvastatin Acute cystitis Type 2 diabetes mellitus-hemoglobin A1c 8.9 History of stroke Seizure disorder 0.5-1 cm sliding-type hiatal hernia 1+ internal hemorrhoids Obesity Operations or Procedures Operative Report DATE OF OPERATION: 08/23/24 PROCEDURE: Colonoscopy with cold biopsy. PREOPERATIVE INDICATION: The patient is a 58 -year-old male undergoing colonoscopy for evaluation of anemia and colon cancer screening POSTOPERATIVE DIAGNOSES: 1. There was a 2 mm benign-appearing polyp seen in the cecum that was removed completely via cold biopsy forceps 2. Trace to 1+ internal hemorrhoids, long and tortuous colon otherwise normal examination up to the cecum and terminal ileum PROCEDURE PERFORMED BY: Irma Neri M.D. SCOPE: Olympus videocolonoscope. ASA CLASS: 3 PREOPERATIVE MEDICATIONS: Dr. Shiva Suggs PROCEDURE IN DETAIL: After obtaining an informed consent, the patient was placed on left lateral decubitus position. He was then sedated with the above medications. A rectal examination was performed that was normal. The colonoscope was then passed through the anus into the rectosigmoid and through the descending, transverse, and ascending colon up to the cecum with visualization of the appendiceal orifice, base of the cecum and the ileocecal valve. The colonoscope was then withdrawn. The distal 5 cm of the terminal ileum were normal In the base of the cecum there was a 1-2 mm polyp that was removed completely via cold biopsy forceps No other polyps or masses were seen. Patient had a somewhat long tortuous and redundant colon. On retroflexion and straight on view he had trace to 1+ internal hemorrhoids The patient tolerated the procedure well without difficulty. WITHDRAWAL TIME: 7 minutes QUALITY OF THE PREP: Falcon Bowel Prep score: 8. COMPLICATIONS : None SPECIMENS: Cecal polyp DISPOSITION: Transfer back to the floor Stable PLAN: 1. Repeat colonoscopy base on biopsy result likely in 5-7 years 2. Resume GI soft diet advance as tolerated 3. Continue stool softeners and increase fluid and fiber intake 4. Outpatient follow up with me next available appointment or as needed IRMA NERI MD Aug 23, 2024 14:40 DICTATED BY:IRMA NERI MD DICTATED DATE/TIME:08/23/24 144 ELECTRONICALLY SIGNED BY:IRMA NERI MD 08/23/24 144 ELECTRONICALLY CO-SIGNED BY: Operative Report DATE OF OPERATION: 08/21/24 PROCEDURE: Upper Endoscopy with biopsy. PREOPERATIVE INDICATION: The patient is a 58 -year-old male undergoing endoscopy for anemia POSTOPERATIVE DIAGNOSES: 1. Mild gastroduodenitis with some superficial erosions 2. 0.5-1 cm sliding-type hiatal hernia otherwise normal examination up to the 2nd and 3rd part of the duodenum PROCEDURE PERFORMED BY: Irma Neri GI NURSE: Laura SCOPE: Olympus videoendoscope. ASA CLASS: PREOPERATIVE MEDICATIONS: Mac artie, Dr. Shannon PROCEDURE IN DETAIL: After obtaining an informed consent, the patient was placed on left lateral decubitus position. The patient was then sedated with the above medications. A bite block was placed between her teeth. The endoscope was then passed through the oropharynx, into the esophagus, and through the stomach and pylorus up to the second and third part of the duodenum. The endoscope was then withdrawn. The 2nd and 3rd part of the duodenal were normal. Duodenal bulb showed mild duodenitis with hyperemia erythema The pre-pyloric area antrum and distal body showed mild gastritis with superficial gastric erosions. There was no fresh or old blood in the stomach On retroflexion the fundus cardia and angularis were normal. Gastric biopsies were obtained. The endoscope was then withdrawn into the distal esophagus. Patient had a 0.5-1 cm sliding-type hiatal hernia with no significant erosive esophagitis. The remaining distal and proximal esophagus and oropharynx were unremarkable The patient tolerated the procedure well without difficulty. COMPLICATIONS : None SPECIMENS: Duodenal biopsies Gastric biopsies DISPOSITION: Transfer back to the floor Stable PLAN: 1. Await for biopsy result 2. Will place pt on Protonix 40 mg bid p.o. 3. Carafate 1 g p.o. 2 times a day 4. Clear liquid diet bowel prep and schedule colonoscopy on 08/23/2024 IRMA NERI MD Aug 21, 2024 12:56 DICTATED BY:IRMA NERI MD DICTATED DATE/TIME:08/21/24 1256 ELECTRONICALLY SIGNED BY:IRMA NERI MD 08/21/24 1256 ELECTRONICALLY CO-SIGNED BY: Condition at Discharge: Stable Final Diagnosis/Problems List Acute blood loss anemia --- Iron-deficiency versus chronic anemia versus thalassemia versus sideroblastic anemia with increased iron and ferritin Severe microcytic anemia with minimal reticulocyte count requiring transfusion status post bone marrow biopsy 3/3 Ruled out active GI bleeding status post EGD and colonoscopy Prior CVA-started aspirin 81 mg daily and atorvastatin Acute cystitis Type 2 diabetes mellitus-hemoglobin A1c 8.9 History of stroke Seizure disorder 0.5-1 cm sliding-type hiatal hernia 1+ internal hemorrhoids Obesity Discharge Disposition: Home Discharge Instruct/Medications Diet: Cardiac 2g Na,low cholest Activity: No Restrictions, As Tolerated Follow Up/Referral: Follow up with station gateman as outpatient within 7 days Follow up with GI within 7 days Follow up with primary care physician within 7 days Medications: Per EMR Discharge Statement: "Patient was advised to return to the ER or call 911 if any headaches, dizziness, shortness of breath, chest pain, abdominal pain, bleeding, fevers, or worsening of medical condition. Patient was counseled about treatment plan, medications, possible side effects, patientverbalized understanding. All questions were answered to the best of my ability. This discharge took greater then 30 minutes in planning, reviewing documentation, counseling the patient, and discussing with other team members." ASSESSMENT ASSESSMENT Assessment Acute blood loss anemia --- Iron-deficiency versus chronic anemia versus thalassemia versus sideroblastic anemia with increased iron and ferritin Severe microcytic anemia with minimal reticulocyte count requiring transfusion status post bone marrow biopsy 08/19 MED BRIONES RESIDENT Aug 23, 2024 15:40
[2024-08-23] MEDS ORDERED: PANT-62 PO (15:42)
[2024-08-23] MEDS ORDERED: SUCR1TAB31 OR (15:42)
--- NOTE | 2024-08-23 19:39 | DVHPNRES ---
Progress Note Date Seen: Aug 23, 2024 Resident Creating Document: MED BRIONES RESIDENT Medical Necessity Reason Pt with a Central, PICC or Fol: No Subjective Review of Systems Tin Carrion is a 58-year-old male patient who presents to the ED with the complaint of generalized weakness, fatigue and shortness of breath for the past week. Patient reports melena. Reports that last bowel movement was more than 1 week ago. Denies chest pain/cough/diarrhea/fevers/chills. Patient is a poor historian, lives at [facility]. Per chart review, his O2 saturation [facility] therefore he was sent to the ER. Denies lifetime history of colonoscopy. 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 Patient refers to have had a brain bleed two years ago (patient has mild-moderate amnesia) Surgical history: Thrombectomy Family history: Noncontributory Social history: Lives in assisted living facility. Denies current tobacco, alcohol and other drug abuse Allergies: Denies Home medication: Tylenol, aspirin 81 mg p.o. daily, atorvastatin 40 mg p.o. daily, carisoprodol 350 mg p.o. t.i.d., lorazepam 0.5 mg p.o. p.r.n., melatonin 3 mg p.o. daily, Naprosyn 500 mg p.o. t.i.d., quetiapine 12.5 PO bid, levetiracetam 500 mg p.o. bid Admitted in 2024 for breakthrough seizure.Patient was seen by Neurology, continue on Keppra 500 twice a day. 08/16 - Patient seen and examined at bedside. Rectal exam performed, normal tone, no hemorrhoids, no masses felt, prostatomegaly, no active bleeding, dark brown stool collected sent to lab, stool occult negative. CT head ordered, ABG ordered. 08/18-patient seen and examined at bedside. Denies urinary complaints but UA shows UTI. IV ceftriaxone started. Patient declined Hawkins catheter he is incontinent. Hemoglobin dropped to 6.9, 1 packed RBC transfused. 08/19-patient seen and examined at the bedside hemoglobin stable. Consulted GI. 08/20 - patient seen and examined at the bedside, hemoglobin 8.2 today., GI recommended EGD, patient agreed. EGD planned for 08/21. 08/21-patient seen and examined at bedside. Underwent EGD, no active bleeding. GI scheduled for colonoscopy 08/23. 08/22-patient seen and examined at bedside. Bowel prep started. No active complaint. 08/23-patient seen and examined at the bedside. bowel prep completed, colonoscopy completed Objective vital signs Vital Sign Date Time Temp Pulse Resp B/P (MAP) Pulse Ox O2 Delivery O2 Flow Rate FiO2 08/23/24 17:00 97.5 95 20 117/76 (90) 96 97.5 08/23/24 14:29 Mask 6.0 08/23/24 14:29 99 Total Intake and Output 08/22/24 08/22/24 08/23/24 15:00 23:00 07:00 Intake Total 290 ml 240 ml 900 ml Balance 290 ml 240 ml 900 ml medications Current Medications Medications Dose Ordered Sig/Cora Route Start Time Stop Time Status Last Admin Dose Admin Sodium Chloride 10 ml Q8HR IV 08/15/24 22:00 08/23/24 17:28 10 ML Acetaminophen 650 mg Q6HP PRN PO 08/15/24 21:45 Nitroglycerin 0.4 mg Q5MINP PRN SL 08/15/24 21:45 Morphine Sulfate 2 mg Q30M PRN IV 08/15/24 21:45 Pantoprazole Sodium 40 mg DAILY IV 08/16/24 10:00 08/23/24 09:23 40 MG Diagnostic Test (Pha) 1 strip ACHS 08/16/24 07:00 08/23/24 17:00 1 STRIP Insulin Human Regular ACHS SC 08/16/24 07:00 08/20/24 21:27 2 UNITS Dextrose 50 ml UD PRN IV 08/16/24 00:00 Atorvastatin Calcium 40 mg HS PO 08/16/24 22:00 08/22/24 21:38 40 MG Levetiracetam 500 mg BID PO 08/16/24 10:00 08/23/24 09:23 500 MG Lorazepam 0.5 mg Q6HP PRN IV 08/16/24 00:30 Quetiapine Fumarate 25 mg BID PO 08/16/24 10:00 08/23/24 12:43 25 MG Ceftriaxone Sodium 50 ml @ 100 mls/hr DAILY@09 IV 08/18/24 09:00 08/23/24 09:23 100 MLS/HR Polyethylene Glycol 17 gm DAILY PO 08/19/24 10:00 08/22/24 09:24 17 GM Docusate Sodium 100 mg BID PO 08/18/24 22:00 08/23/24 09:23 100 MG Pantoprazole Sodium 40 mg DAILY IV 08/22/24 10:00 08/22/24 09:33 40 MG Sucralfate 1 gm TID@0600,1130,2200 PO 08/21/24 22:00 08/23/24 09:24 1 GM Examination Patient lying in bed, in no acute distress General: Well-built, afebrile, palor, mucosae are moist Cardiovascular: Regular S1 and S2. No murmurs, gallops or rubs. No JVD elevation. Minimal pitting edema bilaterally Respiratory: Bilateral basilar crackles heard on auscultation. Abdomen: Soft, nontender, nondistended, normoactive bowel sounds, no rebound tenderness, no organomegaly, no masses. Rectal exam performed, normal tone, no hemorrhoids, no masses felt, prostatomegaly, no active bleeding, dark brown stool collected sent to lab, stool occult negative Genitourinary: Deferred MSK/skin: Mobilizes 4 limbs. Skin is dry and warm Neurological: No motor, no sensitive deficits, normal speech. Pupils are isocoric and reactive. Psych/Mental Status: A/Ox3 laboratory and microbiology Laboratory Tests 08/23/24 06:02 Test 08/23/24 06:02 Range/Units Serum Glucose 98 74-106 mg/dL Microbiology Date/Time Source Procedure Growth Status 08/18/24 06:50 Voided Urine Urine Culture - Final Escherichia coli Complete Labs and/or images reviewed: Labs reviewed by me, Image(s) reviewed by me Problem List/Assessment/Plan Problem List/Assessment/Plan Acute blood loss anemia --- Iron-deficiency versus chronic anemia versus thalassemia versus sideroblastic anemia with increased iron and ferritin Severe microcytic anemia with minimal reticulocyte count requiring transfusion status post bone marrow biopsy 08/19 Reticulocyte production index 0 Retic count 0.29 Hemoglobin 13.6 on 03/2024 Hemoglobin on arrival 4.4, MCV 68 - transfuse 3 packed RBCs, 1 pending Assistant Import Manager consulted-recommends marrow biopsy by Radiology and sent for pathology, flow cytometry and cytogenetic CT abdomen unremarkable Stool occult is negative. Rectal exam performed, normal tone, no hemorrhoids, no masses felt, prostatomegaly, no active bleeding, dark brown stool collected sent to lab, stool occult negative Ferritin 600s Fibrinogen/D-dimer unremarkable rheumatoid/HIV panel unremarkable EBV studies pending, hepatitis panel pending, SUKH pending ABG unremarkable GI consulted, EGD 08/21 showed Mild gastroduodenitis with some superficial erosions. 0.5-1 cm sliding-type hiatal hernia otherwise normal examination up to the 2nd and 3rd part of the duodenum Await for biopsy result Continue Protonix 40 mg bid p.o. and Carafate 1 g p.o. 2 times a day Status post colonoscopy 08/[address] shows moderately large old stroke involving the right anterior watershed and associated right frontal lobe Holding aspirin for now Atorvastatin 40 mg daily Constipation: X-ray KUB shows nonobstructive bowel gas pattern Docusate 100 mg b.i.d. along with MiraLax 17 g p.o. daily Acute cystitis IV ceftriaxone starting 08/18 Urine bacterial culture showing Gram-negative rods Type 2 diabetes mellitus-hemoglobin A1c 8.9 On ISS History of stroke Seizure disorder Continue home medication Keppra 500 b.i.d. PUD PPX: Protonix VTE PPX: SCD ( no lovenox bc anemic) Diet: Clear liquid Continue soft diet Plan discussed with patient in which all questions have been answered Goals of care discussed with patient for more than 27 minutes, full code status Case discussed with Dr. Hanson Plan discussed with: Patient My Orders My Orders Orders - MED BRIONES RESIDENT Procedure Category Date Status Time Discharge DISCHARGE 08/23/24 Transmitted 15:38 Schedule For Dc SIDDHARTHA 08/23/24 In Process Clinic F/U 15:38 Dietary Evaluation Review Recommendations by RD: Dietary education by RD Comments: 1) Advance to 60g CCHO cardiac diet when medically feasible, per [employer] approval 2) Consider ferrous sulfate @ 325 mg qd if iron-deficiency anemia does not improve s/p additional PRBC 3) Continue to monitor appetite, labs, and skin integrity. Will consider oral nutrition supplementation if PO intake drops < 50%. 4) F/u with oncology and hematology 5) Refer to outpatient RD/CDCES for diabetes education d/t uncontrolled HbA1c - 8.9% Expected Outcomes/Goals: 1) appetite and labs to improve 2) diet to advance 3) skin integrity to improve 4) f/u in 5 days CC Plasma Assessment Blood Product Administration S: 2228 Date of Service: Aug 23, 2024 Billing Provider: STAN TAYLOR MD Common Visit Codes: [id number] INP/OBS CARE(HIGH) MED BRIONES RESIDENT Aug 23, 2024 19:38 STAN TAYLOR MD Aug 26, 2024 01:50
[2024-08-24 01:00] VITALS: BP 139/79; PULSE 86; RESP 18; TEMP 97.7; O2SAT 92
[2024-08-24 08:00] VITALS: PULSE 73; PULSE 85
[2024-08-24 09:00] VITALS: BP 133/76; PULSE 85; RESP 17; TEMP 97.2; O2SAT 93
--- NOTE | 2024-08-24 10:56 | DVHPNRES ---
Progress Note Date Seen: Aug 24, 2024 Resident Creating Document: MED BRIONES RESIDENT Medical Necessity Reason Pt with a Central, PICC or Fol: No Subjective Review of Systems Tin Carrion is a 58-year-old male patient who presents to the ED with the complaint of generalized weakness, fatigue and shortness of breath for the past week. Patient reports melena. Reports that last bowel movement was more than 1 week ago. Denies chest pain/cough/diarrhea/fevers/chills. Patient is a poor historian, lives at [facility]. Per chart review, his O2 saturation [facility] around [facility] therefore he was sent to the ER. Denies lifetime history of colonoscopy. 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 Patient refers to have had a brain bleed two years ago (patient has mild-moderate amnesia) Surgical history: Thrombectomy Family history: Noncontributory Social history: Lives in assisted living facility. Denies current tobacco, alcohol and other drug abuse Allergies: Denies Home medication: Tylenol, aspirin 81 mg p.o. daily, atorvastatin 40 mg p.o. daily, carisoprodol 350 mg p.o. t.i.d., lorazepam 0.5 mg p.o. p.r.n., melatonin 3 mg p.o. daily, Naprosyn 500 mg p.o. t.i.d., quetiapine 12.5 PO bid, levetiracetam 500 mg p.o. bid Admitted in 2024 for breakthrough seizure.Patient was seen by Neurology, continue on Keppra 500 twice a day. 08/16 - Patient seen and examined at bedside. Rectal exam performed, normal tone, no hemorrhoids, no masses felt, prostatomegaly, no active bleeding, dark brown stool collected sent to lab, stool occult negative. CT head ordered, ABG ordered. 08/18-patient seen and examined at bedside. Denies urinary complaints but UA shows UTI. IV ceftriaxone started. Patient declined Hawkins catheter he is incontinent. Hemoglobin dropped to 6.9, 1 packed RBC transfused. 08/19-patient seen and examined at the bedside hemoglobin stable. Consulted GI. 08/20 - patient seen and examined at the bedside, hemoglobin 8.2 today., GI recommended EGD, patient agreed. EGD planned for 08/21. 08/21-patient seen and examined at bedside. Underwent EGD, no active bleeding. GI scheduled for colonoscopy 08/23. 08/22-patient seen and examined at bedside. Bowel prep started. No active complaint. 08/23-patient seen and examined at the bedside. bowel prep completed, colonoscopy completed repo answered pending for discharge 08/24 seen and examined at the bedside. pending transport Objective vital signs Vital Sign Date Time Temp Pulse Resp B/P (MAP) Pulse Ox O2 Delivery O2 Flow Rate FiO2 08/24/24 01:00 97.7 86 18 139/79 (99) 92 97.7 08/23/24 20:00 Room Air* 0 21 Total Intake and Output 08/23/24 08/23/24 08/24/24 15:00 23:00 07:00 Intake Total 60 ml 120 ml 450 ml Balance 60 ml 120 ml 450 ml medications Current Medications Medications Dose Ordered Sig/Cora Route Start Time Stop Time Status Last Admin Dose Admin Sodium Chloride 10 ml Q8HR IV 08/15/24 22:00 08/24/24 06:22 10 ML Acetaminophen 650 mg Q6HP PRN PO 08/15/24 21:45 Nitroglycerin 0.4 mg Q5MINP PRN SL 08/15/24 21:45 Morphine Sulfate 2 mg Q30M PRN IV 08/15/24 21:45 Pantoprazole Sodium 40 mg DAILY IV 08/16/24 10:00 08/23/24 09:23 40 MG Diagnostic Test (Pha) 1 strip ACHS 08/16/24 07:00 08/24/24 06:22 1 STRIP Insulin Human Regular ACHS SC 08/16/24 07:00 08/20/24 21:27 2 UNITS Dextrose 50 ml UD PRN IV 08/16/24 00:00 Atorvastatin Calcium 40 mg HS PO 08/16/24 22:00 08/23/24 22:36 40 MG Levetiracetam 500 mg BID PO 08/16/24 10:00 08/23/24 22:36 500 MG Lorazepam 0.5 mg Q6HP PRN IV 08/16/24 00:30 Quetiapine Fumarate 25 mg BID PO 08/16/24 10:00 08/23/24 22:36 25 MG Ceftriaxone Sodium 50 ml @ 100 mls/hr DAILY@09 IV 08/18/24 09:00 08/23/24 09:23 100 MLS/HR Polyethylene Glycol 17 gm DAILY PO 08/19/24 10:00 08/22/24 09:24 17 GM Docusate Sodium 100 mg BID PO 08/18/24 22:00 08/23/24 22:36 100 MG Pantoprazole Sodium 40 mg DAILY IV 08/22/24 10:00 08/22/24 09:33 40 MG Sucralfate 1 gm TID@0600,1130,2200 PO 08/21/24 22:00 08/24/24 06:31 1 GM Examination Patient lying in bed, in no acute distress General: Well-built, afebrile, palor, mucosae are moist Cardiovascular: Regular S1 and S2. No murmurs, gallops or rubs. No JVD elevation. Minimal pitting edema bilaterally Respiratory: Bilateral basilar crackles heard on auscultation. Abdomen: Soft, nontender, nondistended, normoactive bowel sounds, no rebound tenderness, no organomegaly, no masses. Rectal exam performed, normal tone, no hemorrhoids, no masses felt, prostatomegaly, no active bleeding, dark brown stool collected sent to lab, stool occult negative Genitourinary: Deferred MSK/skin: Mobilizes 4 limbs. Skin is dry and warm Neurological: No motor, no sensitive deficits, normal speech. Pupils are isocoric and reactive. Psych/Mental Status: A/Ox3 laboratory and microbiology Laboratory Tests 08/23/24 06:02 Test 08/23/24 06:02 Range/Units Serum Glucose 98 74-106 mg/dL Microbiology Date/Time Source Procedure Growth Status 08/18/24 06:50 Voided Urine Urine Culture - Final Escherichia coli Complete Labs and/or images reviewed: Labs reviewed by me, Image(s) reviewed by me Problem List/Assessment/Plan Problem List/Assessment/Plan Acute blood loss anemia --- Iron-deficiency versus chronic anemia versus thalassemia versus sideroblastic anemia with increased iron and ferritin Severe microcytic anemia with minimal reticulocyte count requiring transfusion status post bone marrow biopsy 08/19 Reticulocyte production index 0 Retic count 0.29 Hemoglobin 13.6 on 03/2024 Hemoglobin on arrival 4.4, MCV 68 - transfuse 3 packed RBCs, 1 pending Defensive Fire Control Systems Operator consulted-recommends marrow biopsy by Radiology and sent for pathology, flow cytometry and cytogenetic CT abdomen unremarkable Stool occult is negative. Rectal exam performed, normal tone, no hemorrhoids, no masses felt, prostatomegaly, no active bleeding, dark brown stool collected sent to lab, stool occult negative Ferritin 600s Fibrinogen/D-dimer unremarkable rheumatoid/HIV panel unremarkable EBV studies pending, hepatitis panel pending, SUKH pending ABG unremarkable GI consulted, EGD 08/21 showed Mild gastroduodenitis with some superficial erosions. 0.5-1 cm sliding-type hiatal hernia otherwise normal examination up to the 2nd and 3rd part of the duodenum Await for biopsy result Continue Protonix 40 mg bid p.o. and Carafate 1 g p.o. 2 times a day Status post colonoscopy 08/23 - There was a 2 mm benign-appearing polyp seen in the cecum that was removed completely via cold biopsy forceps Prior CVA Head CT shows moderately large old stroke involving the right anterior watershed and associated right frontal lobe Holding aspirin for now Atorvastatin 40 mg daily Constipation: X-ray KUB shows nonobstructive bowel gas pattern Docusate 100 mg b.i.d. along with MiraLax 17 g p.o. daily Acute cystitis IV ceftriaxone starting 08/18 Urine bacterial culture showing Gram-negative rods Type 2 diabetes mellitus-hemoglobin A1c 8.9 On ISS History of stroke Seizure disorder Continue home medication Keppra 500 b.i.d. PUD PPX: Protonix VTE PPX: SCD ( no lovenox bc anemic) Diet: Clear liquid Pending discharge transportation Plan discussed with patient in which all questions have been answered Goals of care discussed with patient for more than 27 minutes, full code status Case discussed with Dr. Hanson Plan discussed with: Patient My Orders My Orders Orders - MED BRIONES RESIDENT Procedure Category Date Status Time Discharge DISCHARGE 08/23/24 Transmitted 15:38 Schedule For Dc SIDDHARTHA 08/23/24 In Process Clinic F/U 15:38 * Cat Sitter CONS 08/24/24 Transmitted Consult Dietary Evaluation Review Recommendations by RD: Dietary education by RD Comments: 1) Advance to 60g CCHO cardiac diet when medically feasible, per [employer] COMM[employer]ICATION[employer] SPECIALIST approval 2) Consider ferrous sulfate @ 325 mg qd if iron-deficiency anemia does not improve s/p additional PRBC 3) Continue to monitor appetite, labs, and skin integrity. Will consider oral nutrition supplementation if PO intake drops < 50%. 4) F/u with oncology and hematology 5) Refer to outpatient RD/CDCES for diabetes education d/t uncontrolled HbA1c - 8.9% Expected Outcomes/Goals: 1) appetite and labs to improve 2) diet to advance 3) skin integrity to improve 4) f/u in 5 days CC Plasma Assessment Blood Product Administration S: [id number] Date of Service: Aug 24, 2024 Billing Provider: FRANTZ RICH MD Common Visit Codes: [id number] INP/OBS CARE(HIGH) MED BRIONES RESIDENT Aug 24, 2024 10:56 FRANTZ RICH MD Aug 25, 2024 17:39
[2024-08-24 11:08] VITALS: BP 132/70; PULSE 83; RESP 18; TEMP 97.9; O2SAT 94
[2024-08-24 13:00] VITALS: BP 133/76; PULSE 85; RESP 17; TEMP 97.2; O2SAT 93
--- NOTE | 2024-08-24 14:22 | DVHPN2 ---
Progress Note - Dictate Date Seen: Aug 24, 2024 Medical Necessity Reason Pt with a Central, PICC or Fol: No Subjective No new complaints No active GI bleeding Hb stable at 8.5 Colonoscopy showed a small cecal polyp and 1+ hemorrhoids otherwise normal examination Endoscopic had shown mild gastroduodenitis with superficial erosions vital signs Vital Sign Date Time Temp Pulse Resp B/P (MAP) Pulse Ox O2 Delivery O2 Flow Rate FiO2 08/24/24 13:00 97.2 85 17 133/76 (95) 93 97.2 08/24/24 08:00 Room Air* 0 21 Total Intake and Output 08/23/24 08/23/24 08/24/24 15:00 23:00 07:00 Intake Total 60 ml 120 ml 450 ml Balance 60 ml 120 ml 450 ml medications Current Medications Medications Dose Ordered Sig/Cora Route Start Time Stop Time Status Last Admin Dose Admin Sodium Chloride 10 ml Q8HR IV 08/15/24 22:00 08/24/24 13:41 10 ML Acetaminophen 650 mg Q6HP PRN PO 08/15/24 21:45 Nitroglycerin 0.4 mg Q5MINP PRN SL 08/15/24 21:45 Morphine Sulfate 2 mg Q30M PRN IV 08/15/24 21:45 Pantoprazole Sodium 40 mg DAILY IV 08/16/24 10:00 08/23/24 09:23 40 MG Diagnostic Test (Pha) 1 strip ACHS 08/16/24 07:00 08/24/24 11:30 1 STRIP Insulin Human Regular ACHS SC 08/16/24 07:00 08/20/24 21:27 2 UNITS Dextrose 50 ml UD PRN IV 08/16/24 00:00 Atorvastatin Calcium 40 mg HS PO 08/16/24 22:00 08/23/24 22:36 40 MG Levetiracetam 500 mg BID PO 08/16/24 10:00 08/23/24 22:36 500 MG Lorazepam 0.5 mg Q6HP PRN IV 08/16/24 00:30 Quetiapine Fumarate 25 mg BID PO 08/16/24 10:00 08/23/24 22:36 25 MG Ceftriaxone Sodium 50 ml @ 100 mls/hr DAILY@09 IV 08/18/24 09:00 08/23/24 09:23 100 MLS/HR Polyethylene Glycol 17 gm DAILY PO 08/19/24 10:00 08/22/24 09:24 17 GM Docusate Sodium 100 mg BID PO 08/18/24 22:00 08/23/24 22:36 100 MG Pantoprazole Sodium 40 mg DAILY IV 08/22/24 10:00 08/22/24 09:33 40 MG Sucralfate 1 gm TID@0600,1130,2200 PO 08/21/24 22:00 08/24/24 06:31 1 GM objective Moderately built and nourished, in no acute distress, alert and oriented. Head and neck: Pupils equal and react to light, no scleral icterus No conjunctival or mucosal hemorrhage Lungs: Clear; Cardiovascular: S1-S2 rrr Abdomen: No organomegaly, tenderness or ascites. Bowel sounds are present. Extremities: No clubbing edema cyanosis or calf tenderness. Skin: Unremarkable for petechia purpura ecchymosis Lymphadenopathy: None Neurological exam: pt bedbound unable to move laboratory and microbiology Laboratory Tests 08/23/24 06:02 Test 08/23/24 06:02 Range/Units Serum Glucose 98 74-106 mg/dL Problems(with codes): (1) Cecal polyp (2) Gastroduodenitis (3) Diabetes mellitus with hyperglycemia (4) Hypertensive urgency (5) Generalized weakness (6) Severe anemia Prognosis Plan Continue supportive care Advance to regular diet as tolerated Avoid aspirin NSAIDs Outpatient follow up with me in 4-6 weeks to review pathology results Discharge planning is in progress Dietary Evaluation Review Recommendations by RD: Dietary education by RD Comments: 1) Advance to 60g [facility] cardiac diet when medically feasible, per [employer]GR[employer] approval 2) Consider ferrous sulfate @ 325 mg qd if iron-deficiency anemia does not improve s/p additional PRBC 3) Continue to monitor appetite, labs, and skin integrity. Will consider oral nutrition supplementation if PO intake drops < 50%. 4) F/u with oncology and hematology 5) Refer to outpatient RD/CDCES for diabetes education d/t uncontrolled HbA1c - 8.9% Expected Outcomes/Goals: 1) appetite and labs to improve 2) diet to advance 3) skin integrity to improve 4) f/u in 5 days Plan discussed with: Patient CC Plasma Assessment Blood Product Administration S: [id number] IRMA NERI MD Aug 24, 2024 14:22
== END 2024-08-24 15:15 | disposition home or self-care (01) | DRG 720 ==
LOC: EDBD 18:23 → ER 18:23 → OVERFLOW 21:42 → TELE-EAST 08-16 12:23 → EAST 08-21 08:09
PROVIDERS: ADMIT Student in an Organized Health Care Education/Training Program; ATTEND Student in an Organized Health Care Education/Training Program
PROC: 30233N1 Transfusion of Nonautologous Red Blood Cells into Peripheral Vein, Percutaneous Approach (ICD-10-PCS; principal; 2024-08-15)
PROC: 07DT3ZX Extraction of Bone Marrow, Percutaneous Approach, Diagnostic (ICD-10-PCS; 2024-08-15)
PROC: 0DBH8ZX Excision of Cecum, Via Natural or Artificial Opening Endoscopic, Diagnostic (ICD-10-PCS; 2024-08-21)
PROC: 0DB98ZX Excision of Duodenum, Via Natural or Artificial Opening Endoscopic, Diagnostic (ICD-10-PCS; 2024-08-21)
PROC: 0DB68ZX Excision of Stomach, Via Natural or Artificial Opening Endoscopic, Diagnostic (ICD-10-PCS; 2024-08-23)
DX: A41.9 Sepsis, unspecified organism (principal); R53.2 Functional quadriplegia; K25.4 Chronic or unspecified gastric ulcer with hemorrhage; D62 Acute posthemorrhagic anemia; G81.94 Hemiplegia, unspecified affecting left nondominant side; D64.3 Other sideroblastic anemias; Q43.8 Other specified congenital malformations of intestine; K29.70 Gastritis, unspecified, without bleeding; K29.90 Gastroduodenitis, unspecified, without bleeding; D56.9 Thalassemia, unspecified; E11.9 Type 2 diabetes mellitus without complications; E78.5 Hyperlipidemia, unspecified; E66.9 Obesity, unspecified; D50.9 Iron deficiency anemia, unspecified; G40.909 Epilepsy, unspecified, not intractable, without status epilepticus; I10 Essential (primary) hypertension; K44.9 Diaphragmatic hernia without obstruction or gangrene; N30.00 Acute cystitis without hematuria; K80.20 Calculus of gallbladder without cholecystitis without obstruction; K64.9 Unspecified hemorrhoids; K59.00 Constipation, unspecified; K63.5 Polyp of colon; K29.80 Duodenitis without bleeding; Z86.73 Personal history of transient ischemic attack (TIA), and cerebral infarction without residual deficits; Z79.82 Long term (current) use of aspirin; Z79.899 Other long term (current) drug therapy; Z74.01 Bed confinement status; Z68.30 Body mass index [BMI] 30.0-30.9, adult
CPT/HCPCS: 10005; 36415; 36600; 70450; 71045; 72192; 74018; 74176; 77012; 80048; 80053; 80076; 80320; 81001; 82140; 82270; 82607; 82728; 82746; 82805; 82962; 83010; 83036; 83540; 83550; 83615; 83735; 83880; 84443; 84484; 85025; 85045; 85379; 85384; 85610; 85730; 86038; 86200; 86431; 86664; 86703; 86705; 86706; 86850; 86880; 86900; 86901; 86920; 87086; 87088; 87186; 87340; 87426; 87804; 93005; 93306; 93970; 97110; 97163; 97530; 99291; G0378; J1815; J2003; J2250; J2405; J2470; J2704

== ENCOUNTER 2024-10-04 09:49 | Inpatient (IN) | payer OTHER ==
[~2024-10-04] VITALS: Ht 170.2 cm; Wt 86.7 kg
[~2024-10-04 09:49] MED LIST changes: +DICL1GEL59 EX; +DOCU250C12 PO; +FERR325T20 PO; +FLUO1TAB12 PO; +FOLI-119 PO; +HYDR12.59 PO; +INSREG3 SUBCUT; +INSUINJ37 SC; +LOSA-534 PO; +METF-370 PO; +PANT-62 PO; +SUCR1TAB31 OR
--- NOTE | 2024-10-04 10:11 | ED.PDOC ---
HPI Comments 58 year old male SINGH presents to the ED with chief complaint of syncope. EMS reports that the patient is coming from [facility] for a witnessed syncope episode while sitting, being noted to be unconscious for 10 minutes. EMS relays that the patient was noted to have a HR in the low 50s and a low BP, however, when provided Atropine, the patient's BP improved along with his mentation. EMS states that the patient has no history of recent illness or surgery, only experiencing generalized weakness at this time. Patient denies any chest pain, headache, SOB, dizziness, or N/V/D. Time Seen by MD: 10:07 Primary Care Provider: UNKNOWN Reviewed Notes: Nurses Notes, Tone Cabinet Assembler Notes, Medications, Allergies Allergies: Coded Allergies: No Known Drug Allergy (Verified Allergy, Unknown, 12/25/23) Home Meds Active Scripts Sucralfate (CARAFATE) 1 Gm Tab, 1 GM OR BID for 30 Days, #60 TAB 0 Refills Prov:MED BRIONES RESIDENT 08/23/24 Pantoprazole Sodium Sesquihydr (Pantoprazole Sodium Dr) 40 Mg Tab, 40 MG PO DAILY for 30 Days, #30 TAB 0 Refills Prov:MED BRIONES RESIDENT 08/23/24 Levetiracetam (KEPPRA TABLET) 500 Mg Tb, 500 MG PO BID for 30 Days, #60 TAB Prov:ANNIE JAIME MD 04/17/24 Reported Medications Metformin Hydrochloride (Metformin Hcl) 500 Mg Tab, 1 TAB PO BID, #60 TAB 3 Refills 08/16/24 Losartan Potassium (Losartan Potassium) 50 Mg Tab, 1 TAB PO BID, #30 TAB 5 Refills 08/16/24 Insulin Glargine (Lantus Solostar) 100 Unit/Ml Inj, 10 UNIT SC DAILY, INJ 08/16/24 Hydrochlorothiazide (Hydrochlorothiazide) 12.5 Mg Cap, 1 CAP PO DAILY, #30 CAP 5 Refills 08/16/24 Insulin Regular (Human) (Humulin R) 100 Unit/Ml Inj, 100 UNIT SUBCUT, INJ 08/16/24 Folic Acid (Folic Acid) 1 Mg Tab, 1 MG PO DAILY, TAB 08/16/24 Fluoxetine HCl (Pmdd) (Fluoxetine HCl) 10 Mg Tab, 10 MG PO DAILY, TAB 08/16/24 Ferrous Sulfate (Ferosul) 325 Mg Tab, 325 MG PO DAILY, TAB 08/16/24 Docusate Sodium (Docusate Sodium) 250 Mg Cap, 250 MG PO DAILY, CAP 08/16/24 Diclofenac Sodium (Topical) (Voltaren Arthritis Pain) 1 % Gel, 1 % EX, GEL 08/16/24 Aspirin (ASPIRIN 81) 81 Mg Tab, 81 MG PO DAILY, TAB 02/16/24 Quetiapine Fumerate (QUETIAPINE FUMARATE) 25 Mg Tab, 12.5 MG PO BID, TAB 02/16/24 Atorvastatin Calcium (ATORVASTATIN CALCIUM) 40 Mg Tab, 40 MG PO HS, TAB 02/16/24 Melatonin (KP MELATONIN) 3 Mg Tab, 3 MG PO QHSP, TAB 02/15/24 Acetaminophen (Acetaminophen) 325 Mg Tab, 325 MG PO Q6HR PRN for PAIN SCALE 1 THRU 6, TAB 02/15/24 Naproxen (NAPROSYN TABLET) 500 Mg Tb, 250 MG PO TIDP, TAB 02/15/24 Carisoprodol (Soma) 350 Mg Tab, 350 MG PO TIDP, TAB 02/15/24 Lorazepam (ATIVAN TABLET) 0.5 Mg Tb, 0.5 MG PO Q6HPRN, TAB 02/15/24 Information Source: Patient, Emergency Med Personnel Mode of Arrival: EMS Severity: Moderate Timing: Hours Duration: Since onset Prehospital treatment: None Onset: At Rest Cardiac Risk Factors: HTN, Diabetes PE Risk Factors: None Associated Signs and Symptoms: Syncope Past Medical History PAST MEDICAL HISTORY: CVA, DM, High Lipids, HTN, Seizures Surgical History: Denies all surgeries Family History Family History: Unknown Social History Smoker: Non-Smoker Alcohol: Denies ETOH Use Drugs: Denies Drug Use Lives In: Other Constitutional: denies: chills, diaphoresis, fatigue, fever, malaise, sweats, weakness, others EENTM: denies: blurred vision, double vision, ear bleeding, ear discharge, ear drainage, ear pain, ear ringing, eye pain, eye redness, hearing loss, mouth pain, mouth swelling, nasal discharge, nose bleeding, nose congestion, nose pain, photophobia, tearing, throat pain, throat swelling, voice changes, others Respiratory: denies: cough, hemoptysis, orthopnea, SOB at rest, shortness of breath, SOB with excertion, stridor, wheezing, others Cardiovascular: reports: syncope; denies: chest pain, dizzy spells, diaphoresis, Dyspnea on exertion, edema, irregular heart beat, left arm pain, lightheadedness, palpitations, PND, others Gastrointestinal: denies: abdomen distended, abdominal pain, blood streaked bowels, constipated, diarrhea, dysphagia, difficulty swallowing, hematemesis, melena, nausea, poor appetite, poor fluid intake, rectal bleeding, rectal pain, vomiting, others Genitourinary: denies: burning, dysuria, flank pain, frequency, hematuria, incontinence, penile discharge, penile sore, pain, testicle pain, testicle swelling, urgency, others Neurological: reports: weakness; denies: dizziness, fainting, headache, left sided numbness, left sided weakness, numbness, paresthesia, pre-existing deficit, right sided numbness, right sided weakness, seizure, speech problems, tingling, tremors, others Musculoskeletal: denies: back pain, gout, joint pain, joint swelling, muscle pain, muscle stiffness, neck pain, others Integumetry: denies: bruises, change in color, change in hair/nails, dryness, laceration, lesions, lumps, rash, wounds, others Allergic/Immunocompromised: denies: Difficulty Healing, Frequent Infections, Hives, Itching, others Hematologic/Lymphatic: denies: anemia, blood clots, easy bleeding, easy bruising, swollen glands, others Endocrine: denies: excessive hunger, excessive sweating, excessive thirst, excessive urination, flushing, intolerance to cold, intolerance to heat, unexplained weight gain, unexplained weight loss, others Psychiatric: denies: anxiety, bipolar disorder, depression, hopeless, panic disorder, schizophrenia, sleepless, suicidal, others All Other Systems: Reviewed and Negative Physical Exam General Appearance: Moderate Distress, Normal HEENT: Normal ENT Inspection, PERRL/EOMI Neck: Full Range of Motion, Non-Tender, Normal, Normal Inspection Respiratory: Chest Non-Tender, Lungs Clear, No Accessory Muscle Use, No Respiratory Distress, Normal Breath Sounds Cardiovascular: Bradycardia, No Edema, No JVD, No Murmur, No Gallop, Normal Peripheral Pulses Breast Exam: Deferred Gastrointestinal: No Organomegaly, Non Tender, No Pulsatile Mass, Normal Bowel Sounds, Soft Genitalia: Deferred Pelvic: Deferred Rectal: Deferred Extremities: Decreased range of motion (Left upper lower extremity), No calf tenderness, Normal capillary refill, Non-tender, No pedal edema Musculoskeletal : Apperance: Normal Neurologic: Alert, rug shampooer II-XII nml as Tested, Motor Weakness (Left upper lower extremity), Normal Affect, Normal Mood, No Sensory Deficits Cerebellar Function: Normal Reflexes: Normal Skin: Dry, Normal Color, Warm Peripheral Pulses: 3+ Radial (R), 3+ Radial (L) Lymphatic: No Adenopathy EKG EKG : Pulse Rate (adult): 68 [place]: Normal Cardiac Rhythm: NSR Block: RBBB Hypertrophy: None ST: Normal Was a procedure done? Was a procedure done?: No CP Differential Dx Differential Diagnosis: A-fib, A-Flutter, Angina, Anxiety / Panic Attack, Atrial Dysrhythmia, Electrolyte Disorder X-Ray, Labs, Meds, VS Vital Signs Date Time Temp Pulse Resp B/P (MAP) Pulse Ox O2 Delivery O2 Flow Rate FiO2 10/04/24 15:14 52 10 116/23 (54) 100 10/04/24 12:52 57 12 92 Room Air* 0 21 10/04/24 12:51 59 9 115/94 (101) 94 10/04/24 12:00 58 10/04/24 10:45 60 11 112/29 (56) 100 10/04/24 10:15 68 10/04/24 10:09 98.9 66 12 90/53 (65) 99 98.9 10/04/24 09:54 68 Lab Test 10/04/24 10:28 Range/Units White Blood Count 3.8 L 4.4-10.8 10^3/uL Red Blood Count 2.90 L 4.5-5.90 10^6/uL Hemoglobin 7.1 L 13.5-17.5 g/dL Hematocrit 22.0 L 41.0-53.0 % Mean Corpuscular Volume 75.7 L 80.0-100.0 fL Mean Corpuscular Hemoglobin 24.5 L 28.0-32.0 pg Mean Corpuscular Hemoglobin Concent 32.4 32.0-36.0 g/dL Red Cell Distribution Width 23.0 H 11.8-14.3 % Platelet Count 216 140-450 10^3/uL Mean Platelet Volume 8.7 6.9-10.8 fL Neutrophils (%) (Auto) 43.3 37.0-80.0 % Lymphocytes (%) (Auto) 43.1 10.0-50.0 % Monocytes (%) (Auto) 9.3 0.0-12.0 % Eosinophils (%) (Auto) 3.5 0.0-7.0 % Basophils (%) (Auto) 0.8 0.0-2.0 % Neutrophils # (Auto) 1.6 1.6-8.6 10 ^3/uL Lymphocytes # (Auto) 1.6 0.4-5.4 10 ^3/uL Monocytes # (Auto) 0.4 0-1.3 10 ^3/uL Eosinophils # (Auto) 0.1 0-0.8 10 ^3/uL Basophils # (Auto) 0 0-0.2 10 ^3/uL Nucleated Red Blood Cells 0.0 % Platelet Estimate Adequate Hypochromasia (manual) Slight Microcytosis Slight Sodium Level 140 136-145 mmol/L Potassium Level 4.1 3.5-5.1 mmol/L Chloride Level 102 98-107 mmol/L Carbon Dioxide Level 30 20-31 mmol/L Anion Gap 8 5-15 Blood Urea Nitrogen 38 H 9-23 mg/dL Creatinine 2.29 H 0.700-1.30 mg/dL Glomerular Filtration Rate Calc 33 >90 mL/min BUN/Creatinine Ratio 16.6 10.0-20.0 Serum Glucose 119 H 74-106 mg/dL Hemoglobin A1c 5.9 H <5.7 % A1C Calcium Level 9.1 8.7-10.4 mg/dL Troponin I High Sensitivity 24 </=54 ng/L Current Medications Medications (Trade) Dose Ordered Sig/Cora Route Start Time Stop Time Status Last Admin Sodium Chloride 1,000 ml @ 1,000 mls/hr Q1H ONCE IV 10/04/24 10:15 10/04/24 11:14 DC 10/04/24 10:22 Sodium Chloride 1,000 ml @ 150 mls/hr Q6H40M ONCE IV 10/04/24 10:15 10/04/24 16:54 DC 10/04/24 11:30 Patient alert. Possible syncope. Vitals stable. Answering questions. History of CVA. Cardiac marker within normal limits. Establish intravenous access. Was given fluids. EKG reviewed does show bradycardia. Severe anemia. Blood transfusion. Reviewed his history. Explained to the patient. Continue monitoring. Time of 1ST Reevaluation: 11:07 Reevaluation 1ST: Unchanged Patient Education/Counseling: Diagnosis, Treatment Family Education/Counseling: No Family Present Additional Information The following tests were ordered, and results were reviewed by me: BMP, CBC, CXR, Troponin Additional Information was gathered from interviewing the following independent historians: EMS I reviewed and agreed with the following test results read by other providers: CXR I discussed treatment and results with medical personnel and: Patient Comprehensive systems review obtained and negative except for what is stated in the HPI. Departure 1 Departure Time of Disposition: 12:01 Impression: Primary Impression: Bradycardia Additional Impressions: Symptomatic anemia Syncope Qualified Codes: R55 - Syncope and collapse Acute tubular necrosis Disposition: ADMITTED INPATIENT Admit to: Med Surg Condition: Guarded Critical Care Note Critical Care Time?: Yes (90 min-critical care time only) Critical care comment: Continue to monitor Stability Stability form required: No Heart Score Heart Score: Heart Score Response (Comments) Value History Highly Suspicious 2 EKG Normal 0 Age 45-64 1 Risk Factors >3 or Hx ASHD 2 Troponin Normal limit 0 Total 5 I personally scribed for MARII SELLERS MD ([email or web address]) on 10/04/24 at 10:10. Electronically submitted by Quinten Hooker ([email or web address]). I personally scribed for MARII SELLERS MD ([email or web address]) on 10/04/24 at 10:15. Electronically submitted by Quinten Hooker ([email or web address]). MARII SELLERS MD Oct 04, 2024 10:10
[2024-10-04] MEDS: SODIUM CHLORIDE 0.9% 1,000 ML IV ONE ×2 (10:22→11:30)
--- NOTE | 2024-10-04 10:46 | DVH ---
EXAM: XY CHEST PORTABLE Indication: sob Technique: Single frontal view of the chest was obtained Comparison: XY CHEST PORTABLE on DOS: 08/21/24, XY CHEST PORTABLE on DOS: 08/15/24 FINDINGS: Lines and Tubes: None Lungs: No focal consolidation. Low lung volumes. Pleura: No effusion. No pneumothorax. Cardiomediastinal contours: Unremarkable Bones: No acute osseous abnormality. IMPRESSION: No acute cardiopulmonary disease.
[2024-10-04 11:03] LABS: Basophils # (auto) 0 10 ^3/uL (0-0.2); Basophils % (auto) 0.8 % (0.0-2.0); Eosinophils # (auto) 0.1 10 ^3/uL (0-0.8); Eosinophils % (auto) 3.5 % (0.0-7.0); Hemoglobin 7.1 g/dL (13.5-17.5); Lymphocytes # (auto) 1.6 10 ^3/uL (0.4-5.4); Lymphocytes % (auto) 43.1 % (10.0-50.0); Mean Corpuscular Hemoglobin 24.5 pg (28.0-32.0); Mean Corpuscular Hgb Conc. 32.4 g/dL (32.0-36.0); Mean Corpuscular Volume 75.7 fL (80.0-100.0); Monocytes # (auto) 0.4 10 ^3/uL (0-1.3); Monocytes % (auto) 9.3 % (0.0-12.0); Neutrophils # (auto) 1.6 10 ^3/uL (1.6-8.6); Neutrophils % (auto) 43.3 % (37.0-80.0); Platelet Count (auto) 216 10^3/uL (140-450); White Blood Cell 3.8 10^3/uL (4.4-10.8)
[2024-10-04 11:08] LABS: Chloride 102 mmol/L (98-107); Potassium 4.1 mmol/L (3.5-5.1); Sodium 140 mmol/L (136-145)
[2024-10-04 11:09] LABS: Calcium 9.1 mg/dL (8.7-10.4)
[2024-10-04 11:14] LABS: BUN/Creatinine Ratio 16.6 (10.0-20.0)
[2024-10-04 11:15] LABS: Blood Urea Nitrogen 38 mg/dL (9-23); Glucose 119 mg/dL (74-106)
[2024-10-04 11:20] LABS: Anion Gap 8 (5-15); Carbon Dioxide 30 mmol/L (20-31)
[2024-10-04 11:25] LABS: Hypochromia Slight; Platelet Estimate Adequate
[2024-10-04 12:52] VITALS: PULSE 57; RESP 12; O2SAT 92
[2024-10-04] MEDS ORDERED: NITROGLYCERIN 0.4 MG SL TAB SL PRN (16:30)
[2024-10-04] MEDS ORDERED: ONDANSETRON HCL 4 MG/2 ML VIAL IV PRN (16:30)
[2024-10-04] MEDS ORDERED: MORPHINE SULFATE INJ 2 MG/ml SYRG IV PRN (16:30)
[2024-10-04] MEDS: SODIUM CHLORIDE 0.9% 1,000 ML IV SCH (16:30)
[2024-10-04] MEDS ORDERED: ACETAMINOPHEN 325 MG TAB PO PRN (16:30)
--- NOTE | 2024-10-04 16:44 | DVHHP2 ---
History of Present Illness Reason for Visit: Syncope History of Present Illness Tin Carrion is a 58-year-old male with past medical history of hypertension, diabetes type 2, CVA with left-sided deficits, seizures, schizophrenia, and colonoscopy who presents to the ED for syncope. Patient reports that he was having breakfast this morning when he suddenly passed out in his kitchen and dining room table. He states that his caregiver called EMS for help. Patient reports that [facility] [place] [facility]. He also reports that he uses a wheelchair to get around. Patient does report that he takes seizure medications and has not had a seizure recently. Patient denies any chest pain, shortness of breath, fever, chills, numbness, weakness, dizziness, abdominal pain, nausea, vomiting, diarrhea, recent travels,or recent ingestion of spoiled food. Patient also reports that he does not use oxygen at home. 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 seizures) Psych: Schizophrenia Endocrine: Diabetes Past Surgical History: Other (Colonoscopy) Family History: None Smoke: No ALCOHOL: none Drugs: None Lives: Other Domestic Violence: Neg Review of Systems Constitutional: Yes: Other (Syncope) Allergies: Coded Allergies: No Known Drug Allergy (Verified Allergy, Unknown, 12/25/23) Medications Current Medications Medications Dose Ordered Sig/Cora Route Start Time Stop Time Status Last Admin Dose Admin Sodium Chloride 1,000 ml @ 60 mls/hr [id number] IV 10/04/24 16:30 UNV Ondansetron HCl 4 mg Q4HP PRN IV 10/04/24 16:30 UNV Enoxaparin Sodium 30 mg DAILY SC 10/05/24 10:00 UNV Acetaminophen 650 mg Q6HP PRN PO 10/04/24 16:30 UNV Nitroglycerin 0.4 mg Q5MINP PRN SL 10/04/24 16:30 UNV Morphine Sulfate 2 mg Q30M PRN IV 10/04/24 16:30 UNV Exam Vital Signs Vital Signs Date Time Temp Pulse Resp B/P (MAP) Pulse Ox O2 Delivery O2 Flow Rate FiO2 10/04/24 15:14 52 10 116/23 (54) 100 10/04/24 12:52 Room Air* 0 21 10/04/24 10:09 98.9 98.9 General Appearance: Alert, Oriented X3, Cooperative, No acute distress HEENT: Atraumatic, PERRLA, EOMI, Mucous membr. moist/pink Respiratory: Clear to auscultation, Normal air movement Cardiovascular: Normal S1, Normal S2, No murmurs Abdominal: Normal bowel sounds, Soft, No tenderness, No hepatospenomegaly, No masses Extremities: No clubbing, No cyanosis, No edema, Normal pulses Skin: No significant lesion Neuro: Normal speech, Normal tone, Sensation intact Psych/Mental Status: Mental status NL, Mood NL Labs/Xrays Labs Test 10/04/24 10:28 Range/Units White Blood Count 3.8 L 4.4-10.8 10^3/uL Red Blood Count 2.90 L 4.5-5.90 10^6/uL Hemoglobin 7.1 L 13.5-17.5 g/dL Hematocrit 22.0 L 41.0-53.0 % Mean Corpuscular Volume 75.7 L 80.0-100.0 fL Mean Corpuscular Hemoglobin 24.5 L 28.0-32.0 pg Mean Corpuscular Hemoglobin Concent 32.4 32.0-36.0 g/dL Red Cell Distribution Width 23.0 H 11.8-14.3 % Platelet Count 216 140-450 10^3/uL Mean Platelet Volume 8.7 6.9-10.8 fL Neutrophils (%) (Auto) 43.3 37.0-80.0 % Lymphocytes (%) (Auto) 43.1 10.0-50.0 % Monocytes (%) (Auto) 9.3 0.0-12.0 % Eosinophils (%) (Auto) 3.5 0.0-7.0 % Basophils (%) (Auto) 0.8 0.0-2.0 % Neutrophils # (Auto) 1.6 1.6-8.6 10 ^3/uL Lymphocytes # (Auto) 1.6 0.4-5.4 10 ^3/uL Monocytes # (Auto) 0.4 0-1.3 10 ^3/uL Eosinophils # (Auto) 0.1 0-0.8 10 ^3/uL Basophils # (Auto) 0 0-0.2 10 ^3/uL Nucleated Red Blood Cells 0.0 % Platelet Estimate Adequate Hypochromasia (manual) Slight Microcytosis Slight Sodium Level 140 136-145 mmol/L Potassium Level 4.1 3.5-5.1 mmol/L Chloride Level 102 98-107 mmol/L Carbon Dioxide Level 30 20-31 mmol/L Anion Gap 8 5-15 Blood Urea Nitrogen 38 H 9-23 mg/dL Creatinine 2.29 H 0.700-1.30 mg/dL Glomerular Filtration Rate Calc 33 >90 mL/min BUN/Creatinine Ratio 16.6 10.0-20.0 Serum Glucose 119 H 74-106 mg/dL Calcium Level 9.1 8.7-10.4 mg/dL Troponin I High Sensitivity 24 </=54 ng/L EXAM: XY CHEST PORTABLE Indication: sob Technique: Single frontal view of the chest was obtained Comparison: XY CHEST PORTABLE on DOS: 08/21/24, XY CHEST PORTABLE on DOS: 08/15/24 FINDINGS: Lines and Tubes: None Lungs: No focal consolidation. Low lung volumes. Pleura: No effusion. No pneumothorax. Cardiomediastinal contours: Unremarkable Bones: No acute osseous abnormality. IMPRESSION: No acute cardiopulmonary disease. Assessment/Plan Assessment/Plan Assessment Autonomic imbalance Acute hypoxic respiratory failure Sinus bradycardia Severe anemia LUIZA History of hypertension History of diabetes type 2 Plan Admit to tele Supportive oxygen NS 2L given in ED EKG RBC morphology Trend labs Chest x-ray noted Troponin Echo ordered UDS Diet Antiemetics Home medications reconciled DVT prophylaxis-SCDs PUD prophylaxis-Protonix, continue home medication Discussed plan of care with patient and nurse Nephro consult Cardiology consult Plan discussed with: Patient My Orders Orders - GOPAL ORONA SALOONKEEPER Procedure Category Date Status Time Admit ADMIT 10/04/24 Transmitted 16:25 Allergies SIDDHARTHA 10/04/24 In Process 16:25 Code Status CODE 10/04/24 Transmitted 16:25 Sodium Chloride 0.9% PHA 10/04/24 Logged 16:30 Ondansetron Hcl PHA 10/04/24 Logged (Zofran) 16:30 Complete Blood Count LAB 10/05/24 Verified 04:00 Comprehensive LAB 10/05/24 Verified Metabolic Panel 04:00 Cardiac DIET 10/04/24 Transmitted Diet-2gna,Lofat,Lochol Dinner Enoxaparin Sodium PHA 10/05/24 Logged (Lovenox) 10:00 Acetaminophen Tablet PHA 10/04/24 Logged (Tylenol Tablet) 16:30 Nitroglycerin PHA 10/04/24 Logged Sublingual (Ntrostat 16:30 Morphine Sulfate PHA 10/04/24 Logged Injection 16:30 Stat Ekg For Chest SIDDHARTHA 10/04/24 In Process Pain 16:25 Notify Of Changes SIDDHARTHA 10/04/24 In Process From Base 16:25 Air Crew Officer For SIDDHARTHA 10/04/24 In Process 24 Hours 16:25 Emergency Dysrhythmia [facility] 10/04/24 In Process Protocol 16:25 Rhythm Strips Once [facility] 10/04/24 In Process Every Shift 16:25 Oxygen By Nasal RT 10/04/24 Transmitted Cannula 16:25 *Dr. [facility] CONS 10/04/24 Transmitted -[place] 16:25 Echo 2d Mode Cardiac US 10/04/24 Logged DOP 16:25 Drug Screen LAB 10/04/24 Logged 16:25 * Cardiology Consult CONS 10/04/24 Transmitted 16:25 Urinalysis LAB 10/04/24 Logged 16:31 Date of Service: Oct 04, 2024 Billing Provider: GOPAL ORONA Common Visit Codes: [id number] INP/OBS CARE (HIGH) GOPAL ORONA Oct 04, 2024 16:44
[2024-10-04] MEDS ORDERED: DEXTROSE (50%) 50ML SYRG IV PRN (16:45)
[2024-10-04] MEDS: ACCU-CHEK COMFORT CURVE STRIP VI SCH (17:00)
[2024-10-04] MEDS: InsuLIN REG 1unit/0.01ml Soln (100units/ml) SC SCH (17:30)
[2024-10-04 20:02] VITALS: PULSE 69; RESP 69; O2SAT 92
[2024-10-04 21:00] VITALS: BP 90/43; PULSE 69; RESP 19; TEMP 97.6; O2SAT 92
[2024-10-04] MEDS: MELATONIN 3 MG PO SCH (22:00)
[2024-10-04 22:42] VITALS: BP 90/43; PULSE 69; RESP 19; TEMP 97.6; O2SAT 92
[2024-10-05] VITALS (8 sets, daily range): BP systolic 85–140; BP diastolic 49–90; PULSE 43–109; RESP 14–18; TEMP 37; O2SAT 84–100
[2024-10-05] MEDS: CARISOPRODOL 350 MG TAB PO SCH (00:10)
[2024-10-05] MEDS: SUCRALFATE 1 GM TAB PO SCH (00:12)
[2024-10-05] MEDS: QUEtiapine FUMARATE 25 MG TAB PO SCH (00:13)
[2024-10-05] MEDS: levETIRAcetam 500 MG TAB PO SCH (00:13)
[2024-10-05] MEDS: LOSARTAN POTASSIUM 50 MG TAB PO SCH (00:39)
[2024-10-05 06:27] LABS: Basophils # (auto) 0 10 ^3/uL (0-0.2); Eosinophils # (auto) 0 10 ^3/uL (0-0.8); Hemoglobin 7.7 g/dL (13.5-17.5); Mean Corpuscular Volume 77.3 fL (80.0-100.0); Monocytes # (auto) 0.3 10 ^3/uL (0-1.3); Neutrophils # (auto) 5.2 10 ^3/uL (1.6-8.6)
[2024-10-05 06:31] LABS: Basophils % (auto) 0.3 % (0.0-2.0); Eosinophils % (auto) 0.4 % (0.0-7.0); Hematocrit 23.8 % (41.0-53.0); Lymphocytes # (auto) 0.9 10 ^3/uL (0.4-5.4); Lymphocytes % (auto) 13.9 % (10.0-50.0); Mean Corpuscular Hemoglobin 25.1 pg (28.0-32.0); Mean Corpuscular Hgb Conc. 32.4 g/dL (32.0-36.0); Neutrophils % (auto) 80.4 % (37.0-80.0); Platelet Count (auto) 273 10^3/uL (140-450); Red Blood Cells 3.08 10^6/uL (4.5-5.90); White Blood Cell 6.4 10^3/uL (4.4-10.8)
[2024-10-05 06:33] LABS: Alkaline Phosphatase 67 U/L (46-116); Anion Gap 11 (5-15); BUN/Creatinine Ratio 15.9 (10.0-20.0); Blood Urea Nitrogen 18 mg/dL (9-23); Calcium 9.8 mg/dL (8.7-10.4); Carbon Dioxide 26 mmol/L (20-31); Chloride 101 mmol/L (98-107); Potassium 3.5 mmol/L (3.5-5.1); Sodium 138 mmol/L (136-145); Total Protein 7.4 g/dL (5.7-8.2)
[2024-10-05 06:34] LABS: Albumin 4.3 g/dL (3.2-4.8); Bilirubin, Total 0.5 mg/dL (0.2-1.0)
[2024-10-05 06:50] LABS: Alanine Aminotransferase 9 U/L (7-40); Aspartate Aminotransferase 12 U/L (13-40); Glucose 155 mg/dL (74-106)
[2024-10-05 07:15] LABS: Red Cell Distribution Width 22.6 % (11.8-14.3)
[2024-10-05] MEDS: DOCUSATE ORAL LIQUID 100 MG/10 ML UD PO SCH (08:51)
[2024-10-05] MEDS: PANTOPRAZOLE 40 MG TAB PO SCH (08:52)
[2024-10-05] MEDS: FLUoxetine HCL 10 MG CAP PO SCH (08:53)
[2024-10-05] MEDS: ASPirin-EC 81 mg tab PO SCH (08:53)
[2024-10-05] MEDS: FERROUS SULFATE 325mg EC TAB PO SCH (08:54)
[2024-10-05] MEDS: FOLIC ACID 1 MG TAB PO SCH (08:55)
[2024-10-05] MEDS: hydroCHLOROthiazide 25 MG TAB PO SCH (10:00)
[2024-10-05] MEDS ORDERED: ENOXAPARIN SOD 30 MG/0.3 ML SYRINGE SC SCH (10:00)
--- NOTE | 2024-10-05 13:16 | DVHPN2 ---
Objective Vitals Vital Signs Date Time Temp Pulse Resp B/P (MAP) Pulse Ox O2 Delivery O2 Flow Rate FiO2 10/05/24 12:41 98.6 43 14 120/82 (95) 84 98.6 10/05/24 08:00 Nasal Cannula* 1 24 Intake/Output Intake and Output 10/05/24 07:00 Intake Total 1990 ml Output Total 6 ml Balance 1984 ml Intake Oral 240 ml IV Total 1750 ml Output Urine Total 6 ml Medications Current Medications Medications Dose Ordered Sig/Croa Route Start Time Stop Time Status Last Admin Dose Admin Sodium Chloride 1,000 ml @ 60 mls/hr [id number] IV 10/04/24 16:30 Ondansetron HCl 4 mg Q4HP PRN IV 10/04/24 16:30 Acetaminophen 650 mg Q6HP PRN PO 10/04/24 16:30 Nitroglycerin 0.4 mg Q5MINP PRN SL 10/04/24 16:30 Morphine Sulfate 2 mg Q30M PRN IV 10/04/24 16:30 Diagnostic Test (Pha) 1 strip ACHS 10/04/24 17:00 10/05/24 11:30 1 STRIP Insulin Human Regular ACHS SC 10/04/24 17:00 10/05/24 07:01 2 UNITS Dextrose 50 ml UD PRN IV 10/04/24 16:45 Aspirin 81 mg DAILY PO 10/05/24 10:00 10/05/24 08:53 81 MG Carisoprodol 350 mg TIDP PO 10/04/24 22:00 10/05/24 06:55 350 MG Levetiracetam 500 mg BID PO 10/04/24 22:00 10/05/24 08:53 500 MG Losartan Potassium 50 mg BID PO 10/04/24 22:00 10/05/24 08:52 50 MG Pantoprazole Sodium 40 mg DAILY PO 10/05/24 10:00 10/05/24 08:52 40 MG Quetiapine Fumarate 12.5 mg BID PO 10/04/24 22:00 10/05/24 08:54 12.5 MG Sucralfate 1 gm BID PO 10/04/24 22:00 10/05/24 08:52 1 GM Atorvastatin Calcium 40 mg HS PO 10/05/24 22:00 Docusate Sodium 250 mg DAILY PO 10/05/24 10:00 10/05/24 08:51 250 MG Ferrous Sulfate 325 mg DAILY PO 10/05/24 10:00 10/05/24 08:54 325 MG Fluoxetine HCl 10 mg DAILY PO 10/05/24 10:00 10/05/24 08:53 10 MG Folic Acid 1 mg DAILY PO 10/05/24 10:00 10/05/24 08:55 1 MG Hydrochlorothiazide 12.5 mg DAILY PO 10/05/24 10:00 10/05/24 10:00 12.5 MG Patient Own Medication 3 mg QHSP PO 10/04/24 22:00 Laboratory Results Laboratory Tests 10/05/24 05:00 Chemistry Test 10/05/24 05:00 Albumin 4.3 g/dL (3.2-4.8) Calcium Level 9.8 mg/dL (8.7-10.4) Total Protein 7.4 g/dL (5.7-8.2) LFT Test 10/05/24 05:00 Alanine Aminotransferase (ALT) 9 U/L (7-40) Alkaline Phosphatase 67 U/L (46-116) Aspartate Amino Transferase (AST) 12 U/L (13-40) L Total Bilirubin 0.5 mg/dL (0.2-1.0) SANTIAGO LYNNE MD Oct 05, 2024 13:16
--- NOTE | 2024-10-05 14:13 | DVHINCON2 ---
Date of service: Oct 05, 2024 Referring Physician Jesus Reason for Consultation LUIZA History of Present Illness Patient is a 58 y/o male with past medical hx of HTN, type 2 DM, CVA with L sided deficits, seizures, and schizophrenia. Pt was admitted for Acute resp failure, bradycardia, anemia, LUIZA. On admission pt was found to have a BUN of 38, creat 2.29, GFR 30. Repeat labs on 10/05 BUN 18, creat 1.13, GFR 76. Pt denies hx of CKD. Pt reports HTN and DM are well controlled. Pt denies NSAID use. Past Medical History HTN, type 2 DM, CVA with L sided deficits, seizures, and schizophrenia. Allergies: Coded Allergies: No Known Drug Allergy (Verified Allergy, Unknown, 12/25/23) Home Meds Active Scripts Sucralfate (CARAFATE) 1 Gm Tab, 1 GM OR BID for 30 Days, #60 TAB 0 Refills Prov:MED BRIONES RESIDENT 08/23/24 Pantoprazole Sodium Sesquihydr (Pantoprazole Sodium Dr) 40 Mg Tab, 40 MG PO DAILY for 30 Days, #30 TAB 0 Refills Prov:ANSELMOMED RESIDENT 08/23/24 Levetiracetam (KEPPRA TABLET) 500 Mg Tb, 500 MG PO BID for 30 Days, #60 TAB Prov:ANNIE JAIME MD 04/17/24 Reported Medications Metformin Hydrochloride (Metformin Hcl) 500 Mg Tab, 1 TAB PO BID, #60 TAB 3 Refills 08/16/24 Losartan Potassium (Losartan Potassium) 50 Mg Tab, 1 TAB PO BID, #30 TAB 5 Refills 08/16/24 Insulin Glargine (Lantus Solostar) 100 Unit/Ml Inj, 10 UNIT SC DAILY, INJ 08/16/24 Hydrochlorothiazide (Hydrochlorothiazide) 12.5 Mg Cap, 1 CAP PO DAILY, #30 CAP 5 Refills 08/16/24 Insulin Regular (Human) (Humulin R) 100 Unit/Ml Inj, 100 UNIT SUBCUT, INJ 08/16/24 Folic Acid (Folic Acid) 1 Mg Tab, 1 MG PO DAILY, TAB 08/16/24 Fluoxetine HCl (Pmdd) (Fluoxetine HCl) 10 Mg Tab, 10 MG PO DAILY, TAB 08/16/24 Ferrous Sulfate (Ferosul) 325 Mg Tab, 325 MG PO DAILY, TAB 08/16/24 Docusate Sodium (Docusate Sodium) 250 Mg Cap, 250 MG PO DAILY, CAP 08/16/24 Diclofenac Sodium (Topical) (Voltaren Arthritis Pain) 1 % Gel, 1 % EX, GEL 08/16/24 Aspirin (ASPIRIN 81) 81 Mg Tab, 81 MG PO DAILY, TAB 02/16/24 Quetiapine Fumerate (QUETIAPINE FUMARATE) 25 Mg Tab, 12.5 MG PO BID, TAB 02/16/24 Atorvastatin Calcium (ATORVASTATIN CALCIUM) 40 Mg Tab, 40 MG PO HS, TAB 02/16/24 Melatonin (KP MELATONIN) 3 Mg Tab, 3 MG PO QHSP, TAB 02/15/24 Acetaminophen (Acetaminophen) 325 Mg Tab, 325 MG PO Q6HR PRN for PAIN SCALE 1 THRU 6, TAB 02/15/24 Naproxen (NAPROSYN TABLET) 500 Mg Tb, 250 MG PO TIDP, TAB 02/15/24 Carisoprodol (Soma) 350 Mg Tab, 350 MG PO TIDP, TAB 02/15/24 Lorazepam (ATIVAN TABLET) 0.5 Mg Tb, 0.5 MG PO Q6HPRN, TAB 02/15/24 Current Medications Current Medications Medications (Trade) Dose Ordered Sig/Cora Route PRN Reason Start Time Stop Time Status Last Admin Enoxaparin Sodium (Lovenox) 30 mg DAILY SC 10/05/24 10:00 10/04/24 17:09 DC Aspirin (Ecotrin Enteric Coated Tablet) 81 mg DAILY PO 10/05/24 10:00 10/05/24 21:55 DC 10/05/24 08:53 Pantoprazole Sodium (Protonix Tablet) 40 mg DAILY PO 10/05/24 10:00 10/05/24 21:55 DC 10/05/24 08:52 Atorvastatin Calcium (Lipitor) 40 mg HS PO 10/05/24 22:00 10/05/24 21:55 DC Docusate Sodium (Colace Liquid) 250 mg DAILY PO 10/05/24 10:00 10/05/24 21:55 DC 10/05/24 08:51 Ferrous Sulfate 325 mg DAILY PO 10/05/24 10:00 10/05/24 21:55 DC 10/05/24 08:54 Fluoxetine HCl (PROzac CAPSULE) 10 mg DAILY PO 10/05/24 10:00 10/05/24 21:55 DC 10/05/24 08:53 Folic Acid 1 mg DAILY PO 10/05/24 10:00 10/05/24 21:55 DC 10/05/24 08:55 Hydrochlorothiazide (hydroCHLOROthiazide TABLET) 12.5 mg DAILY PO 10/05/24 10:00 10/05/24 21:55 DC 10/05/24 10:00 Family History: Patient reports no known family medical history. Review of Systems 10 systems reviewed and negative except as per HPI H&P Exam Vital Signs/I&O Vital Sign Date Time Temp Pulse Resp B/P (MAP) Pulse Ox O2 Delivery O2 Flow Rate FiO2 10/05/24 20:00 82 10/05/24 20:00 17 94 Room Air* 0 21 10/05/24 16:30 98.1 85/49 (61) 98.1 Intake and Output 10/04/24 10/05/24 19:00 07:00 Intake Total 1750 ml 240 ml Output Total 6 ml Balance 1750 ml 234 ml Intake Oral 240 ml IV Total 1750 ml Output Urine Total 6 ml Physical Exam Gen: Appears stated age, no acute distress HEENT:Pupils equal and reactive to light and accommodation Lungs: Bilateral air entry, no rales CVS: RRR, normal S1 and S2 Abd:normoactive bowel sounds, soft, nontender, nondistended Ext: No edema Neuro: A&O x4 Labs/Diagnostic Data Labs/Diagnostic Data Laboratory Tests Test 10/05/24 17:20 10/05/24 12:28 10/05/24 06:58 10/05/24 05:00 Range/Units POC Glucose 91 129 H 137 H 70-106 mg/dl White Blood Count 6.4 # 4.4-10.8 10^3/uL Red Blood Count 3.08 L 4.5-5.90 10^6/uL Hemoglobin 7.7 L 13.5-17.5 g/dL Hematocrit 23.8 L 41.0-53.0 % Mean Corpuscular Volume 77.3 L 80.0-100.0 fL Mean Corpuscular Hemoglobin 25.1 L 28.0-32.0 pg Mean Corpuscular Hemoglobin Concent 32.4 32.0-36.0 g/dL Red Cell Distribution Width 22.6 H 11.8-14.3 % Platelet Count 273 140-450 10^3/uL Mean Platelet Volume 8.5 6.9-10.8 fL Neutrophils (%) (Auto) 80.4 H 37.0-80.0 % Lymphocytes (%) (Auto) 13.9 10.0-50.0 % Monocytes (%) (Auto) 5.0 0.0-12.0 % Eosinophils (%) (Auto) 0.4 0.0-7.0 % Basophils (%) (Auto) 0.3 0.0-2.0 % Neutrophils # (Auto) 5.2 1.6-8.6 10 ^3/uL Lymphocytes # (Auto) 0.9 0.4-5.4 10 ^3/uL Monocytes # (Auto) 0.3 0-1.3 10 ^3/uL Eosinophils # (Auto) 0 0-0.8 10 ^3/uL Basophils # (Auto) 0 0-0.2 10 ^3/uL Nucleated Red Blood Cells 0.0 % Sodium Level 138 136-145 mmol/L Potassium Level 3.5 3.5-5.1 mmol/L Chloride Level 101 98-107 mmol/L Carbon Dioxide Level 26 20-31 mmol/L Anion Gap 11 5-15 Blood Urea Nitrogen 18 # 9-23 mg/dL Creatinine 1.13 0.700-1.30 mg/dL Glomerular Filtration Rate Calc 76 >90 mL/min BUN/Creatinine Ratio 15.9 10.0-20.0 Serum Glucose 155 H 74-106 mg/dL Calcium Level 9.8 8.7-10.4 mg/dL Total Bilirubin 0.5 0.2-1.0 mg/dL Aspartate Amino Transferase (AST) 12 L 13-40 U/L Alanine Aminotransferase (ALT) 9 7-40 U/L Alkaline Phosphatase 67 46-116 U/L Total Protein 7.4 5.7-8.2 g/dL Albumin 4.3 3.2-4.8 g/dL Test 10/04/24 22:28 10/04/24 17:28 10/04/24 10:28 Range/Units POC Glucose 133 H 83 70-106 mg/dl White Blood Count 3.8 L 4.4-10.8 10^3/uL Red Blood Count 2.90 L 4.5-5.90 10^6/uL Hemoglobin 7.1 L 13.5-17.5 g/dL Hematocrit 22.0 L 41.0-53.0 % Mean Corpuscular Volume 75.7 L 80.0-100.0 fL Mean Corpuscular Hemoglobin 24.5 L 28.0-32.0 pg Mean Corpuscular Hemoglobin Concent 32.4 32.0-36.0 g/dL Red Cell Distribution Width 23.0 H 11.8-14.3 % Platelet Count 216 140-450 10^3/uL Mean Platelet Volume 8.7 6.9-10.8 fL Neutrophils (%) (Auto) 43.3 37.0-80.0 % Lymphocytes (%) (Auto) 43.1 10.0-50.0 % Monocytes (%) (Auto) 9.3 0.0-12.0 % Eosinophils (%) (Auto) 3.5 0.0-7.0 % Basophils (%) (Auto) 0.8 0.0-2.0 % Neutrophils # (Auto) 1.6 1.6-8.6 10 ^3/uL Lymphocytes # (Auto) 1.6 0.4-5.4 10 ^3/uL Monocytes # (Auto) 0.4 0-1.3 10 ^3/uL Eosinophils # (Auto) 0.1 0-0.8 10 ^3/uL Basophils # (Auto) 0 0-0.2 10 ^3/uL Nucleated Red Blood Cells 0.0 % Platelet Estimate Adequate Hypochromasia (manual) Slight Microcytosis Slight Sodium Level 140 136-145 mmol/L Potassium Level 4.1 3.5-5.1 mmol/L Chloride Level 102 98-107 mmol/L Carbon Dioxide Level 30 20-31 mmol/L Anion Gap 8 5-15 Blood Urea Nitrogen 38 H 9-23 mg/dL Creatinine 2.29 H 0.700-1.30 mg/dL Glomerular Filtration Rate Calc 33 >90 mL/min BUN/Creatinine Ratio 16.6 10.0-20.0 Serum Glucose 119 H 74-106 mg/dL Hemoglobin A1c 5.9 H <5.7 % A1C Calcium Level 9.1 8.7-10.4 mg/dL Troponin I High Sensitivity 24 </=54 ng/L Plan/Recommendation IMP LUIZA hemodynamically mediated improved- downtrending serum creat 1.13, improvement in GFR 76 baseline serum creat unknown Anemia Hx of HTN Hx of type 2 DM REC Continue IVF CMP, CBC, phos, TSH, uric acid, urine studies Strict I&O's Avoidance of nephrotoxins Will continue to follow. Plan discussed with: Patient YEBOAH,PAN SMITHP Oct 05, 2024 14:13
--- NOTE | 2024-10-05 15:03 | DVHDS2 ---
Discharge Summary Date of Admission Oct 04, 2024 at 16:25 Date of Discharge: Oct 05, 2024 Admitting Diagnosis Autonomic imbalance Acute hypoxic respiratory failure Sinus bradycardia Severe anemia LUIZA History of hypertension History of diabetes type 2 Labs/Diagnostic Data: Laboratory Results Test 10/05/24 12:28 10/05/24 05:00 10/04/24 10:28 POC Glucose 129 mg/dl (70-106) White Blood Count 6.4 10^3/uL (4.4-10.8) Red Blood Count 3.08 10^6/uL (4.5-5.90) Hemoglobin 7.7 g/dL (13.5-17.5) Hematocrit 23.8 % (41.0-53.0) Mean Corpuscular Volume 77.3 fL (80.0-100.0) Mean Corpuscular Hemoglobin 25.1 pg (28.0-32.0) Mean Corpuscular Hemoglobin Concent 32.4 g/dL (32.0-36.0) Red Cell Distribution Width 22.6 % (11.8-14.3) Platelet Count 273 10^3/uL (140-450) Mean Platelet Volume 8.5 fL (6.9-10.8) Neutrophils (%) (Auto) 80.4 % (37.0-80.0) Lymphocytes (%) (Auto) 13.9 % (10.0-50.0) Monocytes (%) (Auto) 5.0 % (0.0-12.0) Eosinophils (%) (Auto) 0.4 % (0.0-7.0) Basophils (%) (Auto) 0.3 % (0.0-2.0) Neutrophils # (Auto) 5.2 10 ^3/uL (1.6-8.6) Lymphocytes # (Auto) 0.9 10 ^3/uL (0.4-5.4) Monocytes # (Auto) 0.3 10 ^3/uL (0-1.3) Eosinophils # (Auto) 0 10 ^3/uL (0-0.8) Basophils # (Auto) 0 10 ^3/uL (0-0.2) Nucleated Red Blood Cells 0.0 % Sodium Level 138 mmol/L (136-145) Potassium Level 3.5 mmol/L (3.5-5.1) Chloride Level 101 mmol/L (98-107) Carbon Dioxide Level 26 mmol/L (20-31) Anion Gap 11 (5-15) Blood Urea Nitrogen 18 mg/dL (9-23) Creatinine 1.13 mg/dL (0.700-1.30) Glomerular Filtration Rate Calc 76 mL/min (>90) BUN/Creatinine Ratio 15.9 (10.0-20.0) Serum Glucose 155 mg/dL (74-106) Calcium Level 9.8 mg/dL (8.7-10.4) Total Bilirubin 0.5 mg/dL (0.2-1.0) Aspartate Amino Transferase (AST) 12 U/L (13-40) Alanine Aminotransferase (ALT) 9 U/L (7-40) Alkaline Phosphatase 67 U/L (46-116) Total Protein 7.4 g/dL (5.7-8.2) Albumin 4.3 g/dL (3.2-4.8) Platelet Estimate Adequate Hypochromasia (manual) Slight Microcytosis Slight Hemoglobin A1c 5.9 % A1C (<5.7) Troponin I High Sensitivity 24 ng/L (</=54) Other Laboratory Tests 10/05/24 05:00 Brief Hx & Hospital Course: This is a 58 years old male with past medical history hypertension, diabetes, CVA with left-sided deficits, seizure, schizophrenia come to emergency department because of syncope episode. The patient apparently had breakfast in the morning and pass out in the kitchen at the dining table. The patient was admitted. CT head was done. No acute process. 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 Today the patient is not dizzy. He ambulate to bathroom without any dizziness. I am going to discharge him home. Advised him to follow up with primary care physician 1-2 weeks. Activity as tolerated. Diet per home diet. Physical exam HEENT: Normocephalic atraumatic pupils equal react to light and accommodation. Extraocular muscles intact, conjunctiva pink, oropharynx moist, no thrush, no exudate. Lymphatic: No lymphadenopathy Cardiovascular exam: S1, S2 was heard. No murmurs, rubs, gallops Lung: Clear on auscultation bilaterally, no wheeze, rale, rhonchi. GI: Abdominal soft, nondistended, nontenderness, positive bowel sounds. Extremity: No crepitus, cyanosis, edema. Pedal pulses present bilateral. Full range of motion. Skin: Normal turgor, no rash. Psych: Alert, oriented x3. Neurology: No focal deficits, cranial nerve II to XII grossly intact. This medical document was created using an electronic medical record system with [employer] direct computerized dictation system. Although this document has been carefully reviewed, there may still be some phonetic and typographical errors. These areas are purely typographical due to imperfections of the software programs, and do not reflect any compromise in the patient's medical care. Condition at Discharge: Stable Final Diagnosis/Problems List TIA Dizziness due to TIA Acute hypoxic respiratory failure Sinus bradycardia Severe anemia LUIZA History of hypertension History of diabetes type 2 Discharge Disposition: Home Discharge Instruct/Medications Diet: Cardiac 2g Na,low cholest Activity: No Restrictions, As Tolerated Follow Up/Referral: pcp 1-2 weeks Medications: Resume home meds Discharge Statement: "Patient was advised to return to the ER or call 911 if any headaches, dizziness, shortness of breath, chest pain, abdominal pain, bleeding, fevers, or worsening of medical condition. Patient was counseled about treatment plan, medications, possible side effects, patientverbalized understanding. All questions were answered to the best of my ability. This discharge took greater then 30 minutes in planning, reviewing documentation, counseling the patient, and discussing with other team members." ASSESSMENT ASSESSMENT Assessment TIA Date of Service: Oct 05, 2024 Billing Provider: SANTIAGO LYNNE MD Common Visit Codes: [id number]/[id number] DISCH DAY >30min SANTIAGO LYNNE MD Oct 05, 2024 15:03
--- NOTE | 2024-10-05 15:07 | DVH ---
CT HEAD WITHOUT CONTRAST Indication: HX: CVA. SYNCOPE EXAM DATE: 10/05/2024 02:10 PM COMPARISON: 08/16/2024 TECHNIQUE: CT of the head without intravenous contrast. RADIATION DOSE: CTDIvol: 40 mGy, DLP: 900 mGy*cm FINDINGS: There is no intracranial hemorrhage. There is no extra-axial fluid, mass, mass effect or midline shif t. The ventricles are midline and normal in size. Basilar cisterns are patent. There are mild periven tricular and subcortical white matter chronic microvascular ischemic changes. Old right frontal prio r dejesus radiata/centrum semiovale infarct. [id number] global cerebral volume loss. The paranasal sinuses and mastoids are well-pneumatized. Imaged portion of the orbits are unremarkabl e. IMPRESSION: 1. No intracranial hemorrhage or mass effect. 2. Old right frontoparietal infarct.
[2024-10-05] MEDS ORDERED: ATORVASTATIN 20 MG TAB PO SCH (22:00)
--- NOTE | 2024-10-07 09:17 | ECG ---
[facility] Test Date: 2024-10-04 Test Time: 09:51:26 Pat Name: SAPPHIRE VELAZQUEZ Department: ED Room: 0273T Gender: M Seaming Inspector: CHAS : 1965 Requested By: MARII SELLERS Order Number: [id number] Reading MD: Measurements Intervals [place] Rate: 68 P: 33 [place]: 165 QRS: -24 QRSD: 147 T: 21 QT: 455 QTc: 484 Interpretive Statements Sinus rhythm Right bundle branch block Please click the below link to view image of tracing.
== END 2024-10-05 21:30 | disposition home or self-care (01) | DRG 47 ==
LOC: ER 09:49 → EDBD 09:49 → OVERFLOW 16:25 → TELE-WESTW 20:06
PROVIDERS: ADMIT Internal Medicine; ATTEND Internal Medicine
DX: G45.9 Transient cerebral ischemic attack, unspecified (principal); J96.01 Acute respiratory failure with hypoxia; N17.0 Acute kidney failure with tubular necrosis; D64.9 Anemia, unspecified; E11.9 Type 2 diabetes mellitus without complications; F20.9 Schizophrenia, unspecified; I10 Essential (primary) hypertension; R00.1 Bradycardia, unspecified
CPT/HCPCS: 36415; 70450; 71045; 80048; 80053; 82962; 83036; 84484; 85025; 86850; 86900; 86901; 93005; 99291; 99292; G0378; J1815

== ENCOUNTER 2024-10-20 10:58 | Inpatient (IN) | payer OTHER, MEDICAID ==
[2024-10-20] VITALS (7 sets, daily range): BP systolic 99–101; BP diastolic 52–62; PULSE 61–76; RESP 14–16; TEMP 97.2–98.3; O2SAT 100
[~2024-10-20] VITALS: Ht 172.7 cm; Wt 84.4 kg
--- NOTE | 2024-10-20 11:16 | ECG ---
[facility] Test Date: 2024-10-20 Test Time: 11:09:46 Pat Name: SAPPHIRE VELAZQUEZ Department: ED Room: 0247T Gender: M Medicare Sales Representative: : 1965 Requested By: BRISA FRANCIS Order Number: [id number] Reading MD: Jeffry Wright Measurements Intervals [place] Rate: 64 P: 30 [place]: 160 QRS: -37 QRSD: 153 T: 4 QT: 459 QTc: 474 Interpretive Statements Sinus rhythm Right bundle branch block Baseline wander in lead(s) V1,V2,V3,V4,V5,V6 Electronically Signed On 10-24-2024 20:34:28 PDT by Jeffry Wright Please click the below link to view image of tracing.
--- NOTE | 2024-10-20 11:33 | ED.PDOC ---
History of Present Illness HPI Comments 59 y.o male with PMHx of hypertension, diabetes, Anemia, CVA with left-sided deficits, seizure, schizophrenia, presents to the ED via EMS for an evaluation of hypotension. Patient is coming from [facility]. EMS state initial call was to rule out CVA due to staff reporting patient looking lethargic and pale today. On scene patient's systolic BP read 60, EMS administrated IV fluids increasing blood pressure to 103 systolic. Patient was also hypoxic at 88% on room air, was place don 4 liters with SPO2 increasing to 96-97%. EMS noted that patient was not on any oxygen at the facility or has history of home oxygen use. Patient is non ambulatory and is navigated via wheelchair. Patient reports that staff thought he had a seizure today, prompting them to call 911. Patient at this time is asymptomatic and denies having a seizure, new focal weakness, dizziness, headache, vision changes, current pain or recent illness. Time Seen by MD: 11:07 Primary Care Provider: UNKNOWN Reviewed Notes: Nurses Notes, R D Internship Notes, Medications, Allergies Allergies: Coded Allergies: No Known Drug Allergy (Verified Allergy, Unknown, 12/25/23) Home Meds Active Scripts Sucralfate (CARAFATE) 1 Gm Tab, 1 GM OR BID for 30 Days, #60 TAB 0 Refills Prov:MED BRIONES RESIDENT 08/23/24 Pantoprazole Sodium Sesquihydr (Pantoprazole Sodium Dr) 40 Mg Tab, 40 MG PO DAILY for 30 Days, #30 TAB 0 Refills Prov:MED BRIONES RESIDENT 08/23/24 Levetiracetam (KEPPRA TABLET) 500 Mg Tb, 500 MG PO BID for 30 Days, #60 TAB Prov:ANNIE JAIME MD 04/17/24 Reported Medications Metformin Hydrochloride (Metformin Hcl) 500 Mg Tab, 1 TAB PO BID, #60 TAB 3 Refills 08/16/24 Losartan Potassium (Losartan Potassium) 50 Mg Tab, 1 TAB PO BID, #30 TAB 5 Refills 08/16/24 Insulin Glargine (Lantus Solostar) 100 Unit/Ml Inj, 10 UNIT SC DAILY, INJ 08/16/24 Hydrochlorothiazide (Hydrochlorothiazide) 12.5 Mg Cap, 1 CAP PO DAILY, #30 CAP 5 Refills 08/16/24 Insulin Regular (Human) (Humulin R) 100 Unit/Ml Inj, 100 UNIT SUBCUT, INJ 08/16/24 Folic Acid (Folic Acid) 1 Mg Tab, 1 MG PO DAILY, TAB 08/16/24 Fluoxetine HCl (Pmdd) (Fluoxetine HCl) 10 Mg Tab, 10 MG PO DAILY, TAB 08/16/24 Ferrous Sulfate (Ferosul) 325 Mg Tab, 325 MG PO DAILY, TAB 08/16/24 Docusate Sodium (Docusate Sodium) 250 Mg Cap, 250 MG PO DAILY, CAP 08/16/24 Diclofenac Sodium (Topical) (Voltaren Arthritis Pain) 1 % Gel, 1 % EX, GEL 08/16/24 Aspirin (ASPIRIN 81) 81 Mg Tab, 81 MG PO DAILY, TAB 02/16/24 Quetiapine Fumerate (QUETIAPINE FUMARATE) 25 Mg Tab, 12.5 MG PO BID, TAB 02/16/24 Atorvastatin Calcium (ATORVASTATIN CALCIUM) 40 Mg Tab, 40 MG PO HS, TAB 02/16/24 Melatonin (KP MELATONIN) 3 Mg Tab, 3 MG PO QHSP, TAB 02/15/24 Acetaminophen (Acetaminophen) 325 Mg Tab, 325 MG PO Q6HR PRN for PAIN SCALE 1 THRU 6, TAB 02/15/24 Naproxen (NAPROSYN TABLET) 500 Mg Tb, 250 MG PO TIDP, TAB 02/15/24 Carisoprodol (Soma) 350 Mg Tab, 350 MG PO TIDP, TAB 02/15/24 Lorazepam (ATIVAN TABLET) 0.5 Mg Tb, 0.5 MG PO Q6HPRN, TAB 02/15/24 Information Source: Emergency Med Personnel Mode of Arrival: EMS Severity: Moderate Duration: Since onset Past Medical History PAST MEDICAL HISTORY: CVA, DM, High Lipids, HTN, Seizures Surgical History (Other): colonoscopy, bone marrow biopsy Family History Family History: Unknown Social History Smoker: Non-Smoker Alcohol: Denies ETOH Use Drugs: Denies Drug Use Lives In: Other Constitutional: denies: chills, diaphoresis, fatigue, fever, malaise, sweats, weakness, others EENTM: denies: blurred vision, double vision, ear bleeding, ear discharge, ear drainage, ear pain, ear ringing, eye pain, eye redness, hearing loss, mouth pain, mouth swelling, nasal discharge, nose bleeding, nose congestion, nose pain, photophobia, tearing, throat pain, throat swelling, voice changes, others Respiratory: denies: cough, hemoptysis, orthopnea, SOB at rest, shortness of breath, SOB with excertion, stridor, wheezing, others Cardiovascular: denies: chest pain, dizzy spells, diaphoresis, Dyspnea on exertion, edema, irregular heart beat, left arm pain, lightheadedness, palpitations, PND, syncope, others Gastrointestinal: denies: abdomen distended, abdominal pain, blood streaked bowels, constipated, diarrhea, dysphagia, difficulty swallowing, hematemesis, melena, nausea, poor appetite, poor fluid intake, rectal bleeding, rectal pain, vomiting, others Genitourinary: denies: burning, dysuria, flank pain, frequency, hematuria, incontinence, penile discharge, penile sore, pain, testicle pain, testicle swelling, urgency, others Neurological: denies: dizziness, fainting, headache, left sided numbness, left sided weakness, numbness, paresthesia, pre-existing deficit, right sided numbness, right sided weakness, seizure, speech problems, tingling, tremors, weakness, others Musculoskeletal: denies: back pain, gout, joint pain, joint swelling, muscle pain, muscle stiffness, neck pain, others Integumetry: denies: bruises, change in color, change in hair/nails, dryness, laceration, lesions, lumps, rash, wounds, others Allergic/Immunocompromised: denies: Difficulty Healing, Frequent Infections, Hives, Itching, others Hematologic/Lymphatic: denies: anemia, blood clots, easy bleeding, easy bruising, swollen glands, others Endocrine: denies: excessive hunger, excessive sweating, excessive thirst, excessive urination, flushing, intolerance to cold, intolerance to heat, unexplained weight gain, unexplained weight loss, others Psychiatric: denies: anxiety, bipolar disorder, depression, hopeless, panic disorder, schizophrenia, sleepless, suicidal, others All Other Systems: Reviewed and Negative Physical Exam General Appearance: No Apparent Distress HEENT: Pale Conjuntivae (L), Pale Conjuntivae (R), Other (Pupils and face symmetric. Moist mucous membranes.) Neck: Full Range of Motion, Normal Inspection Respiratory: Lungs Clear, No Accessory Muscle Use, No Respiratory Distress, Normal Breath Sounds Cardiovascular: No Edema, No JVD, Regular Rate/Rhythm Breast Exam: Deferred Gastrointestinal: Non Tender, Soft Genitalia: Deferred Pelvic: Deferred Rectal: Deferred Extremities: Normal inspection, Normal range of motion, Non-tender, No pedal edema Neurologic: Alert (Oriented x3. Does not know the correct year.), Normal Affect, Normal Mood Cerebellar Function: NOT DONE Reflexes: NOT DONE Skin: Dry, Pallor, Warm Lymphatic: NOT DONE Was a procedure done? Was a procedure done?: No Differential Dx Considerations may include: anemia, CVA, copd/asthma, bronchitis, pna, electrolyte imbalance, infection such as UTI, among others X-Ray, Labs, Meds, VS Vital Signs Date Time Temp Pulse Resp B/P (MAP) Pulse Ox O2 Delivery O2 Flow Rate FiO2 10/20/24 14:30 71 16 98/55 (69) 94 10/20/24 12:49 63 16 100/50 (67) 100 10/20/24 11:09 64 10/20/24 11:04 97.6 64 16 101/67 (78) 100 97.6 Lab Test 10/20/24 14:32 10/20/24 13:37 Range/Units Lactic Acid Level 1.1 0.4-2.0 mmol/L Troponin I High Sensitivity 21 19 </=54 ng/L White Blood Count 4.7 4.4-10.8 10^3/uL Red Blood Count 2.50 L 4.5-5.90 10^6/uL Hemoglobin 6.0 *L 13.5-17.5 g/dL Hematocrit 18.5 L 41.0-53.0 % Mean Corpuscular Volume 73.7 L 80.0-100.0 fL Mean Corpuscular Hemoglobin 24.1 L 28.0-32.0 pg Mean Corpuscular Hemoglobin Concent 32.6 32.0-36.0 g/dL Red Cell Distribution Width 23.7 H 11.8-14.3 % Platelet Count 262 140-450 10^3/uL Mean Platelet Volume 8.5 6.9-10.8 fL Neutrophils (%) (Auto) 61.4 37.0-80.0 % Lymphocytes (%) (Auto) 27.0 10.0-50.0 % Monocytes (%) (Auto) 9.2 0.0-12.0 % Eosinophils (%) (Auto) 1.3 0.0-7.0 % Basophils (%) (Auto) 1.1 0.0-2.0 % Neutrophils # (Auto) 2.9 1.6-8.6 10 ^3/uL Lymphocytes # (Auto) 1.3 0.4-5.4 10 ^3/uL Monocytes # (Auto) 0.4 0-1.3 10 ^3/uL Eosinophils # (Auto) 0.1 0-0.8 10 ^3/uL Basophils # (Auto) 0.1 0-0.2 10 ^3/uL Nucleated Red Blood Cells 0.0 % Platelet Estimate Adequate Poikilocytosis (manual) Slight Anisocytosis (manual) Moderate Microcytosis Moderate Tear Drop Cells Few Sodium Level 140 136-145 mmol/L Potassium Level 3.3 L 3.5-5.1 mmol/L Chloride Level 104 98-107 mmol/L Carbon Dioxide Level 27 20-31 mmol/L Anion Gap 9 5-15 Blood Urea Nitrogen 20 9-23 mg/dL Creatinine 1.39 H 0.700-1.30 mg/dL Glomerular Filtration Rate Calc 59 >90 mL/min BUN/Creatinine Ratio 14.4 10.0-20.0 Serum Glucose 105 74-106 mg/dL Calcium Level 9.4 8.7-10.4 mg/dL Total Bilirubin 0.4 0.2-1.0 mg/dL Aspartate Amino Transferase (AST) 19 13-40 U/L Alanine Aminotransferase (ALT) 19 7-40 U/L Alkaline Phosphatase 70 46-116 U/L B-Type Natriuretic Peptide 35.74 0-100 pg/mL Total Protein 6.9 5.7-8.2 g/dL Albumin 4.2 3.2-4.8 g/dL X-Ray, Labs, Meds, VS Comment 59-year-old male with a history of hypertension, diabetes, seizures, CVA with residual left-sided deficit, schizophrenia, anemia presenting with generalized weakness, confusion, pallor and hypoxia Exam remarkable for pallor, alert and oriented x3, does not know the year Rhythm strip independently interpreted by me: Sinus rhythm, rate 64, no ectopy. Chest x-ray results pending CBC remarkable for hemoglobin 6, hematocrit 18.5, metabolic panel remarkable for potassium 3.3, creatinine 1.39, lactic, BNP and troponin unremarkable Patient treated with the following in the ED: Typed and crossed for 2 units of packed red cells and transfusion ordered, effervescent potassium 50 mEq p.o. Plan is to admit the patient for transfusion, and electrolyte correction and respiratory support as needed Time of 1ST Reevaluation: 11:18 Reevaluation 1ST: Unchanged Patient Education/Counseling: Diagnosis Family Education/Counseling: No Family Present Departure 1 Departure Time of Disposition: 15:04 Impression: Primary Impression: Severe anemia Additional Impressions: Hypoxic respiratory failure Qualified Codes: J96.21 - Acute and chronic respiratory failure with hypoxia Hypokalemia Disposition: ADMITTED INPATIENT Admit to: Tele Condition: Guarded Critical Care Note Critical Care Time?: Yes (45 min-critical care time only) Critical care comment: Critical care time including multiple bedside re-evaluations, review of lab and imaging studies, and discussion of the case with the admitting provider. Patient is high risk for hemodynamic and/or respiratory decompensation. Stability Stability form required: No Heart Score Heart Score: Heart Score Response (Comments) Value History N/A 0 EKG N/A 0 Age N/A 0 Risk Factors N/A 0 Troponin N/A 0 Total 0 I personally scribed for BRISA NEFF MD ([email or web address]) on 10/20/24 at 11 :33. Electronically submitted by Lindsay Cabrera ([facility]). BRISA NEFF MD October 20, 2024 11:33
[2024-10-20 13:46] LABS: Basophils # (auto) 0.1 10 ^3/uL (0-0.2); Basophils % (auto) 1.1 % (0.0-2.0); Eosinophils # (auto) 0.1 10 ^3/uL (0-0.8); Eosinophils % (auto) 1.3 % (0.0-7.0); Hematocrit 18.5 % (41.0-53.0); Lymphocytes # (auto) 1.3 10 ^3/uL (0.4-5.4); Mean Corpuscular Hemoglobin 24.1 pg (28.0-32.0); Mean Corpuscular Hgb Conc. 32.6 g/dL (32.0-36.0); Mean Corpuscular Volume 73.7 fL (80.0-100.0); Monocytes # (auto) 0.4 10 ^3/uL (0-1.3); Monocytes % (auto) 9.2 % (0.0-12.0); Neutrophils # (auto) 2.9 10 ^3/uL (1.6-8.6); Neutrophils % (auto) 61.4 % (37.0-80.0); Platelet Count (auto) 262 10^3/uL (140-450); White Blood Cell 4.7 10^3/uL (4.4-10.8)
[2024-10-20 13:48] LABS: Red Cell Distribution Width 23.7 % (11.8-14.3)
[2024-10-20 14:02] LABS: Alanine Aminotransferase 19 U/L (7-40); Albumin 4.2 g/dL (3.2-4.8); Alkaline Phosphatase 70 U/L (46-116); Anion Gap 9 (5-15); Aspartate Aminotransferase 19 U/L (13-40); BUN/Creatinine Ratio 14.4 (10.0-20.0); Bilirubin, Total 0.4 mg/dL (0.2-1.0); Blood Urea Nitrogen 20 mg/dL (9-23); Calcium 9.4 mg/dL (8.7-10.4); Carbon Dioxide 27 mmol/L (20-31); Chloride 104 mmol/L (98-107); Glucose 105 mg/dL (74-106); Potassium 3.3 mmol/L (3.5-5.1); Sodium 140 mmol/L (136-145); Total Protein 6.9 g/dL (5.7-8.2)
[2024-10-20 14:04] LABS: Anisocytosis Moderate; Platelet Estimate Adequate; Tear Drop Cells FEW
--- NOTE | 2024-10-20 15:19 | DVH ---
CHEST RADIOGRAPH Indication: hypoxia Technique: Single frontal view of the chest was obtained Comparison: XY CHEST PORTABLE on DOS: 10/04/24, XY CHEST PORTABLE on DOS: 08/21/24, XY CHEST PORTABLE on DOS: 08/15/24 FINDINGS: Lines and Tubes: None Lungs: No focal consolidation. Pleura: No effusion. No pneumothorax. Cardiomediastinal contours: Unremarkable Bones: No acute osseous abnormality. IMPRESSION: 1. Poor inspiratory effort with elevation of both diaphragms there is some atelectasis in the right b ase.
[2024-10-20] MEDS ORDERED: ONDANSETRON HCL 4 MG/2 ML VIAL IV PRN (16:45)
[2024-10-20] MEDS ORDERED: MORPHINE SULFATE INJ 2 MG/ml SYRG IV PRN (16:45)
--- NOTE | 2024-10-20 17:01 | DVHHP2 ---
History of Present Illness History of Present Illness 59 y.o male with PMHx of hypertension, diabetes, Anemia, CVA with left-sided deficits, seizure, schizophrenia, presents to the ED via EMS for an evaluation of hypotension. Patient is coming from [facility]. EMS state initial call was to rule out CVA due to staff reporting patient looking lethargic and pale today. On scene patient's systolic BP read 60, EMS administrated IV fluids increasing blood pressure to 103 systolic. Patient was also hypoxic at 88% on room air, was place don 4 liters with SPO2 increasing to 96-97%. EMS noted that patient was not on any oxygen at the facility or has history of home oxygen use. Patient is non ambulatory and is navigated via wheelchair. Patient reports that staff thought he had a seizure today, prompting them to call 911. Patient at this time is asymptomatic and denies having a seizure, new focal weakness, dizziness, headache, vision changes, current pain or recent illness. The [facility] facility staff thought patient was having a seizure. Patient complains that he was only feeling weak but all day. Weakness is significant to his normal function. Patient has no family in the area and relies on [facility] and [facility]. Patient denies any melena or bloody bowel movements. Patient has history of chronic alcoholism and he quit drinking 3 years ago. Prior to 3 years ago he used to drink 25-40 oz beer drinks can Cobra daily. Patient also used to snort methamphetamines which he quit 2 years ago. Review of Systems Review of Systems As HPI Allergies: Coded Allergies: No Known Drug Allergy (Verified Allergy, Unknown, 12/25/23) Exam Vital Signs Vital Signs Date Time Temp Pulse Resp B/P (MAP) Pulse Ox O2 Delivery O2 Flow Rate FiO2 10/20/24 14:30 71 16 98/55 (69) 94 10/20/24 11:04 97.6 97.6 Exam GEN: Healthy appearing, well-developed, NAD. Appears pale. HEENT: NC/AT; MMM. CV: RRR, no m/r/g. LUNGS: CTAB, no w/r/c. ABD: Soft, NT/ND, NBS, no masses or organomegaly. EXT: skin Warm, well perfused. no rashes. No clubbing, cyanosis, or edema. NEURO: Ambulating with no limitations. No focal deficits. Labs/Xrays Labs Test 10/20/24 14:32 10/20/24 13:37 Range/Units Lactic Acid Level 1.1 0.4-2.0 mmol/L Troponin I High Sensitivity 21 </=54 ng/L White Blood Count 4.7 4.4-10.8 10^3/uL Red Blood Count 2.50 L 4.5-5.90 10^6/uL Hemoglobin 6.0 *L 13.5-17.5 g/dL Hematocrit 18.5 L 41.0-53.0 % Mean Corpuscular Volume 73.7 L 80.0-100.0 fL Mean Corpuscular Hemoglobin 24.1 L 28.0-32.0 pg Mean Corpuscular Hemoglobin Concent 32.6 32.0-36.0 g/dL Red Cell Distribution Width 23.7 H 11.8-14.3 % Platelet Count 262 140-450 10^3/uL Mean Platelet Volume 8.5 6.9-10.8 fL Neutrophils (%) (Auto) 61.4 37.0-80.0 % Lymphocytes (%) (Auto) 27.0 10.0-50.0 % Monocytes (%) (Auto) 9.2 0.0-12.0 % Eosinophils (%) (Auto) 1.3 0.0-7.0 % Basophils (%) (Auto) 1.1 0.0-2.0 % Neutrophils # (Auto) 2.9 1.6-8.6 10 ^3/uL Lymphocytes # (Auto) 1.3 0.4-5.4 10 ^3/uL Monocytes # (Auto) 0.4 0-1.3 10 ^3/uL Eosinophils # (Auto) 0.1 0-0.8 10 ^3/uL Basophils # (Auto) 0.1 0-0.2 10 ^3/uL Nucleated Red Blood Cells 0.0 % Platelet Estimate Adequate Poikilocytosis (manual) Slight Anisocytosis (manual) Moderate Microcytosis Moderate Tear Drop Cells Few Sodium Level 140 136-145 mmol/L Potassium Level 3.3 L 3.5-5.1 mmol/L Chloride Level 104 98-107 mmol/L Carbon Dioxide Level 27 20-31 mmol/L Anion Gap 9 5-15 Blood Urea Nitrogen 20 9-23 mg/dL Creatinine 1.39 H 0.700-1.30 mg/dL Glomerular Filtration Rate Calc 59 >90 mL/min BUN/Creatinine Ratio 14.4 10.0-20.0 Serum Glucose 105 74-106 mg/dL Calcium Level 9.4 8.7-10.4 mg/dL Total Bilirubin 0.4 0.2-1.0 mg/dL Aspartate Amino Transferase (AST) 19 13-40 U/L Alanine Aminotransferase (ALT) 19 7-40 U/L Alkaline Phosphatase 70 46-116 U/L B-Type Natriuretic Peptide 35.74 0-100 pg/mL Total Protein 6.9 5.7-8.2 g/dL Albumin 4.2 3.2-4.8 g/dL Assessment/Plan Assessment/Plan Severe anemia, symptomatic, requiring transfusion Acute blood loss anemia Atelectasis bilateral Acute hypoxic respiratory failure due to above Hypotension in setting of anemia Hypokalemia, repleted LUIZA due to VMN History of anemia Hypertension Diabetes History of CVA with left-sided deficits History of seizures Schizophrenia - ED given 2 units PRBC after type and cross We will calculate reticulocyte index Stool occult blood LUIZA creatinine 1.39 given blood. Troponin, BNP normal Tele - monitor for GI bleed , consult GI given history of cirrhosis. Hold off octreotide - GI bleed with history of sources we will start Rocephin prophylaxis Diet diabetic DVT prophylaxis SCDs GI prophylaxis-IV PPI b.i.d. Tele Full code Plan discussed with: Patient Date of Service: October 20, 2024 Billing Provider: STAN TAYLOR MD Common Visit Codes: [id number] INP/OBS CARE (HIGH) Secondary Visit Codes: 19134-[id number] CARE PLAN 30 MINUTES STAN TAYLOR MD October 20, 2024 17:01
[2024-10-20 17:29] LABS: % Iron Saturation 91.9 % (20-55)
[2024-10-20] MEDS: POTASSIUM EFFERVESENT TAB 25 MEQ PO ONE (17:58)
[2024-10-20] MEDS: cefTRIAXone 1GM/50ML D5W 50 ML IV ONE (17:59)
[2024-10-21] VITALS (12 sets, daily range): BP systolic 105–148; BP diastolic 63–86; PULSE 64–97; RESP 15–19; TEMP 97.6–98.2; O2SAT 91–97
[2024-10-21 02:06] LABS: Urine Bacteria None Seen /hpf (None Seen)
[2024-10-21 02:20] LABS: Urine Blood Negative /uL (Negative); Urine Clarity Clear (Clear); Urine Color Light-Yellow (Yellow); Urine Hyaline Cast FEW /lpf (0 - 2); Urine Protein, UAD Negative (Negative); Urine Specific Gravity 1.013 (1.001-1.035); Urine Squamous Epithelial Cell FEW /hpf (<5); Urine Urobilinogen Normal (Negative); Urine WBC < 1 /HPF (0-3)
[2024-10-21 07:08] LABS: Basophils # (auto) 0 10 ^3/uL (0-0.2); Eosinophils # (auto) 0 10 ^3/uL (0-0.8); Hemoglobin 8.6 g/dL (13.5-17.5); Mean Corpuscular Hemoglobin 24.7 pg (28.0-32.0); Monocytes # (auto) 0.3 10 ^3/uL (0-1.3)
[2024-10-21 07:11] LABS: Basophils % (auto) 0.4 % (0.0-2.0); Eosinophils % (auto) 0.6 % (0.0-7.0); Hematocrit 25.6 % (41.0-53.0); Lymphocytes # (auto) 0.8 10 ^3/uL (0.4-5.4); Lymphocytes % (auto) 14.1 % (10.0-50.0); Mean Corpuscular Hgb Conc. 33.6 g/dL (32.0-36.0); Mean Corpuscular Volume 73.3 fL (80.0-100.0); Monocytes % (auto) 5.7 % (0.0-12.0); Neutrophils # (auto) 4.5 10 ^3/uL (1.6-8.6); Neutrophils % (auto) 79.2 % (37.0-80.0); Nucleated Red Blood Cells % 0.1 %; Platelet Count (auto) 257 10^3/uL (140-450); Red Blood Cells 3.49 10^6/uL (4.5-5.90); Red Cell Distribution Width 19.9 % (11.8-14.3); White Blood Cell 5.6 10^3/uL (4.4-10.8)
[2024-10-21 07:15] LABS: Alanine Aminotransferase 18 U/L (7-40); Albumin 4.5 g/dL (3.2-4.8); Alkaline Phosphatase 74 U/L (46-116); Anion Gap 8 (5-15); Aspartate Aminotransferase 21 U/L (13-40); BUN/Creatinine Ratio 16.7 (10.0-20.0); Bilirubin, Total 0.9 mg/dL (0.2-1.0); Blood Urea Nitrogen 17 mg/dL (9-23); Calcium 9.9 mg/dL (8.7-10.4); Carbon Dioxide 29 mmol/L (20-31); Chloride 103 mmol/L (98-107); Potassium 3.8 mmol/L (3.5-5.1); Sodium 140 mmol/L (136-145); Total Protein 7.2 g/dL (5.7-8.2)
[2024-10-21 07:26] LABS: Glucose 115 mg/dL (74-106)
[2024-10-21] MEDS: cefTRIAXone 1GM/50ML D5W 50 ML IV SCH (09:15)
--- NOTE | 2024-10-21 17:37 | DVHPN2 ---
Subjective Update 10/21- patient has been here for acute blood loss anemia before. He has had a GI consult and has had a hematology consult before. He was had a bone marrow biopsy which was reviewed by me today and has no acute abnormalities. I still presume alcohol may have has not needed to with his bone marrow suppression which is leading to cytopenias, anemia her specifically. There is no benefit to Hematology inpatient consult at this time, patient will have to continue pursuing outpatient workup. We will make sure patient has adequate blood levels overnight given some fluid resuscitation. One more day monitor likely DC tomorrow Reviewed: H&P Changes from previous H/P or p: No Changes General: Per HPI Objective Vitals Vital Signs Date Time Temp Pulse Resp B/P (MAP) Pulse Ox O2 Delivery O2 Flow Rate FiO2 10/21/24 13:00 98.1 81 18 133/86 (102) 94 98.1 10/21/24 08:00 Nasal Cannula* 3 32 Intake/Output Intake and Output 10/21/24 07:00 Intake Total 805 ml Output Total 1200 ml Balance -395 ml Intake Oral 205 ml Blood Product 600 ml Output Urine Total 1200 ml Exam GEN: Healthy appearing, well-developed, NAD. HEENT: NC/AT; MMM. CV: RRR, no m/r/g. LUNGS: CTAB, no w/r/c. Bibasilar rales ABD: Soft, NT/ND, NBS, no masses or organomegaly. EXT: skin Warm, well perfused. no rashes. No clubbing, cyanosis, or edema. NEURO: Ambulating with no limitations. No focal deficits. Medications Current Medications Medications Dose Ordered Sig/Cora Route Start Time Stop Time Status Last Admin Dose Admin Ondansetron HCl 4 mg Q4HP PRN IV 10/20/24 16:45 Morphine Sulfate 2 mg Q4HPRN PRN IV 10/20/24 16:45 Ceftriaxone Sodium 50 ml @ 100 mls/hr DAILY@09 IV 10/21/24 09:00 10/21/24 09:15 100 MLS/HR Mupirocin 1 applic BID EACHNOSTRI 10/21/24 22:00 10/26/24 21:59 Laboratory Results Laboratory Tests 10/21/24 06:09 Chemistry Test 10/21/24 06:09 Albumin 4.5 g/dL (3.2-4.8) Calcium Level 9.9 mg/dL (8.7-10.4) Total Protein 7.2 g/dL (5.7-8.2) LFT Test 10/21/24 06:09 Alanine Aminotransferase (ALT) 18 U/L (7-40) Alkaline Phosphatase 74 U/L (46-116) Aspartate Amino Transferase (AST) 21 U/L (13-40) Total Bilirubin 0.9 mg/dL (0.2-1.0) Urinalysis Test 10/21/24 01:26 Urine Color Light-yellow (Yellow) Urine Clarity Clear (Clear) Urine pH 6.0 (5.0-9.0) Urine Specific [place] 1.013 (1.001-1.035) Urine Protein Negative (Negative) Urine Ketones Negative (Negative) Urine Blood Negative /uL (Negative) Urine Nitrite Negative (Negative) Urine Bilirubin Negative (Negative) Urine Urobilinogen Normal mg/dL (Negative) Urine Leukocyte Esterase Negative /uL (Negative) Urine RBC <1 /hpf (0 - 3) Urine Microscopic WBC < 1 /HPF (0-3) Urine Squamous Epithelial Cells Few /hpf (<5) Urine Bacteria None seen /hpf (None Seen) Urine Hyaline Casts Few /lpf (0 - 2) Urine Glucose Normal mg/dL (Normal) Microbiology Microbiology Date/Time Source Procedure Growth Status 10/21/24 01:27 Nose MRSA Screen - Final Methicillin Resistant S.aureus Complete 10/20/24 11:47 Blood Blood Culture - Preliminary NO GROWTH AFTER 24 HOURS OF INCUBATION. Resulted Labs and/or images reviewed: Labs reviewed by me, Image(s) reviewed by me Assessment/Plan Assessment/Plan Update 10/21- patient has been here for acute blood loss anemia before. He has had a GI consult and has had a hematology consult before. He was had a bone marrow biopsy which was reviewed by me today and has no acute abnormalities. I still presume alcohol may have has not needed to with his bone marrow suppression which is leading to cytopenias, anemia her specifically. There is no benefit to Hematology inpatient consult at this time, patient will have to continue pursuing outpatient workup. We will make sure patient has adequate blood levels overnight given some fluid resuscitation. One more day monitor likely DC tomorrow Severe anemia, symptomatic, requiring transfusion Acute blood loss anemia Atelectasis bilateral Acute hypoxic respiratory failure due to above Hypotension in setting of anemia Hypokalemia, repleted LUIZA due to VMN History of anemia Hypertension Diabetes History of CVA with left-sided deficits History of seizures Schizophrenia - ED given 2 units PRBC after type and cross We will calculate reticulocyte index Stool occult blood LUIZA creatinine 1.39 given blood. Troponin, BNP normal Tele - monitor for GI bleed , consult GI given history of cirrhosis. Hold off octreotide - GI bleed with history of sources we will start Rocephin prophylaxis Diet diabetic DVT prophylaxis SCDs GI prophylaxis-IV PPI b.i.d. Tele Full code Plan discussed with: Patient My Orders Orders - STAN TAYLOR MD Procedure Category Date Status Time Mupirocin 2% Oint PHA 10/21/24 In Process Mrsa Nares (Bactroban 22:00 Date of Service: October 21, 2024 Billing Provider: STAN TAYLOR MD Common Visit Codes: [id number] INP/OBS CARE(HIGH) STAN TAYLOR MD October 21, 2024 17:37
--- NOTE | 2024-10-21 21:21 | DVHINCON2 ---
Date of service: October 21, [address] Hanson Reason for Consultation Iron-deficiency anemia History of Present Illness 59 y.o male referred from [facility] facility as patient looking lethargic and pale.He was also suspected to have postbulbar seizure activity. Patient is hemodynamically stablePatient at this time is asymptomatic and denies having a seizure, new focal weakness, dizziness, headache, vision changes, current pain or recent illness. patient was noted to have iron-deficiency severe anemia and he received 2 units PRBC GI was consulted for the anemia. Patient had recent hospitalization and has a known history of chronic iron-deficiency anemia I had performed an endoscopy and colonoscopy for him on his last admission to complete GI workup. He denied any active GI bleeding at this time Patient has a history of polysubstance abuse including methamphetamines and alcohol but he quit about three years ago Operative Report DATE OF OPERATION: 08/23/24 PROCEDURE: Colonoscopy with cold biopsy. PREOPERATIVE INDICATION: The patient is a 58 -year-old male undergoing colonoscopy for evaluation of anemia and colon cancer screening POSTOPERATIVE DIAGNOSES: 1. There was a 2 mm benign-appearing polyp seen in the cecum that was removed completely via cold biopsy forceps 2. Trace to 1+ internal hemorrhoids, long and tortuous colon otherwise normal e xamination up to the cecum and terminal ileum PROCEDURE PERFORMED BY: Irma Alejandre M.D. Operative Report DATE OF OPERATION: 08/21/24 PROCEDURE: Upper Endoscopy with biopsy. PREOPERATIVE INDICATION: The patient is a 58 -year-old male undergoing endoscopy for anemia POSTOPERATIVE DIAGNOSES: 1. Mild gastroduodenitis with some superficial erosions 2. 0.5-1 cm sliding-type hiatal hernia otherwise normal examination up to the 2nd and 3rd part of the duodenum Past Medical History with PMHx of hypertension, diabetes, Anemia, CVA with left-sided deficits, seizure, schizophrenia, Past Surgical History Recent EGD and colonoscopy Family History: Patient reports no known family medical history. Allergies: Coded Allergies: No Known Drug Allergy (Verified Allergy, Unknown, 12/25/23) Home Meds Active Scripts Sucralfate (CARAFATE) 1 Gm Tab, 1 GM OR BID for 30 Days, #60 TAB 0 Refills Prov:MED BRIONES RESIDENT 08/23/24 Pantoprazole Sodium Sesquihydr (Pantoprazole Sodium Dr) 40 Mg Tab, 40 MG PO DAILY for 30 Days, #30 TAB 0 Refills Prov:MED BRIONES RESIDENT 08/23/24 Levetiracetam (KEPPRA TABLET) 500 Mg Tb, 500 MG PO BID for 30 Days, #60 TAB Prov:ANNIE JAIME MD 04/17/24 Reported Medications Metformin Hydrochloride (Metformin Hcl) 500 Mg Tab, 1 TAB PO BID, #60 TAB 3 Refills 08/16/24 Losartan Potassium (Losartan Potassium) 50 Mg Tab, 1 TAB PO BID, #30 TAB 5 Refills 08/16/24 Insulin Glargine (Lantus Solostar) 100 Unit/Ml Inj, 10 UNIT SC DAILY, INJ 08/16/24 Hydrochlorothiazide (Hydrochlorothiazide) 12.5 Mg Cap, 1 CAP PO DAILY, #30 CAP 5 Refills 08/16/24 Insulin Regular (Human) (Humulin R) 100 Unit/Ml Inj, 100 UNIT SUBCUT, INJ 08/16/24 Folic Acid (Folic Acid) 1 Mg Tab, 1 MG PO DAILY, TAB 08/16/24 Fluoxetine HCl (Pmdd) (Fluoxetine HCl) 10 Mg Tab, 10 MG PO DAILY, TAB 08/16/24 Ferrous Sulfate (Ferosul) 325 Mg Tab, 325 MG PO DAILY, TAB 08/16/24 Docusate Sodium (Docusate Sodium) 250 Mg Cap, 250 MG PO DAILY, CAP 08/16/24 Diclofenac Sodium (Topical) (Voltaren Arthritis Pain) 1 % Gel, 1 % EX, GEL 08/16/24 Aspirin (ASPIRIN 81) 81 Mg Tab, 81 MG PO DAILY, TAB 02/16/24 Quetiapine Fumerate (QUETIAPINE FUMARATE) 25 Mg Tab, 12.5 MG PO BID, TAB 02/16/24 Atorvastatin Calcium (ATORVASTATIN CALCIUM) 40 Mg Tab, 40 MG PO HS, TAB 02/16/24 Melatonin (KP MELATONIN) 3 Mg Tab, 3 MG PO QHSP, TAB 02/15/24 Acetaminophen (Acetaminophen) 325 Mg Tab, 325 MG PO Q6HR PRN for PAIN SCALE 1 TH RU 6, TAB 02/15/24 Naproxen (NAPROSYN TABLET) 500 Mg Tb, 250 MG PO TIDP, TAB 02/15/24 Carisoprodol (Soma) 350 Mg Tab, 350 MG PO TIDP, TAB 02/15/24 Lorazepam (ATIVAN TABLET) 0.5 Mg Tb, 0.5 MG PO Q6HPRN, TAB 02/15/24 Current Medications Current Medications Medications (Trade) Dose Ordered Sig/Cora Route PRN Reason Start Time Stop Time Status Last Admin Ceftriaxone Sodium 50 ml @ 100 mls/hr DAILY@09 IV 10/21/24 09:00 10/21/24 09:15 Mupirocin (Bactroban 2% Ointment) 1 applic BID EACHNOSTRI 10/21/24 22:00 10/26/24 21:59 Vital Signs Vital Signs Date Time Temp Pulse Resp B/P (MAP) Pulse Ox O2 Delivery O2 Flow Rate FiO2 10/21/24 21:00 97.6 72 15 105/63 (77) 97 97.6 10/21/24 08:00 Nasal Cannula* 3 32 Labs/Diagnostic Data Labs Test 10/21/24 06:09 10/21/24 01:26 10/20/24 14:32 10/20/24 13:37 Range/Units White Blood Count 5.6 4.4-10.8 10^3/uL Red Blood Count 3.49 L 4.5-5.90 10^6/uL Hemoglobin 8.6 #L 13.5-17.5 g/dL Hematocrit 25.6 #L 41.0-53.0 % Mean Corpuscular Volume 73.3 L 80.0-100.0 fL Mean Corpuscular Hemoglobin 24.7 L 28.0-32.0 pg Mean Corpuscular Hemoglobin Concent 33.6 32.0-36.0 g/dL Red Cell Distribution Width 19.9 H 11.8-14.3 % Platelet Count 257 140-450 10^3/uL Mean Platelet Volume 8.8 6.9-10.8 fL Neutrophils (%) (Auto) 79.2 37.0-80.0 % Lymphocytes (%) (Auto) 14.1 10.0-50.0 % Monocytes (%) (Auto) 5.7 0.0-12.0 % Eosinophils (%) (Auto) 0.6 0.0-7.0 % Basophils (%) (Auto) 0.4 0.0-2.0 % Neutrophils # (Auto) 4.5 1.6-8.6 10 ^3/uL Lymphocytes # (Auto) 0.8 0.4-5.4 10 ^3/uL Monocytes # (Auto) 0.3 0-1.3 10 ^3/uL Eosinophils # (Auto) 0 0-0.8 10 ^3/uL Basophils # (Auto) 0 0-0.2 10 ^3/uL Nucleated Red Blood Cells 0.1 % Sodium Level 140 136-145 mmol/L Potassium Level 3.8 3.5-5.1 mmol/L Chloride Level 103 98-107 mmol/L Carbon Dioxide Level 29 20-31 mmol/L Anion Gap 8 5-15 Blood Urea Nitrogen 17 9-23 mg/dL Creatinine 1.02 0.700-1.30 mg/dL Glomerular Filtration Rate Calc 86 >90 mL/min BUN/Creatinine Ratio 16.7 10.0-20.0 Serum Glucose 115 H 74-106 mg/dL Calcium Level 9.9 8.7-10.4 mg/dL Total Bilirubin 0.9 0.2-1.0 mg/dL Aspartate Amino Transferase (AST) 21 13-40 U/L Alanine Aminotransferase (ALT) 18 7-40 U/L Alkaline Phosphatase 74 46-116 U/L Total Protein 7.2 5.7-8.2 g/dL Albumin 4.5 3.2-4.8 g/dL Urine Color Light-yellow Yellow Urine Clarity Clear Clear Urine pH 6.0 5.0-9.0 Urine Specific [place] 1.013 1.001-1.035 Urine Protein Negative Negative Urine Ketones Negative Negative Urine Blood Negative Negative /uL Urine Nitrite Negative Negative Urine Bilirubin Negative Negative Urine Urobilinogen Normal Negative mg/dL Urine Leukocyte Esterase Negative Negative /uL Urine RBC <1 0 - 3 /hpf Urine Microscopic WBC < 1 0-3 /HPF Urine Squamous Epithelial Cells Few <5 /hpf Urine Bacteria None seen None Seen /hpf Urine Hyaline Casts Few 0 - 2 /lpf Urine Glucose Normal Normal mg/dL Lactic Acid Level 1.1 0.4-2.0 mmol/L Troponin I High Sensitivity 21 </=54 ng/L Platelet Estimate Adequate Poikilocytosis (manual) Slight Anisocytosis (manual) Moderate Microcytosis Moderate Tear Drop Cells Few Reticulocyte Count (auto) 0.13 L 0.5-1.5 % Iron Level 215 H 65-175 ug/dL Total Iron Binding Capacity 234 L 250-425 ug/dL Percent Iron Saturation 91.9 H 20-55 % B-Type Natriuretic Peptide 35.74 0-100 pg/mL Microbiology Date/Time Source Procedure Growth Status 10/21/24 01:27 Nose MRSA Screen - Final Methicillin Resistant S.aureus Complete 10/20/24 11:47 Blood Blood Culture - Preliminary NO GROWTH AFTER 24 HOURS OF INCUBATION. Resulted Problems(with codes): (1) Severe anemia (2) Generalized weakness (3) Seizure disorder (4) Anemia of chronic disease (5) Symptomatic anemia Plan/Recommendation Assessment plan Patient's iron profile is consistent more with anemia of chronic disease Patient is suspected to have possible occult bleed blood loss due to AVMs However his stool for occult blood was negative on his last admission Since he has had a recent panendoscopy I would recommend conservative management for this time If required an outpatient elective capsule endoscopy will be considered Once again thank you for allowing me to participate in the care of this patient Plan discussed with: Patient IRMA ALEJANDRE MD October 21, 2024 21:21
[2024-10-22] VITALS (8 sets, daily range): BP systolic 102–124; BP diastolic 59–80; PULSE 71–87; RESP 15–19; TEMP 97.5–98.4; O2SAT 89–98
[2024-10-22] MEDS: MUPIROCIN 2% OINT 15gm or 22gm FOR MRSA NARES EACHNOSTRI SCH (00:33)
[2024-10-22 06:48] LABS: Basophils # (auto) 0 10 ^3/uL (0-0.2); Eosinophils # (auto) 0.1 10 ^3/uL (0-0.8); Mean Corpuscular Volume 74.1 fL (80.0-100.0); White Blood Cell 4.3 10^3/uL (4.4-10.8)
[2024-10-22 06:54] LABS: Basophils % (auto) 0.8 % (0.0-2.0); Hematocrit 22.6 % (41.0-53.0); Hemoglobin 7.7 g/dL (13.5-17.5); Lymphocytes % (auto) 23.4 % (10.0-50.0); Mean Corpuscular Hemoglobin 25.3 pg (28.0-32.0); Mean Corpuscular Hgb Conc. 34.2 g/dL (32.0-36.0); Monocytes # (auto) 0.4 10 ^3/uL (0-1.3); Monocytes % (auto) 9.7 % (0.0-12.0); Neutrophils # (auto) 2.8 10 ^3/uL (1.6-8.6); Neutrophils % (auto) 64.1 % (37.0-80.0); Nucleated Red Blood Cells % 0.2 %; Platelet Count (auto) 228 10^3/uL (140-450); Red Blood Cells 3.05 10^6/uL (4.5-5.90); Red Cell Distribution Width 19.9 % (11.8-14.3)
--- NOTE | 2024-10-22 16:43 | DVHPN2 ---
Subjective Update 10/22 10/21- patient has been here for acute blood loss anemia before. He has had a GI consult and has had a hematology consult before. He was had a bone marrow biopsy which was reviewed by me today and has no acute abnormalities. I still presume alcohol may have has not needed to with his bone marrow suppression which is leading to cytopenias, anemia her specifically. There is no benefit to Hematology inpatient consult at this time, patient will have to continue pursuing outpatient workup. We will make sure patient has adequate blood levels overnight given some fluid resuscitation. One more day monitor likely DC tomorrow 10/22 hb falling again almost 1u despite no fluids given and only po hydration. with that concern, hematology consulted. flow cytometry from past visit was unrevealing of any disease process. consulted hematology, they recommend BM bx for follow-up. will get BM bx by IR radiology consult help. will try 1x iv iron and po outpatinet otherwise. Reviewed: H&P Changes from previous H/P or p: No Changes General: Per HPI Objective Vitals Vital Signs Date Time Temp Pulse Resp B/P (MAP) Pulse Ox O2 Delivery O2 Flow Rate FiO2 10/22/24 09:00 97.8 75 16 124/77 (93) 89 97.8 10/22/24 08:00 Nasal Cannula* 2 28 Intake/Output Intake and Output 10/22/24 07:00 Intake Total 700 ml Output Total 1050 ml Balance -350 ml Intake Oral 650 ml IV Total 50 ml Output Urine Total 1050 ml Exam GEN: Healthy appearing, well-developed, NAD. HEENT: NC/AT; MMM. CV: RRR, no m/r/g. LUNGS: CTAB, no w/r/c. Bibasilar rales ABD: Soft, NT/ND, NBS, no masses or organomegaly. EXT: skin Warm, well perfused. no rashes. No clubbing, cyanosis, or edema. NEURO: Ambulating with no limitations. No focal deficits. Medications Current Medications Medications Dose Ordered Sig/Cora Route Start Time Stop Time Status Last Admin Dose Admin Ondansetron HCl 4 mg Q4HP PRN IV 10/20/24 16:45 Morphine Sulfate 2 mg Q4HPRN PRN IV 10/20/24 16:45 Ceftriaxone Sodium 50 ml @ 100 mls/hr DAILY@09 IV 10/21/24 09:00 10/22/24 10:12 100 MLS/HR Mupirocin 1 applic BID EACHNOSTRI 10/21/24 22:00 10/26/24 21:59 10/22/24 10:12 1 APPLIC Laboratory Results Laboratory Tests 10/21/24 06:09 10/22/24 05:15 Urinalysis Test 10/21/24 01:26 Urine Color Light-yellow (Yellow) Urine Clarity Clear (Clear) Urine pH 6.0 (5.0-9.0) Urine Specific [place] 1.013 (1.001-1.035) Urine Protein Negative (Negative) Urine Ketones Negative (Negative) Urine Blood Negative /uL (Negative) Urine Nitrite Negative (Negative) Urine Bilirubin Negative (Negative) Urine Urobilinogen Normal mg/dL (Negative) Urine Leukocyte Esterase Negative /uL (Negative) Urine RBC <1 /hpf (0 - 3) Urine Microscopic WBC < 1 /HPF (0-3) Urine Squamous Epithelial Cells Few /hpf (<5) Urine Bacteria None seen /hpf (None Seen) Urine Hyaline Casts Few /lpf (0 - 2) Urine Glucose Normal mg/dL (Normal) Microbiology Microbiology Date/Time Source Procedure Growth Status 10/21/24 01:27 Nose MRSA Screen - Final Methicillin Resistant S.aureus Complete 10/20/24 11:47 Blood Blood Culture - Preliminary NO GROWTH AFTER 48 HOURS OF INCUBATION. Resulted Labs and/or images reviewed: Labs reviewed by me, Image(s) reviewed by me Assessment/Plan Assessment/Plan Update 10/22 hb falling again almost 1u despite no fluids given and only po hydration. with that concern, hematology consulted. flow cytometry from past visit was unrevealing of any disease process. consulted hematology, they recommend BM bx for follow-up. will get BM bx by IR radiology consult help. will try 1x iv iron and po outpatinet otherwise. Severe anemia, symptomatic, requiring transfusion Acute blood loss anemia Atelectasis bilateral Acute hypoxic respiratory failure due to above Hypotension in setting of anemia Hypokalemia, repleted LUIZA due to VMN History of anemia Hypertension Diabetes History of CVA with left-sided deficits History of seizures Schizophrenia - ED given 2 units PRBC after type and cross -We will calculate reticulocyte index - close to 0, nonproductive anemia. unkonwn cause. -heme consult. -Stool occult blood pend. -LUIZA creatinine 1.39 given blood. -Troponin, BNP normal -Tele - monitor for GI bleed , consult GI given history of cirrhosis. Hold off octreotide - GI bleed with history of sources we will start Rocephin prophylaxis Diet diabetic DVT prophylaxis SCDs GI prophylaxis-IV PPI b.i.d. Tele Full code Plan discussed with: Patient My Orders Orders - STAN TAYLOR MD Procedure Category Date Status Time * Hematology/Oncology CONS 10/22/24 Transmitted Consult 09:30 Pt Request For Service PT 10/22/24 Logged 10:41 * Radiologist Consult CONS 10/22/24 Transmitted 15:39 Date of Service: October 22, 2024 Billing Provider: STAN TAYLOR MD Common Visit Codes: [id number] INP/OBS CARE(HIGH) STAN TAYLOR MD October 22, 2024 16:43
[2024-10-22] MEDS: IRON SUCROSE COMPLEX 110 ML IV SCH (18:32)
--- NOTE | 2024-10-22 22:35 | DVHPN2 ---
Progress Note - Dictate Date Seen: October 22, 2024 Medical Necessity Reason Pt with a Central, PICC or Fol: No Subjective No new complaints, sleeping comfortably No active GI bleeding is reported Hemoglobin is trending down to 7.7 vital signs Vital Sign Date Time Temp Pulse Resp B/P (MAP) Pulse Ox O2 Delivery O2 Flow Rate FiO2 10/22/24 21:00 97.7 77 18 103/67 (79) 97 97.7 10/22/24 08:00 Nasal Cannula* 2 28 Total Intake and Output 10/21/24 10/21/24 10/22/24 15:00 23:00 07:00 Intake Total 50 ml 550 ml 100 ml Output Total 750 ml 300 ml Balance 50 ml -200 ml -200 ml medications Current Medications Medications Dose Ordered Sig/Cora Route Start Time Stop Time Status Last Admin Dose Admin Ondansetron HCl 4 mg Q4HP PRN IV 10/20/24 16:45 Morphine Sulfate 2 mg Q4HPRN PRN IV 10/20/24 16:45 Ceftriaxone Sodium 50 ml @ 100 mls/hr DAILY@09 IV 10/21/24 09:00 10/22/24 10:12 100 MLS/HR Mupirocin 1 applic BID EACHNOSTRI 10/21/24 22:00 10/26/24 21:59 10/22/24 10:12 1 APPLIC Iron Sucrose 110 ml @ 110 mls/hr DAILY@1200 IV 10/22/24 18:00 10/26/24 12:59 10/22/24 18:32 110 MLS/HR objective GEN: Healthy appearing, well-developed, NAD. HEENT: NC/AT; MMM. CV: RRR, no m/r/g. LUNGS: CTAB, no w/r/c. Bibasilar rales ABD: Soft, NT/ND, NBS, no masses or organomegaly. EXT: skin Warm, well perfused. no rashes. No clubbing, cyanosis, or edema. laboratory and microbiology Laboratory Tests 10/22/24 05:15 10/21/24 06:09 Test 10/21/24 06:09 Range/Units Serum Glucose 115 H 74-106 mg/dL Problems(with codes): (1) Anemia of chronic disease (2) Seizure disorder (3) Generalized weakness Prognosis Plan Patient will be scheduled for a bone marrow Consider outpatient elective capsule endoscopy Continue supportive care Maintained on iron pills DC aspirin NSAIDs smoking alcohol and blood thinners Plan discussed with: Other (Dr Hanson) CC Plasma Assessment Blood Product Administration S: 1941 RIMA NERI MD October 22, 2024 22:35
[2024-10-23] VITALS (8 sets, daily range): BP systolic 103–151; BP diastolic 62–83; PULSE 78–107; RESP 16–18; TEMP 97.3–98.6; O2SAT 94–100
[2024-10-23 06:21] LABS: Basophils # (auto) 0.1 10 ^3/uL (0-0.2); Hemoglobin 7.6 g/dL (13.5-17.5); Monocytes # (auto) 0.5 10 ^3/uL (0-1.3); Neutrophils # (auto) 2.6 10 ^3/uL (1.6-8.6); Nucleated Red Blood Cells % 0.1 %; Platelet Count (auto) 230 10^3/uL (140-450); Red Cell Distribution Width 20.1 % (11.8-14.3); White Blood Cell 4.4 10^3/uL (4.4-10.8)
[2024-10-23 06:23] LABS: Basophils % (auto) 1.2 % (0.0-2.0); Eosinophils # (auto) 0.2 10 ^3/uL (0-0.8); Eosinophils % (auto) 3.5 % (0.0-7.0); Hematocrit 22.2 % (41.0-53.0); Lymphocytes # (auto) 1.1 10 ^3/uL (0.4-5.4); Lymphocytes % (auto) 24.5 % (10.0-50.0); Mean Corpuscular Hemoglobin 25.2 pg (28.0-32.0); Mean Corpuscular Volume 74.2 fL (80.0-100.0); Monocytes % (auto) 12.3 % (0.0-12.0); Neutrophils % (auto) 58.5 % (37.0-80.0)
[2024-10-23] MEDS ORDERED: LORazepam 2MG/ML-1ML VIAL IV PRN (07:30)
[2024-10-23] MEDS: GASTROGRAFIN 120 ML SOL ONE (09:04)
[2024-10-23] MEDS: LIDOCAINE 2%HCL (LOCAL ANESTH.) INJ 10ml MDV ONE (09:56)
[2024-10-23] MEDS: fentaNYL CITRATE 100 MCG/2 ML VL IV ONE (10:15)
[2024-10-23] MEDS: MIDAZOLAM HCL 2MG/2ML 2ml VIAL (1mg/ml) IV ONE (10:15)
--- NOTE | 2024-10-23 11:02 | DVH ---
CT CT GUIDANCE FOR NEEDLE PLACEME, HISTORY: BONE MARROW BX COMPARISON: CT CT GUIDANCE FOR NEEDLE PLACEME on DOS: 08/19/24 PROCEDURE: Informed consent and time-out was performed before the procedure. Conscious sedation was p erformed by the interventional radiology nurse. The pelvic bone was marked, sterilized, draped, and l ocally anesthetized using approximately 8 ml of 1% lidocaine. Axial CT images were used for localizat ion. A 11 gauge [employer] Bone Biopsy kit was used to take 5 mL aspirate and 1 core. The biopsy needl e was then removed. No immediate complications noted. FINDINGS: Axial CT images demonstrates biopsy needle within the posterior pelvic bone. . IMPRESSION: CT-guided bone marrow aspiration biopsy of the pelvic bone.
[2024-10-23] MEDS: levETIRAcetam 500 mg/100ml 100 ML IV SCH (15:15)
--- NOTE | 2024-10-23 15:32 | MEDREC ---
FORMERLY [facility], [facility]–1983 ASP Intervention Section I FORMERLY [facility], [facility]1983 ASP Intervention: Review courses of therapy (PLEASE CONSIDER D/C ANTIBIOTIC(S) IN ABSENCE OF BACTERIAL INFECTION) BABITA ALCANTARA PHARMACIST October 23, 2024 15:32
[2024-10-23] MEDS: levETIRAcetam 1500 mg/100ml 100 ML IV ONE (18:01)
--- NOTE | 2024-10-23 18:41 | DVHPN2 ---
Subjective Update 10/23 10/21- patient has been here for acute blood loss anemia before. He has had a GI consult and has had a hematology consult before. He was had a bone marrow biopsy which was reviewed by me today and has no acute abnormalities. I still presume alcohol may have has not needed to with his bone marrow suppression which is leading to cytopenias, anemia her specifically. There is no benefit to Hematology inpatient consult at this time, patient will have to continue pursuing outpatient workup. We will make sure patient has adequate blood levels overnight given some fluid resuscitation. One more day monitor likely DC tomorrow 10/22 hb falling again almost 1u despite no fluids given and only po hydration. with that concern, hematology consulted. flow cytometry from past visit was unrevealing of any disease process. consulted hematology, they recommend BM bx for follow-up. will get BM bx by IR radiology consult help. will try 1x iv iron and po outpatinet otherwise. 10/23 Patient had seizure while down in IR lab, and were not able to do bone marrow biopsy. Noted missed home Keppra which is now continuing after load dose. We will reschedule for possible permanent biopsy tomorrow. Continue following hemoglobin meanwhile. Reviewed: H&P Changes from previous H/P or p: No Changes General: Per HPI Objective Vitals Vital Signs Date Time Temp Pulse Resp B/P (MAP) Pulse Ox O2 Delivery O2 Flow Rate FiO2 10/23/24 17:34 98.4 78 18 112/62 (79) 94 98.4 10/23/24 08:00 Room Air* 0 21 Intake/Output Intake and Output 10/23/24 07:00 Intake Total 2620 ml Output Total 830 ml Balance 1790 ml Intake Oral 2460 ml IV Total 160 ml Output Urine Total 830 ml # Bowel Movements 1 Exam GEN: Healthy appearing, well-developed, NAD. HEENT: NC/AT; MMM. CV: RRR, no m/r/g. LUNGS: CTAB, no w/r/c. Bibasilar rales ABD: Soft, NT/ND, NBS, no masses or organomegaly. EXT: skin Warm, well perfused. no rashes. No clubbing, cyanosis, or edema. NEURO: Ambulating with no limitations. No focal deficits. Medications Current Medications Medications Dose Ordered Sig/Cora Route Start Time Stop Time Status Last Admin Dose Admin Ondansetron HCl 4 mg Q4HP PRN IV 10/20/24 16:45 Morphine Sulfate 2 mg Q4HPRN PRN IV 10/20/24 16:45 Ceftriaxone Sodium 50 ml @ 100 mls/hr DAILY@09 IV 10/21/24 09:00 10/23/24 09:13 100 MLS/HR Mupirocin 1 applic BID EACHNOSTRI 10/21/24 22:00 10/26/24 21:59 10/23/24 09:13 1 APPLIC Iron Sucrose 110 ml @ 110 mls/hr DAILY@1200 IV 10/22/24 18:00 10/26/24 12:59 10/23/24 13:16 110 MLS/HR Lorazepam 1 mg Q5MINP PRN IV 10/23/24 07:30 Levetiracetam 100 ml @ 400 mls/hr BID IV 10/23/24 12:00 10/23/24 15:15 400 MLS/HR Laboratory Results Laboratory Tests 10/21/24 06:09 10/23/24 05:25 Urinalysis Test 10/21/24 01:26 Urine Color Light-yellow (Yellow) Urine Clarity Clear (Clear) Urine pH 6.0 (5.0-9.0) Urine Specific [place] 1.013 (1.001-1.035) Urine Protein Negative (Negative) Urine Ketones Negative (Negative) Urine Blood Negative /uL (Negative) Urine Nitrite Negative (Negative) Urine Bilirubin Negative (Negative) Urine Urobilinogen Normal mg/dL (Negative) Urine Leukocyte Esterase Negative /uL (Negative) Urine RBC <1 /hpf (0 - 3) Urine Microscopic WBC < 1 /HPF (0-3) Urine Squamous Epithelial Cells Few /hpf (<5) Urine Bacteria None seen /hpf (None Seen) Urine Hyaline Casts Few /lpf (0 - 2) Urine Glucose Normal mg/dL (Normal) Microbiology Microbiology Date/Time Source Procedure Growth Status 10/21/24 01:27 Nose MRSA Screen - Final Methicillin Resistant S.aureus Complete 10/20/24 11:47 Blood Blood Culture - Preliminary NO GROWTH AFTER 72 HOURS OF INCUBATION. Resulted Labs and/or images reviewed: Labs reviewed by me, Image(s) reviewed by me Assessment/Plan Assessment/Plan Update 10/23 Patient had seizure while down in IR lab, and were not able to do bone marrow biopsy. Noted missed home [place] which is now continuing after load dose. We will reschedule for possible permanent biopsy tomorrow. Continue following hemoglobin meanwhile. Severe anemia, symptomatic, requiring transfusion Acute blood loss anemia Atelectasis bilateral Acute hypoxic respiratory failure due to above Hypotension in setting of anemia Hypokalemia, repleted LUIZA due to VMN History of anemia Hypertension Diabetes History of CVA with left-sided deficits History of seizures Schizophrenia - ED given 2 units PRBC after type and cross -We will calculate reticulocyte index - close to 0, nonproductive anemia. unkonwn cause. -heme consult. -Stool occult blood pend. -LUIZA creatinine 1.39 given blood. -Troponin, BNP normal -Tele - monitor for GI bleed , consult GI given history of cirrhosis. Hold off octreotide - GI bleed with history of sources we will start Rocephin prophylaxis Diet diabetic DVT prophylaxis SCDs GI prophylaxis-IV PPI b.i.d. Tele Full code Plan discussed with: Patient My Orders Orders - STAN TAYLOR MD Procedure Category Date Status Time Ct Guidance For CT 10/23/24 Resulted Needle Placeme Pelvis Wo Contrast CT 10/23/24 Resulted 09:56 Levetiracetam 500 PHA 10/23/24 In Process Mg/100ml (Levetiraceta 12:00 Date of Service: October 23, 2024 Billing Provider: STAN TAYLOR MD Common Visit Codes: [id number] INP/OBS CARE(HIGH) STAN TAYLOR MD October 23, 2024 18:41
--- NOTE | 2024-10-23 23:00 | DVHPN2 ---
Progress Note - Dictate Date Seen: October 23, 2024 Medical Necessity Reason Pt with a Central, PICC or Fol: No Subjective Nurse reporting dark bowel movements Hemoglobin is stable at 7.6 Patient underwent IR guided bone marrow biopsy of the pelvic bones vital signs Vital Sign Date Time Temp Pulse Resp B/P (MAP) Pulse Ox O2 Delivery O2 Flow Rate FiO2 10/23/24 21:00 97.3 88 18 127/73 (91) 99 97.3 10/23/24 08:00 Room Air* 0 21 Total Intake and Output 10/22/24 10/22/24 10/23/24 15:00 23:00 07:00 Intake Total 50 ml 1970 ml 600 ml Output Total 330 ml 500 ml Balance 50 ml 1640 ml 100 ml medications Current Medications Medications Dose Ordered Sig/Cora Route Start Time Stop Time Status Last Admin Dose Admin Ondansetron HCl 4 mg Q4HP PRN IV 10/20/24 16:45 Morphine Sulfate 2 mg Q4HPRN PRN IV 10/20/24 16:45 Ceftriaxone Sodium 50 ml @ 100 mls/hr DAILY@09 IV 10/21/24 09:00 10/23/24 09:13 100 MLS/HR Mupirocin 1 applic BID EACHNOSTRI 10/21/24 22:00 10/26/24 21:59 10/23/24 22:03 1 APPLIC Iron Sucrose 110 ml @ 110 mls/hr DAILY@1200 IV 10/22/24 18:00 10/26/24 12:59 10/23/24 13:16 110 MLS/HR Lorazepam 1 mg Q5MINP PRN IV 10/23/24 07:30 Levetiracetam 100 ml @ 400 mls/hr BID IV 10/23/24 12:00 10/23/24 22:03 400 MLS/HR objective GEN: Healthy appearing, well-developed, NAD. HEENT: NC/AT; MMM. CV: RRR, no m/r/g. LUNGS: CTAB, no w/r/c. Bibasilar rales ABD: Soft, NT/ND, NBS, no masses or organomegaly. EXT: skin Warm, well perfused. no rashes. No clubbing, cyanosis, or edema. laboratory and microbiology Laboratory Tests 10/23/24 05:25 10/21/24 06:09 Test 10/21/24 06:09 Range/Units Serum Glucose 115 H 74-106 mg/dL Problems(with codes): (1) Symptomatic anemia (2) Anemia of chronic disease (3) Generalized weakness (4) Hypoxic respiratory failure (5) Cecal polyp (6) Gastroduodenitis (7) Seizure Prognosis Plan Restart Keppra Monitor labs IV iron infusions Small-bowel follow-through x-ray Outpatient elective capsule endoscopy Dietary Evaluation Review Comments: 1. Disagree with current diet order, increase CHO allotment to 75 gm/meal and remove renal diet restriction 2. Encourage good oral intakes >75% of meals 3. Monitor H&H, currently undergoing bone marrow biopsy Expected Outcomes/Goals: Improved caloric/energy intake. Plan discussed with: Other (Dr Hanson) CC Plasma Assessment Blood Product Administration S: 1941 IRMA NERI MD October 23, 2024 23:00
[2024-10-24] VITALS (10 sets, daily range): BP systolic 113–122; BP diastolic 63–77; PULSE 73–88; RESP 17–21; TEMP 97.5–98.3; O2SAT 92–98
[2024-10-24 06:31] LABS: Alanine Aminotransferase 23 U/L (7-40); Albumin 4.1 g/dL (3.2-4.8); Alkaline Phosphatase 73 U/L (46-116); Anion Gap 8 (5-15); Aspartate Aminotransferase 23 U/L (13-40); BUN/Creatinine Ratio 18.9 (10.0-20.0); Bilirubin, Total 0.5 mg/dL (0.2-1.0); Blood Urea Nitrogen 17 mg/dL (9-23); Calcium 9.6 mg/dL (8.7-10.4); Chloride 101 mmol/L (98-107); Glucose 99 mg/dL (74-106); Sodium 141 mmol/L (136-145); Total Protein 6.6 g/dL (5.7-8.2)
[2024-10-24 06:36] LABS: Carbon Dioxide 32 mmol/L (20-31); Potassium 3.4 mmol/L (3.5-5.1)
[2024-10-24 06:39] LABS: INR 1.23 (0.9-1.15); Prothrombin Time 12.8 sec (9.3-11.8)
[2024-10-24 06:44] LABS: Basophils # (auto) 0 10 ^3/uL (0-0.2); Basophils % (auto) 0.9 % (0.0-2.0); Eosinophils # (auto) 0.1 10 ^3/uL (0-0.8); Eosinophils % (auto) 2.1 % (0.0-7.0); Hematocrit 21.5 % (41.0-53.0); Hemoglobin 7.1 g/dL (13.5-17.5); Lymphocytes % (auto) 24.2 % (10.0-50.0); Mean Corpuscular Hemoglobin 24.4 pg (28.0-32.0); Mean Corpuscular Hgb Conc. 32.9 g/dL (32.0-36.0); Mean Corpuscular Volume 74.2 fL (80.0-100.0); Monocytes # (auto) 0.5 10 ^3/uL (0-1.3); Neutrophils # (auto) 2.7 10 ^3/uL (1.6-8.6); Neutrophils % (auto) 61.8 % (37.0-80.0); Nucleated Red Blood Cells % 0.1 %; Platelet Count (auto) 203 10^3/uL (140-450); Red Cell Distribution Width 20.1 % (11.8-14.3); White Blood Cell 4.3 10^3/uL (4.4-10.8)
[2024-10-24] MEDS: IRON SUCROSE COMPLEX 110 ML IV SCH (12:00)
--- NOTE | 2024-10-24 12:05 | DVH ---
Procedure: XY SMALL BOWEL SERIES-W GASTROGRA Exam Date: 10/24/2024 09:28 AM Reason for study/Clinical History: anemia and dark stools Comparison Study: None Technique: Single contrast small bowel series performed. Fluoroscopy time: 1 Minutes 30 seconds Findings: Initial lan analyst view of the abdomen and pelvis appears demonstrates no acute process. Contrast is identified within the colon by 1 hour. This represents a normal small bowel transit time . Small bowel loops are normal in size. Normal mucosal pattern. No evidence of small bowel obstructi on, stricture, or mucosal abnormality. The terminal ileum is well visualized and is unremarkable. IMPRESSION: Normal small bowel series. END IMPRESSION:
[2024-10-24 14:25] LABS: Basophils # (auto) 0 10 ^3/uL (0-0.2); Eosinophils # (auto) 0.1 10 ^3/uL (0-0.8); Monocytes # (auto) 0.7 10 ^3/uL (0-1.3); Neutrophils # (auto) 2.8 10 ^3/uL (1.6-8.6); White Blood Cell 5.2 10^3/uL (4.4-10.8)
[2024-10-24 14:26] LABS: Eosinophils % (auto) 2.5 % (0.0-7.0); Hematocrit 21.7 % (41.0-53.0); Hemoglobin 7.2 g/dL (13.5-17.5); Lymphocytes # (auto) 1.6 10 ^3/uL (0.4-5.4); Lymphocytes % (auto) 29.8 % (10.0-50.0); Mean Corpuscular Hemoglobin 24.6 pg (28.0-32.0); Mean Corpuscular Hgb Conc. 33.2 g/dL (32.0-36.0); Mean Corpuscular Volume 74.2 fL (80.0-100.0); Monocytes % (auto) 13.7 % (0.0-12.0); Nucleated Red Blood Cells % 0.2 %; Platelet Count (auto) 225 10^3/uL (140-450); Red Blood Cells 2.93 10^6/uL (4.5-5.90); Red Cell Distribution Width 21.1 % (11.8-14.3)
[2024-10-24] MEDS: MULTIPLE VITAMIN TAB PO ONE (16:15)
[2024-10-24] MEDS: SODIUM CHLORIDE 0.9% 500 ML IV ONE (16:37)
--- NOTE | 2024-10-24 16:46 | DVHPN2 ---
Subjective Update 10/24 10/21- patient has been here for acute blood loss anemia before. He has had a GI consult and has had a hematology consult before. He was had a bone marrow biopsy which was reviewed by me today and has no acute abnormalities. I still presume alcohol may have has not needed to with his bone marrow suppression which is leading to cytopenias, anemia her specifically. There is no benefit to Hematology inpatient consult at this time, patient will have to continue pursuing outpatient workup. We will make sure patient has adequate blood levels overnight given some fluid resuscitation. One more day monitor likely DC tomorrow 10/22 hb falling again almost 1u despite no fluids given and only po hydration. with that concern, hematology consulted. flow cytometry from past visit was unrevealing of any disease process. consulted hematology, they recommend BM bx for follow-up. will get BM bx by IR radiology consult help. will try 1x iv iron and po outpatinet otherwise. 10/23 Patient had seizure while down in IR lab, and were not able to do bone marrow biopsy. Noted missed home Keppra which is now continuing after load dose. We will reschedule for possible permanent biopsy tomorrow. Continue following hemoglobin meanwhile. 10/24 patient was able to get IR bone mineral biopsy yesterday S seizure had terminated. No further melanotic stools. Bowel series today without any significant or concerning findings. Plan was to discharge until 3:00 p.m. with noting blood pressure low and repeat hemoglobin borderline 7.1-7.2. We will give transfusion 1 unit PRBC. We will continue IV iron and supplement B12 and folate in hopes to increase marrow production. Patient has ABL a, severe anemia requiring transfusion and insurance is denying inpatient stay, we will try PTP tomorrow. Likely DC tomorrow am Reviewed: H&P Changes from previous H/P or p: No Changes General: Per HPI Objective Vitals Vital Signs Date Time Temp Pulse Resp B/P (MAP) Pulse Ox O2 Delivery O2 Flow Rate FiO2 10/24/24 13:10 98.0 82 21 114/63 (80) 94 98.0 10/23/24 20:00 Room Air* 0 21 Intake/Output Intake and Output 10/24/24 07:00 Intake Total 1260 ml Output Total 650 ml Balance 610 ml Intake Oral 900 ml IV Total 360 ml Output Urine Total 650 ml # Bowel Movements 1 Exam GEN: Healthy appearing, well-developed, NAD. HEENT: NC/AT; MMM. CV: RRR, no m/r/g. LUNGS: CTAB, no w/r/c. Bibasilar rales ABD: Soft, NT/ND, NBS, no masses or organomegaly. EXT: skin Warm, well perfused. no rashes. No clubbing, cyanosis, or edema. NEURO: Ambulating with no limitations. No focal deficits. Medications Current Medications Medications Dose Ordered Sig/Cora Route Start Time Stop Time Status Last Admin Dose Admin Ondansetron HCl 4 mg Q4HP PRN IV 10/20/24 16:45 Morphine Sulfate 2 mg Q4HPRN PRN IV 10/20/24 16:45 Ceftriaxone Sodium 50 ml @ 100 mls/hr DAILY@09 IV 10/21/24 09:00 10/24/24 08:56 100 MLS/HR Mupirocin 1 applic BID EACHNOSTRI 10/21/24 22:00 10/26/24 21:59 10/24/24 10:30 1 APPLIC Iron Sucrose 110 ml @ 110 mls/hr DAILY@1200 IV 10/22/24 18:00 10/26/24 12:59 10/24/24 12:00 110 MLS/HR Lorazepam 1 mg Q5MINP PRN IV 10/23/24 07:30 Levetiracetam 100 ml @ 400 mls/hr BID IV 10/23/24 12:00 10/24/24 10:00 400 MLS/HR Iron Sucrose 110 ml @ 110 mls/hr DAILY@1200 IV 10/24/24 12:00 10/28/24 12:59 10/24/24 12:00 110 MLS/HR Folic Acid 1 mg DAILY PO 10/25/24 10:00 Multivitamins 1 tab DAILY PO 10/25/24 10:00 Laboratory Results Laboratory Tests 10/24/24 05:35 10/24/24 13:56 Chemistry Test 10/24/24 05:35 Albumin 4.1 g/dL (3.2-4.8) Calcium Level 9.6 mg/dL (8.7-10.4) Total Protein 6.6 g/dL (5.7-8.2) Coagulation Test 10/24/24 05:35 Prothrombin Time 12.8 sec (9.3-11.8) H Prothrombin Time INR 1.23 (0.9-1.15) H LFT Test 10/24/24 05:35 Alanine Aminotransferase (ALT) 23 U/L (7-40) Alkaline Phosphatase 73 U/L (46-116) Aspartate Amino Transferase (AST) 23 U/L (13-40) Total Bilirubin 0.5 mg/dL (0.2-1.0) Urinalysis Test 10/21/24 01:26 Urine Color Light-yellow (Yellow) Urine Clarity Clear (Clear) Urine pH 6.0 (5.0-9.0) Urine Specific [place] 1.013 (1.001-1.035) Urine Protein Negative (Negative) Urine Ketones Negative (Negative) Urine Blood Negative /uL (Negative) Urine Nitrite Negative (Negative) Urine Bilirubin Negative (Negative) Urine Urobilinogen Normal mg/dL (Negative) Urine Leukocyte Esterase Negative /uL (Negative) Urine RBC <1 /hpf (0 - 3) Urine Microscopic WBC < 1 /HPF (0-3) Urine Squamous Epithelial Cells Few /hpf (<5) Urine Bacteria None seen /hpf (None Seen) Urine Hyaline Casts Few /lpf (0 - 2) Urine Glucose Normal mg/dL (Normal) Microbiology Microbiology Date/Time Source Procedure Growth Status 10/21/24 01:27 Nose MRSA Screen - Final Methicillin Resistant S.aureus Complete 10/20/24 11:47 Blood Blood Culture - Preliminary NO GROWTH AFTER 72 HOURS OF INCUBATION. Resulted Labs and/or images reviewed: Labs reviewed by me, Image(s) reviewed by me Assessment/Plan Assessment/Plan Update 10/24 patient was able to get IR bone mineral biopsy yesterday S seizure had terminated. No further melanotic stools. Bowel series today without any significant or concerning findings. Plan was to discharge until 3:00 p.m. with noting blood pressure low and repeat hemoglobin borderline 7.1-7.2. We will give transfusion 1 unit PRBC. We will continue IV iron and supplement B12 and folate in hopes to increase marrow production. Patient has ABL a, severe anemia requiring transfusion and insurance is denying inpatient stay, we will try PTP tomorrow. Likely DC tomorrow am Severe anemia, symptomatic, requiring transfusion Acute blood loss anemia Atelectasis bilateral Acute hypoxic respiratory failure due to above Hypotension in setting of anemia Hypokalemia, repleted LUIZA due to VMN History of anemia Hypertension Diabetes History of CVA with left-sided deficits History of seizures Schizophrenia - ED given 2 units PRBC after type and cross . Multiple transfusions given during stay -We will calculate reticulocyte index - close to 0, nonproductive anemia. unkonwn cause. -heme consult. Bone marrow biopsy done 10/23/2024 -Stool occult blood pend. -LUIZA creatinine 1.39 given blood. -Troponin, BNP normal -Tele - monitor for GI bleed , consult GI given history of cirrhosis. Hold off octreotide. Had melanotic stools which have now stopped on 10/23/2024 - GI bleed with history of sources we will start Rocephin prophylaxis Diet diabetic DVT prophylaxis SCDs GI prophylaxis-IV PPI b.i.d. Tele Full code Plan discussed with: Patient My Orders Orders - STAN TAYLOR MD Procedure Category Date Status Time Packedcell-Noactive BBK 10/24/24 Logged Bleeding 16:12 Folic Acid Tablet PHA 10/25/24 In Process 10:00 Multiple Vitamin PHA 10/25/24 In Process Tablet (Mvi Tab) 10:00 Type And Screen BBK 10/24/24 Logged 16:31 Sodium Chloride 0.9% PHA 10/24/24 In Process 16:45 Date of Service: October 24, 2024 Billing Provider: STAN TAYLOR MD Common Visit Codes: [id number] INP/OBS CARE(HIGH) STAN TAYLOR MD October 24, 2024 16:46
[2024-10-24] MEDS: CYANOCOBALAMIN (B-12) 1000 MCG/1 ML VIAL IM ONE (16:48)
[2024-10-24] MEDS: FOLIC ACID 1 MG in D5W 5% 50 ML INJ ONE (17:45)
[2024-10-25] VITALS (8 sets, daily range): BP systolic 121–132; BP diastolic 73–83; PULSE 65–84; RESP 16–20; TEMP 97.4–97.9; O2SAT 91–100
[2024-10-25 06:44] LABS: Basophils # (auto) 0 10 ^3/uL (0-0.2); Eosinophils # (auto) 0.1 10 ^3/uL (0-0.8); Monocytes # (auto) 0.5 10 ^3/uL (0-1.3); Nucleated Red Blood Cells % 0.1 %
[2024-10-25 06:46] LABS: Eosinophils % (auto) 2.6 % (0.0-7.0); Hematocrit 23.9 % (41.0-53.0); Hemoglobin 8.1 g/dL (13.5-17.5); Lymphocytes % (auto) 22.4 % (10.0-50.0); Mean Corpuscular Hemoglobin 25.7 pg (28.0-32.0); Mean Corpuscular Hgb Conc. 33.9 g/dL (32.0-36.0); Mean Corpuscular Volume 76.1 fL (80.0-100.0); Monocytes % (auto) 10.9 % (0.0-12.0); Neutrophils # (auto) 2.7 10 ^3/uL (1.6-8.6); Neutrophils % (auto) 63.1 % (37.0-80.0); Platelet Count (auto) 216 10^3/uL (140-450); Red Blood Cells 3.15 10^6/uL (4.5-5.90); White Blood Cell 4.3 10^3/uL (4.4-10.8)
[2024-10-25] MEDS: PANTOPRAZOLE 40 MG/10 ML VIAL INJ IV SCH (12:24)
[2024-10-25] MEDS: MULTIPLE VITAMIN TAB PO SCH (12:25)
[2024-10-25] MEDS: FOLIC ACID 1 MG TAB PO SCH (12:25)
[2024-10-25] MEDS: SUCRALFATE 1 GM/10 ML ORAL SUSP PO ONE (12:30)
--- NOTE | 2024-10-25 16:46 | DVHPN2 ---
Subjective Update 10/25 10/21- patient has been here for acute blood loss anemia before. He has had a GI consult and has had a hematology consult before. He was had a bone marrow biopsy which was reviewed by me today and has no acute abnormalities. I still presume alcohol may have has not needed to with his bone marrow suppression which is leading to cytopenias, anemia her specifically. There is no benefit to Hematology inpatient consult at this time, patient will have to continue pursuing outpatient workup. We will make sure patient has adequate blood levels overnight given some fluid resuscitation. One more day monitor likely DC tomorrow 10/22 hb falling again almost 1u despite no fluids given and only po hydration. with that concern, hematology consulted. flow cytometry from past visit was unrevealing of any disease process. consulted hematology, they recommend BM bx for follow-up. will get BM bx by IR radiology consult help. will try 1x iv iron and po outpatinet otherwise. 10/23 Patient had seizure while down in IR lab, and were not able to do bone marrow biopsy. Noted missed home Keppra which is now continuing after load dose. We will reschedule for possible permanent biopsy tomorrow. Continue following hemoglobin meanwhile. 10/24 patient was able to get IR bone mineral biopsy yesterday S seizure had terminated. No further melanotic stools. Bowel series today without any significant or concerning findings. Plan was to discharge until 3:00 p.m. with noting blood pressure low and repeat hemoglobin borderline 7.1-7.2. We will give transfusion 1 unit PRBC. We will continue IV iron and supplement B12 and folate in hopes to increase marrow production. Patient has ABL a, severe anemia requiring transfusion and insurance is denying inpatient stay, we will try PTP tomorrow. Likely DC tomorrow am 10/25 this am patient has large melanotic bowel movement, auto signs stable, blood pressure stable, hemoglobin stable. Patient received 1 unit PRBC hemoglobin up to 8.0 in holding. We will continue to follow hemoglobin and bowel movements. GI updated and wants to observe. Second stool occult blood is sent to lab for test. If patient remains stable without dark bowel movements we will likely DC tomorrow. Today we will start PPI and Carafate. Peer to peer done with UMR and inpatient stays approved. Reviewed: H&P Changes from previous H/P or p: No Changes General: Per HPI Objective Vitals Vital Signs Date Time Temp Pulse Resp B/P (MAP) Pulse Ox O2 Delivery O2 Flow Rate FiO2 10/25/24 16:18 97.4 77 17 132/83 (99) 91 97.4 10/25/24 08:00 Room Air* 0 21 Intake/Output Intake and Output 10/25/24 07:00 Intake Total 3060.8 ml Output Total 800 ml Balance 2260.8 ml Intake Oral 800 ml IV Total 1360.8 ml Blood Product 300 ml Other 600 ml Output Urine Total 800 ml # Bowel Movements 1 Exam GEN: Healthy appearing, well-developed, NAD. HEENT: NC/AT; MMM. CV: RRR, no m/r/g. LUNGS: CTAB, no w/r/c. Bibasilar rales ABD: Soft, NT/ND, NBS, no masses or organomegaly. EXT: skin Warm, well perfused. no rashes. No clubbing, cyanosis, or edema. NEURO: Ambulating with no limitations. No focal deficits. Medications Current Medications Medications Dose Ordered Sig/Cora Route Start Time Stop Time Status Last Admin Dose Admin Ondansetron HCl 4 mg Q4HP PRN IV 10/20/24 16:45 Morphine Sulfate 2 mg Q4HPRN PRN IV 10/20/24 16:45 Ceftriaxone Sodium 50 ml @ 100 mls/hr DAILY@09 IV 10/21/24 09:00 10/25/24 08:57 100 MLS/HR Mupirocin 1 applic BID EACHNOSTRI 10/21/24 22:00 10/26/24 21:59 10/25/24 10:00 1 APPLIC Iron Sucrose 110 ml @ 110 mls/hr DAILY@1200 IV 10/22/24 18:00 10/26/24 12:59 10/25/24 12:24 110 MLS/HR Lorazepam 1 mg Q5MINP PRN IV 10/23/24 07:30 Levetiracetam 100 ml @ 400 mls/hr BID IV 10/23/24 12:00 10/25/24 10:00 400 MLS/HR Folic Acid 1 mg DAILY PO 10/25/24 10:00 10/25/24 12:25 1 MG Multivitamins 1 tab DAILY PO 10/25/24 10:00 10/25/24 12:25 1 TAB Pantoprazole Sodium 40 mg BID IV 10/25/24 10:00 10/25/24 12:24 40 MG Sucralfate 1 gm BID@0600,2200 PO 10/25/24 22:00 Laboratory Results Laboratory Tests 10/24/24 05:35 10/25/24 05:24 Urinalysis Test 10/21/24 01:26 Urine Color Light-yellow (Yellow) Urine Clarity Clear (Clear) Urine pH 6.0 (5.0-9.0) Urine Specific [place] 1.013 (1.001-1.035) Urine Protein Negative (Negative) Urine Ketones Negative (Negative) Urine Blood Negative /uL (Negative) Urine Nitrite Negative (Negative) Urine Bilirubin Negative (Negative) Urine Urobilinogen Normal mg/dL (Negative) Urine Leukocyte Esterase Negative /uL (Negative) Urine RBC <1 /hpf (0 - 3) Urine Microscopic WBC < 1 /HPF (0-3) Urine Squamous Epithelial Cells Few /hpf (<5) Urine Bacteria None seen /hpf (None Seen) Urine Hyaline Casts Few /lpf (0 - 2) Urine Glucose Normal mg/dL (Normal) Microbiology Microbiology Date/Time Source Procedure Growth Status 10/21/24 01:27 Nose MRSA Screen - Final Methicillin Resistant S.aureus Complete 10/20/24 11:47 Blood Blood Culture - Final NO GROWTH AFTER 5 DAYS OF INCUBATION. Complete Labs and/or images reviewed: Labs reviewed by me, Image(s) reviewed by me Assessment/Plan Assessment/Plan Update 10/25 this am patient has large melanotic bowel movement, auto signs stable, blood pressure stable, hemoglobin stable. Patient received 1 unit PRBC hemoglobin up to 8.0 in holding. We will continue to follow hemoglobin and bowel movements. GI updated and wants to observe. Second stool occult blood is sent to lab for test. If patient remains stable without dark bowel movements we will likely DC tomorrow. Today we will start PPI and Carafate. Peer to peer done with UMR and inpatient stays approved. Severe anemia, symptomatic, requiring transfusion Acute blood loss anemia Melena, rule out upper GI bleed. Atelectasis bilateral Acute hypoxic respiratory failure due to above Hypotension in setting of anemia Hypokalemia, repleted LUIZA due to VMN History of anemia Hypertension Diabetes History of CVA with left-sided deficits History of seizures Schizophrenia - ED given 2 units PRBC after type and cross . Multiple transfusions given during stay -We will calculate reticulocyte index - close to 0, nonproductive anemia. unkonwn cause. -heme consult. Bone marrow biopsy done 10/23/2024 -Stool occult blood pend. -LUIZA creatinine 1.39 given blood. -Troponin, BNP normal -Tele - monitor for GI bleed , consult GI given history of cirrhosis. Hold off octreotide. Had melanotic stools which have now stopped on 10/23/2024 - GI bleed with history of sources we will start Rocephin prophylaxis - Protonix/Carafate started Diet diabetic DVT prophylaxis SCDs GI prophylaxis-IV PPI b.i.d. Tele Full code Plan discussed with: Patient My Orders Orders - STAN TAYLOR MD Procedure Category Date Status Time Pantoprazole PHA 10/25/24 In Process (Protonix) 10:00 Sucralfate Susp PHA 10/25/24 In Process (Carafate Susp) 22:00 Date of Service: October 25, 2024 Billing Provider: STAN TAYLOR MD Common Visit Codes: [id number] INP/OBS CARE(HIGH) STAN TAYLOR MD October 25, 2024 16:46
[2024-10-25] MEDS: SUCRALFATE 1 GM/10 ML ORAL SUSP PO SCH (22:31)
--- NOTE | 2024-10-25 23:07 | DVHPN2 ---
Progress Note - Dictate Date Seen: October 25, 2024 Medical Necessity Reason Pt with a Central, PICC or Fol: No Subjective Multiple dark BMS; pt has been taking iron pills at home Stool for occult blood negative Hemoglobin is stable at 8.1 Patient underwent IR guided bone marrow biopsy of the pelvic bones vital signs Vital Sign Date Time Temp Pulse Resp B/P (MAP) Pulse Ox O2 Delivery O2 Flow Rate FiO2 10/25/24 16:18 97.4 77 17 132/83 (99) 91 97.4 10/25/24 08:00 Room Air* 0 21 Total Intake and Output 10/24/24 10/24/24 10/25/24 15:00 23:00 07:00 Intake Total 560 ml 1200.8 ml 1300 ml Output Total 300 ml 500 ml Balance 560 ml 900.8 ml 800 ml medications Current Medications Medications Dose Ordered Sig/Cora Route Start Time Stop Time Status Last Admin Dose Admin Ondansetron HCl 4 mg Q4HP PRN IV 10/20/24 16:45 Morphine Sulfate 2 mg Q4HPRN PRN IV 10/20/24 16:45 Ceftriaxone Sodium 50 ml @ 100 mls/hr DAILY@09 IV 10/21/24 09:00 10/25/24 08:57 100 MLS/HR Mupirocin 1 applic BID EACHNOSTRI 10/21/24 22:00 10/26/24 21:59 10/25/24 22:31 1 APPLIC Iron Sucrose 110 ml @ 110 mls/hr DAILY@1200 IV 10/22/24 18:00 10/26/24 12:59 10/25/24 12:24 110 MLS/HR Lorazepam 1 mg Q5MINP PRN IV 10/23/24 07:30 Levetiracetam 100 ml @ 400 mls/hr BID IV 10/23/24 12:00 10/25/24 22:31 400 MLS/HR Folic Acid 1 mg DAILY PO 10/25/24 10:00 10/25/24 12:25 1 MG Multivitamins 1 tab DAILY PO 10/25/24 10:00 10/25/24 12:25 1 TAB Pantoprazole Sodium 40 mg BID IV 10/25/24 10:00 10/25/24 22:31 40 MG Sucralfate 1 gm BID@0600,2200 PO 10/25/24 22:00 10/25/24 22:31 1 GM objective GEN: Healthy appearing, well-developed, NAD. HEENT: NC/AT; MMM. CV: RRR, no m/r/g. LUNGS: CTAB, no w/r/c. Bibasilar rales ABD: Soft, NT/ND, NBS, no masses or organomegaly. EXT: skin Warm, well perfused. no rashes. No clubbing, cyanosis, or edema. laboratory and microbiology Laboratory Tests 10/25/24 05:24 10/24/24 05:35 Test 10/24/24 05:35 Range/Units Serum Glucose 99 74-106 mg/dL Problems(with codes): (1) Seizure (2) Cecal polyp (3) Gastroduodenitis (4) Symptomatic anemia (5) Anemia of chronic disease (6) Generalized weakness Prognosis PLAN Advance KRISTINA Continue supportive care IV Iron Discharge pt if H/H stable Monitor labs Outpt f/u with hematology Continue outpt iron infusions if possible Dietary Evaluation Review Comments: 1. Disagree with current diet order, increase CHO allotment to 75 gm/meal and remove renal diet restriction 2. Encourage good oral intakes >75% of meals 3. Monitor H&H, currently undergoing bone marrow biopsy Expected Outcomes/Goals: Improved caloric/energy intake. Plan discussed with: Patient, Other (Dr Hanson) CC Plasma Assessment Blood Product Administration S: 1941 IRMA NERI MD October 25, 2024 23:07
[2024-10-26 05:00] VITALS: BP 122/76; PULSE 80; RESP 18; TEMP 98.8; O2SAT 99
[2024-10-26 06:20] LABS: Basophils # (auto) 0.1 10 ^3/uL (0-0.2); Eosinophils # (auto) 0.1 10 ^3/uL (0-0.8); Eosinophils % (auto) 2.1 % (0.0-7.0); Lymphocytes # (auto) 0.9 10 ^3/uL (0.4-5.4); Monocytes # (auto) 0.5 10 ^3/uL (0-1.3)
[2024-10-26 06:23] LABS: Basophils % (auto) 1.2 % (0.0-2.0); Hemoglobin 8.1 g/dL (13.5-17.5); Lymphocytes % (auto) 19.5 % (10.0-50.0); Mean Corpuscular Hemoglobin 26.1 pg (28.0-32.0); Mean Corpuscular Hgb Conc. 33.9 g/dL (32.0-36.0); Mean Corpuscular Volume 76.8 fL (80.0-100.0); Monocytes % (auto) 10.1 % (0.0-12.0); Neutrophils % (auto) 67.1 % (37.0-80.0); Platelet Count (auto) 209 10^3/uL (140-450); Red Blood Cells 3.13 10^6/uL (4.5-5.90); Red Cell Distribution Width 19.7 % (11.8-14.3); White Blood Cell 4.5 10^3/uL (4.4-10.8)
[2024-10-26 08:00] VITALS: PULSE 77; RESP 18; O2SAT 97
[2024-10-26 08:55] VITALS: BP 111/57; PULSE 77; RESP 18; TEMP 97.7; O2SAT 97
[2024-10-26 10:00] VITALS: PULSE 77; RESP 18; O2SAT 97
--- NOTE | 2024-10-26 11:30 | DVHDS2 ---
Discharge Summary Date of Admission October 20, 2024 at 16:41 Date of Discharge: October 26, 2024 Labs/Diagnostic Data: Laboratory Results Test 10/26/24 05:26 10/25/24 09:07 10/24/24 05:35 10/21/24 01:26 White Blood Count 4.5 10^3/uL (4.4-10.8) Red Blood Count 3.13 10^6/uL (4.5-5.90) Hemoglobin 8.1 g/dL (13.5-17.5) Hematocrit 24.0 % (41.0-53.0) Mean Corpuscular Volume 76.8 fL (80.0-100.0) Mean Corpuscular Hemoglobin 26.1 pg (28.0-32.0) Mean Corpuscular Hemoglobin Concent 33.9 g/dL (32.0-36.0) Red Cell Distribution Width 19.7 % (11.8-14.3) Platelet Count 209 10^3/uL (140-450) Mean Platelet Volume 9.1 fL (6.9-10.8) Neutrophils (%) (Auto) 67.1 % (37.0-80.0) Lymphocytes (%) (Auto) 19.5 % (10.0-50.0) Monocytes (%) (Auto) 10.1 % (0.0-12.0) Eosinophils (%) (Auto) 2.1 % (0.0-7.0) Basophils (%) (Auto) 1.2 % (0.0-2.0) Neutrophils # (Auto) 3.0 10 ^3/uL (1.6-8.6) Lymphocytes # (Auto) 0.9 10 ^3/uL (0.4-5.4) Monocytes # (Auto) 0.5 10 ^3/uL (0-1.3) Eosinophils # (Auto) 0.1 10 ^3/uL (0-0.8) Basophils # (Auto) 0.1 10 ^3/uL (0-0.2) Nucleated Red Blood Cells 0.0 % Reticulocyte Count (auto) 0.09 % (0.5-1.5) Stool Occult Blood Negative (Negative) Stool Occult Blood Sample #3 (Negative) Prothrombin Time 12.8 sec (9.3-11.8) Prothrombin Time INR 1.23 (0.9-1.15) Sodium Level 141 mmol/L (136-145) Potassium Level 3.4 mmol/L (3.5-5.1) Chloride Level 101 mmol/L (98-107) Carbon Dioxide Level 32 mmol/L (20-31) Anion Gap 8 (5-15) Blood Urea Nitrogen 17 mg/dL (9-23) Creatinine 0.90 mg/dL (0.700-1.30) Glomerular Filtration Rate Calc 100 mL/min (>90) BUN/Creatinine Ratio 18.9 (10.0-20.0) Serum Glucose 99 mg/dL (74-106) Calcium Level 9.6 mg/dL (8.7-10.4) Total Bilirubin 0.5 mg/dL (0.2-1.0) Aspartate Amino Transferase (AST) 23 U/L (13-40) Alanine Aminotransferase (ALT) 23 U/L (7-40) Alkaline Phosphatase 73 U/L (46-116) Total Protein 6.6 g/dL (5.7-8.2) Albumin 4.1 g/dL (3.2-4.8) Urine Color Light-yellow (Yellow) Urine Clarity Clear (Clear) Urine pH 6.0 (5.0-9.0) Urine Specific [place] 1.013 (1.001-1.035) Urine Protein Negative (Negative) Urine Ketones Negative (Negative) Urine Blood Negative /uL (Negative) Urine Nitrite Negative (Negative) Urine Bilirubin Negative (Negative) Urine Urobilinogen Normal mg/dL (Negative) Urine Leukocyte Esterase Negative /uL (Negative) Urine RBC <1 /hpf (0 - 3) Urine Microscopic WBC < 1 /HPF (0-3) Urine Squamous Epithelial Cells Few /hpf (<5) Urine Bacteria None seen /hpf (None Seen) Urine Hyaline Casts Few /lpf (0 - 2) Urine Glucose Normal mg/dL (Normal) Test 10/20/24 14:32 10/20/24 13:37 Lactic Acid Level 1.1 mmol/L (0.4-2.0) Troponin I High Sensitivity 21 ng/L (</=54) Platelet Estimate Adequate Poikilocytosis (manual) Slight Anisocytosis (manual) Moderate Microcytosis Moderate Tear Drop Cells Few Iron Level 215 ug/dL (65-175) Total Iron Binding Capacity 234 ug/dL (250-425) Percent Iron Saturation 91.9 % (20-55) B-Type Natriuretic Peptide 35.74 pg/mL (0-100) Other Laboratory Tests 10/26/24 05:26 10/24/24 05:35 Brief Hx & Hospital Course: 10/21- patient has been here for acute blood loss anemia before. He has had a GI consult and has had a hematology consult before. He was had a bone marrow biopsy which was reviewed by me today and has no acute abnormalities. I still presume alcohol may have has not needed to with his bone marrow suppression which is leading to cytopenias, anemia her specifically. There is no benefit to Hematology inpatient consult at this time, patient will have to continue pursuing outpatient workup. We will make sure patient has adequate blood levels overnight given some fluid resuscitation. One more day monitor likely DC tomorrow 10/22 hb falling again almost 1u despite no fluids given and only po hydration. with that concern, hematology consulted. flow cytometry from past visit was unrevealing of any disease process. consulted hematology, they recommend BM bx for follow-up. will get BM bx by IR radiology consult help. will try 1x iv iron and po outpatinet otherwise. 10/23 Patient had seizure while down in IR lab, and were not able to do bone marrow biopsy. Noted missed home Keppra which is now continuing after load dose. We will reschedule for possible permanent biopsy tomorrow. Continue following hemoglobin meanwhile. 10/24 patient was able to get IR bone mineral biopsy yesterday S seizure had terminated. No further melanotic stools. Bowel series today without any significant or concerning findings. Plan was to discharge until 3:00 p.m. with noting blood pressure low and repeat hemoglobin borderline 7.1-7.2. We will give transfusion 1 unit PRBC. We will continue IV iron and supplement B12 and folate in hopes to increase marrow production. Patient has ABL a, severe anemia requiring transfusion and insurance is denying inpatient stay, we will try PTP tomorrow. Likely DC tomorrow am 10/25 this am patient has large melanotic bowel movement, auto signs stable, blood pressure stable, hemoglobin stable. Patient received 1 unit PRBC hemoglobin up to 8.0 in holding. We will continue to follow hemoglobin and bowel movements. GI updated and wants to observe. Second stool occult blood is sent to lab for test. If patient remains stable without dark bowel movements we will likely DC tomorrow. Today we will start PPI and Carafate. Peer to peer done with UMR and inpatient stays approved. 10/26 no further bloody bowel movements or melanotic bowel movements. GI has signed off and okay for discharge. Hemoglobin stable this a.m.. Patient feels good stable, no further complaints. Patient tolerating p.o.. Remove Hawkins and discharge to patient's primary living facility diagnosis: Severe anemia, symptomatic, requiring transfusion Acute blood loss anemia nonproductive anemia Melena, ruled out acute upper GI bleed. Atelectasis bilateral Acute hypoxic respiratory failure due to above Hypotension in setting of anemia Hypokalemia, repleted LUIZA due to VMN History of anemia Hypertension Diabetes History of CVA with left-sided deficits History of seizures Schizophrenia discharge plan: - stops Using losartan - continue home meds including Keppra, folic acid, Protonix daily, Carafate 1 g twice daily. - follow up with PCP to review discharge -Follow up with Hematology outpatient to review bowel biopsy -Continue other home medications not mentioned above. Condition at Discharge: Fair Final Diagnosis/Problems List Severe anemia, symptomatic, requiring transfusion Acute blood loss anemia nonproductive anemia Melena, ruled out acute upper GI bleed. Atelectasis bilateral Acute hypoxic respiratory failure due to above Hypotension in setting of anemia Hypokalemia, repleted LUIZA due to VMN History of anemia Hypertension Diabetes History of CVA with left-sided deficits History of seizures Schizophrenia Discharge Disposition: Assisted Living Facility Discharge Instruct/Medications Diet: Regular Activity: Bed rest Follow Up/Referral: pcp, hematology Medications: below Discharge Statement: "Patient was advised to return to the ER or call 911 if any headaches, dizziness, shortness of breath, chest pain, abdominal pain, bleeding, fevers, or worsening of medical condition. Patient was counseled about treatment plan, medications, possible side effects, patientverbalized understanding. All questions were answered to the best of my ability. This discharge took greater then 30 minutes in planning, reviewing documentation, counseling the patient, and discussing with other team members." Date of Service: October 26, 2024 Billing Provider: STAN TAYLOR MD Common Visit Codes: 46546-JFE/OBS DISCH DAY >30min STAN TAYLOR MD October 26, 2024 11:30
[2024-10-26 11:49] VITALS: BP 111/57; PULSE 77; RESP 18; TEMP 98.6; O2SAT 97
[2024-10-26 12:25] VITALS: BP 131/72; PULSE 76; RESP 17; TEMP 97.8; O2SAT 100
--- NOTE | 2024-10-26 17:19 | DVHPN2 ---
Progress Note - Dictate Date Seen: October 26, 2024 (Late entryPatient seen at 9:00 a.m.) Medical Necessity Reason Pt with a Central, PICC or Fol: No Subjective Multiple dark BMS; pt has been taking iron pills at home Stool for occult blood negative Hemoglobin is stable at 8.1 Patient underwent IR guided bone marrow biopsy of the pelvic bones vital signs Vital Sign Date Time Temp Pulse Resp B/P (MAP) Pulse Ox O2 Delivery O2 Flow Rate FiO2 10/26/24 12:25 97.8 76 17 131/72 (91) 100 97.8 10/26/24 10:00 Room Air* 0 21 Total Intake and Output 10/25/24 10/25/24 10/26/24 15:00 23:00 07:00 Intake Total 260 ml 600 ml 150 ml Output Total 400 ml 150 ml Balance 260 ml 200 ml 0 ml objective GEN: Healthy appearing, well-developed, NAD. HEENT: NC/AT; MMM. CV: RRR, no m/r/g. LUNGS: CTAB, no w/r/c. Bibasilar rales ABD: Soft, NT/ND, NBS, no masses or organomegaly. EXT: skin Warm, well perfused. no rashes. No clubbing, cyanosis, or edema. laboratory and microbiology Laboratory Tests 10/26/24 05:26 10/24/24 05:35 Test 10/24/24 05:35 Range/Units Serum Glucose 99 74-106 mg/dL Problems(with codes): (1) Seizure (2) Cecal polyp (3) Gastroduodenitis (4) Symptomatic anemia (5) Anemia of chronic disease (6) Generalized weakness Prognosis Plan Patient appears to be stable for discharge at this time Discharge planning is in progress [facility] Outpatient follow up or referral for capsule endoscopy to be considered Outpatient follow up with Hematology advised Await bone marrow results Dietary Evaluation Review Comments: 1. Disagree with current diet order, increase CHO allotment to 75 gm/meal and remove renal diet restriction 2. Encourage good oral intakes >75% of meals 3. Monitor H&H, currently undergoing bone marrow biopsy Expected Outcomes/Goals: Improved caloric/energy intake. Plan discussed with: Other (Dr Hanson) CC Plasma Assessment Blood Product Administration S: 1941 IRMA NERI MD October 26, 2024 17:19
== END 2024-10-26 15:55 | disposition home or self-care (01) | DRG 811 ==
LOC: ER 10:58 → EDUNIT# 10:58 → EDBD 10:58 → OVERFLOW 16:41 → TELE-EAST 17:01
PROVIDERS: ADMIT Student in an Organized Health Care Education/Training Program; ATTEND Student in an Organized Health Care Education/Training Program
PROC: 30233N1 Transfusion of Nonautologous Red Blood Cells into Peripheral Vein, Percutaneous Approach (ICD-10-PCS; principal; 2024-10-20)
PROC: 07DT3ZX Extraction of Bone Marrow, Percutaneous Approach, Diagnostic (ICD-10-PCS; 2024-10-23)
PROC: 079T3ZX Drainage of Bone Marrow, Percutaneous Approach, Diagnostic (ICD-10-PCS; 2024-10-23)
DX: D62 Acute posthemorrhagic anemia (principal); J96.01 Acute respiratory failure with hypoxia; N17.0 Acute kidney failure with tubular necrosis; J98.11 Atelectasis; D63.8 Anemia in other chronic diseases classified elsewhere; G40.909 Epilepsy, unspecified, not intractable, without status epilepticus; I95.9 Hypotension, unspecified; E87.6 Hypokalemia; E11.9 Type 2 diabetes mellitus without complications; F20.9 Schizophrenia, unspecified; I10 Essential (primary) hypertension; Z79.84 Long term (current) use of oral hypoglycemic drugs; Z79.4 Long term (current) use of insulin; Z79.899 Other long term (current) drug therapy; Z86.73 Personal history of transient ischemic attack (TIA), and cerebral infarction without residual deficits
CPT/HCPCS: 10005; 36415; 71045; 72192; 74250; 77012; 80053; 81001; 82270; 83540; 83550; 83605; 83880; 84484; 85025; 85045; 85610; 86850; 86900; 86901; 86920; 87040; 87081; 93005; 96365; 97110; 97163; 97530; 99291; G0378; J1756; J2003; J2250; J2470; J7060

== ENCOUNTER 2025-03-18 22:37 | Emergency (ER) | payer OTHER ==
[~2025-03-18] VITALS: Ht 165.1 cm; Wt 100.0 kg
[~2025-03-18 22:37] MED LIST changes: -LOSA-534 PO
--- NOTE | 2025-03-18 22:50 | ED.PDOC ---
HPI (NEURO) HPI Comments 59-year-old male who came to ER via EMS were seizures. History of anemia, Hypertension, Diabetes , History of CVA with left-sided deficits , History of seizures , Schizophrenia. [facility] Patient had a witnessed seizure by caregivers lasting approximately 3 seconds. Patient states he takes his Keppra twice a day as prescribed. Chief Complaint: Seizure Time Seen by MD: 22:49 Primary Care Provider: EFRA Reviewed Notes: Nurses Notes Information Source: Patient Mode of Arrival: EMS Severity: Moderate Dizziness/Weakness Severity: Unable to do activities Past Medical History PAST MEDICAL HISTORY: Anemia, CVA (Left-sided residuals), DM, High Lipids, HTN, Seizures Family History Family History: Unknown Social History Smoker: Non-Smoker Alcohol: Denies ETOH Use Drugs: Denies Drug Use Lives In: Assisted Care Constitutional: denies: chills, diaphoresis, fatigue, fever, malaise, sweats, weakness, others EENTM: denies: blurred vision, double vision, ear bleeding, ear discharge, ear drainage, ear pain, ear ringing, eye pain, eye redness, hearing loss, mouth pain, mouth swelling, nasal discharge, nose bleeding, nose congestion, nose pain, photophobia, tearing, throat pain, throat swelling, voice changes, others Respiratory: denies: cough, hemoptysis, orthopnea, SOB at rest, shortness of breath, SOB with excertion, stridor, wheezing, others Cardiovascular: denies: chest pain, dizzy spells, diaphoresis, Dyspnea on exertion, edema, irregular heart beat, left arm pain, lightheadedness, p alpitations, PND, syncope, others Gastrointestinal: denies: abdomen distended, abdominal pain, blood streaked bowels, constipated, diarrhea, dysphagia, difficulty swallowing, hematemesis, melena, nausea, poor appetite, poor fluid intake, rectal bleeding, rectal pain, vomiting, others Genitourinary: denies: burning, dysuria, flank pain, frequency, hematuria, incontinence, penile discharge, penile sore, pain, testicle pain, testicle swelling, urgency, others Neurological: reports: seizure; denies: dizziness, fainting, headache, left sided numbness, left sided weakness, numbness, paresthesia, pre-existing deficit, right sided numbness, right sided weakness, speech problems, tingling, tremors, weakness, others Musculoskeletal: denies: back pain, gout, joint pain, joint swelling, muscle pain, muscle stiffness, neck pain, others Integumetry: denies: bruises, change in color, change in hair/nails, dryness, laceration, lesions, lumps, rash, wounds, others Allergic/Immunocompromised: denies: Difficulty Healing, Frequent Infections, Hives, Itching, others Hematologic/Lymphatic: denies: anemia, blood clots, easy bleeding, easy bruising, swollen glands, others Endocrine: denies: excessive hunger, excessive sweating, excessive thirst, excessive urination, flushing, intolerance to cold, intolerance to heat, unexplained weight gain, unexplained weight loss, others Psychiatric: denies: anxiety, bipolar disorder, depression, hopeless, panic disorder, schizophrenia, sleepless, suicidal, others Physical Exam General Appearance: No Apparent Distress, Normal HEENT: Normal ENT Inspection, Pharynx Normal, TMs Normal Neck: Full Range of Motion, Non-Tender, Normal, Normal Inspection Respiratory: Chest Non-Tender, Lungs Clear, No Accessory Muscle Use, No Respiratory Distress, Normal Breath Sounds Cardiovascular: No Edema, No JVD, No Murmur, No Gallop, Normal Peripheral Pulses, Regular Rate/Rhythm Breast Exam: Deferred Gastrointestinal: No Organomegaly, Non Tender, No Pulsatile Mass, Normal Bowel Sounds, Soft Genitalia: Deferred Pelvic: Deferred Rectal: Deferred Extremities: No calf tenderness, Normal capillary refill, Normal inspection, Normal range of motion, Non-tender, No pedal edema Musculoskeletal : Apperance: Normal Neurologic: Alert, camper assembler II-XII nml as Tested, No Motor Deficits, Normal Affect, Normal Mood, No Sensory Deficits Cerebellar Function: Normal Reflexes: Normal Skin: Dry, Normal Color, Warm Lymphatic: No Adenopathy Was a procedure done? Was a procedure done?: No Differential Diagnosis (SZ) Seizure: Psychogenic Seizure, Idiopathic, Epilepsy-Break Through, Epilepsy- Status X-Ray, Labs, Meds, VS Vital Signs Date Time Temp Pulse Resp B/P (MAP) Pulse Ox O2 Delivery O2 Flow Rate FiO2 03/19/25 08:39 69 16 95 03/19/25 00:32 98.1 72 18 126/78 (94) 97 98.1 03/19/25 00:32 88 20 97 Room Air* 0 21 03/18/25 22:55 98.2 80 16 172/90 95 98.2 03/18/25 22:40 83 Lab Test 03/18/25 22:58 03/18/25 22:49 Range/Units White Blood Count 5.5 4.4-10.8 10^3/uL Red Blood Count 5.22 4.5-5.90 10^6/uL Hemoglobin 13.5 13.5-17.5 g/dL Hematocrit 40.9 L 41.0-53.0 % Mean Corpuscular Volume 78.2 L 80.0-100.0 fL Mean Corpuscular Hemoglobin 25.9 L 28.0-32.0 pg Mean Corpuscular Hemoglobin Concent 33.1 32.0-36.0 g/dL Red Cell Distribution Width 16.9 H 11.8-14.3 % Platelet Count 101 L 140-450 10^3/uL Mean Platelet Volume 8.5 6.9-10.8 fL Neutrophils (%) (Auto) 56.3 37.0-80.0 % Lymphocytes (%) (Auto) 30.4 10.0-50.0 % Monocytes (%) (Auto) 10.3 0.0-12.0 % Eosinophils (%) (Auto) 2.6 0.0-7.0 % Basophils (%) (Auto) 0.4 0.0-2.0 % Neutrophils # (Auto) 3.1 1.6-8.6 10 ^3/uL Lymphocytes # (Auto) 1.7 0.4-5.4 10 ^3/uL Monocytes # (Auto) 0.6 0-1.3 10 ^3/uL Eosinophils # (Auto) 0.1 0-0.8 10 ^3/uL Basophils # (Auto) 0 0-0.2 10 ^3/uL Nucleated Red Blood Cells 0.1 % Sodium Level 142 136-145 mmol/L Potassium Level 3.7 3.5-5.1 mmol/L Chloride Level 103 98-107 mmol/L Carbon Dioxide Level 31 20-31 mmol/L Anion Gap 8 5-15 Blood Urea Nitrogen 8 L 9-23 mg/dL Creatinine 1.12 0.700-1.30 mg/dL Glomerular Filtration Rate Calc 77 >90 mL/min BUN/Creatinine Ratio 7.1 L 10.0-20.0 Serum Glucose 108 H 74-106 mg/dL Calcium Level 8.7 8.7-10.4 mg/dL Magnesium Level 1.8 1.6-2.6 mg/dL Total Bilirubin 0.3 0.2-1.0 mg/dL Aspartate Amino Transferase (AST) 20 13-40 U/L Alanine Aminotransferase (ALT) 19 7-40 U/L Alkaline Phosphatase 64 46-116 U/L Total Protein 7.2 5.7-8.2 g/dL Albumin 4.1 3.2-4.8 g/dL POC Glucose 109 H 70-106 mg/dl Current Medications Medications (Trade) Dose Ordered Sig/Cora Route Start Time Stop Time Status Last Admin Levetiracetam 100 ml @ 400 mls/hr ONCE ONCE IV 03/18/25 23:00 03/18/25 23:14 DC 03/18/25 23:00 Time of 1ST Reevaluation: 22:46 Reevaluation 1ST: Unchanged Patient Education/Counseling: Diagnosis, Treatment Family Education/Counseling: No Family Present Departure 1 Departure Time of Disposition: 00:30 Impression: Primary Impression: Breakthrough seizure Additional Impressions: Seizure disorder Schizophrenia Disposition: 01 HOME / SELF CARE / HOMELESS Condition: Stable e-Prescriptions Levetiracetam (Keppra) 1,000 Mg Tab 1 TAB PO BID for 90 Days, #180 TAB 3 Refills Prov: KATIE SARAVIA MD 03/19/25 Discharged With: Self Critical Care Note Critical Care Time?: No Stability Stability form required: No Heart Score Heart Score: Heart Score Response (Comments) Value History N/A 0 EKG N/A 0 Age N/A 0 Risk Factors N/A 0 Troponin N/A 0 Total 0 I personally scribed for KATIE SARAVIA MD ([email or web address]) on 03/18/25 at 22:50. Electronically submitted by Osmany Witt ([email or web address]). KATIE SARAVIA MD Mar 18, 2025 22:50
[2025-03-18] MEDS ORDERED: LORazepam 2MG/ML-1ML VIAL IV ONE (23:00)
[2025-03-18] MEDS: levETIRAcetam 500 mg/100ml 100 ML IV ONE (23:00)
[2025-03-18 23:34] LABS: Hematocrit 40.9 % (41.0-53.0); Hemoglobin 13.5 g/dL (13.5-17.5); Mean Corpuscular Hemoglobin 25.9 pg (28.0-32.0); Mean Corpuscular Volume 78.2 fL (80.0-100.0); Nucleated Red Blood Cells % 0.1 %
[2025-03-18 23:41] LABS: Alanine Aminotransferase 19 U/L (7-40); Albumin 4.1 g/dL (3.2-4.8); Alkaline Phosphatase 64 U/L (46-116); Anion Gap 8 (5-15); BUN/Creatinine Ratio 7.1 (10.0-20.0); Chloride 103 mmol/L (98-107); Magnesium 1.8 mg/dL (1.6-2.6); Potassium 3.7 mmol/L (3.5-5.1); Sodium 142 mmol/L (136-145); Total Protein 7.2 g/dL (5.7-8.2)
[2025-03-18 23:42] LABS: Bilirubin, Total 0.3 mg/dL (0.2-1.0)
[2025-03-18 23:54] LABS: Blood Urea Nitrogen 8 mg/dL (9-23); Calcium 8.7 mg/dL (8.7-10.4); Carbon Dioxide 31 mmol/L (20-31); Glucose 108 mg/dL (74-106)
[2025-03-19 00:32] VITALS: BP 126/78; PULSE 88; RESP 20; TEMP 98.1; O2SAT 97
[2025-03-19] MEDS ORDERED: LEVE100012 PO (00:48)
[2025-03-19 08:39] VITALS: PULSE 69; RESP 16; O2SAT 95
--- NOTE | 2025-03-21 12:09 | ECG ---
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
== END 2025-03-19 10:30 | disposition home or self-care (01) ==
LOC: EDUNIT# 22:37 → EDBD 22:37 → ER 22:37
DX: G40.909 Epilepsy, unspecified, not intractable, without status epilepticus (principal); F20.9 Schizophrenia, unspecified; E78.5 Hyperlipidemia, unspecified; I10 Essential (primary) hypertension; E11.9 Type 2 diabetes mellitus without complications; Z86.73 Personal history of transient ischemic attack (TIA), and cerebral infarction without residual deficits; Z79.899 Other long term (current) drug therapy
CPT/HCPCS: 36415; 80053; 82947; 83735; 85025; 93005; 96374; 99284; J1953; 82962

== ENCOUNTER 2025-04-14 12:11 | Inpatient (IN) | payer OTHER ==
[~2025-04-14] VITALS: Ht 180.3 cm; Wt 87.1 kg
[~2025-04-14 12:11] MED LIST changes: +LEVE100012 PO
[2025-04-14 12:26] VITALS: PULSE 108; RESP 36; O2SAT 92
[2025-04-14] MEDS: ACETAMINOPHEN IV 1000 MG/100ML (10MG/ML) IV PRN (12:47)
--- NOTE | 2025-04-14 13:01 | ED.PDOC ---
History of Present Illness HPI Comments 59M BIBA w/ prior MHx of TBI, Schizophrenia, Insomnia, Anxiety, Bed bound, 10L of O2 via mask and the c/c of Hypoxia. EMS report on the pt being at [facility] and being d/c to [facility] where they picked the pt up today. [facility] nurses informed EMS that they are sending the pt to [facility] due from the pt going to be a dmitted by Dr. Powell. On scene pt had a fever of 103. Denies any other symptoms at this time. Denies chills, fever, N/V/D, SOB, CP. Denies any other associated symptom's, modifiers, or recent injuries or sick contact at this time. Chief Complaint: Shortness of Breath Time Seen by MD: 13:00 Primary Care Provider: EFRA Chirinos Notes: Nurses Notes, Medications, Allergies Allergies: Coded Allergies: No Known Drug Allergy (Verified Allergy, Unknown, 12/25/23) Home Meds Active Scripts Levetiracetam (Keppra) 1,000 Mg Tab, 1 TAB PO BID for 90 Days, #180 TAB 3 Refills Prov:KATIE SARAVIA MD 03/19/25 Sucralfate (CARAFATE) 1 Gm Tab, 1 GM OR BID for 30 Days, #60 TAB 0 Refills Prov:MED BRIONES RESIDENT 08/23/24 Pantoprazole Sodium Sesquihydr (Pantoprazole Sodium Dr) 40 Mg Tab, 40 MG PO DAILY for 30 Days, #30 TAB 0 Refills Prov:MED BRIONES RESIDENT 08/23/24 Levetiracetam (KEPPRA TABLET) 500 Mg Tb, 500 MG PO BID for 30 Days, #60 TAB Prov:ANNIE JAIME MD 04/17/24 Reported Medications Metformin Hydrochloride (Metformin Hcl) 500 Mg Tab, 1 TAB PO BID, #60 TAB 3 Refills 08/16/24 Insulin Glargine (Lantus Solostar) 100 Unit/Ml Inj, 10 UNIT SC DAILY, INJ 08/16/24 Hydrochlorothiazide (Hydrochlorothiazide) 12.5 Mg Cap, 1 CAP PO DAILY, #30 CAP 5 Refills 08/16/24 Insulin Regular (Human) (Humulin R) 100 Unit/Ml Inj, 100 UNIT SUBCUT, INJ 08/16/24 Folic Acid (Folic Acid) 1 Mg Tab, 1 MG PO DAILY, TAB 08/16/24 Fluoxetine HCl (Pmdd) (Fluoxetine HCl) 10 Mg Tab, 10 MG PO DAILY, TAB 08/16/24 Ferrous Sulfate (Ferosul) 325 Mg Tab, 325 MG PO DAILY, TAB 08/16/24 Docusate Sodium (Docusate Sodium) 250 Mg Cap, 250 MG PO DAILY, CAP 08/16/24 Diclofenac Sodium (Topical) (Voltaren Arthritis Pain) 1 % Gel, 1 % EX, GEL 08/16/24 Aspirin (ASPIRIN 81) 81 Mg Tab, 81 MG PO DAILY, TAB 02/16/24 Quetiapine Fumerate (QUETIAPINE FUMARATE) 25 Mg Tab, 12.5 MG PO BID, TAB 02/16/24 Atorvastatin Calcium (ATORVASTATIN CALCIUM) 40 Mg Tab, 40 MG PO HS, TAB 02/16/24 Melatonin (KP MELATONIN) 3 Mg Tab, 3 MG PO QHSP, TAB 02/15/24 Acetaminophen (Acetaminophen) 325 Mg Tab, 325 MG PO Q6HR PRN for PAIN SCALE 1 THRU 6, TAB 02/15/24 Naproxen (NAPROSYN TABLET) 500 Mg Tb, 250 MG PO TIDP, TAB 02/15/24 Carisoprodol (Soma) 350 Mg Tab, 350 MG PO TIDP, TAB 02/15/24 Lorazepam (ATIVAN TABLET) 0.5 Mg Tb, 0.5 MG PO Q6HPRN, TAB 02/15/24 Information Source: Emergency Med Personnel Mode of Arrival: EMS Severity: Moderate Timing: Came on: Suddenly Duration: Since onset Prehospital treatment: None Past Medical History PAST MEDICAL HISTORY: Anxiety, Schizophrenia Past Medical History (Other): Insomnia, TBI Surgical History: Denies all surgeries Family History Family History: Reviewed,noncontributory to illness, Unknown Social History Smoker: Non-Smoker Alcohol: Denies ETOH Use Drugs: Denies Drug Use Lives In: Assisted Care Constitutional: denies: chills, diaphoresis, fatigue, fever, malaise, sweats, weakness, others EENTM: denies: blurred vision, double vision, ear bleeding, ear discharge, ear drainage, ear pain, ear ringing, eye pain, eye redness, hearing loss, mouth pain, mouth swelling, nasal discharge, nose bleeding, nose congestion, nose pain, photophobia, tearing, throat pain, throat swelling, voice changes, others Respiratory: denies: cough, hemoptysis, orthopnea, SOB at rest, shortness of breath, SOB with excertion, stridor, wheezing, others Cardiovascular: denies: chest pain, dizzy spells, diaphoresis, Dyspnea on exertion, edema, irregular heart beat, left arm pain, lightheadedness, palpitations, PND, syncope, others Gastrointestinal: denies: abdomen distended, abdominal pain, blood streaked bowels, constipated, diarrhea, dysphagia, difficulty swallowing, hematemesis, melena, nausea, poor appetite, poor fluid intake, rectal bleeding, rectal pain, vomiting, others Genitourinary: denies: burning, dysuria, flank pain, frequency, hematuria, incontinence, penile discharge, penile sore, pain, testicle pain, testicle swelling, urgency, others Neurological: denies: dizziness, fainting, headache, left sided numbness, left sided weakness, numbness, paresthesia, pre-existing deficit, right sided numbness, right sided weakness, seizure, speech problems, tingling, tremors, weakness, others Musculoskeletal: denies: back pain, gout, joint pain, joint swelling, muscle pain, muscle stiffness, neck pain, others Integumetry: denies: bruises, change in color, change in hair/nails, dryness, laceration, lesions, lumps, rash, wounds, others Allergic/Immunocompromised: denies: Difficulty Healing, Frequent Infections, Hives, Itching, others Hematologic/Lymphatic: denies: anemia, blood clots, easy bleeding, easy bruising, swollen glands, others Endocrine: denies: excessive hunger, excessive sweating, excessive thirst, excessive urination, flushing, intolerance to cold, intolerance to heat, unexplained weight gain, unexplained weight loss, others Psychiatric: denies: anxiety, bipolar disorder, depression, hopeless, panic disorder, schizophrenia, sleepless, suicidal, others Unable to Obtain due to: Other (Pt is non-vocal) All Other Systems: Reviewed and Negative Physical Exam General Appearance: Obese, Severe Distress HEENT: Normal ENT Inspection, Pharynx Normal, TMs Normal Neck: Full Range of Motion, Non-Tender, Normal, Normal Inspection Respiratory: Chest Non-Tender, Lungs Clear, No Accessory Muscle Use, No Respiratory Distress, Normal Breath Sounds Cardiovascular: No Edema, No JVD, No Murmur, No Gallop, Normal Peripheral Pul ses, Regular Rate/Rhythm Breast Exam: Deferred Gastrointestinal: No Organomegaly, Non Tender, No Pulsatile Mass, Normal Bowel Sounds, Soft Genitalia: Deferred Pelvic: Deferred Rectal: Deferred Extremities: No calf tenderness, Normal capillary refill, Normal range of motion, Non-tender, No pedal edema Musculoskeletal : Apperance: Normal Neurologic: Alert Cerebellar Function: NOT DONE Reflexes: NOT DONE Skin: Dry, Normal Color, Warm Peripheral Pulses: 3+ Radial (R), 3+ Radial (L) Lymphatic: No Adenopathy Was a procedure done? Was a procedure done?: No Differential Dx Considerations may include: Sepsis Electrolyte imbalance X-Ray, Labs, Meds, VS Vital Signs Date Time Temp Pulse Resp B/P (MAP) Pulse Ox O2 Delivery O2 Flow Rate FiO2 04/14/25 17:08 122/75 04/14/25 15:30 100.4 95 31 133/82 (99) 95 100.4 04/14/25 13:30 101.8 109 41 150/86 (107) 89 101.8 04/14/25 13:06 109 04/14/25 12:26 108 36 92 Non-Rebreather 15 N/A 04/14/25 12:26 104.2 108 36 155/96 (115) 92 104.2 04/14/25 12:13 102.9 108 39 144/93 93 102.9 Lab Test 04/14/25 16:27 04/14/25 13:40 04/14/25 13:21 04/14/25 12:57 Range/Units Troponin I High Sensitivity 90 *H 118 *H </=54 ng/L Creatine Kinase 133 46-171 U/L POC Glucose 189 H 70-106 mg/dl Urine Color Yellow Yellow Urine Clarity Ex.turbid Clear Urine pH 5.5 5.0-9.0 Urine Specific [place] 1.025 1.001-1.035 Urine Protein 1+ H Negative Urine Ketones Negative Negative Urine Blood 2+ H Negative /uL Urine Nitrite Negative Negative Urine Bilirubin Negative Negative Urine Urobilinogen Normal Negative mg/dL Urine Leukocyte Esterase Negative Negative /uL Urine RBC 97 0 - 3 /hpf Urine Microscopic WBC 4 H 0-3 /HPF Urine Squamous Epithelial Cells Few <5 /hpf Urine Uric Acid Crystals Many None Seen /hpf Urine Bacteria None seen None Seen /hpf Urine Mucus Few None Seen Urine Glucose Normal Normal mg/dL Test 04/14/25 12:44 Range/Units White Blood Count 14.4 H 4.4-10.8 10^3/uL Red Blood Count 4.50 4.5-5.90 10^6/uL Hemoglobin 11.7 L 13.5-17.5 g/dL Hematocrit 36.3 L 41.0-53.0 % Mean Corpuscular Volume 80.7 80.0-100.0 fL Mean Corpuscular Hemoglobin 26.0 L 28.0-32.0 pg Mean Corpuscular Hemoglobin Concent 32.1 32.0-36.0 g/dL Red Cell Distribution Width 16.6 H 11.8-14.3 % Platelet Count 337 140-450 10^3/uL Mean Platelet Volume 9.0 6.9-10.8 fL Neutrophils (%) (Auto) 81.7 H 37.0-80.0 % Lymphocytes (%) (Auto) 9.3 L 10.0-50.0 % Monocytes (%) (Auto) 8.4 0.0-12.0 % Eosinophils (%) (Auto) 0.3 0.0-7.0 % Basophils (%) (Auto) 0.3 0.0-2.0 % Neutrophils # (Auto) 11.8 H 1.6-8.6 10 ^3/uL Lymphocytes # (Auto) 1.3 0.4-5.4 10 ^3/uL Monocytes # (Auto) 1.2 0-1.3 10 ^3/uL Eosinophils # (Auto) 0 0-0.8 10 ^3/uL Basophils # (Auto) 0 0-0.2 10 ^3/uL Nucleated Red Blood Cells 0.0 % Sodium Level 152 H 136-145 mmol/L Potassium Level 4.3 3.5-5.1 mmol/L Chloride Level 108 H 98-107 mmol/L Carbon Dioxide Level 33 H 20-31 mmol/L Anion Gap 11 5-15 Blood Urea Nitrogen 34 H 9-23 mg/dL Creatinine 1.30 0.700-1.30 mg/dL Glomerular Filtration Rate Calc 64 >90 mL/min BUN/Creatinine Ratio 26.2 H 10.0-20.0 Serum Glucose 174 H 74-106 mg/dL Lactic Acid Level 1.5 0.4-2.0 mmol/L Calcium Level 7.7 L 8.7-10.4 mg/dL Total Bilirubin 0.7 0.2-1.0 mg/dL Aspartate Amino Transferase (AST) 154 H 13-40 U/L Alanine Aminotransferase (ALT) 186 H 7-40 U/L Alkaline Phosphatase 92 46-116 U/L Troponin I High Sensitivity 97 *H </=54 ng/L Total Protein 7.0 5.7-8.2 g/dL Albumin 3.3 3.2-4.8 g/dL Current Medications Medications (Trade) Dose Ordered Sig/Cora Route Start Time Stop Time Status Last Admin Acetaminophen (Ofirmev) 1,000 mg [id number] PRN IV 04/14/25 12:45 04/14/25 12:46 DC 04/14/25 12:47 Cefepime HCl 50 ml @ 50 mls/hr ONCE ONCE IV 04/14/25 13:15 04/14/25 14:14 DC 04/14/25 13:15 Azithromycin 250 ml @ 125 mls/hr ONCE ONCE IV 04/14/25 13:15 04/14/25 15:14 DC 04/14/25 13:27 Enoxaparin Sodium (Lovenox) 80 mg ONCE ONCE SC 04/14/25 14:30 04/14/25 14:31 DC 04/14/25 14:45 Sodium Chloride 1,000 ml @ 1,000 mls/hr Q1H ONCE IV 04/14/25 15:00 04/14/25 15:59 DC 04/14/25 14:51 Furosemide (Lasix Injection) 40 mg ONCE ONCE IV 04/14/25 17:00 04/14/25 17:01 DC 04/14/25 17:08 Patient has not not giving much answers. Brought by paramedics. Liver enzymes are elevated. Cardiac marker elevated. Possible sepsis. Establish intravenous access. Was given fluids. Was given antibiotics. Was given Lasix to cleared the fluid from the lungs. Spoke with hospitalist. Explained to the family. Continue to monitor. Time of 1ST Reevaluation: 13:30 Reevaluation 1ST: Unchanged Patient Education/Counseling: Pt Unresponsive Family Education/Counseling: No Family Present SEPSIS Sepsis Screen Date sepsis recognized/suspect: Apr 14, 2025 Time Sepsis recognized/suspect: 1216 Recent Procedure: No On Antibiotic Therapy: No Respiratory Rate >20: Yes Heart Rate >90: Yes Temp<36 C (96.8 F) or >38.3 C: Yes SBP <90 or MAP <65 mmHG: No New Acute Mental Status Change: No Is the patient on CPAP, BIPAP,: No Physician Orders Electrocardigram (04/14/25 12:26) Video Game Tester (04/14/25 12:26) Pulse Oximetry (04/14/25 12:26) Blood Culture (04/14/25 12:26) Heplock Iv (04/14/25 12:26) Chest Xray 1 View (04/14/25 14:52) Clostridium Difficile Toxin (04/14/25 15:34) Albuterol Medneb (Ventolin Medneb) (04/14/25 17:30) Ipratropium Medneb (Atrovent Medneb) (04/14/25 17:30) Vital Signs Date Time Temp Pulse Resp B/P (MAP) Pulse Ox O2 Delivery O2 Flow Rate FiO2 04/14/25 17:08 122/75 04/14/25 15:30 100.4 95 31 133/82 (99) 95 100.4 04/14/25 13:30 101.8 109 41 150/86 (107) 89 101.8 04/14/25 13:06 109 04/14/25 12:26 108 36 92 Non-Rebreather 15 N/A 04/14/25 12:26 104.2 108 36 155/96 (115) 92 104.2 04/14/25 12:13 102.9 108 39 144/93 93 102.9 Laboratory Tests Test 04/14/25 12:44 Lactic Acid Level 1.5 mmol/L (0.4-2.0) White Blood Count 14.4 10^3/uL (4.4-10.8) H Medications Medications Dose Ordered Sig/Cora Route Start Time Stop Time Status Last Admin Dose Admin Acetaminophen 1,000 mg [id number] PRN IV 04/14/25 12:45 04/14/25 12:46 DC 04/14/25 12:47 Azithromycin 250 ml @ 125 mls/hr ONCE ONCE IV 04/14/25 13:15 04/14/25 15:14 DC 04/14/25 13:27 Cefepime HCl 50 ml @ 50 mls/hr ONCE ONCE IV 04/14/25 13:15 04/14/25 14:14 DC 04/14/25 13:15 Enoxaparin Sodium 80 mg ONCE ONCE SC 04/14/25 14:30 04/14/25 14:31 DC 04/14/25 14:45 Furosemide 40 mg ONCE ONCE IV 04/14/25 17:00 04/14/25 17:01 DC 04/14/25 17:08 Sodium Chloride 1,000 ml @ 1,000 mls/hr Q1H ONCE IV 04/14/25 15:00 04/14/25 15:59 DC 04/14/25 14:51 Departure 1 Departure Time of Disposition: 17:34 Impression: Primary Impression: Sepsis, unspecified organism Qualified Codes: A41.9 - Sepsis, unspecified organism Additional Impression: Demand ischemia Disposition: ADMITTED INPATIENT Admit to: Med Surg Condition: Guarded Critical Care Note Critical Care Time?: Yes (90 min-critical care time only) Stability Stability form required: No Heart Score Heart Score: Heart Score Response (Comments) Value History Slightly Suspicious 0 EKG Normal 0 Age 45-64 1 Risk Factors >3 or Hx ASHD 2 Troponin >3 x's Normal limit 2 Total 5 I personally scribed for MARII SELLERS MD ([email or web address]) on 04/14/25 at 13:01. Electronically submitted by Clayton Herrera ([email or web address]). MARII SELLERS MD Apr 14, 2025 13:01
[2025-04-14 13:12] LABS: Hematocrit 36.3 % (41.0-53.0); Hemoglobin 11.7 g/dL (13.5-17.5); Mean Corpuscular Hemoglobin 26.0 pg (28.0-32.0); Mean Corpuscular Volume 80.7 fL (80.0-100.0); Nucleated Red Blood Cells % 0.0 %
[2025-04-14 13:14] LABS: Urine Protein, UAD 1+ (Negative)
[2025-04-14] MEDS: CEFEPIME 1GM/50ML 50 ML IV ONE (13:15)
[2025-04-14 13:22] LABS: Albumin 3.3 g/dL (3.2-4.8); Alkaline Phosphatase 92 U/L (46-116); Anion Gap 11 (5-15); BUN/Creatinine Ratio 26.2 (10.0-20.0); Potassium 4.3 mmol/L (3.5-5.1); Total Protein 7.0 g/dL (5.7-8.2)
[2025-04-14 13:23] LABS: Bilirubin, Total 0.7 mg/dL (0.2-1.0)
[2025-04-14 13:24] LABS: Alanine Aminotransferase 186 U/L (7-40); Blood Urea Nitrogen 34 mg/dL (9-23); Calcium 7.7 mg/dL (8.7-10.4); Carbon Dioxide 33 mmol/L (20-31); Chloride 108 mmol/L (98-107); Glucose 174 mg/dL (74-106); Sodium 152 mmol/L (136-145)
[2025-04-14] MEDS: AZITHROMYCIN 500MG/250ML 250 ML IV ONE (13:27)
[2025-04-14] MEDS: ENOXAPARIN SOD 80 MG/0.8ML SYRINGE SC ONE (14:45)
[2025-04-14] MEDS: SODIUM CHLORIDE 0.9% 1,000 ML IV ONE (14:51)
--- NOTE | 2025-04-14 15:26 | DVH ---
CHEST RADIOGRAPH Indication: shortness of breath Technique: Single frontal view of the chest was obtained Comparison: XR CHEST 1 VIEW on DOS: 04/11/25, XR CHEST 1 VIEW on DOS: 04/10/25, XR CHEST 1 VIEW on DO S: 04/09/25 reports only FINDINGS: Lines and Tubes: None Lungs: No focal consolidation. Bronchovascular crowding due 2 low lung volumes. Left basilar linear density. Mild elevation of the right hemidiaphragm. Pleura: No effusion. No pneumothorax. Cardiomediastinal contours: Unremarkable Bones: No acute osseous abnormality. IMPRESSION: Bronchovascular crowding due to low lung volumes with left basilar linear atelectasis. Otherwise, no evidence for acute cardiopulmonary disease.
[2025-04-14] MEDS: FUROSEMIDE 40 MG/4 ML VIAL IV ONE (17:08)
[2025-04-14] MEDS: ALBUTEROL SULF 2.5 MG/0.5ML(0.5%) NEB SOLN NEB ONE (17:38)
[2025-04-14] MEDS: IPRATROPIUM BROM 0.5 MG/2.5ML INH SOL NEB ONE (17:38)
[2025-04-14] MEDS ORDERED: HYDROcodone-ACET 5/325MG TAB PO PRN (19:15)
[2025-04-14] MEDS ORDERED: NITROGLYCERIN 0.4 MG SL TAB SL PRN (19:15)
[2025-04-14] MEDS ORDERED: MORPHINE SULFATE INJ 2 MG/ml SYRG IV PRN ×2 (19:15)
[2025-04-14 19:30] VITALS: PULSE 92; RESP 24; O2SAT 94
[2025-04-14] MEDS: ENOXAPARIN SOD 40 MG/0.4 ML SYRINGE SC SCH (22:00)
[2025-04-15] VITALS (99 sets, daily range): BP systolic 84–129; BP diastolic 56–92; PULSE 83–95; RESP 13–34; TEMP 98.4–100.6; O2SAT 88–100
[2025-04-15 01:17] LABS: Base Excess 7.2 mmol/L (-2.0-3.0)
[2025-04-15 04:10] LABS: Hematocrit 37.3 % (41.0-53.0); Hemoglobin 11.9 g/dL (13.5-17.5); Mean Corpuscular Hemoglobin 25.7 pg (28.0-32.0); Mean Corpuscular Volume 80.4 fL (80.0-100.0); Nucleated Red Blood Cells % 0.0 %
[2025-04-15 04:20] LABS: Albumin 3.6 g/dL (3.2-4.8); Alkaline Phosphatase 89 U/L (46-116); Anion Gap 13 (5-15); BUN/Creatinine Ratio 24.6 (10.0-20.0); Chloride 106 mmol/L (98-107); Potassium 3.7 mmol/L (3.5-5.1); Total Protein 7.7 g/dL (5.7-8.2)
[2025-04-15 04:21] LABS: Bilirubin, Total 0.6 mg/dL (0.2-1.0)
[2025-04-15 04:23] LABS: Alanine Aminotransferase 155 U/L (7-40); Blood Urea Nitrogen 31 mg/dL (9-23); Calcium 8.3 mg/dL (8.7-10.4); Carbon Dioxide 32 mmol/L (20-31); Glucose 193 mg/dL (74-106); Sodium 151 mmol/L (136-145)
[2025-04-15] MEDS: ROCURONIUM 10MG/ML 10ML VIAL IV ONE ×2 (13:26→21:01)
[2025-04-15] MEDS: ETOMIDATE (2MG/ML) 20ML VIAL IV ONE (13:26)
[2025-04-15] MEDS: NOREPINEPHRINE 8 MG/250ML KIT 250 ML IV SCH (13:45)
[2025-04-15] MEDS: NOREPINEPHRINE 8 MG/250ML KIT 250 ML IV ONE (13:46)
[2025-04-15] MEDS: fentaNYL Drip 2500mCg/250mlNS 250 ML IV ONE (13:49)
[2025-04-15] MEDS: MIDAZOLAM DRIP 100 mg/100mL NS 100 ML IV ONE (13:49)
[2025-04-15] MEDS: MIDAZOLAM DRIP 100 mg/100mL NS 100 ML IV SCH (14:02)
[2025-04-15] MEDS: fentaNYL Drip 2500mCg/250mlNS 250 ML IV SCH (14:16)
--- NOTE | 2025-04-15 16:41 | DVH ---
INDICATION: et tube placement TECHNIQUE: Single frontal view of the chest was obtained COMPARISON: XY CHEST XRAY 1 VIEW on DOS: 04/14/25, XR CHEST 1 VIEW on DOS: 04/11/25, XR CHEST 1 VIEW on DOS: 04/10/25, XR CHEST 1 VIEW on DOS: 04/09/25, XR CHEST 1 VIEW on DOS: 04/08/25, XY CHEST XRAY 1 VIEW on DOS: 04/14/25 FINDINGS: Lines and Tubes: None Lungs: No focal consolidation. Bronchovascular crowding due 2 low lung volumes. Left basilar linear density. Mild elevation of the right hemidiaphragm. Pleura: No effusion. No pneumothorax. Cardiomediastinal contours: Unremarkable Bones: No acute osseous abnormality. IMPRESSION: Bronchovascular crowding due to low lung volumes with left basilar linear atelectasis. Otherwise, no evidence for acute cardiopulmonary disease.
[2025-04-15 16:42] LABS: Base Excess 7.7 mmol/L (-2.0-3.0)
--- NOTE | 2025-04-15 18:14 | DVH ---
CHEST RADIOGRAPH Indication: attempted central line Technique: Single frontal view of the chest was obtained COMPARISON: XY CHEST PORTABLE on DOS: 04/15/25, XY CHEST XRAY 1 VIEW on DOS: 04/14/25, XR CHEST 1 VIE W on DOS: 04/11/25, XR CHEST 1 VIEW on DOS: 04/10/25, XR CHEST 1 VIEW on DOS: 04/09/25 FINDINGS: Lines and Tubes: Endotracheal tube and enteric catheter in satisfactory position. No appreciable cent ral venous catheter. Lungs: Multifocal airspace disease. Pleura: Small bilateral pleural effusions. No appreciable pneumothorax. Cardiomediastinal contours: Unremarkable Bones: Unremarkable IMPRESSION: No appreciable central venous catheter.
[2025-04-15] MEDS ORDERED: DEXTROSE (50%) 50ML SYRG IV PRN (18:45)
--- NOTE | 2025-04-15 22:18 | DVH ---
CHEST RADIOGRAPH Indication: central line placement Technique: 1 view Comparison: XY CHEST PORTABLE on DOS: 04/15/25, XY CHEST PORTABLE on DOS: 04/15/25, XY CHEST XRAY 1 V IEW on DOS: 04/14/25, XR CHEST 1 VIEW on DOS: 04/11/25, XR CHEST 1 VIEW on DOS: 04/10/25 FINDINGS: Lines and Tubes: Intervally placed right upper extremity PICC with tip oriented cranially overlying t he medial clavicle. Endotracheal and enteric tubes are unchanged. Lungs/Pleura: Unchanged. Cardiomediastinum: Unchanged. Other: Unchanged osseous structures. IMPRESSION: 1. Intervally placed right upper extremity PICC oriented cranially likely terminating in the internal jugular vein. Repositioning recommended. 2. No other significant change from the comparison exam 6 hours prior.
--- NOTE | 2025-04-15 22:38 | DVHNC2 ---
Procedure - Bronchoscopy procedure note: Indications: Right lower lobe atelectasis, Possible mucous plugging. Medicines: See BREAK OFF WORKER notes. Complications: None Procedure: Patient medications and allergies reviewed. The risks and benefits of the procedure and the sedation options and risk were discussed with the patient's healthcare proxy. All questions were answered and informed consent was obtained. Patient identification and proposed procedure were verified prior to the procedure by the physician, and a nurse, and the respiratory therapist in ICU room. The heart rate, respiratory rate, oxygen saturations, blood pressure, adequacy of pulmonary ventilation, and response to care were monitored throughout the procedure. The physical status of the patient was reassessed after the procedure. After obtaining informed consent, the bronchoscope was introduced through the endotracheal tube and advanced into the trachea bronchial tree of both lungs. The procedure was accomplished without difficulty. The patient tolerated the procedure well. Findings: The trachea is in normal caliber. The alexander is sharp. The tracheobronchial tree of the right lung was examined to at least the first subsegmental level. The bronchial mucosa and anatomy in the right lung are normal. There are no endobronchial lesions. There was copious whitish secretions from right main stem bronchus onward throughout R1-R10. Right middle lobe (RML) Bronchoalveolar lavage (BAL) obtained. RML BAL sent for gram stain and culture. The left upper lobe, lingula, and left lower lobe were examined to at least the first subsegmental level. Bronchial mucosa and anatomy in the left upper lobe and lingula are normal. There were no endobronchial lesions. There were scant secretions. There was no active bleeding at the completion of the procedure. Estimated blood loss: Less than 5 mL. Impression: Right lower lobe atelectasis due to mucous plugging Mucous plugging removed from RUL, RML, RLL RML BAL performed Recommendation: Follow-up RML BAL results. Pulmonary toileting Procedure codes: 69694, bronchoscopy, rigid and flexible, including fluoroscopic guidance, one performed; with bronchial endobronchial broncho-alveolar lavage, single or multiple sites Visit Coding Pulmonary Billing Provider: AZUCENA LERMA MD Date of Service if different f: Apr 15, 2025 Common Visit Codes: PROCEDURE ONLY Procedure Codes: [id number] (54811 bronchoscopy with BAL) AZUCENA LERMA MD Apr 15, 2025 22:38
--- NOTE | 2025-04-15 22:53 | DVHNC2 ---
Procedure - Central Line Placement Under Ultrasound Guidance Note Date of service 04/15/2025 Cryptographer: GOMEZ Madrigal Time out: 2204 PROCEDURE: Subclavian Vein Central line catheter, U/S guided. INDICATION: Administration of medications, Frequent blood draws, poor venous access PROCEDURE MARINE ELECTRICIAN APPRENTICE: Dr. Dennis Munguia CONSENT: Consent was obtained from the patient prior to the procedure. Indications, risks, and benefits were explained at length. PROCEDURE SUMMARY: A time-out was performed. The patient's neck region was prepped and draped in sterile fashion using chlorhexidine scrub. Anesthesia was achieved with 1% lidocaine. The RIGHT subclavian vein was accessed under ultrasound guidance using a finder needle and sheath. Venous blood was withdrawn and the sheath was advanced into the vein and the needle was withdrawn. A guidewire was advanced through the sheath. U/S images of needle within the RIGHT subclavian vein lumen were permanently documented in chart. A small incision was made with a 10 blade scalpel and the sheath was exchanged for a dilator over the guidewire until appropriate dilation was obtained. The dilator was removed and an 7.5 [place] central venous triple-lumen catheter was advanced over the guidewire and secured into place with 2 sutures at 20 cm. At time of procedure completion, all ports aspirated and flushed properly. Post-procedure x-ray interpreted at bedside and demonstrates central line noted to be kinked. Replaced with right IJ central line by Dr. Huynh under my supervision. See separate procedure note for details. COMPLICATIONS: NONE ESTIMATED BLOOD LOSS: less than 5 ml CPT: 16346 (Central line insertion) CPT 85290 (U/S Add On) CPT 46203 (CXR Interpretation) Visit Coding Pulmonary Billing Provider: DENNIS MUNGUIA MD Date of Service if different f: Apr 15, 2025 Common Visit Codes: PROCEDURE ONLY Procedure Codes: [id number] NON-TUNNEL CV CATH, 35677-BO GUIDE VASCULAR ACCESS (CPT 97535, CXR interpretation) DENNIS MUNGUIA MD Apr 15, 2025 22:53
--- NOTE | 2025-04-15 23:22 | DVHINCON2 ---
Date of service: Apr 15, [address] Rubio Reason for Consultation Acute hypoxic respiratory failure on mechanical ventilator History of Present Illness A 59-year-old man with past medical history of TBI, schizophrenia, insomnia, and anxiety, bedbound, on 10L of O2 via mask who presented to ED on 04/14/25 for evaluation of hypoxia. EMS reported the patient was at [facility] and was discharged to [facility], where they picked the patient up on day of presentation. On scene, EMS recorded fever of 103 degrees. HPI information is limited, obtained from ED records. Patient was admitted for further care. Pulmonary consultation is requested for evaluation and management of acute hypoxic respiratory failure requiring mechanical ventilator. Review of Systems: Unable to obtain d/t intubated status Past Medical History: TBI, schizophrenia, anxiety, insomnia Past Surgical History: None Medications: Reviewed. Allergies: No known drug allergies. Family History: No family history of premature CAD. No family history of lung disorders. Social History: Nonsmoker. No alcohol or illicit drug use. Family History: Patient reports no known family medical history. Allergies: Coded Allergies: No Known Drug Allergy (Verified Allergy, Unknown, 12/25/23) Home Meds Active Scripts Levetiracetam (Keppra) 1,000 Mg Tab, 1 TAB PO BID for 90 Days, #180 TAB 3 Refills Prov:KATIE SARAVIA MD 03/19/25 Sucralfate (CARAFATE) 1 Gm Tab, 1 GM OR BID for 30 Days, #60 TAB 0 Refills Prov:MED BRIONES RESIDENT 08/23/24 Pantoprazole Sodium Sesquihydr (Pantoprazole Sodium Dr) 40 Mg Tab, 40 MG PO DAILY for 30 Days, #30 TAB 0 Refills Prov:MED BRIONES RESIDENT 08/23/24 Levetiracetam (KEPPRA TABLET) 500 Mg Tb, 500 MG PO BID for 30 Days, #60 TAB Prov:ANNIE JAIME MD 04/17/24 Reported Medications Metformin Hydrochloride (Metformin Hcl) 500 Mg Tab, 1 TAB PO BID, #60 TAB 3 Refills 08/16/24 Insulin Glargine (Lantus Solostar) 100 Unit/Ml Inj, 10 UNIT SC DAILY, INJ 08/16/24 Hydrochlorothiazide (Hydrochlorothiazide) 12.5 Mg Cap, 1 CAP PO DAILY, #30 CAP 5 Refills 08/16/24 Insulin Regular (Human) (Humulin R) 100 Unit/Ml Inj, 100 UNIT SUBCUT, INJ 08/16/24 Folic Acid (Folic Acid) 1 Mg Tab, 1 MG PO DAILY, TAB 08/16/24 Fluoxetine HCl (Pmdd) (Fluoxetine HCl) 10 Mg Tab, 10 MG PO DAILY, TAB 08/16/24 Ferrous Sulfate (Ferosul) 325 Mg Tab, 325 MG PO DAILY, TAB 08/16/24 Docusate Sodium (Docusate Sodium) 250 Mg Cap, 250 MG PO DAILY, CAP 08/16/24 Diclofenac Sodium (Topical) (Voltaren Arthritis Pain) 1 % Gel, 1 % EX, GEL 08/16/24 Aspirin (ASPIRIN 81) 81 Mg Tab, 81 MG PO DAILY, TAB 02/16/24 Quetiapine Fumerate (QUETIAPINE FUMARATE) 25 Mg Tab, 12.5 MG PO BID, TAB 02/16/24 Atorvastatin Calcium (ATORVASTATIN CALCIUM) 40 Mg Tab, 40 MG PO HS, TAB 02/16/24 Melatonin (KP MELATONIN) 3 Mg Tab, 3 MG PO QHSP, TAB 02/15/24 Acetaminophen (Acetaminophen) 325 Mg Tab, 325 MG PO Q6HR PRN for PAIN SCALE 1 THRU 6, TAB 02/15/24 Naproxen (NAPROSYN TABLET) 500 Mg Tb, 250 MG PO TIDP, TAB 02/15/24 Carisoprodol (Soma) 350 Mg Tab, 350 MG PO TIDP, TAB 02/15/24 Lorazepam (ATIVAN TABLET) 0.5 Mg Tb, 0.5 MG PO Q6HPRN, TAB 02/15/24 Current Medications Current Medications Medications (Trade) Dose Ordered Sig/Cora Route PRN Reason Start Time Stop Time Status Last Admin Midazolam HCl 100 ml @ 1 mls/hr Q24H IV 04/15/25 13:45 04/15/25 14:02 Fentanyl Citrate 250 ml @ 2.5 mls/hr Q24H IV 04/15/25 13:45 04/15/25 14:16 Norepinephrine Bitartrate 250 ml @ 3.75 mls/hr Q24H IV 04/15/25 13:45 Ceftriaxone Sodium 50 ml @ 100 mls/hr DAILY@09 IV 04/15/25 15:00 04/15/25 15:50 Diagnostic Test (Pha) (Accu-Chek Comfort Curve T) 1 strip Q6HR 04/16/25 00:00 Insulin Human Regular (InsuLIN R) Q6HR SC 04/16/25 00:00 Dextrose 50 ml UD PRN IV Blood Sugar LESS THAN 60 04/15/25 18:45 Vital Signs Vital Signs Date Time Temp Pulse Resp B/P (MAP) Pulse Ox O2 Delivery O2 Flow Rate FiO2 04/15/25 22:06 88 16 92/56 (68) 98 80 04/15/25 18:00 Mechanical Ventilator+ 04/15/25 17:15 99.6 99.6 04/15/25 16:00 21 Physical Exam Gen.: Patient lying in bed in medical ICU. Sedated, intubated on mechanical ventilator. Head: Normocephalic, atraumatic. Eyes: PERRLA. Ears: Normal external anatomy. Throat: Endotracheal tube and orogastric tube in place. Neck: Supple, trachea midline. Chest: Transmitted breath sounds bilaterally. Decreased air entry bilaterally. No wheezing. Bibasilar crackles. Cardiovascular: Positive S1, positive S2. Regular rate and rhythm. Abdomen: Positive bowel sounds in all 4 quadrants. Soft, nontender, nondistended. : Hawkins in place. Normal external genitalia. Rectal: Deferred. Skin: Warm, dry. Intact. Extremities: 2+ radial pulses bilaterally. No lower extremity edema. Neuro: Sedated. Labs/Diagnostic Data Labs Test 04/15/25 15:14 04/15/25 10:59 04/15/25 03:34 04/15/25 00:50 Range/Units Blood Gas Specimen Type Arterial Blood Gas Sample Site Right brachial Blood Gas Patient Temperature 37.0 Arterial Blood Date Drawn [id number] Arterial Blood pH 7.461 H 7.350-7.450 Arterial Blood Partial Pressure CO2 46.8 35.0-48.0 mmHg Arterial Blood Partial Pressure O2 79.0 L 83.0-108.0 mmHg Arterial Blood HCO3 32.6 H 21.0-28.0 mmol/L Arterial Blood Oxygen Saturation 95.0 94.0-98.0 % Arterial Blood Base Excess 7.7 H -2.0-3.0 mmol/L Arterial Blood Oxyhemoglobin 94.9 94.0-98.0 % Arterial Blood Carboxyhemoglobin 0.0 L 0.5-1.5 % Arterial Blood Methemoglobin 0.1 0.0-1.5 % Arun Test N/a Blood Gas Total Hemoglobin 12.50 L 13.5-17.5 g/dL Blood Gas Set Respiration Rate 16.0 Blood Gas Modality Vent - ac FiO2 % 100.0 Blood Gas Tidal Volume 500.0 Blood Gas PEEP or CPAP 5.0 POC Glucose 185 H 70-106 mg/dl White Blood Count 15.1 H 4.4-10.8 10^3/uL Red Blood Count 4.64 4.5-5.90 10^6/uL Hemoglobin 11.9 L 13.5-17.5 g/dL Hematocrit 37.3 L 41.0-53.0 % Mean Corpuscular Volume 80.4 80.0-100.0 fL Mean Corpuscular Hemoglobin 25.7 L 28.0-32.0 pg Mean Corpuscular Hemoglobin Concent 32.0 32.0-36.0 g/dL Red Cell Distribution Width 15.8 H 11.8-14.3 % Platelet Count 277 140-450 10^3/uL Mean Platelet Volume 9.1 6.9-10.8 fL Neutrophils (%) (Auto) 83.1 H 37.0-80.0 % Lymphocytes (%) (Auto) 8.7 L 10.0-50.0 % Monocytes (%) (Auto) 7.6 0.0-12.0 % Eosinophils (%) (Auto) 0.4 0.0-7.0 % Basophils (%) (Auto) 0.2 0.0-2.0 % Neutrophils # (Auto) 12.5 H 1.6-8.6 10 ^3/uL Lymphocytes # (Auto) 1.3 0.4-5.4 10 ^3/uL Monocytes # (Auto) 1.2 0-1.3 10 ^3/uL Eosinophils # (Auto) 0.1 0-0.8 10 ^3/uL Basophils # (Auto) 0 0-0.2 10 ^3/uL Nucleated Red Blood Cells 0.0 % Sodium Level 151 H 136-145 mmol/L Potassium Level 3.7 3.5-5.1 mmol/L Chloride Level 106 98-107 mmol/L Carbon Dioxide Level 32 H 20-31 mmol/L Anion Gap 13 5-15 Blood Urea Nitrogen 31 H 9-23 mg/dL Creatinine 1.26 0.700-1.30 mg/dL Glomerular Filtration Rate Calc 67 >90 mL/min BUN/Creatinine Ratio 24.6 H 10.0-20.0 Serum Glucose 193 H 74-106 mg/dL Calcium Level 8.3 L 8.7-10.4 mg/dL Total Bilirubin 0.6 0.2-1.0 mg/dL Aspartate Amino Transferase (AST) 89 H 13-40 U/L Alanine Aminotransferase (ALT) 155 H 7-40 U/L Alkaline Phosphatase 89 46-116 U/L Total Protein 7.7 5.7-8.2 g/dL Albumin 3.6 3.2-4.8 g/dL Blood Gas Liter Flow 15.00 Blood Gas Spontaneous Rate 18 Test 04/14/25 16:27 04/14/25 13:40 04/14/25 12:57 04/14/25 12:44 Range/Units Troponin I High Sensitivity 90 *H </=54 ng/L Creatine Kinase 133 46-171 U/L Urine Color Yellow Yellow Urine Clarity Ex.turbid Clear Urine pH 5.5 5.0-9.0 Urine Specific [place] 1.025 1.001-1.035 Urine Protein 1+ H Negative Urine Ketones Negative Negative Urine Blood 2+ H Negative /uL Urine Nitrite Negative Negative Urine Bilirubin Negative Negative Urine Urobilinogen Normal Negative mg/dL Urine Leukocyte Esterase Negative Negative /uL Urine RBC 97 0 - 3 /hpf Urine Microscopic WBC 4 H 0-3 /HPF Urine Squamous Epithelial Cells Few <5 /hpf Urine Uric Acid Crystals Many None Seen /hpf Urine Bacteria None seen None Seen /hpf Urine Mucus Few None Seen Urine Glucose Normal Normal mg/dL Lactic Acid Level 1.5 0.4-2.0 mmol/L Microbiology Date/Time Source Procedure Growth Status 04/15/25 02:30 Nose MRSA Screen - Final Methicillin Resistant S.aureus Complete 04/14/25 12:52 Blood Blood Culture - Preliminary Resulted Assessment Impression: Acute hypoxic respiratory failure On mechanical ventilator Septic shock Pneumonia Atelectasis Mucous plugging Plan: s/p intubation on mechanical ventilator. CXR image and report reviewed. Devices in place. ABG reviewed, notable for alkalemia. On AC mode; RR 16, VT 450, PEEP 8, FiO2 80% Titrate FIO2 to keep O2 saturation above 90%. VAP bundle. Daily ABG and CXR while intubated Sedate for ventilator synchrony - on Versed, Fentanyl. S/p placement of right SCV central line. S/p bronchoscopy with RML BAL performed today; mucous plugging removed from RUL, RML, RLL. Sent for bacterial cultures. Continue antibiotics. Follow up cultures. Pressors as necessary for hemodynamic support Titrate to keep mean arterial pressure greater than 65 mmHg. Patient is currently off Levophed. Monitor renal function Monitor electrolytes. Supplement as necessary. Monitor ins and outs. DVT prophylaxis - Lovenox SC. Prognosis: Poor given patient's multiple co-morbidities. Condition: Critical Rest of plan per hospitalist and other consultants. A total of 35 minutes of critical care time was spent reviewing the patient ti rd, examining the patient, making a diagnostic and therapeutic plan, discussing this plan with the medical personnel, following up on diagnostic studies and following the patient for clinical stability excluding any and all procedures. At least 50% of this time was spent in direct, [id number] contact. Thank you, Dr. Rubio, for allowing me to participate in this patient's care. Further recommendations will depend on the patient's clinical course. Please do not hesitate to contact me if you have any questions or concerns. This medical document was created using an electronic medical record system with [employer] dictation system. Although these documentations are being carefully reviewed, there may still be some phonetic and typographical changes. The errors are purely typographical, due to imperfection on the software program, and do not reflect any compromise in the patient's medical care. Plan discussed with: Other (RN/) [facility] Apr 15, 2025 23:22
--- NOTE | 2025-04-15 23:32 | DVH ---
CHEST RADIOGRAPH Indication: central line placement Technique: Single frontal view of the chest was obtained COMPARISON: XY CHEST PORTABLE on DOS: 04/15/25, XY CHEST PORTABLE on DOS: 04/15/25, XY CHEST PORTABLE on DOS: 04/15/25, XY CHEST XRAY 1 VIEW on DOS: 04/14/25, XR CHEST 1 VIEW on DOS: 04/11/25 FINDINGS: Lines and Tubes: Interval exchange of right subclavian central venous catheter for a new right graphics intern al jugular central venous catheter with tip projecting over the distal superior vena cava. Remaining lines and tubes unchanged. Lungs: Stable appearing small bilateral pleural effusions and minimal bibasilar pulmonary airspace di sease. No pneumothorax. Cardiomediastinal contours: Unremarkable Bones: Unremarkable IMPRESSION: 1. Interval exchange of right subclavian central venous catheter for a new right internal jugular juan tral venous catheter with tip projecting over the distal superior vena cava. Remaining lines and tube s unchanged. 2. Stable appearing small bilateral pleural effusions and minimal bibasilar pulmonary airspace diseas e.
--- NOTE | 2025-04-15 23:37 | DVHNC2 ---
Central Line Recorder of insertion practice: Cargo Bracer Occupation of wharf hand: Other (Resident), Name of wharf hand (Lino) Indication: Hypotension Room prepared for procedure: Yes Cargo Bracer performed hand hygien: Yes Maximal sterile barrier precau: Mask/Eye shield, Sterile gown, Cap, Sterlie gloves, Large sterlie drape Skin Preparation: Chlorhexidine gluconate, Providine iodine Skin preparation completely dr: Yes Insertion site: Right, Internal jugular Central line catheter type: [id number] dialysis Number of lumens: 3 Central line exchanged over a: No Antiseptic ointment applied to: No Post Assessment: Chest X-Ray, Proper placement, No Pneumothorax Informed consent obtained: Yes Risks/benefits/alt described: Yes Notes Supervised by Ezra Walden Date of Service: Apr 15, 2025 Billing Provider: AZUCENA LERMA MD Common Visit Codes: PROCEDURE ONLY Procedure Codes: 22630-IDFLKC NON-TUNNEL CV CATH, 99828-SY GUIDE VASCULAR ACCE SS (16784 Right IJ central line placement) JORDAN DURAN RESIDENT Apr 15, 2025 23:37 AZUCENA LERMA MD Apr 16, 2025 15:09
[2025-04-16] VITALS (106 sets, daily range): BP systolic 82–118; BP diastolic 54–80; PULSE 76–92; RESP 14–18; TEMP 98.2–99.6; O2SAT 86–100
[2025-04-16] MEDS: ACCU-CHEK COMFORT CURVE STRIP VI SCH
[2025-04-16] MEDS: InsuLIN REG 1unit/0.01ml Soln (100units/ml) SC SCH
[2025-04-16] MEDS: ROCURONIUM 10MG/ML 10ML VIAL IV ONE (02:47)
[2025-04-16 07:30] LABS: Base Excess 6.4 mmol/L (-2.0-3.0)
[2025-04-16 09:55] LABS: Albumin 3.4 g/dL (3.2-4.8); Alkaline Phosphatase 89 U/L (46-116); Anion Gap 7 (5-15); BUN/Creatinine Ratio 24.3 (10.0-20.0); Potassium 4.1 mmol/L (3.5-5.1); Total Protein 7.5 g/dL (5.7-8.2)
[2025-04-16 09:56] LABS: Bilirubin, Total 0.5 mg/dL (0.2-1.0)
[2025-04-16 10:00] LABS: Hematocrit 35.9 % (41.0-53.0); Hemoglobin 11.3 g/dL (13.5-17.5); Mean Corpuscular Hemoglobin 25.6 pg (28.0-32.0); Mean Corpuscular Volume 80.9 fL (80.0-100.0); Nucleated Red Blood Cells % 0.0 %
[2025-04-16 10:04] LABS: Alanine Aminotransferase 91 U/L (7-40); Blood Urea Nitrogen 34 mg/dL (9-23); Calcium 8.1 mg/dL (8.7-10.4); Carbon Dioxide 35 mmol/L (20-31); Chloride 109 mmol/L (98-107); Glucose 176 mg/dL (74-106); Sodium 151 mmol/L (136-145)
--- NOTE | 2025-04-16 13:58 | DVHHP2 ---
History of Present Illness HPI DATE OF SERVICE: 04/14/2025 59M BIBA w/ prior MHx of TBI, Schizophrenia, Insomnia, Anxiety, Bed bound, 10L of O2 via mask and the c/c of Hypoxia. EMS report on the pt being at [facility] [place] being d/c to [facility] where they picked the pt up today. [facility] nurses informed EMS that they are sending the pt to [facility] due from the pt going to be admitted by Dr. Powell. On scene pt had a fever of 103. Denies any other symptoms at this time. Denies chills, fever, N/V/D, SOB, CP. Denies any other associated symptom's, modifiers, or recent injuries or sick contact at this time. Home Meds Active Scripts Levetiracetam (Keppra) 1,000 Mg Tab, 1 TAB PO BID for 90 Days, #180 TAB 3 Refills Prov:KATIE SARAVIA MD 03/19/25 Sucralfate (CARAFATE) 1 Gm Tab, 1 GM OR BID for 30 Days, #60 TAB 0 Refills Prov:MED BRIONES RESIDENT 08/23/24 Pantoprazole Sodium Sesquihydr (Pantoprazole Sodium Dr) 40 Mg Tab, 40 MG PO DAILY for 30 Days, #30 TAB 0 Refills Prov:MED BRIONES RESIDENT 08/23/24 Levetiracetam (KEPPRA TABLET) 500 Mg Tb, 500 MG PO BID for 30 Days, #60 TAB Prov:ANNIE JAIME MD 04/17/24 Reported Medications Metformin Hydrochloride (Metformin Hcl) 500 Mg Tab, 1 TAB PO BID, #60 TAB 3 Refills 08/16/24 Insulin Glargine (Lantus Solostar) 100 Unit/Ml Inj, 10 UNIT SC DAILY, INJ 08/16/24 Hydrochlorothiazide (Hydrochlorothiazide) 12.5 Mg Cap, 1 CAP PO DAILY, #30 CAP 5 Refills 08/16/24 Insulin Regular (Human) (Humulin R) 100 Unit/Ml Inj, 100 UNIT SUBCUT, INJ 08/16/24 Folic Acid (Folic Acid) 1 Mg Tab, 1 MG PO DAILY, TAB 08/16/24 Fluoxetine HCl (Pmdd) (Fluoxetine HCl) 10 Mg Tab, 10 MG PO DAILY, TAB 08/16/24 Ferrous Sulfate (Ferosul) 325 Mg Tab, 325 MG PO DAILY, TAB 08/16/24 Docusate Sodium (Docusate Sodium) 250 Mg Cap, 250 MG PO DAILY, CAP 08/16/24 Diclofenac Sodium (Topical) (Voltaren Arthritis Pain) 1 % Gel, 1 % EX, GEL 08/16/24 Aspirin (ASPIRIN 81) 81 Mg Tab, 81 MG PO DAILY, TAB 02/16/24 Quetiapine Fumerate (QUETIAPINE FUMARATE) 25 Mg Tab, 12.5 MG PO BID, TAB 02/16/24 Atorvastatin Calcium (ATORVASTATIN CALCIUM) 40 Mg Tab, 40 MG PO HS, TAB 02/16/24 Melatonin (KP MELATONIN) 3 Mg Tab, 3 MG PO QHSP, TAB 02/15/24 Acetaminophen (Acetaminophen) 325 Mg Tab, 325 MG PO Q6HR PRN for PAIN SCALE 1 THRU 6, TAB 02/15/24 Naproxen (NAPROSYN TABLET) 500 Mg Tb, 250 MG PO TIDP, TAB 02/15/24 Carisoprodol (Soma) 350 Mg Tab, 350 MG PO TIDP, TAB 02/15/24 Lorazepam (ATIVAN TABLET) 0.5 Mg Tb, 0.5 MG PO Q6HPRN, TAB 02/15/24 Past Medical History Patient Family History: Patient reports no known family medical history. H&P Exam Vital Signs Vital Signs Date Time Temp Pulse Resp B/P (MAP) Pulse Ox O2 Delivery O2 Flow Rate FiO2 04/16/25 12:48 87 16 101/70 (80) 98 40 04/16/25 10:00 Mechanical Ventilator+ 04/16/25 08:00 99.0 99.0 04/16/25 08:00 15 General Appeara: Well developed Head Exam: Normal inspection Neck Exam: Normal inspection Pulmonary/Respiratory: Normal inspection SEPSIS Sepsis Screen Date sepsis recognized/suspect: Apr 14, 2025 Time Sepsis recognized/suspect: 1929 Recent Procedure: No On Antibiotic Therapy: No Respiratory Rate >20: Yes Heart Rate >90: Yes Temp<36 C (96.8 F) or >38.3 C: No SBP <90 or MAP <65 mmHG: No New Acute Mental Status Change: No Is the patient on CPAP, BIPAP,: No Vital Signs Date Time Temp Pulse Resp B/P (MAP) Pulse Ox O2 Delivery O2 Flow Rate FiO2 04/16/25 12:48 87 16 101/70 (80) 98 40 04/16/25 10:30 88 16 102/68 (79) 97 04/16/25 10:18 89 16 95/66 (76) 97 50 04/16/25 10:15 88 16 95/66 (76) 98 04/16/25 10:00 50 04/16/25 10:00 89 15 107/72 (84) 94 04/16/25 10:00 88 04/16/25 10:00 16 98 Mechanical Ventilator+ 80 80 04/16/25 09:45 89 16 104/72 (83) 96 04/16/25 09:30 89 16 106/73 (84) 96 04/16/25 09:15 90 16 111/74 (86) 95 04/16/25 09:00 90 16 102/72 (82) 96 04/16/25 08:45 90 16 101/70 (80) 95 04/16/25 08:32 90 16 108/70 (83) 95 60 04/16/25 08:30 90 16 108/70 (83) 94 04/16/25 08:15 90 18 95/67 (76) 96 04/16/25 08:00 89 04/16/25 08:00 70 04/16/25 08:00 16 94 Mechanical Ventilator+ 70 70 04/16/25 08:00 99.0 91 16 110/72 (85) 90 99.0 04/16/25 08:00 91 16 94 Non-Rebreather 15 70 70 04/16/25 07:45 89 16 99/72 (81) 89 04/16/25 07:30 90 16 108/72 (84) 91 04/16/25 07:15 89 16 107/69 (82) 96 04/16/25 07:00 89 16 103/70 (81) 96 04/16/25 06:45 90 16 101/69 (80) 96 04/16/25 06:41 90 16 104/70 (81) 97 60 04/16/25 06:30 90 16 104/70 (81) 98 04/16/25 06:25 103/72 04/16/25 06:15 89 16 103/72 (82) 98 04/16/25 06:00 90 16 100/69 (79) 97 04/16/25 06:00 90 04/16/25 06:00 16 97 Mechanical Ventilator+ 80 80 04/16/25 06:00 90 16 100/69 (79) 97 04/16/25 06:00 80 Laboratory Tests Test 04/16/25 09:15 White Blood Count 16.7 10^3/uL (4.4-10.8) H Medications Medications Dose Ordered Sig/Cora Route Start Time Stop Time Status Last Admin Dose Admin Rocuronium [place] 50 mg ONCE ONCE IV 04/16/25 02:45 04/16/25 02:46 DC 04/16/25 02:47 50 MG Labs/Xrays Labs Test 04/16/25 11:53 04/16/25 09:15 04/16/25 07:20 04/15/25 00:50 Range/Units POC Glucose 177 H 70-106 mg/dl White Blood Count 16.7 H 4.4-10.8 10^3/uL Red Blood Count 4.43 L 4.5-5.90 10^6/uL Hemoglobin 11.3 L 13.5-17.5 g/dL Hematocrit 35.9 L 41.0-53.0 % Mean Corpuscular Volume 80.9 80.0-100.0 fL Mean Corpuscular Hemoglobin 25.6 L 28.0-32.0 pg Mean Corpuscular Hemoglobin Concent 31.6 L 32.0-36.0 g/dL Red Cell Distribution Width 15.9 H 11.8-14.3 % Platelet Count 328 140-450 10^3/uL Mean Platelet Volume 9.1 6.9-10.8 fL Neutrophils (%) (Auto) 76.4 37.0-80.0 % Lymphocytes (%) (Auto) 13.6 10.0-50.0 % Monocytes (%) (Auto) 7.4 0.0-12.0 % Eosinophils (%) (Auto) 2.3 0.0-7.0 % Basophils (%) (Auto) 0.3 0.0-2.0 % Neutrophils # (Auto) 12.8 H 1.6-8.6 10 ^3/uL Lymphocytes # (Auto) 2.3 0.4-5.4 10 ^3/uL Monocytes # (Auto) 1.2 0-1.3 10 ^3/uL Eosinophils # (Auto) 0.4 0-0.8 10 ^3/uL Basophils # (Auto) 0 0-0.2 10 ^3/uL Nucleated Red Blood Cells 0.0 % Sodium Level 151 H 136-145 mmol/L Potassium Level 4.1 3.5-5.1 mmol/L Chloride Level 109 H 98-107 mmol/L Carbon Dioxide Level 35 H 20-31 mmol/L Anion Gap 7 5-15 Blood Urea Nitrogen 34 H 9-23 mg/dL Creatinine 1.40 H 0.700-1.30 mg/dL Glomerular Filtration Rate Calc 59 >90 mL/min BUN/Creatinine Ratio 24.3 H 10.0-20.0 Serum Glucose 176 H 74-106 mg/dL Calcium Level 8.1 L 8.7-10.4 mg/dL Total Bilirubin 0.5 0.2-1.0 mg/dL Aspartate Amino Transferase (AST) 33 13-40 U/L Alanine Aminotransferase (ALT) 91 H 7-40 U/L Alkaline Phosphatase 89 46-116 U/L Total Protein 7.5 5.7-8.2 g/dL Albumin 3.4 3.2-4.8 g/dL Blood Gas Specimen Type Arterial Blood Gas Sample Site Left radial Blood Gas Patient Temperature 37.0 Arterial Blood Date Drawn [id number] Arterial Blood pH 7.399 7.350-7.450 Arterial Blood Partial Pressure CO2 53.9 H 35.0-48.0 mmHg Arterial Blood Partial Pressure O2 71.1 L 83.0-108.0 mmHg Arterial Blood HCO3 32.6 H 21.0-28.0 mmol/L Arterial Blood Oxygen Saturation 92.8 L 94.0-98.0 % Arterial Blood Base Excess 6.4 H -2.0-3.0 mmol/L Arterial Blood Oxyhemoglobin 92.0 L 94.0-98.0 % Arterial Blood Carboxyhemoglobin 0.8 0.5-1.5 % Arterial Blood Methemoglobin 0.1 0.0-1.5 % Arun Test Modified Blood Gas Total Hemoglobin 12.70 L 13.5-17.5 g/dL Blood Gas Set Respiration Rate 16.0 Blood Gas Modality Vent - ac FiO2 % 60.0 Blood Gas Tidal Volume 450.0 Blood Gas PEEP or CPAP 8.0 Blood Gas Liter Flow 15.00 Blood Gas Spontaneous Rate 18 Test 04/14/25 16:27 04/14/25 13:40 04/14/25 12:57 04/14/25 12:44 Range/Units Troponin I High Sensitivity 90 *H </=54 ng/L Creatine Kinase 133 46-171 U/L Urine Color Yellow Yellow Urine Clarity Ex.turbid Clear Urine pH 5.5 5.0-9.0 Urine Specific [place] 1.025 1.001-1.035 Urine Protein 1+ H Negative Urine Ketones Negative Negative Urine Blood 2+ H Negative /uL Urine Nitrite Negative Negative Urine Bilirubin Negative Negative Urine Urobilinogen Normal Negative mg/dL Urine Leukocyte Esterase Negative Negative /uL Urine RBC 97 0 - 3 /hpf Urine Microscopic WBC 4 H 0-3 /HPF Urine Squamous Epithelial Cells Few <5 /hpf Urine Uric Acid Crystals Many None Seen /hpf Urine Bacteria None seen None Seen /hpf Urine Mucus Few None Seen Urine Glucose Normal Normal mg/dL Lactic Acid Level 1.5 0.4-2.0 mmol/L Microbiology Date/Time Source Procedure Growth Status 04/15/25 21:10 Bronchial Washings Gram Stain - Final Resulted 04/15/25 21:10 Bronchial Washings Respiratory Culture - Preliminary Resulted 04/15/25 02:32 Stool Clostridium difficile Toxin Assay - Final Complete 04/15/25 02:30 Nose MRSA Screen - Final Methicillin Resistant S.aureus Complete 04/14/25 12:52 Blood Blood Culture - Preliminary Resulted Assessment/Plan Primary Diagnosis DATE OF SERVICE: 04/14/2025 59M BIBA w/ prior MHx of TBI, Schizophrenia, Insomnia, Anxiety, Bed bound, 10L of O2 via mask and the c/c of Hypoxia. EMS report on the pt being at [facility] [place] being d/c to [facility] where they picked the pt up today. [facility] nurses informed EMS that they are sending the pt to [facility] due from the pt going to be admitted by Dr. Powell. On scene pt had a fever of 103. Denies any other symptoms at this time. Denies chills, fever, N/V/D, SOB, CP. Denies any other associated symptom's, modifiers, or recent injuries or sick contact at this time. Sepsis with pna acute metabolic encephalopathy acute hypoxic resp failure Demand ischemia admitted to tele then upgraded to ICU due to worsening acute encephalopathy Plan discussed with: Other (nursing staff) TARUN MARTINEZ DO Apr 16, 2025 13:58
--- NOTE | 2025-04-16 14:09 | DVHPN2 ---
Progress Note Date Seen: Apr 16, 2025 Medical Necessity Reason Pt with a Central, PICC or Fol: No Objective vital signs Vital Sign Date Time Temp Pulse Resp B/P (MAP) Pulse Ox O2 Delivery O2 Flow Rate FiO2 04/16/25 12:48 87 16 101/70 (80) 98 40 04/16/25 10:00 Mechanical Ventilator+ 04/16/25 08:00 99.0 99.0 04/16/25 08:00 15 Total Intake and Output 04/15/25 04/15/25 04/16/25 15:00 23:00 07:00 Intake Total 7 ml 164.5 ml 225.0 ml Output Total 300 ml 500 ml Balance 7 ml -135.5 ml -275.0 ml medications Current Medications Medications Dose Ordered Sig/Cora Route Start Time Stop Time Status Last Admin Dose Admin Acetaminophen/ Hydrocodone Bitart 1 tab Q4HP PRN PO 04/14/25 19:15 Acetaminophen 650 mg Q6HP PRN PO 04/14/25 19:15 Morphine Sulfate 2 mg Q4HPRN PRN IV 04/14/25 19:15 Enoxaparin Sodium 40 mg DAILY SC 04/14/25 22:00 04/16/25 09:43 40 MG Nitroglycerin 0.4 mg Q5MINP PRN SL 04/14/25 19:15 Morphine Sulfate 2 mg Q30M PRN IV 04/14/25 19:15 Midazolam HCl 100 ml @ 1 mls/hr Q24H IV 04/15/25 13:45 04/16/25 06:25 5 MLS/HR Fentanyl Citrate 250 ml @ 2.5 mls/hr Q24H IV 04/15/25 13:45 04/15/25 14:16 2.5 MLS/HR Norepinephrine Bitartrate 250 ml @ 3.75 mls/hr Q24H IV 04/15/25 13:45 04/16/25 01:21 3.75 MLS/HR Ceftriaxone Sodium 50 ml @ 100 mls/hr DAILY@09 IV 04/15/25 15:00 04/16/25 09:45 100 MLS/HR Diagnostic Test (Pha) 1 strip Q6HR 04/16/25 00:00 04/16/25 12:00 1 STRIP Insulin Human Regular Q6HR SC 04/16/25 00:00 04/16/25 12:13 3 UNITS Dextrose 50 ml UD PRN IV 04/15/25 18:45 Examination: GENERAL:Normal, HEENT:Normal laboratory and microbiology Laboratory Tests 04/16/25 09:15 Test 04/16/25 09:15 Range/Units Serum Glucose 176 H 74-106 mg/dL Microbiology Date/Time Source Procedure Growth Status 04/15/25 21:10 Bronchial Washings Gram Stain - Final Resulted 04/15/25 21:10 Bronchial Washings Respiratory Culture - Preliminary Resulted 04/15/25 02:32 Stool Clostridium difficile Toxin Assay - Final Complete 04/15/25 02:30 Nose MRSA Screen - Final Methicillin Resistant S.aureus Complete 04/14/25 12:52 Blood Blood Culture - Preliminary Resulted Labs and/or images reviewed: Labs reviewed by me, Image(s) reviewed by me Problem List/Assessment/Plan Problem List/Assessment/Plan DATE OF SERVICE: 04/16/2025 59M BIBA w/ prior MHx of TBI, Schizophrenia, Insomnia, Anxiety, Bed bound, 10L of O2 via mask and the c/c of Hypoxia. EMS report on the pt being at [facility] [place] and being d/c to [facility] where they picked the pt up today. [facility] nurses informed EMS that they are sending the pt to [facility] due from the pt going to be admitted by Dr. Powell. On scene pt had a fever of 103. Denies any other symptoms at this time. Denies chills, fever, N/V/D, SOB, CP. Denies any other associated symptom's, modifiers, or recent injuries or sick contact at this time. sepstic shock with pna acute metabolic encephalopathy acute hypoxic resp failure Demand ischemia seizure hx obesity loren chronic anemia 04/15/2025 pt ended up intubated in ICU during worsening hypoxia and mental status started on empirical iv abx 04/16/2025: per mother, pt has hx of seizure, started on Keppra start on tube feed time: >45 minutes of critical care time Plan discussed with: Other (nursing staff) My Orders My Orders Orders - TARUN MARTINEZ DO Procedure Category Date Status Time Apply Z-Guard SIDDHARTHA 04/15/25 In Process 12:00 * Dietary Consult CONS 04/15/25 Transmitted 16:10 Cleanse Wound With SIDDHARTHA 04/15/25 In Process Wound Clean 12:00 Glucose Blood PHA 04/16/25 In Process (Accu-Chek Comfort 00:00 Insulin R (Human) PHA 04/16/25 In Process (Insulin R) 00:00 Dextrose 50% Syringe PHA 04/15/25 In Process 18:45 Dietary Evaluation Review Comments: Nutrition Recommendation: 1) Consider TPN if NPO>7 days 2) Advance to [facility] 60gm + 2gm Na diet as medically feasible, per SPT approval 3) If feeding tube is placed, consider EN Glucerna 1.2 Eric @ 70ml/hr x 24hr(goal). Water flush 170ml Q6H if allowed, adjust PRN. TF at goal volume provides 2016 kcal (100%), 101gm protein (97%), and 2032 ml free water (including flush). 4) Naveen 1 pk BID, MVI w/ minerals 1 tab daily, VitC 500mg BID, Zinc sulfate 220mg BID x 10 days 5) Monitor NPO status, lab values, weight trend, and I/O Expected Outcomes/Goals: Intake to meet >75% estimated needs Lab values to improve Fu 2-3 days TARUN MARTINEZ DO Apr 16, 2025 14:09
--- NOTE | 2025-04-16 14:09 | DVHPN2 ---
Progress Note Date Seen: Apr 15, 2025 Medical Necessity Reason Pt with a Central, PICC or Fol: No Subjective Review of Systems: HEENT:Normal, CVS:Normal Objective vital signs Vital Sign Date Time Temp Pulse Resp B/P (MAP) Pulse Ox O2 Delivery O2 Flow Rate FiO2 04/16/25 12:48 87 16 101/70 (80) 98 40 04/16/25 10:00 Mechanical Ventilator+ 04/16/25 08:00 99.0 99.0 04/16/25 08:00 15 Total Intake and Output 04/15/25 04/15/25 04/16/25 15:00 23:00 07:00 Intake Total 7 ml 164.5 ml 225.0 ml Output Total 300 ml 500 ml Balance 7 ml -135.5 ml -275.0 ml medications Current Medications Medications Dose Ordered Sig/Cora Route Start Time Stop Time Status Last Admin Dose Admin Acetaminophen/ Hydrocodone Bitart 1 tab Q4HP PRN PO 04/14/25 19:15 Acetaminophen 650 mg Q6HP PRN PO 04/14/25 19:15 Morphine Sulfate 2 mg Q4HPRN PRN IV 04/14/25 19:15 Enoxaparin Sodium 40 mg DAILY SC 04/14/25 22:00 04/16/25 09:43 40 MG Nitroglycerin 0.4 mg Q5MINP PRN SL 04/14/25 19:15 Morphine Sulfate 2 mg Q30M PRN IV 04/14/25 19:15 Midazolam HCl 100 ml @ 1 mls/hr Q24H IV 04/15/25 13:45 04/16/25 06:25 5 MLS/HR Fentanyl Citrate 250 ml @ 2.5 mls/hr Q24H IV 04/15/25 13:45 04/15/25 14:16 2.5 MLS/HR Norepinephrine Bitartrate 250 ml @ 3.75 mls/hr Q24H IV 04/15/25 13:45 04/16/25 01:21 3.75 MLS/HR Ceftriaxone Sodium 50 ml @ 100 mls/hr DAILY@09 IV 04/15/25 15:00 04/16/25 09:45 100 MLS/HR Diagnostic Test (Pha) 1 strip Q6HR 04/16/25 00:00 04/16/25 12:00 1 STRIP Insulin Human Regular Q6HR SC 04/16/25 00:00 04/16/25 12:13 3 UNITS Dextrose 50 ml UD PRN IV 04/15/25 18:45 Examination: GENERAL:Normal, HEENT:Normal, NECK:Normal, LUNGS:Normal, CVS:Normal, ABDOMEN:Normal, MSK:Normal laboratory and microbiology Laboratory Tests 04/16/25 09:15 Test 04/16/25 09:15 Range/Units Serum Glucose 176 H 74-106 mg/dL Microbiology Date/Time Source Procedure Growth Status 04/15/25 21:10 Bronchial Washings Gram Stain - Final Resulted 04/15/25 21:10 Bronchial Washings Respiratory Culture - Preliminary Resulted 04/15/25 02:32 Stool Clostridium difficile Toxin Assay - Final Complete 04/15/25 02:30 Nose MRSA Screen - Final Methicillin Resistant S.aureus Complete 04/14/25 12:52 Blood Blood Culture - Preliminary Resulted Labs and/or images reviewed: Labs reviewed by me, Image(s) reviewed by me Problem List/Assessment/Plan Problem List/Assessment/Plan DATE OF SERVICE: 04/15/2025 59M BIBA w/ prior MHx of TBI, Schizophrenia, Insomnia, Anxiety, Bed bound, 10L of O2 via mask and the c/c of Hypoxia. EMS report on the pt being at [facility] [place] and being d/c to [facility] where they picked the pt up today. [facility] nurses informed EMS that they are sending the pt to [facility] due from the pt going to be admitted by Dr. Powell. On scene pt had a fever of 103. Denies any other symptoms at this time. Denies chills, fever, N/V/D, SOB, CP. Denies any other associated symptom's, modifiers, or recent injuries or sick contact at this time. Sepsis with pna acute metabolic encephalopathy acute hypoxic resp failure Demand ischemia pt ended up intubated in ICU during worsening hypoxia and mental status started on empirical iv abx Plan discussed with: Patient My Orders My Orders Orders - TARUN MARTINEZ DO Procedure Category Date Status Time Apply Z-Guard SIDDHARTHA 04/15/25 In Process 12:00 * Dietary Consult CONS 04/15/25 Transmitted 16:10 Cleanse Wound With SIDDHARTHA 04/15/25 In Process Wound Clean 12:00 Glucose Blood PHA 04/16/25 In Process (Accu-Chek Comfort 00:00 Insulin R (Human) PHA 04/16/25 In Process (Insulin R) 00:00 Dextrose 50% Syringe PHA 04/15/25 In Process 18:45 Dietary Evaluation Review Comments: Nutrition Recommendation: 1) Consider TPN if NPO>7 days 2) Advance to [facility] 60gm + 2gm Na diet as medically feasible, per SPT approval 3) If feeding tube is placed, consider EN Glucerna 1.2 Eric @ 70ml/hr x 24hr(goal). Water flush 170ml Q6H if allowed, adjust PRN. TF at goal volume provides 2016 kcal (100%), 101gm protein (97%), and 2032 ml free water (including flush). 4) Naveen 1 pk BID, MVI w/ minerals 1 tab daily, VitC 500mg BID, Zinc sulfate 220mg BID x 10 days 5) Monitor NPO status, lab values, weight trend, and I/O Expected Outcomes/Goals: Intake to meet >75% estimated needs Lab values to improve Fu 2-3 days TARUN MARTINEZ DO Apr 16, 2025 14:09
[2025-04-16] MEDS ORDERED: SODIUM CHLORIDE 0.9% 1,000 ML IV SCH (14:15)
[2025-04-16] MEDS: SOD CHL 0.45% 1,000 ML IV SCH (15:36)
[2025-04-16] MEDS: FREE WATER GT SCH (17:32)
[2025-04-16] MEDS: Glucerna 1.2 Cal 1Liter BOTTLE GT SCH (18:54)
[2025-04-16] MEDS: levETIRAcetam 1000 mg/100ml 100 ML IV SCH (21:47)
--- NOTE | 2025-04-16 22:59 | DVHPN2 ---
Progress Note - Dictate Date Seen: Apr 16, 2025 Medical Necessity Reason Pt with a Central, PICC or Fol: Yes The following are medically ne: Bennett Catheter Reason for bennett catheter: Strict I&O Subjective Patient seen and examined at bedside. Sedated, intubated on mechanical ventilator. Overnight events reviewed. vital signs Vital Sign Date Time Temp Pulse Resp B/P (MAP) Pulse Ox O2 Delivery O2 Flow Rate FiO2 04/16/25 22:15 79 16 100/65 (77) 94 04/16/25 22:00 Mechanical Ventilator+ 50 50 04/16/25 20:00 98.2 98.2 04/16/25 08:00 15 Total Intake and Output 04/15/25 04/15/25 04/16/25 15:00 23:00 07:00 Intake Total 7 ml 164.5 ml 225.0 ml Output Total 300 ml 500 ml Balance 7 ml -135.5 ml -275.0 ml medications Current Medications Medications Dose Ordered Sig/Cora Route Start Time Stop Time Status Last Admin Dose Admin Acetaminophen/ Hydrocodone Bitart 1 tab Q4HP PRN PO 04/14/25 19:15 Acetaminophen 650 mg Q6HP PRN PO 04/14/25 19:15 Morphine Sulfate 2 mg Q4HPRN PRN IV 04/14/25 19:15 Enoxaparin Sodium 40 mg DAILY SC 04/14/25 22:00 04/16/25 09:43 40 MG Nitroglycerin 0.4 mg Q5MINP PRN SL 04/14/25 19:15 Morphine Sulfate 2 mg Q30M PRN IV 04/14/25 19:15 Midazolam HCl 100 ml @ 1 mls/hr Q24H IV 04/15/25 13:45 04/16/25 06:25 5 MLS/HR Fentanyl Citrate 250 ml @ 2.5 mls/hr Q24H IV 04/15/25 13:45 04/16/25 13:45 7.5 MLS/HR Norepinephrine Bitartrate 250 ml @ 3.75 mls/hr Q24H IV 04/15/25 13:45 04/16/25 01:21 3.75 MLS/HR Ceftriaxone Sodium 50 ml @ 100 mls/hr DAILY@09 IV 04/15/25 15:00 04/16/25 09:45 100 MLS/HR Diagnostic Test (Pha) 1 strip Q6HR 04/16/25 00:00 04/16/25 17:36 1 STRIP Insulin Human Regular Q6HR SC 04/16/25 00:00 04/16/25 17:35 2 UNITS Dextrose 50 ml UD PRN IV 04/15/25 18:45 Levetiracetam 100 ml @ 400 mls/hr BID IV 04/16/25 22:00 04/16/25 21:47 400 MLS/HR Pantoprazole Sodium 40 mg DAILY IV 04/17/25 10:00 Enteral Nutritional Formula 1,000 ml 70ML/HR GT 04/16/25 14:30 04/16/25 18:54 1,000 ML Purified Water 170 ml Q6HR GT 04/16/25 18:00 04/16/25 17:32 170 ML Sodium Chloride 1,000 ml @ 75 mls/hr [id number] IV 04/16/25 15:15 04/16/25 15:36 75 MLS/HR objective Gen.: Patient lying in bed in medical ICU. Sedated, intubated on mechanical ventilator. Head: Normocephalic, atraumatic. Eyes: PERRLA. Ears: Normal external anatomy. Throat: Endotracheal tube and orogastric tube in place. Neck: Supple, trachea midline. Chest: Transmitted breath sounds bilaterally. Decreased air entry bilaterally. No wheezing. Bibasilar crackles. Cardiovascular: Positive S1, positive S2. Regular rate and rhythm. Abdomen: Positive bowel sounds in all 4 quadrants. Soft, nontender, nondistended. : Bennett in place. Normal external genitalia. Rectal: Deferred. Skin: Warm, dry. Intact. Extremities: 2+ radial pulses bilaterally. No lower extremity edema. Neuro: Sedated. laboratory and microbiology Laboratory Tests 04/16/25 09:15 Test 04/16/25 09:15 Range/Units Serum Glucose 176 H 74-106 mg/dL Assessment/Plan Impression: Acute hypoxic respiratory failure On mechanical ventilator Septic shock Pneumonia Atelectasis Mucous plugging Events: Remains on vent support On AC mode; RR 16, VT 450, PEEP 8, FiO2 80-->40% Improved FiO2 requirements. ABG reviewed, compensated. Sedated on Versed, Fentanyl Pressors as necessary for hemodynamic support On Levophed 4 mcg/min Titrate to keep mean arterial pressure greater than 65 mmHg. Continue antibiotics Follow up cultures Keppra for antiepileptic Tube feedings for nutrition Free water Monitor hemoglobin - 11.3 g/dL Labs and imaging reviewed. Rest of plan as noted below. Plan: s/p intubation on mechanical ventilator. On AC mode; RR 16, VT 450, PEEP 8, FiO2 40% Titrate FIO2 to keep O2 saturation above 90%. VAP bundle. Daily ABG and CXR while intubated Sedate for ventilator synchrony S/p placement of right SCV central line. S/p bronchoscopy with RML BAL on 04/15/25 - mucous plugging removed from RUL, RML, RLL. Sent for bacterial cultures. Continue antibiotics. Follow up cultures. Pressors as necessary for hemodynamic support Titrate to keep mean arterial pressure greater than 65 mmHg. Monitor renal function Monitor electrolytes. Supplement as necessary. Monitor ins and outs. Monitor hemoglobin Transfuse if less than 7.0 g/dL. DVT prophylaxis - Lovenox SC. Prognosis: Poor given patient's multiple co-morbidities. Condition: Critical Rest of plan per hospitalist and other consultants. A total of 35 minutes of critical care time was spent reviewing the patient record, examining the patient, making a diagnostic and therapeutic plan, discussing this plan with the medical personnel, following up on diagnostic studies and following the patient for clinical stability excluding any and all procedures. At least 50% of this time was spent in direct, [id number] contact. Thank you, Dr. Rubio, for allowing me to participate in this patient's care. Further recommendations will depend on the patient's clinical course. Please do not hesitate to contact me if you have any questions or concerns. This medical document was created using an electronic medical record system with [employer] dictation system. Although these documentations are being carefully reviewed, there may still be some phonetic and typographical changes. The errors are purely typographical, due to imperfection on the software program, and do not reflect any compromise in the patient's medical care. Dietary Evaluation Review Comments: Nutrition Recommendation: 1) Consider TPN if NPO>7 days 2) [facility] to [facility] 60[facility] + 2gm Na diet as medically feasible, per SPT approval 3) If feeding tube is placed, consider EN Glucerna 1.2 Eric @ 70ml/hr x 24hr(goal). Water flush 170ml Q6H if allowed, adjust PRN. TF at goal volume provides 2016 kcal (100%), 101gm protein (97%), and 2032 ml free water (including flush). 4) Naveen 1 pk BID, MVI w/ minerals 1 tab daily, VitC 500mg BID, Zinc sulfate 220mg BID x 10 days 5) Monitor NPO status, lab values, weight trend, and I/O Expected Outcomes/Goals: Intake to meet >75% estimated needs Lab values to improve Fu 2-3 days Plan discussed with: Other (GOMEZ Alfaro) Critical Care Time(min): 35 [facility] Apr 16, 2025 22:59
[2025-04-17] VITALS (103 sets, daily range): BP systolic 89–210; BP diastolic 57–106; PULSE 55–84; RESP 12–24; TEMP 98.5–100.6; O2SAT 91–100
[2025-04-17] MEDS: ACETAMINOPHEN 325 MG TAB PO PRN (02:56)
[2025-04-17 04:46] LABS: Hematocrit 32.8 % (41.0-53.0); Hemoglobin 10.4 g/dL (13.5-17.5); Mean Corpuscular Hemoglobin 25.9 pg (28.0-32.0); Mean Corpuscular Volume 81.6 fL (80.0-100.0); Nucleated Red Blood Cells % 0.1 %
--- NOTE | 2025-04-17 05:03 | DVH ---
CHEST RADIOGRAPH Indication: FOR ET TUBE POSITION Technique: Single frontal view of the chest was obtained Comparison: XY CHEST PORTABLE on DOS: 04/15/25. FINDINGS: Lines and Tubes: The endotracheal tube terminates 4.1 cm above the alexander. Right central venous cath eter tip terminates in the superior vena cava. The enteric tube courses below the left hemidiaphragm and the tip extends outside the field of view. Lungs: Bibasilar consolidation noted. Pleura: No effusion. No pneumothorax. Cardiomediastinal contours: Unremarkable Bones: No acute osseous abnormality. IMPRESSION: 1. Support tubes in appropriate position. Endotracheal tube terminates 4.1 cm above the alexander. 2. Bibasilar consolidation.
[2025-04-17 05:05] LABS: Alkaline Phosphatase 79 U/L (46-116); Anion Gap 11 (5-15); Chloride 106 mmol/L (98-107); Potassium 3.9 mmol/L (3.5-5.1)
[2025-04-17 05:06] LABS: Total Protein 6.2 g/dL (5.7-8.2)
[2025-04-17 05:07] LABS: Bilirubin, Total 0.5 mg/dL (0.2-1.0)
[2025-04-17 05:18] LABS: Alanine Aminotransferase 67 U/L (7-40); Albumin 2.9 g/dL (3.2-4.8); BUN/Creatinine Ratio 27.5 (10.0-20.0); Blood Urea Nitrogen 33 mg/dL (9-23); Calcium 7.9 mg/dL (8.7-10.4); Carbon Dioxide 32 mmol/L (20-31); Glucose 136 mg/dL (74-106); Sodium 149 mmol/L (136-145)
[2025-04-17 07:35] LABS: Base Excess 4.0 mmol/L (-2.0-3.0)
[2025-04-17] MEDS: PANTOPRAZOLE 40 MG/10 ML VIAL INJ IV SCH (09:42)
[2025-04-17] MEDS: DEXMEDETOMIDINE HCL IN D5W 100 ML IV SCH (11:15)
[2025-04-17 11:32] LABS: Magnesium 2.4 mg/dL (1.6-2.6)
[2025-04-17 16:27] LABS: Base Excess 4.0 mmol/L (-2.0-3.0)
[2025-04-18] VITALS (113 sets, daily range): BP systolic 75–151; BP diastolic 51–98; PULSE 54–99; RESP 12–36; TEMP 39; O2SAT 91–100
[2025-04-18 03:34] LABS: Hematocrit 29.5 % (41.0-53.0); Hemoglobin 9.4 g/dL (13.5-17.5); Mean Corpuscular Hemoglobin 25.7 pg (28.0-32.0); Mean Corpuscular Volume 80.7 fL (80.0-100.0); Nucleated Red Blood Cells % 0.1 %
[2025-04-18 03:51] LABS: Alkaline Phosphatase 75 U/L (46-116); Anion Gap 8 (5-15); BUN/Creatinine Ratio 22.2 (10.0-20.0); Blood Urea Nitrogen 18 mg/dL (9-23); Carbon Dioxide 30 mmol/L (20-31); Glucose 97 mg/dL (74-106); Magnesium 2.2 mg/dL (1.6-2.6); Total Protein 6.0 g/dL (5.7-8.2)
[2025-04-18 03:52] LABS: Bilirubin, Total 0.5 mg/dL (0.2-1.0)
[2025-04-18 03:58] LABS: Alanine Aminotransferase 43 U/L (7-40); Albumin 2.8 g/dL (3.2-4.8); Calcium 7.7 mg/dL (8.7-10.4); Chloride 107 mmol/L (98-107); Potassium 3.1 mmol/L (3.5-5.1); Sodium 145 mmol/L (136-145)
[2025-04-18] MEDS: CALCIUM GLUC 1,000mg/50ml-NS 50 ML IV ONE (05:01)
--- NOTE | 2025-04-18 05:02 | DVH ---
CHEST RADIOGRAPH Indication: pt intubated Technique: 1 view Comparison: XY CHEST XRAY 1 VIEW on DOS: 04/17/25, XY CHEST PORTABLE on DOS: 04/15/25, XY CHEST ODESSA BLE on DOS: 04/15/25, XY CHEST PORTABLE on DOS: 04/15/25, XY CHEST PORTABLE on DOS: 04/15/25 FINDINGS: Lines and Tubes: Unchanged. Lungs/Pleura: Unchanged. Cardiomediastinum: Unchanged. Other: Unchanged osseous structures. IMPRESSION: No significant change from the previous study. Stable support devices with low lung volumes and mild basilar opacities.
[2025-04-18] MEDS: POTASSIUM CHL 20MEQ/100ML 100 ML IV SCH (05:47)
[2025-04-18 06:49] LABS: Base Excess 2.6 mmol/L (-2.0-3.0)
[2025-04-18 11:10] LABS: Base Excess 0.9 mmol/L (-2.0-3.0)
--- NOTE | 2025-04-18 11:28 | DVHPN2 ---
Progress Note - Dictate Date Seen: Apr 17, 2025 Medical Necessity Reason Pt with a Central, PICC or Fol: Yes The following are medically ne: Bennett Catheter Reason for bennett catheter: Strict I&O Subjective Patient seen and examined at bedside. Sedated, intubated on mechanical ventilator. Overnight events reviewed. vital signs Vital Sign Date Time Temp Pulse Resp B/P (MAP) Pulse Ox O2 Delivery O2 Flow Rate FiO2 04/17/25 22:06 69 16 106/69 (81) 96 35 04/17/25 21:54 99.9 04/17/25 21:37 Mechanical Ventilator+ 04/17/25 20:00 15 Total Intake and Output 04/16/25 04/16/25 04/17/25 15:00 23:00 07:00 Intake Total 201.5 ml 969.50 ml 1384.5 ml Output Total 325 ml 450 ml Balance 201.5 ml 644.50 ml 934.5 ml medications Current Medications Medications Dose Ordered Sig/Cora Route Start Time Stop Time Status Last Admin Dose Admin Acetaminophen/ Hydrocodone Bitart 1 tab Q4HP PRN PO 04/14/25 19:15 Acetaminophen 650 mg Q6HP PRN PO 04/14/25 19:15 04/17/25 20:33 650 MG Morphine Sulfate 2 mg Q4HPRN PRN IV 04/14/25 19:15 Enoxaparin Sodium 40 mg DAILY SC 04/14/25 22:00 04/17/25 09:43 40 MG Nitroglycerin 0.4 mg Q5MINP PRN SL 04/14/25 19:15 Morphine Sulfate 2 mg Q30M PRN IV 04/14/25 19:15 Midazolam HCl 100 ml @ 1 mls/hr Q24H IV 04/15/25 13:45 04/17/25 02:55 4 MLS/HR Fentanyl Citrate 250 ml @ 2.5 mls/hr Q24H IV 04/15/25 13:45 04/17/25 21:55 2.5 MLS/HR Norepinephrine Bitartrate 250 ml @ 3.75 mls/hr Q24H IV 04/15/25 13:45 04/17/25 02:55 7.5 MLS/HR Ceftriaxone Sodium 50 ml @ 100 mls/hr DAILY@09 IV 04/15/25 15:00 04/17/25 09:42 100 MLS/HR Diagnostic Test (Pha) 1 strip Q6HR 04/16/25 00:00 04/17/25 17:22 1 STRIP Insulin Human Regular Q6HR SC 04/16/25 00:00 04/17/25 17:23 2 UNITS Dextrose 50 ml UD PRN IV 04/15/25 18:45 Levetiracetam 100 ml @ 400 mls/hr BID IV 04/16/25 22:00 04/17/25 20:22 400 MLS/HR Pantoprazole Sodium 40 mg DAILY IV 04/17/25 10:00 04/17/25 09:42 40 MG Enteral Nutritional Formula 1,000 ml 70ML/HR GT 04/16/25 14:30 04/16/25 18:54 1,000 ML Purified Water 170 ml Q6HR GT 04/16/25 18:00 04/17/25 17:25 170 ML Sodium Chloride 1,000 ml @ 75 mls/hr [id number] IV 04/16/25 15:15 04/17/25 15:24 75 MLS/HR objective Gen.: Patient lying in bed in medical ICU. Sedated, intubated on mechanical ventilator. Head: Normocephalic, atraumatic. Eyes: PERRLA. Ears: Normal external anatomy. Throat: Endotracheal tube and orogastric tube in place. Neck: Supple, trachea midline. Chest: Transmitted breath sounds bilaterally. Decreased air entry bilaterally. No wheezing. Bibasilar crackles. Cardiovascular: Positive S1, positive S2. Regular rate and rhythm. Abdomen: Positive bowel sounds in all 4 quadrants. Soft, nontender, nondistended. : Bennett in place. Normal external genitalia. Rectal: Deferred. Skin: Warm, dry. Intact. Extremities: 2+ radial pulses bilaterally. No lower extremity edema. Neuro: Sedated. laboratory and microbiology Laboratory Tests 04/17/25 04:00 Test 04/17/25 04:00 Range/Units Serum Glucose 136 H 74-106 mg/dL Assessment/Plan Impression: Acute hypoxic respiratory failure On mechanical ventilator Septic shock Pneumonia Atelectasis Mucous plugging Events: Remains on vent support On AC mode; RR 16, VT 450, PEEP 8, FiO2 40% Improved FiO2 requirements. Continue to taper as tolerated ABG reviewed, compensated. CXR reveals bibasilar consolidation. Devices in place. Sedated on Versed, Fentanyl Pressors as necessary for hemodynamic support On Levophed 4 mcg/min Titrate to keep mean arterial pressure greater than 65 mmHg. Taper sedation as tolerated OK to start Precedex Continue antibiotics Follow up cultures Keppra for antiepileptic Tube feedings for nutritional support Free water + IV fluids - Na of 149 today Continue to monitor Monitor hemoglobin - trended down to 10.4 g/dL Labs and imaging reviewed. Rest of plan as noted below. Plan: s/p intubation on mechanical ventilator. On AC mode; RR 16, VT 450, PEEP 8, FiO2 40% Titrate FIO2 to keep O2 saturation above 90%. VAP bundle. Daily ABG and CXR while intubated S/p placement of right SCV central line. S/p bronchoscopy with RML BAL on 04/15/25 - mucous plugging removed from RUL, RML, RLL. Sent for bacterial cultures. Continue antibiotics. Follow up cultures. Pressors as necessary for hemodynamic support Titrate to keep mean arterial pressure greater than 65 mmHg. Monitor renal function Monitor electrolytes. Supplement as necessary. Monitor ins and outs. Monitor hemoglobin Transfuse if less than 7.0 g/dL. DVT prophylaxis - Lovenox SC. Prognosis: Poor given patient's multiple co-morbidities. Condition: Critical Rest of plan per hospitalist and other consultants. A total of 35 minutes of critical care time was spent reviewing the patient record, examining the patient, making a diagnostic and therapeutic plan, discussing this plan with the medical personnel, following up on diagnostic studies and following the patient for clinical stability excluding any and all procedures. At least 50% of this time was spent in direct, [id number] contact. Thank you, Dr. Rubio, for allowing me to participate in this patient's care. Further recommendations will depend on the patient's clinical course. Please do not hesitate to contact me if you have any questions or concerns. This medical document was created using an electronic medical record system with [employer] system. Although these documentations are being carefully reviewed, there may still be some phonetic and typographical changes. The errors are purely typographical, due to imperfection on the software program, and do not reflect any compromise in the patient's medical care. Dietary Evaluation Review Comments: Nutrition Recommendation: 1) Consider TPN if NPO>7 days 2) Advance to [facility] 60gm + 2gm Na diet as medically feasible, per SPT approval 3) If feeding tube is placed, consider EN Glucerna 1.2 Eric @ 70ml/hr x 24hr(goal). Water flush 170ml Q6H if allowed, adjust PRN. TF at goal volume provides 2016 kcal (100%), 101gm protein (97%), and 2032 ml free water (including flush). 4) Naveen 1 pk BID, MVI w/ minerals 1 tab daily, VitC 500mg BID, Zinc sulfate 220mg BID x 10 days 5) Monitor NPO status, lab values, weight trend, and I/O Expected Outcomes/Goals: Intake to meet >75% estimated needs Lab values to improve Fu 2-3 days Plan discussed with: Other (GOMEZ Alfaro) Critical Care Time(min): 35 [facility] Apr 17, 2025 22:47
--- NOTE | 2025-04-18 11:33 | DVHDS2 ---
Discharge Summary Date of Admission Apr 14, 2025 at 19:12 Date of Discharge: Apr 17, 2025 Labs/Diagnostic Data: Laboratory Results Test 04/18/25 00:09 04/17/25 16:17 04/17/25 07:27 04/17/25 04:00 POC Glucose 132 mg/dl (70-106) Blood Gas Specimen Type Arterial Blood Gas Sample Site Right brachial Blood Gas Patient Temperature 37.0 Arterial Blood Date Drawn [id number] Arterial Blood pH 7.401 (7.350-7.450) Arterial Blood Partial Pressure CO2 48.8 mmHg (35.0-48.0) Arterial Blood Partial Pressure O2 67.6 mmHg (83.0-108.0) Arterial Blood HCO3 29.6 mmol/L (21.0-28.0) Arterial Blood Oxygen Saturation 91.7 % (94.0-98.0) Arterial Blood Base Excess 4.0 mmol/L (-2.0-3.0) Arterial Blood Oxyhemoglobin 90.9 % (94.0-98.0) Arterial Blood Carboxyhemoglobin 0.6 % (0.5-1.5) Arterial Blood Methemoglobin 0.3 % (0.0-1.5) Arun Test N/a Blood Gas Total Hemoglobin 11.90 g/dL (13.5-17.5) Blood Gas Modality Vent - cpap Blood Gas Spontaneous Rate 20 FiO2 % 35.0 Blood Gas Spontaneous Tidal Volume 405 Blood Gas Pressure Support 8 Blood Gas PEEP or CPAP 5.0 Blood Gas Set Respiration Rate 16.0 Blood Gas Tidal Volume 450.0 White Blood Count 12.7 10^3/uL (4.4-10.8) Red Blood Count 4.02 10^6/uL (4.5-5.90) Hemoglobin 10.4 g/dL (13.5-17.5) Hematocrit 32.8 % (41.0-53.0) Mean Corpuscular Volume 81.6 fL (80.0-100.0) Mean Corpuscular Hemoglobin 25.9 pg (28.0-32.0) Mean Corpuscular Hemoglobin Concent 31.7 g/dL (32.0-36.0) Red Cell Distribution Width 15.9 % (11.8-14.3) Platelet Count 268 10^3/uL (140-450) Mean Platelet Volume 9.8 fL (6.9-10.8) Neutrophils (%) (Auto) 70.5 % (37.0-80.0) Lymphocytes (%) (Auto) 18.1 % (10.0-50.0) Monocytes (%) (Auto) 7.9 % (0.0-12.0) Eosinophils (%) (Auto) 2.9 % (0.0-7.0) Basophils (%) (Auto) 0.6 % (0.0-2.0) Neutrophils # (Auto) 8.9 10 ^3/uL (1.6-8.6) Lymphocytes # (Auto) 2.3 10 ^3/uL (0.4-5.4) Monocytes # (Auto) 1.0 10 ^3/uL (0-1.3) Eosinophils # (Auto) 0.4 10 ^3/uL (0-0.8) Basophils # (Auto) 0.1 10 ^3/uL (0-0.2) Nucleated Red Blood Cells 0.1 % Sodium Level 149 mmol/L (136-145) Potassium Level 3.9 mmol/L (3.5-5.1) Chloride Level 106 mmol/L (98-107) Carbon Dioxide Level 32 mmol/L (20-31) Anion Gap 11 (5-15) Blood Urea Nitrogen 33 mg/dL (9-23) Creatinine 1.20 mg/dL (0.700-1.30) Glomerular Filtration Rate Calc 71 mL/min (>90) BUN/Creatinine Ratio 27.5 (10.0-20.0) Serum Glucose 136 mg/dL (74-106) Calcium Level 7.9 mg/dL (8.7-10.4) Phosphorus Level 3.9 mg/dL (2.4-5.1) Magnesium Level 2.4 mg/dL (1.6-2.6) Total Bilirubin 0.5 mg/dL (0.2-1.0) Aspartate Amino Transferase (AST) 24 U/L (13-40) Alanine Aminotransferase (ALT) 67 U/L (7-40) Alkaline Phosphatase 79 U/L (46-116) Total Protein 6.2 g/dL (5.7-8.2) Albumin 2.9 g/dL (3.2-4.8) Test 04/15/25 00:50 04/14/25 16:27 04/14/25 13:40 04/14/25 12:57 Blood Gas Liter Flow 15.00 Troponin I High Sensitivity 90 ng/L (</=54) Creatine Kinase 133 U/L (46-171) Urine Color Yellow (Yellow) Urine Clarity Ex.turbid (Clear) Urine pH 5.5 (5.0-9.0) Urine Specific [place] 1.025 (1.001-1.035) Urine Protein 1+ (Negative) Urine Ketones Negative (Negative) Urine Blood 2+ /uL (Negative) Urine Nitrite Negative (Negative) Urine Bilirubin Negative (Negative) Urine Urobilinogen Normal mg/dL (Negative) Urine Leukocyte Esterase Negative /uL (Negative) Urine RBC 97 /hpf (0 - 3) Urine Microscopic WBC 4 /HPF (0-3) Urine Squamous Epithelial Cells Few /hpf (<5) Urine Uric Acid Crystals Many /hpf (None Seen) Urine Bacteria None seen /hpf (None Seen) Urine Mucus Few (None Seen) Urine Glucose Normal mg/dL (Normal) Test 04/14/25 12:44 Lactic Acid Level 1.5 mmol/L (0.4-2.0) Other Laboratory Tests 04/17/25 04:00 Brief Hx & Hospital Course: 59M BIBA w/ prior MHx of TBI, Schizophrenia, Insomnia, Anxiety, Bed bound, 10L of O2 via mask and the c/c of Hypoxia. EMS report on the pt being at [facility] and being d/c to [facility] where they picked the pt up today. [facility] nurses informed EMS that they are sending the pt to [facility] due from the pt going to be admitted by Dr. Powell. On scene pt had a fever of 103. Denies any other symptoms at this time. Denies chills, fever, N/V/D, SOB, CP. Denies any other associated symptom's, modifiers, or recent injuries or sick contact at this time. sepstic shock with pna acute metabolic encephalopathy acute hypoxic resp failure Demand ischemia seizure hx obesity loren chronic anemia Condition at Discharge: Fair Final Diagnosis/Problems List see above Discharge Disposition: Home Discharge Instruct/Medications Scheduled Aspirin (Aspirin 81), 81 MG PO DAILY, (Reported) Atorvastatin Calcium (Atorvastatin Calcium), 40 MG PO HS, (Reported) Carisoprodol (Soma), 350 MG PO TIDP, (Reported) Docusate Sodium (Docusate Sodium), 250 MG PO DAILY, (Reported) Ferrous Sulfate (Ferosul), 325 MG PO DAILY, (Reported) Fluoxetine HCl (Pmdd) (Fluoxetine HCl), 10 MG PO DAILY, (Reported) Folic Acid (Folic Acid), 1 MG PO DAILY, (Reported) Hydrochlorothiazide (Hydrochlorothiazide), 1 CAP PO DAILY, (Reported) Insulin Glargine (Lantus Solostar), 10 UNIT SC DAILY, (Reported) Levetiracetam (Keppra Tablet), 500 MG PO BID Levetiracetam (Keppra), 1 TAB PO BID Lorazepam (Ativan Tablet), 0.5 MG PO Q6HPRN, (Reported) Melatonin (Kp Melatonin), 3 MG PO QHSP, (Reported) Metformin Hydrochloride (Metformin Hcl), 1 TAB PO BID, (Reported) Naproxen (Naprosyn Tablet), 250 MG PO TIDP, (Reported) Pantoprazole Sodium Sesquihydr (Pantoprazole Sodium Dr), 40 MG PO DAILY Quetiapine Fumerate (Quetiapine Fumarate), 12.5 MG PO BID, (Reported) Sucralfate (Carafate), 1 GM OR BID Scheduled PRN Acetaminophen (Acetaminophen), 325 MG PO Q6HR PRN for PAIN SCALE 1 THRU 6, (Reported) Miscellaneous Medications Diclofenac Sodium (Topical) (Voltaren Arthritis Pain), 1 % EX, (Reported) Insulin Regular (Human) (Humulin R), 100 UNIT SUBCUT, (Reported) Discharge Statement: "Patient was advised to return to the ER or call 911 if any headaches, dizziness, shortness of breath, chest pain, abdominal pain, bleeding, fevers, or worsening of medical condition. Patient was counseled about treatment plan, medications, possible side effects, patientverbalized understanding. All questions were answered to the best of my ability. This discharge took greater then 30 minutes in planning, reviewing documentation, counseling the patient, and discussing with other team members." ASSESSMENT ASSESSMENT Assessment TARUN MARTINEZ DO Apr 18, 2025 01:25
--- NOTE | 2025-04-18 11:33 | DVHPN2 ---
Progress Note Date Seen: Apr 17, 2025 Medical Necessity Reason Pt with a Central, PICC or Fol: Yes The following are medically ne: Bennett Catheter Reason for bennett catheter: Strict I&O Objective vital signs Vital Sign Date Time Temp Pulse Resp B/P (MAP) Pulse Ox O2 Delivery O2 Flow Rate FiO2 04/18/25 00:45 98.8 62 16 90/58 (69) 95 209.8 04/18/25 00:17 35 04/18/25 00:00 Mechanical Ventilator+ 04/17/25 20:00 15 Total Intake and Output 04/17/25 04/17/25 04/18/25 15:00 23:00 07:00 Intake Total 967.75 ml 1113.75 ml 81.25 ml Output Total 250 ml Balance 967.75 ml 863.75 ml 81.25 ml medications Current Medications Medications Dose Ordered Sig/Cora Route Start Time Stop Time Status Last Admin Dose Admin Acetaminophen/ Hydrocodone Bitart 1 tab Q4HP PRN PO 04/14/25 19:15 Acetaminophen 650 mg Q6HP PRN PO 04/14/25 19:15 04/17/25 20:33 650 MG Morphine Sulfate 2 mg Q4HPRN PRN IV 04/14/25 19:15 Enoxaparin Sodium 40 mg DAILY SC 04/14/25 22:00 04/17/25 09:43 40 MG Nitroglycerin 0.4 mg Q5MINP PRN SL 04/14/25 19:15 Morphine Sulfate 2 mg Q30M PRN IV 04/14/25 19:15 Midazolam HCl 100 ml @ 1 mls/hr Q24H IV 04/15/25 13:45 04/17/25 02:55 4 MLS/HR Fentanyl Citrate 250 ml @ 2.5 mls/hr Q24H IV 04/15/25 13:45 04/17/25 21:55 2.5 MLS/HR Norepinephrine Bitartrate 250 ml @ 3.75 mls/hr Q24H IV 04/15/25 13:45 04/17/25 02:55 7.5 MLS/HR Ceftriaxone Sodium 50 ml @ 100 mls/hr DAILY@09 IV 04/15/25 15:00 04/17/25 09:42 100 MLS/HR Diagnostic Test (Pha) 1 strip Q6HR 04/16/25 00:00 04/18/25 00:18 1 STRIP Insulin Human Regular Q6HR SC 04/16/25 00:00 04/18/25 00:19 2 UNITS Dextrose 50 ml UD PRN IV 04/15/25 18:45 Levetiracetam 100 ml @ 400 mls/hr BID IV 04/16/25 22:00 04/17/25 20:22 400 MLS/HR Pantoprazole Sodium 40 mg DAILY IV 04/17/25 10:00 04/17/25 09:42 40 MG Enteral Nutritional Formula 1,000 ml 70ML/HR GT 04/16/25 14:30 04/16/25 18:54 1,000 ML Purified Water 170 ml Q6HR GT 04/16/25 18:00 04/18/25 00:18 170 ML Sodium Chloride 1,000 ml @ 75 mls/hr [id number] IV 04/16/25 15:15 04/17/25 15:24 75 MLS/HR laboratory and microbiology Laboratory Tests 04/17/25 04:00 Test 04/17/25 04:00 Range/Units Serum Glucose 136 H 74-106 mg/dL Microbiology Date/Time Source Procedure Growth Status 04/15/25 21:10 Bronchial Washings Gram Stain - Final Resulted 04/15/25 21:10 Bronchial Washings Respiratory Culture - Preliminary Resulted 04/15/25 02:32 Stool Clostridium difficile Toxin Assay - Final Complete 04/15/25 02:30 Nose MRSA Screen - Final Methicillin Resistant S.aureus Complete 04/14/25 12:52 Blood Blood Culture - Final Staphylococcus epidermidis Complete Labs and/or images reviewed: Labs reviewed by me, Image(s) reviewed by me Problem List/Assessment/Plan Problem List/Assessment/Plan 59M BIBA w/ prior MHx of TBI, Schizophrenia, Insomnia, Anxiety, Bed bound, 10L of O2 via mask and the c/c of Hypoxia. EMS report on the pt being at [facility] and being d/c to [facility] where they picked the pt up today. [facility] nurses informed EMS that they are sending the pt to [facility] due from the pt going to be admitted by Dr. Powell. On scene pt had a fever of 103. Denies any other symptoms at this time. Denies chills, fever, N/V/D, SOB, CP. Denies any other associated symptom's, modifiers, or recent injuries or sick contact at this time. sepstic shock with pna acute metabolic encephalopathy acute hypoxic resp failure Demand ischemia seizure hx obesity loren chronic anemia weaning down on vent as tolerate time: >45 minutes of critical care time Plan discussed with: Spouse Dietary Evaluation Review Comments: Nutrition Recommendation: 1) Consider TPN if NPO>7 days 2) [facility] 2gm Na diet as medically feasible, per SPT approval 3) If feeding tube is placed, consider EN Glucerna 1.2 Eric @ 70ml/hr x 24hr(goal). Water flush 170ml Q6H if allowed, adjust PRN. TF at goal volume provides 2016 kcal (100%), 101gm protein (97%), and 2032 ml free water (including flush). 4) Naveen 1 pk BID, MVI w/ minerals 1 tab daily, VitC 500mg BID, Zinc sulfate 220mg BID x 10 days 5) Monitor NPO status, lab values, weight trend, and I/O Expected Outcomes/Goals: Intake to meet >75% estimated needs Lab values to improve Fu 2-3 days TARUN MARTINEZ DO Apr 18, 2025 01:26
[2025-04-18] MEDS: NOREPINEPHRINE 8 MG/250ML KIT 250 ML IV SCH (20:00)
[2025-04-18] MEDS: MUPIROCIN 2% OINT 15gm or 22gm FOR MRSA NARES EACHNOSTRI SCH (21:59)
--- NOTE | 2025-04-18 23:20 | DVHPN2 ---
Progress Note - Dictate Date Seen: Apr 18, 2025 Medical Necessity Reason Pt with a Central, PICC or Fol: Yes The following are medically ne: Bennett Catheter Reason for bennett catheter: Strict I&O Subjective Patient seen and examined at bedside. Sedated, intubated on mechanical ventilator. Overnight events reviewed. vital signs Vital Sign Date Time Temp Pulse Resp B/P (MAP) Pulse Ox O2 Delivery O2 Flow Rate FiO2 04/18/25 21:00 99.1 90 16 108/75 (86) 96 210.4 04/18/25 20:22 35 04/18/25 20:00 Mechanical Ventilator+ 04/17/25 20:00 15 Total Intake and Output 04/17/25 04/17/25 04/18/25 15:00 23:00 07:00 Intake Total 967.75 ml 1113.75 ml 975.00 ml Output Total 250 ml 550 ml Balance 967.75 ml 863.75 ml 425.00 ml medications Current Medications Medications Dose Ordered Sig/Cora Route Start Time Stop Time Status Last Admin Dose Admin Acetaminophen/ Hydrocodone Bitart 1 tab Q4HP PRN PO 04/14/25 19:15 Acetaminophen 650 mg Q6HP PRN PO 04/14/25 19:15 04/17/25 20:33 650 MG Morphine Sulfate 2 mg Q4HPRN PRN IV 04/14/25 19:15 Enoxaparin Sodium 40 mg DAILY SC 04/14/25 22:00 04/18/25 10:03 40 MG Nitroglycerin 0.4 mg Q5MINP PRN SL 04/14/25 19:15 Morphine Sulfate 2 mg Q30M PRN IV 04/14/25 19:15 Midazolam HCl 100 ml @ 1 mls/hr Q24H IV 04/15/25 13:45 04/17/25 02:55 4 MLS/HR Fentanyl Citrate 250 ml @ 2.5 mls/hr Q24H IV 04/15/25 13:45 04/17/25 21:55 2.5 MLS/HR Ceftriaxone Sodium 50 ml @ 100 mls/hr DAILY@09 IV 04/15/25 15:00 04/18/25 10:03 100 MLS/HR Diagnostic Test (Pha) 1 strip Q6HR 04/16/25 00:00 04/18/25 18:32 1 STRIP Insulin Human Regular Q6HR SC 04/16/25 00:00 04/18/25 00:19 2 UNITS Dextrose 50 ml UD PRN IV 04/15/25 18:45 Levetiracetam 100 ml @ 400 mls/hr BID IV 04/16/25 22:00 04/18/25 21:59 400 MLS/HR Pantoprazole Sodium 40 mg DAILY IV 04/17/25 10:00 04/18/25 10:03 40 MG Enteral Nutritional Formula 1,000 ml 70ML/HR GT 04/16/25 14:30 04/16/25 18:54 1,000 ML Purified Water 170 ml Q6HR GT 04/16/25 18:00 04/18/25 18:00 170 ML Sodium Chloride 1,000 ml @ 75 mls/hr [id number] IV 04/16/25 15:15 04/18/25 16:04 75 MLS/HR Mupirocin 1 applic BID EACHNOSTRI 04/18/25 22:00 04/23/25 21:59 04/18/25 21:59 1 APPLIC Norepinephrine Bitartrate 250 ml @ 1.875 mls/ hr Q24H IV 04/18/25 20:00 objective Gen.: Patient lying in bed in medical ICU. Sedated, intubated on mechanical ventilator. Head: Normocephalic, atraumatic. Eyes: PERRLA. Ears: Normal external anatomy. Throat: Endotracheal tube and orogastric tube in place. Neck: Supple, trachea midline. Chest: Transmitted breath sounds bilaterally. Decreased air entry bilaterally. No wheezing. Bibasilar crackles. Cardiovascular: Positive S1, positive S2. Regular rate and rhythm. Abdomen: Positive bowel sounds in all 4 quadrants. Soft, nontender, nondistended. : Bennett in place. Normal external genitalia. Rectal: Deferred. Skin: Warm, dry. Intact. Extremities: 2+ radial pulses bilaterally. No lower extremity edema. Neuro: Sedated. laboratory and microbiology Laboratory Tests 04/18/25 03:05 Test 04/18/25 03:05 Range/Units Serum Glucose 97 74-106 mg/dL Assessment/Plan Impression: Acute hypoxic respiratory failure On mechanical ventilator Septic shock Pneumonia Atelectasis Mucous plugging Events: Remains on vent support On AC mode; RR 16, VT 450, PEEP 8, FiO2 40% Improved FiO2 requirements. Continue to taper as tolerated Patient tolerated CPAP trial. ABG reviewed, compensated. CXR reveals Stable support devices with low lung volumes and mild basilar opacities.. Pressors for hemodynamic support On Levophed Titrate to keep mean arterial pressure greater than 65 mmHg. Continue antibiotics Follow up cultures Keppra for antiepileptic Tube feedings for nutritional support Free water + IV fluids - Na of 149 on 04/17. Continue to monitor Monitor hemoglobin - trended down to 9.4 g/dL Continue SBT/KRISTINA OK for Precedex if necessary Labs and imaging reviewed. Rest of plan as noted below. Plan: s/p intubation on mechanical ventilator. On AC mode; RR 16, VT 450, PEEP 8, FiO2 40% Titrate FIO2 to keep O2 saturation above 90%. VAP bundle. Daily ABG and CXR while intubated S/p placement of right SCV central line. S/p bronchoscopy with RML BAL on 04/15/25 - mucous plugging removed from RUL, RML, RLL. Sent for bacterial cultures. Continue antibiotics. Follow up cultures. Pressors as necessary for hemodynamic support Titrate to keep mean arterial pressure greater than 65 mmHg. Monitor renal function Monitor electrolytes. Supplement as necessary. Monitor ins and outs. Monitor hemoglobin Transfuse if less than 7.0 g/dL. DVT prophylaxis - Lovenox SC. Prognosis: Poor given patient's multiple co-morbidities. Condition: Critical Rest of plan per hospitalist and other consultants. A total of 35 minutes of critical care time was spent reviewing the patient record, examining the patient, making a diagnostic and therapeutic plan, discussing this plan with the medical personnel, following up on diagnostic studies and following the patient for clinical stability excluding any and all procedures. At least 50% of this time was spent in direct, [id number] contact. Thank you, Dr. Rubio, for allowing me to participate in this patient's care. Further recommendations will depend on the patient's clinical course. Please do not hesitate to contact me if you have any questions or concerns. This medical document was created using an electronic medical record system with [employer] system. Although these documentations are being carefully reviewed, there may still be some phonetic and typographical changes. The errors are purely typographical, due to imperfection on the software program, and do not reflect any compromise in the patient's medical care. Dietary Evaluation Review Comments: Nutrition Recommendation: 1) Consider TPN if NPO>7 days 2) [facility] Na diet as medically feasible, per SPT approval 3) If feeding tube is placed, consider EN Glucerna 1.2 Eric @ 70ml/hr x 24hr(goal). Water flush 170ml Q6H if allowed, adjust PRN. TF at goal volume provides 2016 kcal (100%), 101gm protein (97%), and 2032 ml free water (including flush). 4) Naveen 1 pk BID, MVI w/ minerals 1 tab daily, VitC 500mg BID, Zinc sulfate 220mg BID x 10 days 5) Monitor NPO status, lab values, weight trend, and I/O Expected Outcomes/Goals: Intake to meet >75% estimated needs Lab values to improve Fu 2-3 days Plan discussed with: Other (RN) Critical Care Time(min): 35 [facility] Apr 18, 2025 23:20
[2025-04-19] VITALS (108 sets, daily range): BP systolic 80–157; BP diastolic 47–90; PULSE 69–98; RESP 6–31; TEMP 98–99; O2SAT 89–100
[2025-04-19 04:07] LABS: Hematocrit 30.2 % (41.0-53.0); Hemoglobin 9.7 g/dL (13.5-17.5); Mean Corpuscular Hemoglobin 25.8 pg (28.0-32.0); Mean Corpuscular Volume 80.2 fL (80.0-100.0); Nucleated Red Blood Cells % 0.1 %
[2025-04-19 04:18] LABS: Alkaline Phosphatase 77 U/L (46-116); Anion Gap 9 (5-15); BUN/Creatinine Ratio 17.3 (10.0-20.0); Blood Urea Nitrogen 13 mg/dL (9-23); Carbon Dioxide 28 mmol/L (20-31); Chloride 106 mmol/L (98-107); Glucose 87 mg/dL (74-106); Magnesium 1.9 mg/dL (1.6-2.6); Potassium 3.5 mmol/L (3.5-5.1); Sodium 143 mmol/L (136-145)
[2025-04-19 04:20] LABS: Bilirubin, Total 0.4 mg/dL (0.2-1.0)
[2025-04-19 04:38] LABS: Alanine Aminotransferase 40 U/L (7-40); Albumin 2.5 g/dL (3.2-4.8); Calcium 7.5 mg/dL (8.7-10.4); Total Protein 5.3 g/dL (5.7-8.2)
[2025-04-19] MEDS: CALCIUM GLUC 1,000mg/50ml-NS 50 ML IV ONE (05:55)
--- NOTE | 2025-04-19 06:11 | DVH ---
CHEST RADIOGRAPH Indication: intubated Technique: Single frontal view of the chest was obtained COMPARISON: XY CHEST PORTABLE on DOS: 04/18/25, XY CHEST XRAY 1 VIEW on DOS: 04/17/25, XY CHEST ODESSA BLE on DOS: 04/15/25, XY CHEST PORTABLE on DOS: 04/15/25, XY CHEST PORTABLE on DOS: 04/15/25 FINDINGS: Lines and Tubes: Unchanged. Lungs: Minimal bibasilar pulmonary airspace disease. Pleura: No effusion. No pneumothorax. Cardiomediastinal contours: Unremarkable Bones: Unremarkable IMPRESSION: 1. Minimal bibasilar pulmonary airspace disease. 2. Lines and tubes unchanged.
[2025-04-19 07:56] LABS: Base Excess 2.3 mmol/L (-2.0-3.0)
--- NOTE | 2025-04-19 20:52 | DVHPN2 ---
Progress Note - Dictate Date Seen: Apr 19, 2025 Medical Necessity Reason Pt with a Central, PICC or Fol: Yes The following are medically ne: Bennett Catheter Reason for bennett catheter: Strict I&O Subjective Patient seen and examined at bedside. intubated on mechanical ventilator. Overnight events reviewed. vital signs Vital Sign Date Time Temp Pulse Resp B/P (MAP) Pulse Ox O2 Delivery O2 Flow Rate FiO2 04/19/25 20:00 74 16 96 Mechanical Ventilator+ 35 35 04/19/25 20:00 98.3 92/60 (71) 98.3 04/17/25 20:00 15 Total Intake and Output 04/18/25 04/18/25 04/19/25 15:00 23:00 07:00 Intake Total 755.0 ml 902.5 ml 1212.5 ml Output Total 600 ml 725 ml Balance 755.0 ml 302.5 ml 487.5 ml medications Current Medications Medications Dose Ordered Sig/Cora Route Start Time Stop Time Status Last Admin Dose Admin Acetaminophen/ Hydrocodone Bitart 1 tab Q4HP PRN PO 04/14/25 19:15 Acetaminophen 650 mg Q6HP PRN PO 04/14/25 19:15 04/17/25 20:33 650 MG Morphine Sulfate 2 mg Q4HPRN PRN IV 04/14/25 19:15 Enoxaparin Sodium 40 mg DAILY SC 04/14/25 22:00 04/19/25 10:00 40 MG Nitroglycerin 0.4 mg Q5MINP PRN SL 04/14/25 19:15 Morphine Sulfate 2 mg Q30M PRN IV 04/14/25 19:15 Midazolam HCl 100 ml @ 1 mls/hr Q24H IV 04/15/25 13:45 04/17/25 02:55 4 MLS/HR Fentanyl Citrate 250 ml @ 2.5 mls/hr Q24H IV 04/15/25 13:45 04/19/25 16:12 7.5 MLS/HR Ceftriaxone Sodium 50 ml @ 100 mls/hr DAILY@09 IV 04/15/25 15:00 04/18/25 10:03 100 MLS/HR Diagnostic Test (Pha) 1 strip Q6HR 04/16/25 00:00 04/19/25 17:44 1 STRIP Insulin Human Regular Q6HR SC 04/16/25 00:00 04/18/25 00:19 2 UNITS Dextrose 50 ml UD PRN IV 04/15/25 18:45 Levetiracetam 100 ml @ 400 mls/hr BID IV 04/16/25 22:00 04/19/25 09:59 400 MLS/HR Pantoprazole Sodium 40 mg DAILY IV 04/17/25 10:00 04/19/25 09:59 40 MG Enteral Nutritional Formula 1,000 ml 70ML/HR GT 04/16/25 14:30 04/19/25 16:15 1,000 ML Purified Water 170 ml Q6HR GT 04/16/25 18:00 04/19/25 17:44 170 ML Sodium Chloride 1,000 ml @ 75 mls/hr [id number] IV 04/16/25 15:15 04/19/25 16:52 75 MLS/HR Mupirocin 1 applic BID EACHNOSTRI 04/18/25 22:00 04/23/25 21:59 04/19/25 09:59 1 APPLIC Norepinephrine Bitartrate 250 ml @ 1.875 mls/ hr Q24H IV 04/18/25 20:00 objective Gen.: Patient lying in bed in medical ICU. Intubated on mechanical ventilator. Head: Normocephalic, atraumatic. Eyes: PERRLA. Ears: Normal external anatomy. Throat: Endotracheal tube and orogastric tube in place. Neck: Supple, trachea midline. Chest: Transmitted breath sounds bilaterally. Decreased air entry bilaterally. No wheezing. Bibasilar crackles. Cardiovascular: Positive S1, positive S2. Regular rate and rhythm. Abdomen: Positive bowel sounds in all 4 quadrants. Soft, nontender, nondistended. : Bennett in place. Normal external genitalia. Rectal: Deferred. Skin: Warm, dry. Intact. Extremities: 2+ radial pulses bilaterally. No lower extremity edema. Neuro: Off sedation laboratory and microbiology Laboratory Tests 04/19/25 03:25 Test 04/19/25 03:25 Range/Units Serum Glucose 87 74-106 mg/dL Assessment/Plan Impression: Acute hypoxic respiratory failure On mechanical ventilator Septic shock Pneumonia Atelectasis Mucous plugging Events: Remains on vent support On AC mode; RR 16, VT 450, PEEP 5, FiO2 35% Improved FiO2 requirements. Continue to taper as tolerated Off sedation. CPAP trial. CPAP with PS 8, PEEP of 5 OK to increase PS to max 20 cmH2O to achieve tidal volume 400-500 mL. ABG reviewed, compensated. CXR reveals minimal bibasilar pulmonary airspace disease. Devices in place.. Continue antibiotics Follow up cultures Keppra for antiepileptic Tube feedings for nutritional support Free water supplementation - Na currently 143 . Monitor hemoglobin - stable at 9.7 g/dL Continue SBT/KRISTINA OK for Precedex if necessary Labs and imaging reviewed. Rest of plan as noted below. Plan: s/p intubation on mechanical ventilator. On AC mode; RR 16, VT 450, PEEP 5, FiO2 35% Titrate FIO2 to keep O2 saturation above 90%. VAP bundle. Daily ABG and CXR while intubated S/p placement of right SCV central line. S/p bronchoscopy with RML BAL on 04/15/25 - mucous plugging removed from RUL, RML, RLL. Sent for bacterial cultures. Continue antibiotics. Follow up cultures. Pressors as necessary for hemodynamic support Titrate to keep mean arterial pressure greater than 65 mmHg. Monitor renal function Monitor electrolytes. Supplement as necessary. Monitor ins and outs. Monitor hemoglobin Transfuse if less than 7.0 g/dL. DVT prophylaxis - Lovenox SC. Prognosis: Poor given patient's multiple co-morbidities. Condition: Critical Rest of plan per hospitalist and other consultants. A total of 35 minutes of critical care time was spent reviewing the patient record, examining the patient, making a diagnostic and therapeutic plan, discussing this plan with the medical personnel, following up on diagnostic studies and following the patient for clinical stability excluding any and all procedures. At least 50% of this time was spent in direct, [id number] contact. Thank you, Dr. Rubio, for allowing me to participate in this patient's care. Further recommendations will depend on the patient's clinical course. Please do not hesitate to contact me if you have any questions or concerns. This medical document was created using an electronic medical record system with [employer] system. Although these documentations are being carefully reviewed, there may still be some phonetic and typographical changes. The errors are purely typographical, due to imperfection on the software program, and do not reflect any compromise in the patient's medical care. Dietary Evaluation Review Comments: Nutrition Recommendation: 1) Consider TPN if NPO>7 days 2) [facility] to [facility] + 2gm Na diet as medically feasible, per SPT approval 3) If feeding tube is placed, consider EN Glucerna 1.2 Eric @ 70ml/hr x 24hr(goal). Water flush 170ml Q6H if allowed, adjust PRN. TF at goal volume provides 2016 kcal (100%), 101gm protein (97%), and 2032 ml free water (including flush). 4) Naveen 1 pk BID, MVI w/ minerals 1 tab daily, VitC 500mg BID, Zinc sulfate 220mg BID x 10 days 5) Monitor NPO status, lab values, weight trend, and I/O Expected Outcomes/Goals: Intake to meet >75% estimated needs Lab values to improve Fu 2-3 days Plan discussed with: Other (GOMEZ Chaudhari) Critical Care Time(min): 35 [facility] MANCILLA [facility] Apr 19, 2025 20:51
[2025-04-20] VITALS (108 sets, daily range): BP systolic 85–118; BP diastolic 49–80; PULSE 63–95; RESP 14–22; TEMP 98.2–99.5; O2SAT 92–100
[2025-04-20 05:01] LABS: Hematocrit 28.3 % (41.0-53.0); Hemoglobin 9.1 g/dL (13.5-17.5); Mean Corpuscular Hemoglobin 25.9 pg (28.0-32.0); Mean Corpuscular Volume 79.9 fL (80.0-100.0); Nucleated Red Blood Cells % 0.0 %
[2025-04-20 05:13] LABS: Alanine Aminotransferase 33 U/L (7-40); Alkaline Phosphatase 75 U/L (46-116); Anion Gap 11 (5-15); BUN/Creatinine Ratio 11.8 (10.0-20.0); Blood Urea Nitrogen 9 mg/dL (9-23); Carbon Dioxide 27 mmol/L (20-31); Chloride 104 mmol/L (98-107); Glucose 88 mg/dL (74-106); Magnesium 1.7 mg/dL (1.6-2.6); Sodium 142 mmol/L (136-145)
[2025-04-20 05:14] LABS: Bilirubin, Total 0.3 mg/dL (0.2-1.0)
[2025-04-20 05:18] LABS: Albumin 2.4 g/dL (3.2-4.8); Calcium 7.7 mg/dL (8.7-10.4); Potassium 3.2 mmol/L (3.5-5.1); Total Protein 5.1 g/dL (5.7-8.2)
--- NOTE | 2025-04-20 05:29 | DVH ---
CHEST RADIOGRAPH Indication: pt intubated Technique: Single frontal view of the chest was obtained Comparison: XY CHEST PORTABLE on DOS: 04/19/25, XY CHEST PORTABLE on DOS: 04/18/25, XY CHEST XRAY 1 EW on DOS: 04/17/25 IMPRESSION: Support lines and tubes appear unchanged in satisfactory position. Airspace opacity in the right low er lung has increased which may represent infectious process. There is a probable small right pleura l effusion. Left lung appears clear. No pneumothorax.
[2025-04-20] MEDS: POTASSIUM CHL 20MEQ/100ML 100 ML IV SCH (07:41)
[2025-04-20] MEDS: MAGNESIUM SULFATE 1GM/100ML 100 ML IV SCH (08:00)
--- NOTE | 2025-04-20 20:23 | DVHPN2 ---
Progress Note Date Seen: Apr 19, 2025 Medical Necessity Reason Pt with a Central, PICC or Fol: Yes The following are medically ne: Bennett Catheter Reason for bennett catheter: Strict I&O Objective vital signs Vital Sign Date Time Temp Pulse Resp B/P (MAP) Pulse Ox O2 Delivery O2 Flow Rate FiO2 04/20/25 18:30 80 16 115/70 (85) 94 04/20/25 18:00 35 04/20/25 18:00 Mechanical Ventilator+ 04/20/25 16:00 98.7 98.7 Total Intake and Output 04/19/25 04/19/25 04/20/25 15:00 23:00 07:00 Intake Total 714.625 ml 985.5 ml 1020 ml Output Total 1150 ml 1400 ml Balance 714.625 ml -164.5 ml -380 ml medications Current Medications Medications Dose Ordered Sig/Cora Route Start Time Stop Time Status Last Admin Dose Admin Acetaminophen/ Hydrocodone Bitart 1 tab Q4HP PRN PO 04/14/25 19:15 Acetaminophen 650 mg Q6HP PRN PO 04/14/25 19:15 04/17/25 20:33 650 MG Morphine Sulfate 2 mg Q4HPRN PRN IV 04/14/25 19:15 Enoxaparin Sodium 40 mg DAILY SC 04/14/25 22:00 04/20/25 09:46 40 MG Nitroglycerin 0.4 mg Q5MINP PRN SL 04/14/25 19:15 Morphine Sulfate 2 mg Q30M PRN IV 04/14/25 19:15 Midazolam HCl 100 ml @ 1 mls/hr Q24H IV 04/15/25 13:45 04/17/25 02:55 4 MLS/HR Fentanyl Citrate 250 ml @ 2.5 mls/hr Q24H IV 04/15/25 13:45 04/19/25 16:12 7.5 MLS/HR Ceftriaxone Sodium 50 ml @ 100 mls/hr DAILY@09 IV 04/15/25 15:00 04/20/25 08:40 100 MLS/HR Diagnostic Test (Pha) 1 strip Q6HR 04/16/25 00:00 04/20/25 18:07 1 STRIP Insulin Human Regular Q6HR SC 04/16/25 00:00 04/18/25 00:19 2 UNITS Dextrose 50 ml UD PRN IV 04/15/25 18:45 Levetiracetam 100 ml @ 400 mls/hr BID IV 04/16/25 22:00 04/20/25 09:46 400 MLS/HR Pantoprazole Sodium 40 mg DAILY IV 04/17/25 10:00 04/20/25 09:46 40 MG Enteral Nutritional Formula 1,000 ml 70ML/HR GT 04/16/25 14:30 04/19/25 16:15 1,000 ML Purified Water 170 ml Q6HR GT 04/16/25 18:00 04/20/25 18:07 170 ML Sodium Chloride 1,000 ml @ 75 mls/hr [id number] IV 04/16/25 15:15 04/20/25 18:10 75 MLS/HR Mupirocin 1 applic BID EACHNOSTRI 04/18/25 22:00 04/23/25 21:59 04/20/25 09:46 1 APPLIC Norepinephrine Bitartrate 250 ml @ 1.875 mls/ hr Q24H IV 04/18/25 20:00 laboratory and microbiology Laboratory Tests 04/20/25 03:30 Test 04/20/25 03:30 Range/Units Serum Glucose 88 74-106 mg/dL Microbiology Date/Time Source Procedure Growth Status 04/15/25 21:10 Bronchial Washings Gram Stain - Final Complete 04/15/25 21:10 Bronchial Washings Respiratory Culture - Final Complete 04/15/25 02:32 Stool Clostridium difficile Toxin Assay - Final Complete 04/15/25 02:30 Nose MRSA Screen - Final Methicillin Resistant S.aureus Complete 04/14/25 12:52 Blood Blood Culture - Final Staphylococcus epidermidis Complete Labs and/or images reviewed: Labs reviewed by me, Image(s) reviewed by me Problem List/Assessment/Plan Problem List/Assessment/Plan 59M BIBA w/ prior MHx of TBI, Schizophrenia, Insomnia, Anxiety, Bed bound, 10L of O2 via mask and the c/c of Hypoxia. EMS [place] [facility] [place] to [facility] where they picked the pt up today. [facility] nurses informed EMS that they are sending the pt to [facility] due from the pt going to be admitted by Dr. Powell. On scene pt had a fever of 103. Denies any other symptoms at this time. Denies chills, fever, N/V/D, SOB, CP. Denies any other associated symptom's, modifiers, or recent injuries or sick contact at this time. sepstic shock with pna acute metabolic encephalopathy acute hypoxic resp failure Demand ischemia seizure hx obesity loren chronic anemia weaning down on vent as tolerate time: >45 minutes of critical care time Plan discussed with: Spouse My Orders My Orders Orders - TARUN MARTINEZ DO Procedure Category Date Status Time Chest Portable XY 04/20/25 Resulted 04:00 Chest Portable XY 04/21/25 Logged 04:00 Complete Blood Count LAB 04/21/25 Verified 04:00 Magnesium LAB 04/21/25 Verified 04:00 Phosphorus LAB 04/21/25 Verified 04:00 Comprehensive LAB 04/21/25 Verified Metabolic Panel 04:00 Dietary Evaluation Review Comments: Nutrition Recommendation: 1) Consider TPN if NPO>7 days 2) [facility] + 2gm Na diet as medically feasible, per SPT approval 3) If feeding tube is placed, consider EN Glucerna 1.2 Eric @ 70ml/hr x 24hr(goal). Water flush 170ml Q6H if allowed, adjust PRN. TF at goal volume provides 2016 kcal (100%), 101gm protein (97%), and 2032 ml free water (including flush). 4) Naveen 1 pk BID, MVI w/ minerals 1 tab daily, VitC 500mg BID, Zinc sulfate 220mg BID x 10 days 5) Monitor NPO status, lab values, weight trend, and I/O Expected Outcomes/Goals: Intake to meet >75% estimated needs Lab values to improve Fu 2-3 days TARUN MARTINEZ DO Apr 20, 2025 20:23
--- NOTE | 2025-04-20 20:23 | DVHPN2 ---
Progress Note Date Seen: Apr 18, 2025 Medical Necessity Reason Pt with a Central, PICC or Fol: Yes The following are medically ne: Bennett Catheter Reason for bennett catheter: Strict I&O Objective vital signs Vital Sign Date Time Temp Pulse Resp B/P (MAP) Pulse Ox O2 Delivery O2 Flow Rate FiO2 04/20/25 18:30 80 16 115/70 (85) 94 04/20/25 18:00 35 04/20/25 18:00 Mechanical Ventilator+ 04/20/25 16:00 98.7 98.7 Total Intake and Output 04/19/25 04/19/25 04/20/25 15:00 23:00 07:00 Intake Total 714.625 ml 985.5 ml 1020 ml Output Total 1150 ml 1400 ml Balance 714.625 ml -164.5 ml -380 ml medications Current Medications Medications Dose Ordered Sig/Cora Route Start Time Stop Time Status Last Admin Dose Admin Acetaminophen/ Hydrocodone Bitart 1 tab Q4HP PRN PO 04/14/25 19:15 Acetaminophen 650 mg Q6HP PRN PO 04/14/25 19:15 04/17/25 20:33 650 MG Morphine Sulfate 2 mg Q4HPRN PRN IV 04/14/25 19:15 Enoxaparin Sodium 40 mg DAILY SC 04/14/25 22:00 04/20/25 09:46 40 MG Nitroglycerin 0.4 mg Q5MINP PRN SL 04/14/25 19:15 Morphine Sulfate 2 mg Q30M PRN IV 04/14/25 19:15 Midazolam HCl 100 ml @ 1 mls/hr Q24H IV 04/15/25 13:45 04/17/25 02:55 4 MLS/HR Fentanyl Citrate 250 ml @ 2.5 mls/hr Q24H IV 04/15/25 13:45 04/19/25 16:12 7.5 MLS/HR Ceftriaxone Sodium 50 ml @ 100 mls/hr DAILY@09 IV 04/15/25 15:00 04/20/25 08:40 100 MLS/HR Diagnostic Test (Pha) 1 strip Q6HR 04/16/25 00:00 04/20/25 18:07 1 STRIP Insulin Human Regular Q6HR SC 04/16/25 00:00 04/18/25 00:19 2 UNITS Dextrose 50 ml UD PRN IV 04/15/25 18:45 Levetiracetam 100 ml @ 400 mls/hr BID IV 04/16/25 22:00 04/20/25 09:46 400 MLS/HR Pantoprazole Sodium 40 mg DAILY IV 04/17/25 10:00 04/20/25 09:46 40 MG Enteral Nutritional Formula 1,000 ml 70ML/HR GT 04/16/25 14:30 04/19/25 16:15 1,000 ML Purified Water 170 ml Q6HR GT 04/16/25 18:00 04/20/25 18:07 170 ML Sodium Chloride 1,000 ml @ 75 mls/hr [id number] IV 04/16/25 15:15 04/20/25 18:10 75 MLS/HR Mupirocin 1 applic BID EACHNOSTRI 04/18/25 22:00 04/23/25 21:59 04/20/25 09:46 1 APPLIC Norepinephrine Bitartrate 250 ml @ 1.875 mls/ hr Q24H IV 04/18/25 20:00 laboratory and microbiology Laboratory Tests 04/20/25 03:30 Test 04/20/25 03:30 Range/Units Serum Glucose 88 74-106 mg/dL Microbiology Date/Time Source Procedure Growth Status 04/15/25 21:10 Bronchial Washings Gram Stain - Final Complete 04/15/25 21:10 Bronchial Washings Respiratory Culture - Final Complete 04/15/25 02:32 Stool Clostridium difficile Toxin Assay - Final Complete 04/15/25 02:30 Nose MRSA Screen - Final Methicillin Resistant S.aureus Complete 04/14/25 12:52 Blood Blood Culture - Final Staphylococcus epidermidis Complete Problem List/Assessment/Plan Problem List/Assessment/Plan 59M BIBA w/ prior MHx of TBI, Schizophrenia, Insomnia, Anxiety, Bed bound, 10L of O2 via mask and the c/c of Hypoxia. EMS report [place] [facility] [place] to [facility] where they picked the pt up today. [facility] nurses informed EMS that they are sending the pt to [facility] due from the pt going to be admitted by Dr. Powell. On scene pt had a fever of 103. Denies any other symptoms at this time. Denies chills, fever, N/V/D, SOB, CP. Denies any other associated symptom's, modifiers, or recent injuries or sick contact at this time. sepstic shock with pna acute metabolic encephalopathy acute hypoxic resp failure Demand ischemia seizure hx obesity loren chronic anemia weaning down on vent as tolerate time: >45 minutes of critical care time Plan discussed with: Spouse My Orders My Orders Orders - TARUN MARTINEZ DO Procedure Category Date Status Time Chest Portable XY 04/20/25 Resulted 04:00 Chest Portable XY 04/21/25 Logged 04:00 Complete Blood Count LAB 04/21/25 Verified 04:00 Magnesium LAB 04/21/25 Verified 04:00 Phosphorus LAB 04/21/25 Verified 04:00 Comprehensive LAB 04/21/25 Verified Metabolic Panel 04:00 Dietary Evaluation Review Comments: Nutrition Recommendation: 1) Consider TPN if NPO>7 days 2) [facility] + 2gm Na diet as medically feasible, per SPT approval 3) If feeding tube is placed, consider EN Glucerna 1.2 Eric @ 70ml/hr x 24hr(goal). Water flush 170ml Q6H if allowed, adjust PRN. TF at goal volume provides 2016 kcal (100%), 101gm protein (97%), and 2032 ml free water (including flush). 4) Naveen 1 pk BID, MVI w/ minerals 1 tab daily, VitC 500mg BID, Zinc sulfate 220mg BID x 10 days 5) Monitor NPO status, lab values, weight trend, and I/O Expected Outcomes/Goals: Intake to meet >75% estimated needs Lab values to improve Fu 2-3 days TARUN MARTINEZ DO Apr 20, 2025 20:23
--- NOTE | 2025-04-20 20:24 | DVHPN2 ---
Progress Note Date Seen: Apr 20, 2025 Medical Necessity Reason Pt with a Central, PICC or Fol: Yes The following are medically ne: Bennett Catheter Reason for bennett catheter: Strict I&O Objective vital signs Vital Sign Date Time Temp Pulse Resp B/P (MAP) Pulse Ox O2 Delivery O2 Flow Rate FiO2 04/20/25 18:30 80 16 115/70 (85) 94 04/20/25 18:00 35 04/20/25 18:00 Mechanical Ventilator+ 04/20/25 16:00 98.7 98.7 Total Intake and Output 04/19/25 04/19/25 04/20/25 15:00 23:00 07:00 Intake Total 714.625 ml 985.5 ml 1020 ml Output Total 1150 ml 1400 ml Balance 714.625 ml -164.5 ml -380 ml medications Current Medications Medications Dose Ordered Sig/Cora Route Start Time Stop Time Status Last Admin Dose Admin Acetaminophen/ Hydrocodone Bitart 1 tab Q4HP PRN PO 04/14/25 19:15 Acetaminophen 650 mg Q6HP PRN PO 04/14/25 19:15 04/17/25 20:33 650 MG Morphine Sulfate 2 mg Q4HPRN PRN IV 04/14/25 19:15 Enoxaparin Sodium 40 mg DAILY SC 04/14/25 22:00 04/20/25 09:46 40 MG Nitroglycerin 0.4 mg Q5MINP PRN SL 04/14/25 19:15 Morphine Sulfate 2 mg Q30M PRN IV 04/14/25 19:15 Midazolam HCl 100 ml @ 1 mls/hr Q24H IV 04/15/25 13:45 04/17/25 02:55 4 MLS/HR Fentanyl Citrate 250 ml @ 2.5 mls/hr Q24H IV 04/15/25 13:45 04/19/25 16:12 7.5 MLS/HR Ceftriaxone Sodium 50 ml @ 100 mls/hr DAILY@09 IV 04/15/25 15:00 04/20/25 08:40 100 MLS/HR Diagnostic Test (Pha) 1 strip Q6HR 04/16/25 00:00 04/20/25 18:07 1 STRIP Insulin Human Regular Q6HR SC 04/16/25 00:00 04/18/25 00:19 2 UNITS Dextrose 50 ml UD PRN IV 04/15/25 18:45 Levetiracetam 100 ml @ 400 mls/hr BID IV 04/16/25 22:00 04/20/25 09:46 400 MLS/HR Pantoprazole Sodium 40 mg DAILY IV 04/17/25 10:00 04/20/25 09:46 40 MG Enteral Nutritional Formula 1,000 ml 70ML/HR GT 04/16/25 14:30 04/19/25 16:15 1,000 ML Purified Water 170 ml Q6HR GT 04/16/25 18:00 04/20/25 18:07 170 ML Sodium Chloride 1,000 ml @ 75 mls/hr [id number] IV 04/16/25 15:15 04/20/25 18:10 75 MLS/HR Mupirocin 1 applic BID EACHNOSTRI 04/18/25 22:00 04/23/25 21:59 04/20/25 09:46 1 APPLIC Norepinephrine Bitartrate 250 ml @ 1.875 mls/ hr Q24H IV 04/18/25 20:00 laboratory and microbiology Laboratory Tests 04/20/25 03:30 Test 04/20/25 03:30 Range/Units Serum Glucose 88 74-106 mg/dL Microbiology Date/Time Source Procedure Growth Status 04/15/25 21:10 Bronchial Washings Gram Stain - Final Complete 04/15/25 21:10 Bronchial Washings Respiratory Culture - Final Complete 04/15/25 02:32 Stool Clostridium difficile Toxin Assay - Final Complete 04/15/25 02:30 Nose MRSA Screen - Final Methicillin Resistant S.aureus Complete 04/14/25 12:52 Blood Blood Culture - Final Staphylococcus epidermidis Complete Problem List/Assessment/Plan Problem List/Assessment/Plan 59M BIBA w/ prior MHx of TBI, Schizophrenia, Insomnia, Anxiety, Bed bound, 10L of O2 via mask and the c/c of Hypoxia. EMS [place] [facility] [place] [facility] where they picked the pt up today. [facility] nurses informed EMS that [facility] from the pt going to be admitted by Dr. Powell. On scene pt had a fever of 103. Denies any other symptoms at this time. Denies chills, fever, N/V/D, SOB, CP. Denies any other associated symptom's, modifiers, or recent injuries or sick contact at this time. sepstic shock with pna acute metabolic encephalopathy acute hypoxic resp failure Demand ischemia seizure hx obesity loren chronic anemia weaning down on vent as tolerate time: >45 minutes of critical care time Plan discussed with: Spouse My Orders My Orders Orders - TARUN MARTINEZ DO Procedure Category Date Status Time Chest Portable XY 04/20/25 Resulted 04:00 Chest Portable XY 04/21/25 Logged 04:00 Complete Blood Count LAB 04/21/25 Verified 04:00 Magnesium LAB 04/21/25 Verified 04:00 Phosphorus LAB 04/21/25 Verified 04:00 Comprehensive LAB 04/21/25 Verified Metabolic Panel 04:00 Dietary Evaluation Review Comments: Nutrition Recommendation: 1) Consider TPN if NPO>7 days 2) [facility] 2gm Na diet as medically feasible, per SPT approval 3) If feeding tube is placed, consider EN Glucerna 1.2 Eric @ 70ml/hr x 24hr(goal). Water flush 170ml Q6H if allowed, adjust PRN. TF at goal volume provides 2016 kcal (100%), 101gm protein (97%), and 2032 ml free water (including flush). 4) Naveen 1 pk BID, MVI w/ minerals 1 tab daily, VitC 500mg BID, Zinc sulfate 220mg BID x 10 days 5) Monitor NPO status, lab values, weight trend, and I/O Expected Outcomes/Goals: Intake to meet >75% estimated needs Lab values to improve Fu 2-3 days TARUN MARTINEZ DO Apr 20, 2025 20:24
--- NOTE | 2025-04-20 23:10 | DVHPN2 ---
Progress Note - Dictate Date Seen: Apr 20, 2025 Medical Necessity Reason Pt with a Central, PICC or Fol: Yes The following are medically ne: Bennett Catheter Reason for bennett catheter: Strict I&O Subjective Patient seen and examined at bedside. intubated on mechanical ventilator. Overnight events reviewed. vital signs Vital Sign Date Time Temp Pulse Resp B/P (MAP) Pulse Ox O2 Delivery O2 Flow Rate FiO2 04/20/25 23:00 64 16 90/57 (68) 95 04/20/25 22:13 35 04/20/25 22:00 Mechanical Ventilator+ 04/20/25 20:00 99.5 99.5 Total Intake and Output 04/19/25 04/19/25 04/20/25 14:59 22:59 06:59 Intake Total 718.75 ml 978.875 ml 1020 ml Output Total 1150 ml 1400 ml Balance 718.75 ml -171.125 ml -380 ml medications Current Medications Medications Dose Ordered Sig/Cora Route Start Time Stop Time Status Last Admin Dose Admin Acetaminophen/ Hydrocodone Bitart 1 tab Q4HP PRN PO 04/14/25 19:15 Acetaminophen 650 mg Q6HP PRN PO 04/14/25 19:15 04/17/25 20:33 650 MG Morphine Sulfate 2 mg Q4HPRN PRN IV 04/14/25 19:15 Enoxaparin Sodium 40 mg DAILY SC 04/14/25 22:00 04/20/25 09:46 40 MG Nitroglycerin 0.4 mg Q5MINP PRN SL 04/14/25 19:15 Morphine Sulfate 2 mg Q30M PRN IV 04/14/25 19:15 Midazolam HCl 100 ml @ 1 mls/hr Q24H IV 04/15/25 13:45 04/17/25 02:55 4 MLS/HR Fentanyl Citrate 250 ml @ 2.5 mls/hr Q24H IV 04/15/25 13:45 04/20/25 20:42 10 MLS/HR Ceftriaxone Sodium 50 ml @ 100 mls/hr DAILY@09 IV 04/15/25 15:00 04/20/25 08:40 100 MLS/HR Diagnostic Test (Pha) 1 strip Q6HR 04/16/25 00:00 04/20/25 18:07 1 STRIP Insulin Human Regular Q6HR SC 04/16/25 00:00 04/18/25 00:19 2 UNITS Dextrose 50 ml UD PRN IV 04/15/25 18:45 Levetiracetam 100 ml @ 400 mls/hr BID IV 04/16/25 22:00 04/20/25 21:05 400 MLS/HR Pantoprazole Sodium 40 mg DAILY IV 04/17/25 10:00 04/20/25 09:46 40 MG Enteral Nutritional Formula 1,000 ml 70ML/HR GT 04/16/25 14:30 04/19/25 16:15 1,000 ML Purified Water 170 ml Q6HR GT 04/16/25 18:00 04/20/25 18:07 170 ML Sodium Chloride 1,000 ml @ 75 mls/hr [id number] IV 04/16/25 15:15 04/20/25 18:10 75 MLS/HR Mupirocin 1 applic BID EACHNOSTRI 04/18/25 22:00 04/23/25 21:59 04/20/25 21:05 1 APPLIC Norepinephrine Bitartrate 250 ml @ 1.875 mls/ hr Q24H IV 04/18/25 20:00 objective Gen.: Patient lying in bed in medical ICU. Intubated on mechanical ventilator. Head: Normocephalic, atraumatic. Eyes: PERRLA. Ears: Normal external anatomy. Throat: Endotracheal tube and orogastric tube in place. Neck: Supple, trachea midline. Chest: Transmitted breath sounds bilaterally. Decreased air entry bilaterally. No wheezing. Bibasilar crackles. Cardiovascular: Positive S1, positive S2. Regular rate and rhythm. Abdomen: Positive bowel sounds in all 4 quadrants. Soft, nontender, nondistended. : Bennett in place. Normal external genitalia. Rectal: Deferred. Skin: Warm, dry. Intact. Extremities: 2+ radial pulses bilaterally. No lower extremity edema. Neuro: Off sedation laboratory and microbiology Laboratory Tests 04/20/25 03:30 Test 04/20/25 03:30 Range/Units Serum Glucose 88 74-106 mg/dL Assessment/Plan Impression: Acute hypoxic respiratory failure On mechanical ventilator Septic shock Pneumonia Atelectasis Mucous plugging Events: Remains on vent support On AC mode; RR 16, VT 450, PEEP 5, FiO2 35% Continue to taper FiO2 as tolerated Remains off sedation. Patient tolerated CPAP for 2 hours - had apnea, was placed back on full support. On Fentanyl drip. CXR reveals airspace opacity in the right lower lung has increased, which may represent infectious process. Probable small right pleural effusion. Left lung appears clear. No pneumothorax. Devices in place.. Continue antibiotics Follow up cultures Keppra for antiepileptic Tube feedings for nutritional support Free water supplementation - monitor sodium . Monitor hemoglobin - stable at 9.1 g/dL Continue SBT/KRISTINA OK for Precedex if necessary CPAP trial. CPAP with PS 8, PEEP of 5 OK to increase PS to max 20 cmH2O to achieve tidal volume 400-500 mL. Updated family at bedside on plan of care. Labs and imaging reviewed. Rest of plan as noted below. Plan: s/p intubation on mechanical ventilator. On AC mode; RR 16, VT 450, PEEP 5, FiO2 35% Titrate FIO2 to keep O2 saturation above 90%. VAP bundle. Daily ABG and CXR while intubated S/p placement of right SCV central line. S/p bronchoscopy with RML BAL on 04/15/25 - mucous plugging removed from RUL, RML, RLL. Sent for bacterial cultures. Continue antibiotics. Follow up cultures. Pressors as necessary for hemodynamic support Titrate to keep mean arterial pressure greater than 65 mmHg. Monitor renal function Monitor electrolytes. Supplement as necessary. Monitor ins and outs. Monitor hemoglobin Transfuse if less than 7.0 g/dL. DVT prophylaxis - Lovenox SC. Prognosis: Poor given patient's multiple co-morbidities. Condition: Critical Rest of plan per hospitalist and other consultants. A total of 35 minutes of critical care time was spent reviewing the patient record, examining the patient, making a diagnostic and therapeutic plan, discussing this plan with the medical personnel, following up on diagnostic studies and following the patient for clinical stability excluding any and all procedures. At least 50% of this time was spent in direct, [id number] contact. Thank you, Dr. Rubio, for allowing me to participate in this patient's care. Further recommendations will depend on the patient's clinical course. Please do not hesitate to contact me if you have any questions or concerns. This medical document was created using an electronic medical record system with [employer] system. Although these documentations are being carefully reviewed, there may still be some phonetic and typographical changes. The errors are purely typographical, due to imperfection on the software program, and do not reflect any compromise in the patient's medical care. Dietary Evaluation Review Comments: Nutrition Recommendation: 1) Consider TPN if NPO>7 days 2) Advance to [facility] 60gm + 2gm Na diet as medically feasible, per SPT approval 3) If feeding tube is placed, consider EN Glucerna 1.2 Eric @ 70ml/hr x 24hr(goal). Water flush 170ml Q6H if allowed, adjust PRN. TF at goal volume provides 2016 kcal (100%), 101gm protein (97%), and 2032 ml free water (including flush). 4) Naveen 1 pk BID, MVI w/ minerals 1 tab daily, VitC 500mg BID, Zinc sulfate 220mg BID x 10 days 5) Monitor NPO status, lab values, weight trend, and I/O Expected Outcomes/Goals: Intake to meet >75% estimated needs Lab values to improve Fu 2-3 days Plan discussed with: Other (GOMEZ Miller) Critical Care Time(min): 35 FRANKLIN MANCILLA [facility] Apr 20, 2025 23:09
[2025-04-21] VITALS (109 sets, daily range): BP systolic 87–132; BP diastolic 51–79; PULSE 58–99; RESP 9–27; TEMP 97.9–99.8; O2SAT 91–100
[2025-04-21 03:36] LABS: Nucleated Red Blood Cells % 0.1 %
[2025-04-21 03:40] LABS: Hematocrit 26.9 % (41.0-53.0); Hemoglobin 8.9 g/dL (13.5-17.5); Mean Corpuscular Hemoglobin 26.5 pg (28.0-32.0); Mean Corpuscular Volume 80.1 fL (80.0-100.0)
[2025-04-21 04:17] LABS: Alanine Aminotransferase 28 U/L (7-40); Alkaline Phosphatase 74 U/L (46-116); Anion Gap 10 (5-15); BUN/Creatinine Ratio 8.0 (10.0-20.0); Carbon Dioxide 27 mmol/L (20-31); Chloride 103 mmol/L (98-107); Magnesium 1.9 mg/dL (1.6-2.6); Sodium 140 mmol/L (136-145); Total Protein 5.7 g/dL (5.7-8.2)
[2025-04-21 04:32] LABS: Albumin 2.6 g/dL (3.2-4.8); Bilirubin, Total 0.3 mg/dL (0.2-1.0); Blood Urea Nitrogen 6 mg/dL (9-23); Calcium 7.8 mg/dL (8.7-10.4); Glucose 128 mg/dL (74-106); Potassium 3.4 mmol/L (3.5-5.1)
--- NOTE | 2025-04-21 05:00 | DVH ---
CHEST RADIOGRAPH Indication: INTUBATED Technique: Single frontal view of the chest was obtained COMPARISON: XY CHEST PORTABLE on DOS: 04/20/25, XY CHEST PORTABLE on DOS: 04/19/25, XY CHEST PORTABLE o n DOS: 04/18/25, XY CHEST XRAY 1 VIEW on DOS: 04/17/25, XY CHEST PORTABLE on DOS: 04/15/25 FINDINGS: Lines and Tubes: Slight interval advancement of endotracheal tube such that the tip now projects appr oximately 3.6 cm above the level of the alexander. Remaining lines and tubes unchanged. Lungs: Diminished lung volumes with concomitant crowding of the pulmonary vasculature. No evidence of focal consolidation. Pleura: No effusion. No pneumothorax. Cardiomediastinal contours: Unremarkable Bones: Unremarkable IMPRESSION: 1. Slight interval advancement of endotracheal tube such that the tip now projects approximately 3.6 cm above the level of the alexander. Remaining lines and tubes unchanged. 2. Otherwise no significant change compared to prior exam.
[2025-04-21 08:00] LABS: Base Excess -2.2 mmol/L (-2.0-3.0)
[2025-04-21] MEDS: MAGNESIUM SULFATE 1GM/100ML 100 ML IV SCH (14:41)
[2025-04-21] MEDS: POTASSIUM CHL 20MEQ/100ML 100 ML IV ONE (14:44)
--- NOTE | 2025-04-21 23:53 | DVHPN2 ---
Progress Note - Dictate Date Seen: Apr 21, 2025 Medical Necessity Reason Pt with a Central, PICC or Fol: Yes The following are medically ne: Bennett Catheter Reason for bennett catheter: Strict I&O Subjective Patient seen and examined at bedside. intubated on mechanical ventilator. Overnight events reviewed. vital signs Vital Sign Date Time Temp Pulse Resp B/P (MAP) Pulse Ox O2 Delivery O2 Flow Rate FiO2 04/21/25 23:33 95/58 04/21/25 23:15 64 16 97 04/21/25 22:00 Mechanical Ventilator+ 45 45 04/21/25 20:00 97.9 97.9 Total Intake and Output 04/20/25 04/20/25 04/21/25 15:00 23:00 07:00 Intake Total 993.56 ml 811.06 ml 941.62 ml Output Total 1200 ml 800 ml Balance 993.56 ml -388.94 ml 141.62 ml medications Current Medications Medications Dose Ordered Sig/Cora Route Start Time Stop Time Status Last Admin Dose Admin Acetaminophen/ Hydrocodone Bitart 1 tab Q4HP PRN PO 04/14/25 19:15 Acetaminophen 650 mg Q6HP PRN PO 04/14/25 19:15 04/17/25 20:33 650 MG Morphine Sulfate 2 mg Q4HPRN PRN IV 04/14/25 19:15 Enoxaparin Sodium 40 mg DAILY SC 04/14/25 22:00 04/21/25 10:53 40 MG Nitroglycerin 0.4 mg Q5MINP PRN SL 04/14/25 19:15 Morphine Sulfate 2 mg Q30M PRN IV 04/14/25 19:15 Midazolam HCl 100 ml @ 1 mls/hr Q24H IV 04/15/25 13:45 04/17/25 02:55 4 MLS/HR Fentanyl Citrate 250 ml @ 2.5 mls/hr Q24H IV 04/15/25 13:45 04/21/25 23:33 20 MLS/HR Ceftriaxone Sodium 50 ml @ 100 mls/hr DAILY@09 IV 04/15/25 15:00 04/21/25 10:53 100 MLS/HR Diagnostic Test (Pha) 1 strip Q6HR 04/16/25 00:00 04/21/25 17:47 1 STRIP Insulin Human Regular Q6HR SC 04/16/25 00:00 04/21/25 13:13 2 UNITS Dextrose 50 ml UD PRN IV 04/15/25 18:45 Levetiracetam 100 ml @ 400 mls/hr BID IV 04/16/25 22:00 04/21/25 21:57 400 MLS/HR Pantoprazole Sodium 40 mg DAILY IV 04/17/25 10:00 04/21/25 10:53 40 MG Enteral Nutritional Formula 1,000 ml 70ML/HR GT 04/16/25 14:30 04/21/25 21:01 1,000 ML Purified Water 170 ml Q6HR GT 04/16/25 18:00 04/21/25 17:47 170 ML Sodium Chloride 1,000 ml @ 75 mls/hr [id number] IV 04/16/25 15:15 04/21/25 05:43 75 MLS/HR Mupirocin 1 applic BID EACHNOSTRI 04/18/25 22:00 04/23/25 21:59 04/21/25 21:57 1 APPLIC Norepinephrine Bitartrate 250 ml @ 1.875 mls/ hr Q24H IV 04/18/25 20:00 objective Gen.: Patient lying in bed in medical ICU. Intubated on mechanical ventilator. Head: Normocephalic, atraumatic. Eyes: PERRLA. Ears: Normal external anatomy. Throat: Endotracheal tube and orogastric tube in place. Neck: Supple, trachea midline. Chest: Transmitted breath sounds bilaterally. Decreased air entry bilaterally. No wheezing. Bibasilar crackles. Cardiovascular: Positive S1, positive S2. Regular rate and rhythm. Abdomen: Positive bowel sounds in all 4 quadrants. Soft, nontender, nondistended. : Bennett in place. Normal external genitalia. Rectal: Deferred. Skin: Warm, dry. Intact. Extremities: 2+ radial pulses bilaterally. No lower extremity edema. Neuro: Off sedation laboratory and microbiology Laboratory Tests 04/21/25 02:30 Test 04/21/25 02:30 Range/Units Serum Glucose 128 H 74-106 mg/dL Assessment/Plan Impression: Acute hypoxic respiratory failure On mechanical ventilator Septic shock Pneumonia Atelectasis Mucous plugging Events: Patient tolerated CPAP for 4 hours. Placed on CPAP with pressure support of 12 Tidal volume 150-300 mL, RR in 30s. Patient failed CPAP, was placed back on full support Vent support On AC mode; RR 16, VT 450, PEEP 5, FiO2 45% Continue to taper FiO2 as tolerated Remains off sedation. On Fentanyl drip. ABG reviewed, compensated. CXR stable, reveals diminished lung volumes with concomitant crowding of the pulmonary vasculature. No evidence of focal consolidation. Devices in place.. Continue antibiotics Follow up cultures Keppra for antiepileptic Tube feedings for nutritional support Free water supplementation - monitor sodium . Monitor hemoglobin - trended down to 8.9 g/dL Monitor renal function Monitor electrolytes. Supplement as necessary. Potassium, magnesium supplementation Continue SBT/KRISTINA OK for Precedex if necessary Plan for CPAP in AM. OK to increase PS to max 20 cmH2O to achieve tidal volume 400-500 mL. Labs and imaging reviewed. Rest of plan as noted below. Plan: s/p intubation on mechanical ventilator. On AC mode; RR 16, VT 450, PEEP 5, FiO2 45% Titrate FIO2 to keep O2 saturation above 90%. VAP bundle. Daily ABG and CXR while intubated S/p placement of right SCV central line. S/p bronchoscopy with RML BAL on 04/15/25 - mucous plugging removed from RUL, RML, RLL. Sent for bacterial cultures. Continue antibiotics. Follow up cultures. Pressors as necessary for hemodynamic support Titrate to keep mean arterial pressure greater than 65 mmHg. Monitor renal function Monitor electrolytes. Supplement as necessary. Monitor ins and outs. Monitor hemoglobin Transfuse if less than 7.0 g/dL. DVT prophylaxis - Lovenox SC. Prognosis: Poor given patient's multiple co-morbidities. Condition: Critical Rest of plan per hospitalist and other consultants. A total of 35 minutes of critical care time was spent reviewing the patient record, examining the patient, making a diagnostic and therapeutic plan, discussing this plan with the medical personnel, following up on diagnostic studies and following the patient for clinical stability excluding any and all procedures. At least 50% of this time was spent in direct, [id number] contact. Thank you, Dr. Rubio, for allowing me to participate in this patient's care. Further recommendations will depend on the patient's clinical course. Please do not hesitate to contact me if you have any questions or concerns. This medical document was created using an electronic medical record system with [employer] system. Although these documentations are being carefully reviewed, there may still be some phonetic and typographical changes. The errors are purely typographical, due to imperfection on the software program, and do not reflect any compromise in the patient's medical care. Dietary Evaluation Review Comments: Nutrition Recommendation: 1) Consider TPN if NPO>7 days 2) Advance to [facility] 60gm + 2gm Na diet as medically feasible, per SPT approval 3) If feeding tube is placed, consider EN Glucerna 1.2 Eric @ 70ml/hr x 24hr(goal). Water flush 170ml Q6H if allowed, adjust PRN. TF at goal volume provides 2016 kcal (100%), 101gm protein (97%), and 2032 ml free water (including flush). 4) Naveen 1 pk BID, MVI w/ minerals 1 tab daily, VitC 500mg BID, Zinc sulfate 220mg BID x 10 days 5) Monitor NPO status, lab values, weight trend, and I/O Expected Outcomes/Goals: Intake to meet >75% estimated needs Lab values to improve Fu 2-3 days Plan discussed with: Other (GOMEZ Akhtar) Critical Care Time(min): 35 FRANKLIN MANCILLA ACNP Apr 21, 2025 23:53
[2025-04-22] VITALS (108 sets, daily range): BP systolic 94–135; BP diastolic 58–82; PULSE 52–95; RESP 9–21; TEMP 98.1–98.8; O2SAT 88–100
[2025-04-22 02:49] LABS: Hematocrit 26.3 % (41.0-53.0); Hemoglobin 8.8 g/dL (13.5-17.5); Mean Corpuscular Hemoglobin 26.5 pg (28.0-32.0); Mean Corpuscular Volume 79.0 fL (80.0-100.0); Nucleated Red Blood Cells % 0.0 %
[2025-04-22 04:47] LABS: Anion Gap 8 (5-15); BUN/Creatinine Ratio 7.1 (10.0-20.0); Carbon Dioxide 27 mmol/L (20-31); Chloride 103 mmol/L (98-107); Glucose 100 mg/dL (74-106); Magnesium 2.0 mg/dL (1.6-2.6); Sodium 138 mmol/L (136-145)
[2025-04-22 05:47] LABS: Blood Urea Nitrogen 5 mg/dL (9-23); Calcium 7.7 mg/dL (8.7-10.4); Potassium 3.4 mmol/L (3.5-5.1)
--- NOTE | 2025-04-22 18:48 | DVHPN2 ---
Progress Note - Dictate Date Seen: Apr 22, 2025 Medical Necessity Reason Pt with a Central, PICC or Fol: Yes The following are medically ne: Bennett Catheter Reason for bennett catheter: Strict I&O Subjective Patient seen and examined at bedside. intubated on mechanical ventilator. Overnight events reviewed. vital signs Vital Sign Date Time Temp Pulse Resp B/P (MAP) Pulse Ox O2 Delivery O2 Flow Rate FiO2 04/22/25 18:34 93 16 127/79 (95) 95 40 04/22/25 18:00 Mechanical Ventilator+ 04/22/25 16:03 98.8 98.8 Total Intake and Output 04/21/25 04/21/25 04/22/25 15:00 23:00 07:00 Intake Total 929.26 ml 1316.0 ml 1059.26 ml Output Total 850 ml 1450 ml Balance 929.26 ml 466.0 ml -390.74 ml medications Current Medications Medications Dose Ordered Sig/Cora Route Start Time Stop Time Status Last Admin Dose Admin Acetaminophen/ Hydrocodone Bitart 1 tab Q4HP PRN PO 04/14/25 19:15 Acetaminophen 650 mg Q6HP PRN PO 04/14/25 19:15 04/17/25 20:33 650 MG Morphine Sulfate 2 mg Q4HPRN PRN IV 04/14/25 19:15 Enoxaparin Sodium 40 mg DAILY SC 04/14/25 22:00 04/22/25 09:50 40 MG Nitroglycerin 0.4 mg Q5MINP PRN SL 04/14/25 19:15 Morphine Sulfate 2 mg Q30M PRN IV 04/14/25 19:15 Midazolam HCl 100 ml @ 1 mls/hr Q24H IV 04/15/25 13:45 04/17/25 02:55 4 MLS/HR Fentanyl Citrate 250 ml @ 2.5 mls/hr Q24H IV 04/15/25 13:45 04/21/25 23:33 20 MLS/HR Ceftriaxone Sodium 50 ml @ 100 mls/hr DAILY@09 IV 04/15/25 15:00 04/22/25 08:47 100 MLS/HR Diagnostic Test (Pha) 1 strip Q6HR 04/16/25 00:00 04/22/25 17:17 1 STRIP Insulin Human Regular Q6HR SC 04/16/25 00:00 04/21/25 13:13 2 UNITS Dextrose 50 ml UD PRN IV 04/15/25 18:45 Levetiracetam 100 ml @ 400 mls/hr BID IV 04/16/25 22:00 04/22/25 09:50 400 MLS/HR Pantoprazole Sodium 40 mg DAILY IV 04/17/25 10:00 04/22/25 09:49 40 MG Enteral Nutritional Formula 1,000 ml 70ML/HR GT 04/16/25 14:30 04/21/25 21:01 1,000 ML Purified Water 170 ml Q6HR GT 04/16/25 18:00 04/22/25 17:17 170 ML Sodium Chloride 1,000 ml @ 75 mls/hr [id number] IV 04/16/25 15:15 04/22/25 17:23 75 MLS/HR Mupirocin 1 applic BID EACHNOSTRI 04/18/25 22:00 04/23/25 21:59 04/22/25 10:29 1 APPLIC Norepinephrine Bitartrate 250 ml @ 1.875 mls/ hr Q24H IV 04/18/25 20:00 objective Gen.: Patient lying in bed in medical ICU. Intubated on mechanical ventilator. Head: Normocephalic, atraumatic. Eyes: PERRLA. Ears: Normal external anatomy. Throat: Endotracheal tube and orogastric tube in place. Neck: Supple, trachea midline. Chest: Transmitted breath sounds bilaterally. Decreased air entry bilaterally. No wheezing. Bibasilar crackles. Cardiovascular: Positive S1, positive S2. Regular rate and rhythm. Abdomen: Positive bowel sounds in all 4 quadrants. Soft, nontender, nondistended. : Bennett in place. Normal external genitalia. Rectal: Deferred. Skin: Warm, dry. Intact. Extremities: 2+ radial pulses bilaterally. No lower extremity edema. Neuro: Off sedation. Awake, alert, following commands. laboratory and microbiology Laboratory Tests 04/22/25 02:00 Test 04/22/25 02:00 Range/Units Serum Glucose 100 74-106 mg/dL Assessment/Plan Impression: Acute hypoxic respiratory failure On mechanical ventilator Septic shock Pneumonia Atelectasis Mucous plugging Events: Patient is awake, alert, following commands. CPAP with pressure support of 12, PEEP of 5, FIO2 40% Tolerating CPAP Patient tolerated CPAP for 4 hours yesterday. Remains off sedation. On Fentanyl drip 25 mcg/hr for analgesia Vent support On AC mode; RR 16, VT 450, PEEP 5, FiO2 45% Continue to taper FiO2 as tolerated Continue antibiotics Follow up cultures Keppra for antiepileptic Tube feedings for nutritional support Free water supplementation - monitor sodium . Monitor hemoglobin - stable at 8.8 g/dL Continue SBT/KRISTINA OK for Precedex if necessary OK to increase PS to max 20 cmH2O to achieve tidal volume 400-500 mL. If unable to wean down to PS 8, will need to consider trach/PEG. Labs and imaging reviewed. Rest of plan as noted below. Plan: s/p intubation on mechanical ventilator. On AC mode; RR 16, VT 450, PEEP 5, FiO2 45% Titrate FIO2 to keep O2 saturation above 90%. VAP bundle. Daily ABG and CXR while intubated S/p placement of right SCV central line. S/p bronchoscopy with RML BAL on 04/15/25 - mucous plugging removed from RUL, RML, RLL. Sent for bacterial cultures. Continue antibiotics. Follow up cultures. Pressors as necessary for hemodynamic support Titrate to keep mean arterial pressure greater than 65 mmHg. Monitor renal function Monitor electrolytes. Supplement as necessary. Monitor ins and outs. Monitor hemoglobin Transfuse if less than 7.0 g/dL. DVT prophylaxis - Lovenox SC. Prognosis: Poor given patient's multiple co-morbidities. Condition: Critical Rest of plan per hospitalist and other consultants. A total of 35 minutes of critical care time was spent reviewing the patient record, examining the patient, making a diagnostic and therapeutic plan, discussing this plan with the medical personnel, following up on diagnostic studies and following the patient for clinical stability excluding any and all procedures. At least 50% of this time was spent in direct, [id number] contact. Thank you, Dr. Rubio, for allowing me to participate in this patient's care. Further recommendations will depend on the patient's clinical course. Please do not hesitate to contact me if you have any questions or concerns. This medical document was created using an electronic medical record system with [employer] system. Although these documentations are being carefully reviewed, there may still be some phonetic and typographical changes. The errors are purely typographical, due to imperfection on the software program, and do not reflect any compromise in the patient's medical care. Dietary Evaluation Review Comments: Nutrition Recommendation: 1) Consider TPN if NPO>7 days 2) Advance to [facility] 60gm + 2gm Na diet as medically feasible, per SPT approval 3) If feeding tube is placed, consider EN Glucerna 1.2 Eric @ 70ml/hr x 24hr(goal). Water flush 170ml Q6H if allowed, adjust PRN. TF at goal volume provides 2016 kcal (100%), 101gm protein (97%), and 2032 ml free water (including flush). 4) Naveen 1 pk BID, MVI w/ minerals 1 tab daily, VitC 500mg BID, Zinc sulfate 220mg BID x 10 days 5) Monitor NPO status, lab values, weight trend, and I/O Expected Outcomes/Goals: Intake to meet >75% estimated needs Lab values to improve Fu 2-3 days Plan discussed with: Other (GOMEZ Chadwick) Critical Care Time(min): 35 FRANKLIN MANCILLA [facility] Apr 22, 2025 18:48
[2025-04-23] VITALS (108 sets, daily range): BP systolic 96–154; BP diastolic 61–90; PULSE 60–97; RESP 9–20; TEMP 97.8–99; O2SAT 94–100
[2025-04-23 04:26] LABS: Hemoglobin 9.3 g/dL (13.5-17.5)
[2025-04-23 04:29] LABS: Hematocrit 28.4 % (41.0-53.0); Mean Corpuscular Hemoglobin 25.9 pg (28.0-32.0); Mean Corpuscular Volume 79.2 fL (80.0-100.0); Nucleated Red Blood Cells % 0.1 %
[2025-04-23 04:39] LABS: Alanine Aminotransferase 24 U/L (7-40); Alkaline Phosphatase 77 U/L (46-116); Anion Gap 9 (5-15); Bilirubin, Total 0.3 mg/dL (0.2-1.0); Carbon Dioxide 29 mmol/L (20-31); Chloride 101 mmol/L (98-107); Glucose 102 mg/dL (74-106); Sodium 139 mmol/L (136-145)
[2025-04-23 04:40] LABS: Albumin 2.5 g/dL (3.2-4.8); BUN/Creatinine Ratio 7.1 (10.0-20.0); Blood Urea Nitrogen < 5 mg/dL (9-23); Calcium 7.8 mg/dL (8.7-10.4); Potassium 3.5 mmol/L (3.5-5.1); Total Protein 5.5 g/dL (5.7-8.2)
--- NOTE | 2025-04-23 05:59 | DVH ---
CHEST RADIOGRAPH Indication: INTUBATED Technique: Single frontal view of the chest was obtained Comparison: XY CHEST PORTABLE on DOS: 04/22/25 FINDINGS: Lines and Tubes: The endotracheal tube terminates 3.6 cm above the alexander. There is a right central venous catheter terminates in the superior vena cava. The enteric tube terminates in the stomach. Lungs: Hazy right lung opacity. Pleura: No effusion. No pneumothorax. Cardiomediastinal contours: Unremarkable Bones: No acute osseous abnormality. IMPRESSION: 1. Support tubes in appropriate position. 2. Hazy right lung opacity may reflect pneumonia or pulmonary edema.
[2025-04-23 08:36] LABS: Base Excess 2.6 mmol/L (-2.0-3.0)
--- NOTE | 2025-04-23 19:14 | DVHPN2 ---
Progress Note - Dictate Date Seen: Apr 23, 2025 Medical Necessity Reason Pt with a Central, PICC or Fol: Yes The following are medically ne: Bennett Catheter Reason for bennett catheter: Strict I&O Subjective Patient seen and examined at bedside. intubated on mechanical ventilator. Overnight events reviewed. vital signs Vital Sign Date Time Temp Pulse Resp B/P (MAP) Pulse Ox O2 Delivery O2 Flow Rate FiO2 04/23/25 18:10 84 17 122/89 (100) 96 40 04/23/25 16:00 Mechanical Ventilator+ 04/23/25 16:00 98.3 98.3 Total Intake and Output 04/22/25 04/22/25 04/23/25 15:00 23:00 07:00 Intake Total 172.5 ml 1135.0 ml 1265.0 ml Output Total 1800 ml 1300 ml Balance 172.5 ml -665.0 ml -35.0 ml medications Current Medications Medications Dose Ordered Sig/Cora Route Start Time Stop Time Status Last Admin Dose Admin Acetaminophen/ Hydrocodone Bitart 1 tab Q4HP PRN PO 04/14/25 19:15 Acetaminophen 650 mg Q6HP PRN PO 04/14/25 19:15 04/17/25 20:33 650 MG Morphine Sulfate 2 mg Q4HPRN PRN IV 04/14/25 19:15 Enoxaparin Sodium 40 mg DAILY SC 04/14/25 22:00 04/23/25 11:15 40 MG Nitroglycerin 0.4 mg Q5MINP PRN SL 04/14/25 19:15 Morphine Sulfate 2 mg Q30M PRN IV 04/14/25 19:15 Midazolam HCl 100 ml @ 1 mls/hr Q24H IV 04/15/25 13:45 04/17/25 02:55 4 MLS/HR Fentanyl Citrate 250 ml @ 2.5 mls/hr Q24H IV 04/15/25 13:45 04/23/25 06:28 2.5 MLS/HR Ceftriaxone Sodium 50 ml @ 100 mls/hr DAILY@09 IV 04/15/25 15:00 04/23/25 11:14 100 MLS/HR Diagnostic Test (Pha) 1 strip Q6HR 04/16/25 00:00 04/23/25 18:09 1 STRIP Insulin Human Regular Q6HR SC 04/16/25 00:00 04/21/25 13:13 2 UNITS Dextrose 50 ml UD PRN IV 04/15/25 18:45 Levetiracetam 100 ml @ 400 mls/hr BID IV 04/16/25 22:00 04/23/25 11:15 400 MLS/HR Pantoprazole Sodium 40 mg DAILY IV 04/17/25 10:00 04/23/25 11:15 40 MG Enteral Nutritional Formula 1,000 ml 70ML/HR GT 04/16/25 14:30 04/21/25 21:01 1,000 ML Purified Water 170 ml Q6HR GT 04/16/25 18:00 04/23/25 18:09 170 ML Sodium Chloride 1,000 ml @ 75 mls/hr [id number] IV 04/16/25 15:15 04/23/25 18:09 75 MLS/HR Mupirocin 1 applic BID EACHNOSTRI 04/18/25 22:00 04/23/25 21:59 04/23/25 10:00 1 APPLIC Norepinephrine Bitartrate 250 ml @ 1.875 mls/ hr Q24H IV 04/18/25 20:00 objective Gen.: Patient lying in bed in medical ICU. Intubated on mechanical ventilator. Head: Normocephalic, atraumatic. Eyes: PERRLA. Ears: Normal external anatomy. Throat: Endotracheal tube and orogastric tube in place. Neck: Supple, trachea midline. Chest: Transmitted breath sounds bilaterally. Decreased air entry bilaterally. No wheezing. Bibasilar crackles. Cardiovascular: Positive S1, positive S2. Regular rate and rhythm. Abdomen: Positive bowel sounds in all 4 quadrants. Soft, nontender, nondistended. : Bennett in place. Normal external genitalia. Rectal: Deferred. Skin: Warm, dry. Intact. Extremities: 2+ radial pulses bilaterally. No lower extremity edema. Neuro: Off sedation. Awake, alert, following commands. laboratory and microbiology Laboratory Tests 04/23/25 03:50 Test 04/23/25 03:50 Range/Units Serum Glucose 102 74-106 mg/dL Assessment/Plan Impression: Acute hypoxic respiratory failure On mechanical ventilator Septic shock Pneumonia Atelectasis Mucous plugging Events: Patient is awake, alert, following commands. CPAP - pt had apneic episodes x3 Remains off sedation. On Fentanyl drip 25 mcg/hr for analgesia On Precedex drip Vent support On AC mode; RR 16, VT 450, PEEP 5, FiO2 40% Continue to taper FiO2 as tolerated Continue antibiotics Follow up cultures Keppra for antiepileptic Tube feedings for nutritional support Free water supplementation - monitor sodium . Monitor hemoglobin - trended up to 9.3 g/dL Continue SBT/KRISTINA OK for Precedex if necessary OK to increase PS to max 20 cmH2O to achieve tidal volume 400-500 mL. Continue attempts to liberate from ventilator. Labs and imaging reviewed. Rest of plan as noted below. Plan: s/p intubation on mechanical ventilator. On AC mode; RR 16, VT 450, PEEP 5, FiO2 40% Titrate FIO2 to keep O2 saturation above 90%. VAP bundle. Daily ABG and CXR while intubated S/p placement of right SCV central line. S/p bronchoscopy with RML BAL on 04/15/25 - mucous plugging removed from RUL, RML, RLL. Sent for bacterial cultures. Continue antibiotics. Follow up cultures. Pressors as necessary for hemodynamic support Titrate to keep mean arterial pressure greater than 65 mmHg. Monitor renal function Monitor electrolytes. Supplement as necessary. Monitor ins and outs. Monitor hemoglobin Transfuse if less than 7.0 g/dL. DVT prophylaxis - Lovenox SC. Prognosis: Poor given patient's multiple co-morbidities. Condition: Critical Rest of plan per hospitalist and other consultants. A total of 35 minutes of critical care time was spent reviewing the patient record, examining the patient, making a diagnostic and therapeutic plan, discussing this plan with the medical personnel, following up on diagnostic studies and following the patient for clinical stability excluding any and all procedures. At least 50% of this time was spent in direct, [id number] contact. Thank you, Dr. Rubio, for allowing me to participate in this patient's care. Further recommendations will depend on the patient's clinical course. Please do not hesitate to contact me if you have any questions or concerns. This medical document was created using an electronic medical record system with [employer] system. Although these documentations are being carefully reviewed, there may still be some phonetic and typographical changes. The errors are purely typographical, due to imperfection on the software program, and do not reflect any compromise in the patient's medical care. Dietary Evaluation Review Comments: Nutrition Recommendation: 1) Consider TPN if NPO>7 days 2) Advance to [facility] 60gm + 2gm Na diet as medically feasible, per SPT approval 3) If feeding tube is placed, consider EN Glucerna 1.2 Eric @ 70ml/hr x 24hr(goal). Water flush 170ml Q6H if allowed, adjust PRN. TF at goal volume provides 2016 kcal (100%), 101gm protein (97%), and 2032 ml free water (including flush). 4) Naveen 1 pk BID, MVI w/ minerals 1 tab daily, VitC 500mg BID, Zinc sulfate 220mg BID x 10 days 5) Monitor NPO status, lab values, weight trend, and I/O Expected Outcomes/Goals: Intake to meet >75% estimated needs Lab values to improve Fu 2-3 days Plan discussed with: Other (GOMEZ Akhtar) Critical Care Time(min): 35 FRANKLIN MANCILLA [facility] Apr 23, 2025 19:14
[2025-04-24] VITALS (108 sets, daily range): BP systolic 96–163; BP diastolic 59–87; PULSE 57–91; RESP 12–31; TEMP 97.2–98.7; O2SAT 87–100
[2025-04-24 03:51] LABS: Hematocrit 27.8 % (41.0-53.0); Hemoglobin 9.0 g/dL (13.5-17.5); Mean Corpuscular Hemoglobin 25.5 pg (28.0-32.0); Mean Corpuscular Volume 78.5 fL (80.0-100.0); Nucleated Red Blood Cells % 0.0 %
[2025-04-24 04:02] LABS: Chloride 100 mmol/L (98-107); Sodium 137 mmol/L (136-145)
[2025-04-24 04:03] LABS: Anion Gap 9 (5-15); Carbon Dioxide 28 mmol/L (20-31)
[2025-04-24 04:08] LABS: Glucose 86 mg/dL (74-106)
[2025-04-24 04:20] LABS: Potassium 3.1 mmol/L (3.5-5.1)
[2025-04-24 04:21] LABS: BUN/Creatinine Ratio 8.1 (10.0-20.0); Blood Urea Nitrogen < 5 mg/dL (9-23); Calcium 8.2 mg/dL (8.7-10.4)
--- NOTE | 2025-04-24 05:48 | DVH ---
CHEST RADIOGRAPH Indication: Intubated Technique: Single frontal view of the chest was obtained COMPARISON: XY CHEST PORTABLE on DOS: 04/23/25, XY CHEST PORTABLE on DOS: 04/22/25, XY CHEST PORTABLE on DOS: 04/21/25, XY CHEST PORTABLE on DOS: 04/20/25, XY CHEST PORTABLE on DOS: 04/19/25 FINDINGS: Lines and Tubes: Endotracheal tube, enteric catheter and right central venous catheter in satisfactory position. Lungs: Patchy bilateral airspace disease. Pleura: No effusion.No pneumothorax. Cardiomediastinal contours: Cardiomegaly. Bones: Unremarkable IMPRESSION: Lines and tubes in satisfactory position. No significant interval change.
[2025-04-24 07:18] LABS: Base Excess -0.3 mmol/L (-2.0-3.0)
[2025-04-24 09:19] LABS: Base Excess 2.2 mmol/L (-2.0-3.0)
[2025-04-24] MEDS: POTASSIUM CHL 20MEQ/100ML 100 ML IV SCH (18:44)
--- NOTE | 2025-04-24 22:27 | DVHPN2 ---
Progress Note - Dictate Date Seen: Apr 24, 2025 Medical Necessity Reason Pt with a Central, PICC or Fol: Yes The following are medically ne: Bennett Catheter Reason for bennett catheter: Strict I&O Subjective Patient seen and examined at bedside. S/p extubation, on supplemental oxygen Overnight events reviewed vital signs Vital Sign Date Time Temp Pulse Resp B/P (MAP) Pulse Ox O2 Delivery O2 Flow Rate FiO2 04/24/25 20:45 90 17 122/81 (95) 100 04/24/25 20:00 98.7 98.7 04/24/25 20:00 Oxymizer 10 N/A Total Intake and Output 04/23/25 04/23/25 04/24/25 15:00 23:00 07:00 Intake Total 688.20 ml 1025.32 ml 719.24 ml Output Total 976 ml 550 ml Balance 688.20 ml 49.32 ml 169.24 ml medications Current Medications Medications Dose Ordered Sig/Cora Route Start Time Stop Time Status Last Admin Dose Admin Acetaminophen 650 mg Q6HP PRN PO 04/14/25 19:15 04/17/25 20:33 650 MG Enoxaparin Sodium 40 mg DAILY SC 04/14/25 22:00 04/24/25 09:53 40 MG Nitroglycerin 0.4 mg Q5MINP PRN SL 04/14/25 19:15 Midazolam HCl 100 ml @ 1 mls/hr Q24H IV 04/15/25 13:45 04/17/25 02:55 4 MLS/HR Ceftriaxone Sodium 50 ml @ 100 mls/hr DAILY@09 IV 04/15/25 15:00 04/24/25 08:59 100 MLS/HR Diagnostic Test (Pha) 1 strip Q6HR 04/16/25 00:00 04/24/25 17:33 1 STRIP Insulin Human Regular Q6HR SC 04/16/25 00:00 04/21/25 13:13 2 UNITS Dextrose 50 ml UD PRN IV 04/15/25 18:45 Levetiracetam 100 ml @ 400 mls/hr BID IV 04/16/25 22:00 04/24/25 21:27 400 MLS/HR Pantoprazole Sodium 40 mg DAILY IV 04/17/25 10:00 04/24/25 09:52 40 MG Enteral Nutritional Formula 1,000 ml 70ML/HR GT 04/16/25 14:30 04/21/25 21:01 1,000 ML Purified Water 170 ml Q6HR GT 04/16/25 18:00 04/24/25 05:32 170 ML Sodium Chloride 1,000 ml @ 75 mls/hr [id number] IV 04/16/25 15:15 04/24/25 18:44 75 MLS/HR Norepinephrine Bitartrate 250 ml @ 1.875 mls/ hr Q24H IV 04/18/25 20:00 objective Gen.: Patient lying in bed in no apparent distress. On supplemental oxygen. Head: Normocephalic, atraumatic. Eyes: EOMI/PERRLA. Ears: Normal hearing. Normal anatomy. Neck/trachea: Trachea midline, supple. Nose: Normal external anatomy. Mouth: Moist mucous membranes. Chest: Decreased air entry bilaterally. No wheezing or rhonchi. Cardiovascular: Positive S1, positive S2. Regular rate and rhythm. Abdomen: Positive bowel sounds in all 4 quadrants. Soft, non-tender, non- distended. : Deferred. Rectal: Deferred. Skin: Warm, dry. Intact. Extremities: 2+ radial pulses bilaterally. No lower extremity edema. Neuro: Awake, alert, oriented x3. No gross motor or sensory deficits. Cranial nerves II through XII intact. Gait not assessed. laboratory and microbiology Laboratory Tests 04/24/25 03:10 Test 04/24/25 03:10 Range/Units Serum Glucose 86 74-106 mg/dL Assessment/Plan Impression: Acute hypoxic respiratory failure On mechanical ventilator, s/p extubation Septic shock Pneumonia Atelectasis Mucous plugging Events: Patient tolerated CPAP this AM and was extubated uneventfully Bridged with BiPAP Currently on supplemental oxygen 10 LPM Oxymizer Taper O2 as tolerated IV fluids with 1/2 NS at 75 ml/hr Swallow evaluation Head of bed elevation Aspiration precautions Continue antibiotics Follow up cultures Keppra for antiepileptic Tube feedings for nutritional support IV fluids with 1/2 NS at 75 ml/hr Free water supplementation - monitor sodium . Monitor hemoglobin - stable at 9.0 g/dL Labs and imaging reviewed. Rest of plan as noted below. Plan: S/p extubation On supplemental oxygen Titrate to keep O2 sats above 90%. S/p placement of right SCV central line. S/p bronchoscopy with RML BAL on 04/15/25 - mucous plugging removed from RUL, RML, RLL. Sent for bacterial cultures. Continue antibiotics. Follow up cultures. Pressors as necessary for hemodynamic support Titrate to keep mean arterial pressure greater than 65 mmHg. Monitor renal function Monitor electrolytes. Supplement as necessary. Monitor ins and outs. Monitor hemoglobin Transfuse if less than 7.0 g/dL. DVT prophylaxis - Lovenox SC. Prognosis: Poor given patient's multiple co-morbidities. Condition: Critical Rest of plan per hospitalist and other consultants. A total of 35 minutes of critical care time was spent reviewing the patient record, examining the patient, making a diagnostic and therapeutic plan, discussing this plan with the medical personnel, following up on diagnostic studies and following the patient for clinical stability excluding any and all procedures. At least 50% of this time was spent in direct, [id number] contact. Thank you, Dr. Rubio, for allowing me to participate in this patient's care. Further recommendations will depend on the patient's clinical course. Please do not hesitate to contact me if you have any questions or concerns. This medical document was created using an electronic medical record system with [employer] dictation system. Although these documentations are being carefully reviewed, there may still be some phonetic and typographical changes. The errors are purely typographical, due to imperfection on the software program, and do not reflect any compromise in the patient's medical care. Dietary Evaluation Review Comments: Nutrition Recommendation: 1) Consider TPN if NPO>7 days 2) Advance to [facility] 60gm + 2gm Na diet as medically feasible, per SPT approval 3) If feeding tube is placed, consider EN Glucerna 1.2 Eric @ 70ml/hr x 24hr(goal). Water flush 170ml Q6H if allowed, adjust PRN. TF at goal volume provides 2016 kcal (100%), 101gm protein (97%), and 2032 ml free water (including flush). 4) Naveen 1 pk BID, MVI w/ minerals 1 tab daily, VitC 500mg BID, Zinc sulfate 220mg BID x 10 days 5) Monitor NPO status, lab values, weight trend, and I/O Expected Outcomes/Goals: Intake to meet >75% estimated needs Lab values to improve Fu 2-3 days Plan discussed with: Patient, Other (GOMEZ Chaudhari) Critical Care Time(min): 35 FRANKLIN MANCILLA ACNP Apr 24, 2025 22:27
[2025-04-25] VITALS (67 sets, daily range): BP systolic 114–166; BP diastolic 61–110; PULSE 82–106; RESP 12–40; TEMP 97.5–99.3; O2SAT 90–100
[2025-04-25 03:45] LABS: Mean Corpuscular Volume 79.2 fL (80.0-100.0)
[2025-04-25 03:47] LABS: Hematocrit 29.5 % (41.0-53.0); Hemoglobin 9.6 g/dL (13.5-17.5); Mean Corpuscular Hemoglobin 25.9 pg (28.0-32.0); Nucleated Red Blood Cells % 0.1 %
[2025-04-25 04:02] LABS: Anion Gap 12 (5-15); Carbon Dioxide 26 mmol/L (20-31); Chloride 100 mmol/L (98-107); Potassium 3.6 mmol/L (3.5-5.1); Sodium 138 mmol/L (136-145)
[2025-04-25 04:08] LABS: Glucose 84 mg/dL (74-106)
[2025-04-25 04:13] LABS: BUN/Creatinine Ratio 8.9 (10.0-20.0); Blood Urea Nitrogen < 5 mg/dL (9-23); Calcium 8.2 mg/dL (8.7-10.4)
[2025-04-25] MEDS ORDERED: ALBUTEROL SULF 2.5 MG/0.5ML(0.5%) NEB SOLN NEB PRN (09:45)
[2025-04-25 17:42] LABS: Base Excess 0.7 mmol/L (-2.0-3.0)
[2025-04-25] MEDS ORDERED: GLYCOPYRROLATE 0.2 MG/ML 1ML VIAL IV SCH (22:00)
[2025-04-25] MEDS: GLYCOPYRROLATE 0.2 MG/ML 1ML VIAL IV PRN (22:20)
--- NOTE | 2025-04-25 23:57 | DVHPN2 ---
Progress Note - Dictate Date Seen: Apr 25, 2025 Medical Necessity Reason Pt with a Central, PICC or Fol: Yes The following are medically ne: Bennett Catheter Reason for bennett catheter: Strict I&O Subjective Patient seen and examined at bedside. On supplemental oxygen Overnight events reviewed vital signs Vital Sign Date Time Temp Pulse Resp B/P (MAP) Pulse Ox O2 Delivery O2 Flow Rate FiO2 04/25/25 22:00 32 93 Oxymizer 5 N/A 04/25/25 22:00 95 04/25/25 22:00 155/98 (117) 04/25/25 12:00 97.8 97.8 Total Intake and Output 04/24/25 04/24/25 04/25/25 15:00 23:00 07:00 Intake Total 667.48 ml 800 ml 600 ml Output Total 1600 ml 1750 ml Balance 667.48 ml -800 ml -1150 ml medications Current Medications Medications Dose Ordered Sig/Cora Route Start Time Stop Time Status Last Admin Dose Admin Acetaminophen 650 mg Q6HP PRN PO 04/14/25 19:15 04/17/25 20:33 650 MG Enoxaparin Sodium 40 mg DAILY SC 04/14/25 22:00 04/25/25 10:46 40 MG Nitroglycerin 0.4 mg Q5MINP PRN SL 04/14/25 19:15 Midazolam HCl 100 ml @ 1 mls/hr Q24H IV 04/15/25 13:45 04/17/25 02:55 4 MLS/HR Ceftriaxone Sodium 50 ml @ 100 mls/hr DAILY@09 IV 04/15/25 15:00 04/25/25 08:31 100 MLS/HR Diagnostic Test (Pha) 1 strip Q6HR 04/16/25 00:00 04/25/25 23:39 1 STRIP Insulin Human Regular Q6HR SC 04/16/25 00:00 04/21/25 13:13 2 UNITS Dextrose 50 ml UD PRN IV 04/15/25 18:45 Levetiracetam 100 ml @ 400 mls/hr BID IV 04/16/25 22:00 04/25/25 22:20 400 MLS/HR Pantoprazole Sodium 40 mg DAILY IV 04/17/25 10:00 04/25/25 10:46 40 MG Enteral Nutritional Formula 1,000 ml 70ML/HR GT 04/16/25 14:30 04/21/25 21:01 1,000 ML Purified Water 170 ml Q6HR GT 04/16/25 18:00 04/24/25 05:32 170 ML Sodium Chloride 1,000 ml @ 75 mls/hr [id number] IV 04/16/25 15:15 04/25/25 18:34 75 MLS/HR Norepinephrine Bitartrate 250 ml @ 1.875 mls/ hr Q24H IV 04/18/25 20:00 Albuterol 2.5 mg Q6HPRN PRN NEB 04/25/25 09:45 Hydralazine HCl 10 mg Q4HP PRN IV 04/25/25 17:00 Glycopyrrolate 0.2 mg Q8HR PRN IV 04/25/25 22:00 04/25/25 22:20 0.2 MG objective Gen.: Patient lying in bed in no apparent distress. On supplemental oxygen. Head: Normocephalic, atraumatic. Eyes: EOMI/PERRLA. Ears: Normal hearing. Normal anatomy. Neck/trachea: Trachea midline, supple. Nose: Normal external anatomy. Mouth: Moist mucous membranes. Chest: Decreased air entry bilaterally. No wheezing or rhonchi. Cardiovascular: Positive S1, positive S2. Regular rate and rhythm. Abdomen: Positive bowel sounds in all 4 quadrants. Soft, non-tender, non- distended. : Deferred. Rectal: Deferred. Skin: Warm, dry. Intact. Extremities: 2+ radial pulses bilaterally. No lower extremity edema. Neuro: Awake, alert, oriented x3. No gross motor or sensory deficits. Cranial nerves II through XII intact. Gait not assessed. laboratory and microbiology Laboratory Tests 04/25/25 03:22 Test 04/25/25 03:22 Range/Units Serum Glucose 84 74-106 mg/dL Assessment/Plan Impression: Acute hypoxic respiratory failure Dependence on supplemental oxygen Septic shock Pneumonia Atelectasis Mucous plugging Events: Patient remains on supplemental oxygen Currently on 6 LPM Oxymizer Improved O2 requirements - continue to taper as tolerated. Swallow evaluation Head of bed elevation Aspiration precautions Patient noted to have episodes of tachypnea. Obtain CXR in AM to assess for interval changes. ABG obtained STAT, reviewed, notable for alkalemia Start glycopyrrolate 0.2 mg IVP q.8 hours PRN upper airway secretions. Continue antibiotics Follow up cultures Keppra for antiepileptic Tube feedings for nutritional support IV fluids with 1/2 NS at 75 ml/hr Free water supplementation - monitor sodium . Monitor hemoglobin - stable Labs and imaging reviewed. Rest of plan as noted below. Plan: S/p extubation on 04/24/25, bridged with BiPAP On supplemental oxygen Titrate to keep O2 sats above 92%. S/p placement of right SCV central line. S/p bronchoscopy with RML BAL on 04/15/25 - mucous plugging removed from RUL, RML, RLL. Sent for bacterial cultures. Continue antibiotics. Follow up cultures. Pressors as necessary for hemodynamic support Titrate to keep mean arterial pressure greater than 65 mmHg. Monitor renal function Monitor electrolytes. Supplement as necessary. Monitor ins and outs. Monitor hemoglobin Transfuse if less than 7.0 g/dL. DVT prophylaxis - Lovenox SC. Prognosis: Poor given patient's multiple co-morbidities. Condition: Critical Rest of plan per hospitalist and other consultants. A total of 35 minutes of critical care time was spent reviewing the patient record, examining the patient, making a diagnostic and therapeutic plan, discussing this plan with the medical personnel, following up on diagnostic studies and following the patient for clinical stability excluding any and all procedures. At least 50% of this time was spent in direct, [id number] contact. Thank you, Dr. Rubio, for allowing me to participate in this patient's care. Further recommendations will depend on the patient's clinical course. Please do not hesitate to contact me if you have any questions or concerns. This medical document was created using an electronic medical record system with [employer] dictation system. Although these documentations are being carefully reviewed, there may still be some phonetic and typographical changes. The errors are purely typographical, due to imperfection on the software program, and do not reflect any compromise in the patient's medical care. Dietary Evaluation Review Comments: Nutrition Recommendation: 1) Consider TPN if NPO>7 days 2) [facility] 2gm Na diet as medically feasible, per SPT approval 3) If feeding tube is placed, consider EN Glucerna 1.2 Eric @ 70ml/hr x 24hr(goal). Water flush 170ml Q6H if allowed, adjust PRN. TF at goal volume provides 2016 kcal (100%), 101gm protein (97%), and 2032 ml free water (including flush). 4) Naveen 1 pk BID, MVI w/ minerals 1 tab daily, VitC 500mg BID, Zinc sulfate 220mg BID x 10 days 5) Monitor NPO status, lab values, weight trend, and I/O Expected Outcomes/Goals: Intake to meet >75% estimated needs Lab values to improve Fu 2-3 days Plan discussed with: Other (GOMEZ Chaudhari) Critical Care Time(min): 35 FRANKLIN MANCILLA [facility] Apr 25, 2025 23:57
[2025-04-26] VITALS (38 sets, daily range): BP systolic 122–158; BP diastolic 72–98; PULSE 83–97; RESP 19–31; TEMP 97.8–98.7; O2SAT 87–100
[2025-04-26 04:46] LABS: Alanine Aminotransferase 17 U/L (7-40); Alkaline Phosphatase 69 U/L (46-116); Anion Gap 12 (5-15); Bilirubin, Total 0.5 mg/dL (0.2-1.0); Carbon Dioxide 28 mmol/L (20-31); Chloride 99 mmol/L (98-107); Glucose 87 mg/dL (74-106); Potassium 3.7 mmol/L (3.5-5.1); Sodium 139 mmol/L (136-145); Total Protein 6.0 g/dL (5.7-8.2)
[2025-04-26 05:01] LABS: Albumin 2.9 g/dL (3.2-4.8); BUN/Creatinine Ratio 8.9 (10.0-20.0); Blood Urea Nitrogen < 5 mg/dL (9-23); Calcium 8.1 mg/dL (8.7-10.4); Magnesium 1.5 mg/dL (1.6-2.6)
--- NOTE | 2025-04-26 05:57 | DVH ---
CHEST RADIOGRAPH Indication: RESP Technique: Single frontal view of the chest was obtained COMPARISON: XY CHEST PORTABLE on DOS: 04/24/25, XY CHEST PORTABLE on DOS: 04/23/25, XY CHEST PORTABLE on DOS: 04/22/25, XY CHEST PORTABLE on DOS: 04/21/25, XY CHEST PORTABLE on DOS: 04/20/25 FINDINGS: Lines and Tubes: Status post interval extubation and removal of enteric catheter.. Right internal jugular central venous catheter unchanged. Lungs: Clear. Right costophrenic sulcus excluded. Pleura: No effusion. No pneumothorax. Cardiomediastinal contours: Unremarkable Bones: Unremarkable IMPRESSION: 1. No radiographic evidence of acute cardiopulmonary abnormality. 2. Status post interval extubation and removal of enteric catheter. Right IJ catheter unchanged.
[2025-04-26] MEDS: MAGNESIUM SULFATE 1GM/100ML 100 ML IV SCH (08:50)
--- NOTE | 2025-04-26 12:28 | DVHPN2 ---
Progress Note Date Seen: Apr 21, 2025 Medical Necessity Reason Pt with a Central, PICC or Fol: Yes The following are medically ne: Bennett Catheter Reason for bennett catheter: Strict I&O Objective vital signs Vital Sign Date Time Temp Pulse Resp B/P (MAP) Pulse Ox O2 Delivery O2 Flow Rate FiO2 04/26/25 11:21 89 04/26/25 10:15 27 98 Oxymizer 5 N/A 04/26/25 07:00 153/92 (112) 04/26/25 04:00 98.7 98.7 Total Intake and Output 04/25/25 04/25/25 04/26/25 15:00 23:00 07:00 Intake Total 750 ml 700 ml 600 ml Output Total 1800 ml 1000 ml Balance 750 ml -1100 ml -400 ml medications Current Medications Medications Dose Ordered Sig/Cora Route Start Time Stop Time Status Last Admin Dose Admin Acetaminophen 650 mg Q6HP PRN PO 04/14/25 19:15 04/17/25 20:33 650 MG Enoxaparin Sodium 40 mg DAILY SC 04/14/25 22:00 04/26/25 10:05 40 MG Nitroglycerin 0.4 mg Q5MINP PRN SL 04/14/25 19:15 Midazolam HCl 100 ml @ 1 mls/hr Q24H IV 04/15/25 13:45 04/17/25 02:55 4 MLS/HR Ceftriaxone Sodium 50 ml @ 100 mls/hr DAILY@09 IV 04/15/25 15:00 04/26/25 08:46 100 MLS/HR Diagnostic Test (Pha) 1 strip Q6HR 04/16/25 00:00 04/26/25 05:56 1 STRIP Insulin Human Regular Q6HR SC 04/16/25 00:00 04/21/25 13:13 2 UNITS Dextrose 50 ml UD PRN IV 04/15/25 18:45 Levetiracetam 100 ml @ 400 mls/hr BID IV 04/16/25 22:00 04/26/25 10:07 400 MLS/HR Pantoprazole Sodium 40 mg DAILY IV 04/17/25 10:00 04/26/25 10:05 40 MG Enteral Nutritional Formula 1,000 ml 70ML/HR GT 04/16/25 14:30 04/21/25 21:01 1,000 ML Purified Water 170 ml Q6HR GT 04/16/25 18:00 04/24/25 05:32 170 ML Sodium Chloride 1,000 ml @ 75 mls/hr [id number] IV 04/16/25 15:15 04/26/25 07:42 75 MLS/HR Norepinephrine Bitartrate 250 ml @ 1.875 mls/ hr Q24H IV 04/18/25 20:00 Albuterol 2.5 mg Q6HPRN PRN NEB 04/25/25 09:45 Hydralazine HCl 10 mg Q4HP PRN IV 04/25/25 17:00 Glycopyrrolate 0.2 mg Q8HR PRN IV 04/25/25 22:00 04/25/25 22:20 0.2 MG Examination: GENERAL:Normal laboratory and microbiology Laboratory Tests 04/26/25 04:00 04/25/25 03:22 Test 04/26/25 04:00 Range/Units Serum Glucose 87 74-106 mg/dL Microbiology Date/Time Source Procedure Growth Status 04/15/25 21:10 Bronchial Washings Gram Stain - Final Complete 04/15/25 21:10 Bronchial Washings Respiratory Culture - Final Complete 04/15/25 02:32 Stool Clostridium difficile Toxin Assay - Final Complete 04/15/25 02:30 Nose MRSA Screen - Final Methicillin Resistant S.aureus Complete 04/14/25 12:52 Blood Blood Culture - Final Staphylococcus epidermidis Complete Labs and/or images reviewed: Labs reviewed by me, Image(s) reviewed by me Problem List/Assessment/Plan Problem List/Assessment/Plan 59M BIBA w/ prior MHx of TBI, Schizophrenia, Insomnia, Anxiety, Bed bound, 10L of O2 via mask and the c/c of Hypoxia. EMS report on the pt being at [facility] and being d/c to [facility] where they picked the pt up today. [facility] nurses informed EMS that they are sending the pt to [facility] due from the pt going to be admitted by Dr. Powell. On scene pt had a fever of 103. Denies any other symptoms at this time. Denies chills, fever, N/V/D, SOB, CP. Denies any other associated symptom's, modifiers, or recent injuries or sick contact at this time. sepstic shock with pna acute metabolic encephalopathy acute hypoxic resp failure Demand ischemia seizure hx obesity loren chronic anemia weaning down on vent as tolerate time: >45 minutes of critical care time Plan discussed with: Patient My Orders My Orders Orders - TARUN MARTINEZ DO Procedure Category Date Status Time Abg W/ Co-Ox RT 04/25/25 Logged 16:56 Hydralazine Injection PHA 04/25/25 In Process (Apresoline Inject 17:00 Abg W/ Co-Ox RT 04/25/25 Logged 16:53 Dietary Evaluation Review Comments: Nutrition Recommendation: 1) Consider TPN if NPO>7 days 2) Advance to [facility] 60gm + 2gm Na diet as medically feasible, per SPT approval 3) If feeding tube is placed, consider EN Glucerna 1.2 Eric @ 70ml/hr x 24hr(goal). Water flush 170ml Q6H if allowed, adjust PRN. TF at goal volume provides 2016 kcal (100%), 101gm protein (97%), and 2032 ml free water (including flush). 4) Naveen 1 pk BID, MVI w/ minerals 1 tab daily, VitC 500mg BID, Zinc sulfate 220mg BID x 10 days 5) Monitor NPO status, lab values, weight trend, and I/O Expected Outcomes/Goals: Intake to meet >75% estimated needs Lab values to improve Fu 2-3 days TARUN MARTINEZ DO Apr 26, 2025 12:28
--- NOTE | 2025-04-26 12:28 | DVHPN2 ---
Progress Note Date Seen: Apr 22, 2025 Medical Necessity Reason Pt with a Central, PICC or Fol: Yes The following are medically ne: Bennett Catheter Reason for bennett catheter: Strict I&O Objective vital signs Vital Sign Date Time Temp Pulse Resp B/P (MAP) Pulse Ox O2 Delivery O2 Flow Rate FiO2 04/26/25 11:21 89 04/26/25 10:15 27 98 Oxymizer 5 N/A 04/26/25 07:00 153/92 (112) 04/26/25 04:00 98.7 98.7 Total Intake and Output 04/25/25 04/25/25 04/26/25 15:00 23:00 07:00 Intake Total 750 ml 700 ml 600 ml Output Total 1800 ml 1000 ml Balance 750 ml -1100 ml -400 ml medications Current Medications Medications Dose Ordered Sig/Cora Route Start Time Stop Time Status Last Admin Dose Admin Acetaminophen 650 mg Q6HP PRN PO 04/14/25 19:15 04/17/25 20:33 650 MG Enoxaparin Sodium 40 mg DAILY SC 04/14/25 22:00 04/26/25 10:05 40 MG Nitroglycerin 0.4 mg Q5MINP PRN SL 04/14/25 19:15 Midazolam HCl 100 ml @ 1 mls/hr Q24H IV 04/15/25 13:45 04/17/25 02:55 4 MLS/HR Ceftriaxone Sodium 50 ml @ 100 mls/hr DAILY@09 IV 04/15/25 15:00 04/26/25 08:46 100 MLS/HR Diagnostic Test (Pha) 1 strip Q6HR 04/16/25 00:00 04/26/25 05:56 1 STRIP Insulin Human Regular Q6HR SC 04/16/25 00:00 04/21/25 13:13 2 UNITS Dextrose 50 ml UD PRN IV 04/15/25 18:45 Levetiracetam 100 ml @ 400 mls/hr BID IV 04/16/25 22:00 04/26/25 10:07 400 MLS/HR Pantoprazole Sodium 40 mg DAILY IV 04/17/25 10:00 04/26/25 10:05 40 MG Enteral Nutritional Formula 1,000 ml 70ML/HR GT 04/16/25 14:30 04/21/25 21:01 1,000 ML Purified Water 170 ml Q6HR GT 04/16/25 18:00 04/24/25 05:32 170 ML Sodium Chloride 1,000 ml @ 75 mls/hr [id number] IV 04/16/25 15:15 04/26/25 07:42 75 MLS/HR Norepinephrine Bitartrate 250 ml @ 1.875 mls/ hr Q24H IV 04/18/25 20:00 Albuterol 2.5 mg Q6HPRN PRN NEB 04/25/25 09:45 Hydralazine HCl 10 mg Q4HP PRN IV 04/25/25 17:00 Glycopyrrolate 0.2 mg Q8HR PRN IV 04/25/25 22:00 04/25/25 22:20 0.2 MG laboratory and microbiology Laboratory Tests 04/26/25 04:00 04/25/25 03:22 Test 04/26/25 04:00 Range/Units Serum Glucose 87 74-106 mg/dL Microbiology Date/Time Source Procedure Growth Status 04/15/25 21:10 Bronchial Washings Gram Stain - Final Complete 04/15/25 21:10 Bronchial Washings Respiratory Culture - Final Complete 04/15/25 02:32 Stool Clostridium difficile Toxin Assay - Final Complete 04/15/25 02:30 Nose MRSA Screen - Final Methicillin Resistant S.aureus Complete 04/14/25 12:52 Blood Blood Culture - Final Staphylococcus epidermidis Complete Labs and/or images reviewed: Labs reviewed by me, Image(s) reviewed by me Problem List/Assessment/Plan Problem List/Assessment/Plan 59M BIBA w/ prior MHx of TBI, Schizophrenia, Insomnia, Anxiety, Bed bound, 10L of O2 via mask and the c/c of Hypoxia. EMS report on the pt being at [facility] [place] and being d/c to [facility] where they picked the pt up today. [facility] nurses informed EMS that they are sending the pt to [facility] due from the pt going to be admitted by Dr. Powell. On scene pt had a fever of 103. Denies any other symptoms at this time. Denies chills, fever, N/V/D, SOB, CP. Denies any other associated symptom's, modifiers, or recent injuries or sick contact at this time. sepstic shock with pna acute metabolic encephalopathy acute hypoxic resp failure Demand ischemia seizure hx obesity loren chronic anemia weaning down on vent as tolerate time: >45 minutes of critical care time Plan discussed with: Patient My Orders My Orders Orders - TARUN MARTINEZ DO Procedure Category Date Status Time Abg W/ Co-Ox RT 04/25/25 Logged 16:56 Hydralazine Injection PHA 04/25/25 In Process (Apresoline Inject 17:00 Abg W/ Co-Ox RT 04/25/25 Logged 16:53 Dietary Evaluation Review Comments: Nutrition Recommendation: 1) Consider TPN if NPO>7 days 2) Advance to [facility] 60gm + 2gm Na diet as medically feasible, per SPT approval 3) If feeding tube is placed, consider EN Glucerna 1.2 Eric @ 70ml/hr x 24hr(goal). Water flush 170ml Q6H if allowed, adjust PRN. TF at goal volume provides 2016 kcal (100%), 101gm protein (97%), and 2032 ml free water (including flush). 4) Naveen 1 pk BID, MVI w/ minerals 1 tab daily, VitC 500mg BID, Zinc sulfate 220mg BID x 10 days 5) Monitor NPO status, lab values, weight trend, and I/O Expected Outcomes/Goals: Intake to meet >75% estimated needs Lab values to improve Fu 2-3 days TARUN MARTINEZ DO Apr 26, 2025 12:28
--- NOTE | 2025-04-26 12:29 | DVHPN2 ---
Progress Note Date Seen: Apr 24, 2025 Medical Necessity Reason Pt with a Central, PICC or Fol: Yes The following are medically ne: Bennett Catheter Reason for bennett catheter: Strict I&O Objective vital signs Vital Sign Date Time Temp Pulse Resp B/P (MAP) Pulse Ox O2 Delivery O2 Flow Rate FiO2 04/26/25 11:21 89 04/26/25 10:15 27 98 Oxymizer 5 N/A 04/26/25 07:00 153/92 (112) 04/26/25 04:00 98.7 98.7 Total Intake and Output 04/25/25 04/25/25 04/26/25 15:00 23:00 07:00 Intake Total 750 ml 700 ml 600 ml Output Total 1800 ml 1000 ml Balance 750 ml -1100 ml -400 ml medications Current Medications Medications Dose Ordered Sig/Cora Route Start Time Stop Time Status Last Admin Dose Admin Acetaminophen 650 mg Q6HP PRN PO 04/14/25 19:15 04/17/25 20:33 650 MG Enoxaparin Sodium 40 mg DAILY SC 04/14/25 22:00 04/26/25 10:05 40 MG Nitroglycerin 0.4 mg Q5MINP PRN SL 04/14/25 19:15 Midazolam HCl 100 ml @ 1 mls/hr Q24H IV 04/15/25 13:45 04/17/25 02:55 4 MLS/HR Ceftriaxone Sodium 50 ml @ 100 mls/hr DAILY@09 IV 04/15/25 15:00 04/26/25 08:46 100 MLS/HR Diagnostic Test (Pha) 1 strip Q6HR 04/16/25 00:00 04/26/25 05:56 1 STRIP Insulin Human Regular Q6HR SC 04/16/25 00:00 04/21/25 13:13 2 UNITS Dextrose 50 ml UD PRN IV 04/15/25 18:45 Levetiracetam 100 ml @ 400 mls/hr BID IV 04/16/25 22:00 04/26/25 10:07 400 MLS/HR Pantoprazole Sodium 40 mg DAILY IV 04/17/25 10:00 04/26/25 10:05 40 MG Enteral Nutritional Formula 1,000 ml 70ML/HR GT 04/16/25 14:30 04/21/25 21:01 1,000 ML Purified Water 170 ml Q6HR GT 04/16/25 18:00 04/24/25 05:32 170 ML Sodium Chloride 1,000 ml @ 75 mls/hr [id number] IV 04/16/25 15:15 04/26/25 07:42 75 MLS/HR Norepinephrine Bitartrate 250 ml @ 1.875 mls/ hr Q24H IV 04/18/25 20:00 Albuterol 2.5 mg Q6HPRN PRN NEB 04/25/25 09:45 Hydralazine HCl 10 mg Q4HP PRN IV 04/25/25 17:00 Glycopyrrolate 0.2 mg Q8HR PRN IV 04/25/25 22:00 04/25/25 22:20 0.2 MG laboratory and microbiology Laboratory Tests 04/26/25 04:00 04/25/25 03:22 Test 04/26/25 04:00 Range/Units Serum Glucose 87 74-106 mg/dL Microbiology Date/Time Source Procedure Growth Status 04/15/25 21:10 Bronchial Washings Gram Stain - Final Complete 04/15/25 21:10 Bronchial Washings Respiratory Culture - Final Complete 04/15/25 02:32 Stool Clostridium difficile Toxin Assay - Final Complete 04/15/25 02:30 Nose MRSA Screen - Final Methicillin Resistant S.aureus Complete 04/14/25 12:52 Blood Blood Culture - Final Staphylococcus epidermidis Complete Labs and/or images reviewed: Labs reviewed by me, Image(s) reviewed by me Problem List/Assessment/Plan Problem List/Assessment/Plan 59M BIBA w/ prior MHx of TBI, Schizophrenia, Insomnia, Anxiety, Bed bound, 10L of O2 via mask and the c/c of Hypoxia. EMS report on the pt being at [facility] and being d/c to [facility] where they picked the pt up today. [facility] nurses informed EMS that they are sending the pt to [facility] due from the pt going to be admitted by Dr. Powell. On scene pt had a fever of 103. Denies any other symptoms at this time. Denies chills, fever, N/V/D, SOB, CP. Denies any other associated symptom's, modifiers, or recent injuries or sick contact at this time. sepstic shock with pna acute metabolic encephalopathy acute hypoxic resp failure Demand ischemia seizure hx obesity loren chronic anemia weaning down on vent as tolerate time: >45 minutes of critical care time Plan discussed with: Other (nursing) My Orders My Orders Orders - TARUN MARTINEZ DO Procedure Category Date Status Time Abg W/ Co-Ox RT 04/25/25 Logged 16:56 Hydralazine Injection PHA 04/25/25 In Process (Apresoline Inject 17:00 Abg W/ Co-Ox RT 04/25/25 Logged 16:53 Dietary Evaluation Review Comments: Nutrition Recommendation: 1) Consider TPN if NPO>7 days 2) Advance to [facility] 60gm + 2gm Na diet as medically feasible, per SPT approval 3) If feeding tube is placed, consider EN Glucerna 1.2 Eric @ 70ml/hr x 24hr(goal). Water flush 170ml Q6H if allowed, adjust PRN. TF at goal volume provides 2016 kcal (100%), 101gm protein (97%), and 2032 ml free water (including flush). 4) Naveen 1 pk BID, MVI w/ minerals 1 tab daily, VitC 500mg BID, Zinc sulfate 220mg BID x 10 days 5) Monitor NPO status, lab values, weight trend, and I/O Expected Outcomes/Goals: Intake to meet >75% estimated needs Lab values to improve Fu 2-3 days TARUN MARTINEZ DO Apr 26, 2025 12:29
--- NOTE | 2025-04-26 12:29 | DVHPN2 ---
Progress Note Date Seen: Apr 23, 2025 Medical Necessity Reason Pt with a Central, PICC or Fol: Yes The following are medically ne: Bennett Catheter Reason for bennett catheter: Strict I&O Objective vital signs Vital Sign Date Time Temp Pulse Resp B/P (MAP) Pulse Ox O2 Delivery O2 Flow Rate FiO2 04/26/25 11:21 89 04/26/25 10:15 27 98 Oxymizer 5 N/A 04/26/25 07:00 153/92 (112) 04/26/25 04:00 98.7 98.7 Total Intake and Output 04/25/25 04/25/25 04/26/25 15:00 23:00 07:00 Intake Total 750 ml 700 ml 600 ml Output Total 1800 ml 1000 ml Balance 750 ml -1100 ml -400 ml medications Current Medications Medications Dose Ordered Sig/Cora Route Start Time Stop Time Status Last Admin Dose Admin Acetaminophen 650 mg Q6HP PRN PO 04/14/25 19:15 04/17/25 20:33 650 MG Enoxaparin Sodium 40 mg DAILY SC 04/14/25 22:00 04/26/25 10:05 40 MG Nitroglycerin 0.4 mg Q5MINP PRN SL 04/14/25 19:15 Midazolam HCl 100 ml @ 1 mls/hr Q24H IV 04/15/25 13:45 04/17/25 02:55 4 MLS/HR Ceftriaxone Sodium 50 ml @ 100 mls/hr DAILY@09 IV 04/15/25 15:00 04/26/25 08:46 100 MLS/HR Diagnostic Test (Pha) 1 strip Q6HR 04/16/25 00:00 04/26/25 05:56 1 STRIP Insulin Human Regular Q6HR SC 04/16/25 00:00 04/21/25 13:13 2 UNITS Dextrose 50 ml UD PRN IV 04/15/25 18:45 Levetiracetam 100 ml @ 400 mls/hr BID IV 04/16/25 22:00 04/26/25 10:07 400 MLS/HR Pantoprazole Sodium 40 mg DAILY IV 04/17/25 10:00 04/26/25 10:05 40 MG Enteral Nutritional Formula 1,000 ml 70ML/HR GT 04/16/25 14:30 04/21/25 21:01 1,000 ML Purified Water 170 ml Q6HR GT 04/16/25 18:00 04/24/25 05:32 170 ML Sodium Chloride 1,000 ml @ 75 mls/hr [id number] IV 04/16/25 15:15 04/26/25 07:42 75 MLS/HR Norepinephrine Bitartrate 250 ml @ 1.875 mls/ hr Q24H IV 04/18/25 20:00 Albuterol 2.5 mg Q6HPRN PRN NEB 04/25/25 09:45 Hydralazine HCl 10 mg Q4HP PRN IV 04/25/25 17:00 Glycopyrrolate 0.2 mg Q8HR PRN IV 04/25/25 22:00 04/25/25 22:20 0.2 MG laboratory and microbiology Laboratory Tests 04/26/25 04:00 04/25/25 03:22 Test 04/26/25 04:00 Range/Units Serum Glucose 87 74-106 mg/dL Microbiology Date/Time Source Procedure Growth Status 04/15/25 21:10 Bronchial Washings Gram Stain - Final Complete 04/15/25 21:10 Bronchial Washings Respiratory Culture - Final Complete 04/15/25 02:32 Stool Clostridium difficile Toxin Assay - Final Complete 04/15/25 02:30 Nose MRSA Screen - Final Methicillin Resistant S.aureus Complete 04/14/25 12:52 Blood Blood Culture - Final Staphylococcus epidermidis Complete Labs and/or images reviewed: Labs reviewed by me, Image(s) reviewed by me Problem List/Assessment/Plan Problem List/Assessment/Plan 59M BIBA w/ prior MHx of TBI, Schizophrenia, Insomnia, Anxiety, Bed bound, 10L of O2 via mask and the c/c of Hypoxia. EMS report on the pt being at [facility] [place]c to [facility] where they picked the pt up today. [facility] nurses informed EMS that they are sending the pt to [facility] due from the pt going to be admitted by Dr. Powell. On scene pt had a fever of 103. Denies any other symptoms at this time. Denies chills, fever, N/V/D, SOB, CP. Denies any other associated symptom's, modifiers, or recent injuries or sick contact at this time. sepstic shock with pna acute metabolic encephalopathy acute hypoxic resp failure Demand ischemia seizure hx obesity loren chronic anemia weaning down on vent as tolerate time: >45 minutes of critical care time Plan discussed with: Other (nursing) My Orders My Orders Orders - TARUN MARTINEZ DO Procedure Category Date Status Time Abg W/ Co-Ox RT 04/25/25 Logged 16:56 Hydralazine Injection PHA 04/25/25 In Process (Apresoline Inject 17:00 Abg W/ Co-Ox RT 04/25/25 Logged 16:53 Dietary Evaluation Review Comments: Nutrition Recommendation: 1) Consider TPN if NPO>7 days 2) Advance to [facility] 60gm + 2gm Na diet as medically feasible, per SPT approval 3) If feeding tube is placed, consider EN Glucerna 1.2 Eric @ 70ml/hr x 24hr(goal). Water flush 170ml Q6H if allowed, adjust PRN. TF at goal volume provides 2016 kcal (100%), 101gm protein (97%), and 2032 ml free water (including flush). 4) Naveen 1 pk BID, MVI w/ minerals 1 tab daily, VitC 500mg BID, Zinc sulfate 220mg BID x 10 days 5) Monitor NPO status, lab values, weight trend, and I/O Expected Outcomes/Goals: Intake to meet >75% estimated needs Lab values to improve Fu 2-3 days TARUN MARTINEZ DO Apr 26, 2025 12:28
--- NOTE | 2025-04-26 12:30 | DVHPN2 ---
Progress Note Date Seen: Apr 25, 2025 Medical Necessity Reason Pt with a Central, PICC or Fol: Yes The following are medically ne: Bennett Catheter Reason for bennett catheter: Strict I&O Objective vital signs Vital Sign Date Time Temp Pulse Resp B/P (MAP) Pulse Ox O2 Delivery O2 Flow Rate FiO2 04/26/25 11:21 89 04/26/25 10:15 27 98 Oxymizer 5 N/A 04/26/25 07:00 153/92 (112) 04/26/25 04:00 98.7 98.7 Total Intake and Output 04/25/25 04/25/25 04/26/25 15:00 23:00 07:00 Intake Total 750 ml 700 ml 600 ml Output Total 1800 ml 1000 ml Balance 750 ml -1100 ml -400 ml medications Current Medications Medications Dose Ordered Sig/Cora Route Start Time Stop Time Status Last Admin Dose Admin Acetaminophen 650 mg Q6HP PRN PO 04/14/25 19:15 04/17/25 20:33 650 MG Enoxaparin Sodium 40 mg DAILY SC 04/14/25 22:00 04/26/25 10:05 40 MG Nitroglycerin 0.4 mg Q5MINP PRN SL 04/14/25 19:15 Midazolam HCl 100 ml @ 1 mls/hr Q24H IV 04/15/25 13:45 04/17/25 02:55 4 MLS/HR Ceftriaxone Sodium 50 ml @ 100 mls/hr DAILY@09 IV 04/15/25 15:00 04/26/25 08:46 100 MLS/HR Diagnostic Test (Pha) 1 strip Q6HR 04/16/25 00:00 04/26/25 05:56 1 STRIP Insulin Human Regular Q6HR SC 04/16/25 00:00 04/21/25 13:13 2 UNITS Dextrose 50 ml UD PRN IV 04/15/25 18:45 Levetiracetam 100 ml @ 400 mls/hr BID IV 04/16/25 22:00 04/26/25 10:07 400 MLS/HR Pantoprazole Sodium 40 mg DAILY IV 04/17/25 10:00 04/26/25 10:05 40 MG Enteral Nutritional Formula 1,000 ml 70ML/HR GT 04/16/25 14:30 04/21/25 21:01 1,000 ML Purified Water 170 ml Q6HR GT 04/16/25 18:00 04/24/25 05:32 170 ML Sodium Chloride 1,000 ml @ 75 mls/hr [id number] IV 04/16/25 15:15 04/26/25 07:42 75 MLS/HR Norepinephrine Bitartrate 250 ml @ 1.875 mls/ hr Q24H IV 04/18/25 20:00 Albuterol 2.5 mg Q6HPRN PRN NEB 04/25/25 09:45 Hydralazine HCl 10 mg Q4HP PRN IV 04/25/25 17:00 Glycopyrrolate 0.2 mg Q8HR PRN IV 04/25/25 22:00 04/25/25 22:20 0.2 MG laboratory and microbiology Laboratory Tests 04/26/25 04:00 04/25/25 03:22 Test 04/26/25 04:00 Range/Units Serum Glucose 87 74-106 mg/dL Microbiology Date/Time Source Procedure Growth Status 04/15/25 21:10 Bronchial Washings Gram Stain - Final Complete 04/15/25 21:10 Bronchial Washings Respiratory Culture - Final Complete 04/15/25 02:32 Stool Clostridium difficile Toxin Assay - Final Complete 04/15/25 02:30 Nose MRSA Screen - Final Methicillin Resistant S.aureus Complete 04/14/25 12:52 Blood Blood Culture - Final Staphylococcus epidermidis Complete Labs and/or images reviewed: Labs reviewed by me, Image(s) reviewed by me Problem List/Assessment/Plan Problem List/Assessment/Plan 59M BIBA w/ prior MHx of TBI, Schizophrenia, Insomnia, Anxiety, Bed bound, 10L of O2 via mask and the c/c of Hypoxia. EMS report on the pt being at [facility] [place] and being d/c to [facility] where they picked the pt up today. [facility] nurses informed EMS that they are sending the pt to [facility] due from the pt going to be admitted by Dr. Powell. On scene pt had a fever of 103. Denies any other symptoms at this time. Denies chills, fever, N/V/D, SOB, CP. Denies any other associated symptom's, modifiers, or recent injuries or sick contact at this time. sepstic shock with pna acute metabolic encephalopathy acute hypoxic resp failure Demand ischemia seizure hx obesity loren chronic anemia extubated, pending swallow evaluation prior to downgrade no speech therapy available at this time time: >45 minutes of critical care time Plan discussed with: Other (nursing) My Orders My Orders Orders - TARUN MARTINEZ DO Procedure Category Date Status Time Abg W/ Co-Ox RT 04/25/25 Logged 16:56 Hydralazine Injection PHA 04/25/25 In Process (Apresoline Inject 17:00 Abg W/ Co-Ox RT 04/25/25 Logged 16:53 Dietary Evaluation Review Comments: Nutrition Recommendation: 1) Consider TPN if NPO>7 days 2) Advance to [facility] 60gm + 2gm Na diet as medically feasible, per SPT approval 3) If feeding tube is placed, consider EN Glucerna 1.2 Eric @ 70ml/hr x 24hr(goal). Water flush 170ml Q6H if allowed, adjust PRN. TF at goal volume provides 2016 kcal (100%), 101gm protein (97%), and 2032 ml free water (including flush). 4) Naveen 1 pk BID, MVI w/ minerals 1 tab daily, VitC 500mg BID, Zinc sulfate 220mg BID x 10 days 5) Monitor NPO status, lab values, weight trend, and I/O Expected Outcomes/Goals: Intake to meet >75% estimated needs Lab values to improve Fu 2-3 days TARUN MARTINEZ DO Apr 26, 2025 12:30
--- NOTE | 2025-04-26 12:31 | DVHPN2 ---
Progress Note Date Seen: Apr 26, 2025 Medical Necessity Reason Pt with a Central, PICC or Fol: Yes The following are medically ne: Bennett Catheter Reason for bennett catheter: Strict I&O Objective vital signs Vital Sign Date Time Temp Pulse Resp B/P (MAP) Pulse Ox O2 Delivery O2 Flow Rate FiO2 04/26/25 11:21 89 04/26/25 10:15 27 98 Oxymizer 5 N/A 04/26/25 07:00 153/92 (112) 04/26/25 04:00 98.7 98.7 Total Intake and Output 04/25/25 04/25/25 04/26/25 15:00 23:00 07:00 Intake Total 750 ml 700 ml 600 ml Output Total 1800 ml 1000 ml Balance 750 ml -1100 ml -400 ml medications Current Medications Medications Dose Ordered Sig/Cora Route Start Time Stop Time Status Last Admin Dose Admin Acetaminophen 650 mg Q6HP PRN PO 04/14/25 19:15 04/17/25 20:33 650 MG Enoxaparin Sodium 40 mg DAILY SC 04/14/25 22:00 04/26/25 10:05 40 MG Nitroglycerin 0.4 mg Q5MINP PRN SL 04/14/25 19:15 Midazolam HCl 100 ml @ 1 mls/hr Q24H IV 04/15/25 13:45 04/17/25 02:55 4 MLS/HR Ceftriaxone Sodium 50 ml @ 100 mls/hr DAILY@09 IV 04/15/25 15:00 04/26/25 08:46 100 MLS/HR Diagnostic Test (Pha) 1 strip Q6HR 04/16/25 00:00 04/26/25 05:56 1 STRIP Insulin Human Regular Q6HR SC 04/16/25 00:00 04/21/25 13:13 2 UNITS Dextrose 50 ml UD PRN IV 04/15/25 18:45 Levetiracetam 100 ml @ 400 mls/hr BID IV 04/16/25 22:00 04/26/25 10:07 400 MLS/HR Pantoprazole Sodium 40 mg DAILY IV 04/17/25 10:00 04/26/25 10:05 40 MG Enteral Nutritional Formula 1,000 ml 70ML/HR GT 04/16/25 14:30 04/21/25 21:01 1,000 ML Purified Water 170 ml Q6HR GT 04/16/25 18:00 04/24/25 05:32 170 ML Sodium Chloride 1,000 ml @ 75 mls/hr [id number] IV 04/16/25 15:15 04/26/25 07:42 75 MLS/HR Norepinephrine Bitartrate 250 ml @ 1.875 mls/ hr Q24H IV 04/18/25 20:00 Albuterol 2.5 mg Q6HPRN PRN NEB 04/25/25 09:45 Hydralazine HCl 10 mg Q4HP PRN IV 04/25/25 17:00 Glycopyrrolate 0.2 mg Q8HR PRN IV 04/25/25 22:00 04/25/25 22:20 0.2 MG laboratory and microbiology Laboratory Tests 04/26/25 04:00 04/25/25 03:22 Test 04/26/25 04:00 Range/Units Serum Glucose 87 74-106 mg/dL Microbiology Date/Time Source Procedure Growth Status 04/15/25 21:10 Bronchial Washings Gram Stain - Final Complete 04/15/25 21:10 Bronchial Washings Respiratory Culture - Final Complete 04/15/25 02:32 Stool Clostridium difficile Toxin Assay - Final Complete 04/15/25 02:30 Nose MRSA Screen - Final Methicillin Resistant S.aureus Complete 04/14/25 12:52 Blood Blood Culture - Final Staphylococcus epidermidis Complete Problem List/Assessment/Plan Problem List/Assessment/Plan 59M BIBA w/ prior MHx of TBI, Schizophrenia, Insomnia, Anxiety, Bed bound, 10L of O2 via mask and the c/c of Hypoxia. EMS report on the pt being at [facility] and being d/c to [facility] where they picked the pt up today. [facility] nurses informed EMS that they are sending the pt to [facility] due from the pt going to be admitted by Dr. Powell. On scene pt had a fever of 103. Denies any other symptoms at this time. Denies chills, fever, N/V/D, SOB, CP. Denies any other associated symptom's, modifiers, or recent injuries or sick contact at this time. sepstic shock with pna acute metabolic encephalopathy acute hypoxic resp failure Demand ischemia seizure hx obesity loren chronic anemia extubated, pending swallow evaluation prior to downgrade no speech therapy available at this time PT/OT to evaluate time: >45 minutes of critical care time Plan discussed with: Other (vamsi) My Orders My Orders Orders - TARUN MARTINEZ DO Procedure Category Date Status Time Abg W/ Co-Ox RT 04/25/25 Logged 16:56 Hydralazine Injection PHA 04/25/25 In Process (Apresoline Inject 17:00 Abg W/ Co-Ox RT 04/25/25 Logged 16:53 Dietary Evaluation Review Comments: Nutrition Recommendation: 1) Consider TPN if NPO>7 days 2) Advance to [facility] 60gm + 2gm Na diet as medically feasible, per SPT approval 3) If feeding tube is placed, consider EN Glucerna 1.2 Eric @ 70ml/hr x 24hr(goal). Water flush 170ml Q6H if allowed, adjust PRN. TF at goal volume provides 2016 kcal (100%), 101gm protein (97%), and 2032 ml free water (including flush). 4) Naveen 1 pk BID, MVI w/ minerals 1 tab daily, VitC 500mg BID, Zinc sulfate 220mg BID x 10 days 5) Monitor NPO status, lab values, weight trend, and I/O Expected Outcomes/Goals: Intake to meet >75% estimated needs Lab values to improve Fu 2-3 days TARUN MARTINEZ DO Apr 26, 2025 12:31
--- NOTE | 2025-04-26 23:31 | DVHPN2 ---
Progress Note - Dictate Date Seen: Apr 26, 2025 Medical Necessity Reason Pt with a Central, PICC or Fol: Yes The following are medically ne: Bennett Catheter Reason for bennett catheter: Strict I&O Subjective Patient seen and examined at bedside. On supplemental oxygen Overnight events reviewed vital signs Vital Sign Date Time Temp Pulse Resp B/P (MAP) Pulse Ox O2 Delivery O2 Flow Rate FiO2 04/26/25 22:00 92 04/26/25 22:00 29 97 Oxymizer 5 N/A 04/26/25 18:00 123/72 (89) 04/26/25 16:20 97.9 97.9 Total Intake and Output 04/25/25 04/25/25 04/26/25 15:00 23:00 07:00 Intake Total 750 ml 700 ml 600 ml Output Total 1800 ml 1000 ml Balance 750 ml -1100 ml -400 ml medications Current Medications Medications Dose Ordered Sig/Cora Route Start Time Stop Time Status Last Admin Dose Admin Acetaminophen 650 mg Q6HP PRN PO 04/14/25 19:15 04/17/25 20:33 650 MG Nitroglycerin 0.4 mg Q5MINP PRN SL 04/14/25 19:15 Diagnostic Test (Pha) 1 strip Q6HR 04/16/25 00:00 04/26/25 17:47 1 STRIP Insulin Human Regular Q6HR SC 04/16/25 00:00 04/21/25 13:13 2 UNITS Dextrose 50 ml UD PRN IV 04/15/25 18:45 Levetiracetam 100 ml @ 400 mls/hr BID IV 04/16/25 22:00 04/26/25 23:07 400 MLS/HR Pantoprazole Sodium 40 mg DAILY IV 04/17/25 10:00 04/26/25 10:05 40 MG Sodium Chloride 1,000 ml @ 75 mls/hr [id number] IV 04/16/25 15:15 04/26/25 07:42 75 MLS/HR Norepinephrine Bitartrate 250 ml @ 1.875 mls/ hr Q24H IV 04/18/25 20:00 Albuterol 2.5 mg Q6HPRN PRN NEB 04/25/25 09:45 Hydralazine HCl 10 mg Q4HP PRN IV 04/25/25 17:00 Glycopyrrolate 0.2 mg Q8HR PRN IV 04/25/25 22:00 04/25/25 22:20 0.2 MG objective Gen.: Patient lying in bed in no apparent distress. On supplemental oxygen. Head: Normocephalic, atraumatic. Eyes: EOMI/PERRLA. Ears: Normal hearing. Normal anatomy. Neck/trachea: Trachea midline, supple. Nose: Normal external anatomy. Mouth: Moist mucous membranes. Chest: Decreased air entry bilaterally. No wheezing or rhonchi. Cardiovascular: Positive S1, positive S2. Regular rate and rhythm. Abdomen: Positive bowel sounds in all 4 quadrants. Soft, non-tender, non- distended. : Deferred. Rectal: Deferred. Skin: Warm, dry. Intact. Extremities: 2+ radial pulses bilaterally. No lower extremity edema. Neuro: Awake, alert, oriented x3. No gross motor or sensory deficits. Cranial nerves II through XII intact. Gait not assessed. laboratory and microbiology Laboratory Tests 04/26/25 04:00 04/25/25 03:22 Test 04/26/25 04:00 Range/Units Serum Glucose 87 74-106 mg/dL Assessment/Plan Impression: Acute hypoxic respiratory failure Dependence on supplemental oxygen Septic shock Pneumonia Atelectasis Mucous plugging Events: Patient remains on supplemental oxygen Currently on 6 LPM -->3 LPM Oxymizer Improved O2 requirements Continue to taper as tolerated. Swallow evaluation pending Head of bed elevation Aspiration precautions Patient with episodes of tachypnea. CXR reviewed, no acute cardiopulmonary abnormality. Glycopyrrolate 0.2 mg IVP q.8 hours PRN upper airway secretions. Continue antibiotics Follow up cultures Keppra for antiepileptic Tube feedings for nutritional support IV fluids with 1/2 NS at 75 ml/hr Monitor hemoglobin - stable Monitor renal function Monitor electrolytes. Supplement as necessary. Magnesium supplementation Sodium normal at 139. Patient is stable from the pulmonary standpoint for downgrade to LEE. Labs and imaging reviewed. Rest of plan as noted below. Plan: S/p extubation on 04/24/25, bridged with BiPAP On supplemental oxygen Titrate to keep O2 sats above 92%. S/p placement of right SCV central line. S/p bronchoscopy with RML BAL on 04/15/25 - mucous plugging removed from RUL, RML, RLL. Sent for bacterial cultures. Continue antibiotics. Follow up cultures. Pressors as necessary for hemodynamic support Titrate to keep mean arterial pressure greater than 65 mmHg. Monitor renal function Monitor electrolytes. Supplement as necessary. Monitor ins and outs. Monitor hemoglobin Transfuse if less than 7.0 g/dL. DVT prophylaxis - Lovenox SC. Prognosis: Poor given patient's multiple co-morbidities. Condition: Critical Rest of plan per hospitalist and other consultants. A total of 35 minutes of critical care time was spent reviewing the patient record, examining the patient, making a diagnostic and therapeutic plan, discussing this plan with the medical personnel, following up on diagnostic studies and following the patient for clinical stability excluding any and all procedures. At least 50% of this time was spent in direct, [id number] contact. Thank you, Dr. Rubio, for allowing me to participate in this patient's care. Further recommendations will depend on the patient's clinical course. Please do not hesitate to contact me if you have any questions or concerns. This medical document was created using an electronic medical record system with [employer] dictation system. Although these documentations are being carefully reviewed, there may still be some phonetic and typographical changes. The errors are purely typographical, due to imperfection on the software program, and do not reflect any compromise in the patient's medical care. Dietary Evaluation Review Comments: Nutrition Recommendation: 1) Consider TPN if NPO>7 days 2) Advance to [facility] 60gm + 2gm Na diet as medically feasible, per SPT approval 3) If feeding tube is placed, consider EN Glucerna 1.2 Eric @ 70ml/hr x 24hr(goal). Water flush 170ml Q6H if allowed, adjust PRN. TF at goal volume provides 2016 kcal (100%), 101gm protein (97%), and 2032 ml free water (including flush). 4) Naveen 1 pk BID, MVI w/ minerals 1 tab daily, VitC 500mg BID, Zinc sulfate 220mg BID x 10 days 5) Monitor NPO status, lab values, weight trend, and I/O Expected Outcomes/Goals: Intake to meet >75% estimated needs Lab values to improve Fu 2-3 days Plan discussed with: Patient, Other (GOMEZ Fairchild) Critical Care Time(min): 35 [facility] Apr 26, 2025 23:31
[2025-04-27] VITALS (43 sets, daily range): BP systolic 131–164; BP diastolic 79–98; PULSE 79–96; RESP 13–29; TEMP 98.2–99.2; O2SAT 90–100
--- NOTE | 2025-04-27 23:24 | DVHPN2 ---
Progress Note - Dictate Date Seen: Apr 27, 2025 Medical Necessity Reason Pt with a Central, PICC or Fol: Yes The following are medically ne: Bennett Catheter Reason for bennett catheter: Strict I&O Subjective Patient seen and examined at bedside. On supplemental oxygen Overnight events reviewed vital signs Vital Sign Date Time Temp Pulse Resp B/P (MAP) Pulse Ox O2 Delivery O2 Flow Rate FiO2 04/27/25 20:00 153/86 04/27/25 19:10 98 Oxymizer 3.0 04/27/25 19:10 46 46 04/27/25 18:30 85 20 04/27/25 15:00 98.5 98.5 Total Intake and Output 04/26/25 04/26/25 04/27/25 15:00 23:00 07:00 Intake Total 950 ml 525 ml 850 ml Output Total 1850 ml 1600 ml Balance 950 ml -1325 ml -750 ml medications Current Medications Medications Dose Ordered Sig/Cora Route Start Time Stop Time Status Last Admin Dose Admin Acetaminophen 650 mg Q6HP PRN PO 04/14/25 19:15 04/17/25 20:33 650 MG Nitroglycerin 0.4 mg Q5MINP PRN SL 04/14/25 19:15 Diagnostic Test (Pha) 1 strip Q6HR 04/16/25 00:00 04/27/25 16:59 1 STRIP Insulin Human Regular Q6HR SC 04/16/25 00:00 04/21/25 13:13 2 UNITS Dextrose 50 ml UD PRN IV 04/15/25 18:45 Levetiracetam 100 ml @ 400 mls/hr BID IV 04/16/25 22:00 04/27/25 23:12 400 MLS/HR Pantoprazole Sodium 40 mg DAILY IV 04/17/25 10:00 04/27/25 09:32 40 MG Sodium Chloride 1,000 ml @ 75 mls/hr [id number] IV 04/16/25 15:15 04/27/25 23:13 75 MLS/HR Norepinephrine Bitartrate 250 ml @ 1.875 mls/ hr Q24H IV 04/18/25 20:00 Albuterol 2.5 mg Q6HPRN PRN NEB 04/25/25 09:45 Hydralazine HCl 10 mg Q4HP PRN IV 04/25/25 17:00 Glycopyrrolate 0.2 mg Q8HR PRN IV 04/25/25 22:00 04/25/25 22:20 0.2 MG objective Gen.: Patient lying in bed in no apparent distress. On supplemental oxygen. Head: Normocephalic, atraumatic. Eyes: EOMI/PERRLA. Ears: Normal hearing. Normal anatomy. Neck/trachea: Trachea midline, supple. Nose: Normal external anatomy. Mouth: Moist mucous membranes. Chest: Decreased air entry bilaterally. No wheezing or rhonchi. Cardiovascular: Positive S1, positive S2. Regular rate and rhythm. Abdomen: Positive bowel sounds in all 4 quadrants. Soft, non-tender, non- distended. : Deferred. Rectal: Deferred. Skin: Warm, dry. Intact. Extremities: 2+ radial pulses bilaterally. No lower extremity edema. Neuro: Awake, alert, oriented x3. No gross motor or sensory deficits. Cranial nerves II through XII intact. Gait not assessed. laboratory and microbiology Laboratory Tests 04/26/25 04:00 04/25/25 03:22 Test 04/26/25 04:00 Range/Units Serum Glucose 87 74-106 mg/dL Assessment/Plan Impression: Acute hypoxic respiratory failure Dependence on supplemental oxygen Septic shock Pneumonia Atelectasis Mucous plugging Events: Patient remains on supplemental oxygen Currently on 3 LPM Oxymizer Improved O2 requirements Continue to taper as tolerated. Swallow evaluation pending Head of bed elevation Aspiration precautions Patient with episodes of tachypnea. CXR reviewed, no acute cardiopulmonary abnormality. Glycopyrrolate 0.2 mg IVP q.8 hours PRN upper airway secretions. Continue antibiotics Follow up cultures Keppra for antiepileptic Tube feedings for nutritional support IV fluids with 1/2 NS at 75 ml/hr Monitor hemoglobin - stable Monitor renal function Monitor electrolytes. Supplement as necessary. Magnesium supplementation Labs and imaging reviewed. Rest of plan as noted below. Plan: S/p extubation on 04/24/25, bridged with BiPAP On supplemental oxygen Titrate to keep O2 sats above 92%. S/p placement of right SCV central line. S/p bronchoscopy with RML BAL on 04/15/25 - mucous plugging removed from RUL, RML, RLL. Sent for bacterial cultures. Continue antibiotics. Follow up cultures. Pressors as necessary for hemodynamic support Titrate to keep mean arterial pressure greater than 65 mmHg. Monitor renal function Monitor electrolytes. Supplement as necessary. Monitor ins and outs. Monitor hemoglobin Transfuse if less than 7.0 g/dL. DVT prophylaxis - Lovenox SC. Prognosis: Poor given patient's multiple co-morbidities. Condition: Critical Rest of plan per hospitalist and other consultants. A total of 35 minutes of critical care time was spent reviewing the patient record, examining the patient, making a diagnostic and therapeutic plan, discussing this plan with the medical personnel, following up on diagnostic studies and following the patient for clinical stability excluding any and all procedures. At least 50% of this time was spent in direct, [id number] contact. Thank you, Dr. Rubio, for allowing me to participate in this patient's care. Further recommendations will depend on the patient's clinical course. Please do not hesitate to contact me if you have any questions or concerns. This medical document was created using an electronic medical record system with [employer] dictation system. Although these documentations are being carefully reviewed, there may still be some phonetic and typographical changes. The errors are purely typographical, due to imperfection on the software program, and do not reflect any compromise in the patient's medical care. Dietary Evaluation Review Comments: Nutrition Recommendation: 1) Consider TPN if NPO>7 days 2) [facility] + 2gm Na diet as medically feasible, per SPT approval 3) If feeding tube is placed, consider EN Glucerna 1.2 Eric @ 70ml/hr x 24hr(goal). Water flush 170ml Q6H if allowed, adjust PRN. TF at goal volume provides 2016 kcal (100%), 101gm protein (97%), and 2032 ml free water (including flush). 4) Naveen 1 pk BID, MVI w/ minerals 1 tab daily, VitC 500mg BID, Zinc sulfate 220mg BID x 10 days 5) Monitor NPO status, lab values, weight trend, and I/O Expected Outcomes/Goals: Intake to meet >75% estimated needs Lab values to improve Fu 2-3 days Plan discussed with: Patient, Other (GOMEZ Alfaro) Critical Care Time(min): 35 [facility] Apr 27, 2025 23:24
[2025-04-28] VITALS (32 sets, daily range): BP systolic 137–175; BP diastolic 82–100; PULSE 80–94; RESP 13–26; TEMP 98–98.6; O2SAT 90–100
[2025-04-28] MEDS: hydrALAZINE HCL 20 MG/ML VL IV PRN (11:46)
[2025-04-28] MEDS ORDERED: CLINIMIX PER PHARMACY 0 ML IV SCH (18:15)
[2025-04-28 20:17] LABS: Alanine Aminotransferase 14 U/L (7-40); Alkaline Phosphatase 64 U/L (46-116); Anion Gap 11 (5-15); Carbon Dioxide 31 mmol/L (20-31); INR 1.24 (0.9-1.15); Prothrombin Time 12.9 sec (9.3-11.8); Sodium 139 mmol/L (136-145); Total Protein 5.9 g/dL (5.7-8.2)
[2025-04-28 20:18] LABS: Bilirubin, Total 0.7 mg/dL (0.2-1.0)
[2025-04-28 20:24] LABS: Albumin 2.9 g/dL (3.2-4.8); BUN/Creatinine Ratio 8.8 (10.0-20.0); Blood Urea Nitrogen < 5 mg/dL (9-23); Calcium 8.2 mg/dL (8.7-10.4); Chloride 97 mmol/L (98-107); Glucose 74 mg/dL (74-106); Magnesium 1.6 mg/dL (1.6-2.6); Potassium 3.2 mmol/L (3.5-5.1)
[2025-04-28] MEDS ORDERED: DEXTROSE (50%) 50ML SYRG IV SCH (22:00)
[2025-04-28] MEDS: MAGNESIUM SULFATE 1GM/100ML 100 ML IV SCH (22:42)
[2025-04-28] MEDS: POTASSIUM CHL 20MEQ/100ML 100 ML IV ONE (22:43)
[2025-04-28] MEDS: AMINO ACID INFUSION IN D10W 1,000 ML IV SCH (23:02)
[2025-04-28] MEDS: InsuLIN REG 1unit/0.01ml Soln (100units/ml) SC SCH (23:19)
[2025-04-28] MEDS: ACCU-CHEK COMFORT CURVE STRIP VI SCH (23:20)
--- NOTE | 2025-04-28 23:48 | DVHPN2 ---
Progress Note - Dictate Date Seen: Apr 28, 2025 Medical Necessity Reason Pt with a Central, PICC or Fol: Yes The following are medically ne: Bennett Catheter Reason for bennett catheter: Strict I&O Subjective Patient seen and examined at bedside. On supplemental oxygen Overnight events reviewed vital signs Vital Sign Date Time Temp Pulse Resp B/P (MAP) Pulse Ox O2 Delivery O2 Flow Rate FiO2 04/28/25 20:00 152/94 04/28/25 19:00 88 19 96 04/28/25 18:15 Oxymizer 3 N/A 04/28/25 16:00 98.1 98.1 Total Intake and Output 04/27/25 04/27/25 04/28/25 15:00 23:00 07:00 Intake Total 775 ml 525 ml 700 ml Output Total 1100 ml 1100 ml Balance 775 ml -575 ml -400 ml medications Current Medications Medications Dose Ordered Sig/Cora Route Start Time Stop Time Status Last Admin Dose Admin Acetaminophen 650 mg Q6HP PRN PO 04/14/25 19:15 04/17/25 20:33 650 MG Nitroglycerin 0.4 mg Q5MINP PRN SL 04/14/25 19:15 Dextrose 50 ml UD PRN IV 04/15/25 18:45 Cancel Levetiracetam 100 ml @ 400 mls/hr BID IV 04/16/25 22:00 04/28/25 22:42 400 MLS/HR Pantoprazole Sodium 40 mg DAILY IV 04/17/25 10:00 04/28/25 10:00 40 MG Sodium Chloride 1,000 ml @ 75 mls/hr [id number] IV 04/16/25 15:15 04/28/25 12:57 75 MLS/HR Norepinephrine Bitartrate 250 ml @ 1.875 mls/ hr Q24H IV 04/18/25 20:00 Albuterol 2.5 mg Q6HPRN PRN NEB 04/25/25 09:45 Hydralazine HCl 10 mg Q4HP PRN IV 04/25/25 17:00 04/28/25 11:46 10 MG Glycopyrrolate 0.2 mg Q8HR PRN IV 04/25/25 22:00 04/25/25 22:20 0.2 MG Amino Acids 0 ml @ 0 mls/hr PER PHARMACY IV 04/28/25 18:15 Amino Acids/ Electrolytes/ Dextrose 1,000 ml @ 41 mls/hr DAILY@2200 IV 04/28/25 22:00 04/28/25 23:02 41 MLS/HR Diagnostic Test (Pha) 1 strip Q6HR 04/29/25 00:00 04/28/25 23:20 1 STRIP Insulin Human Regular FOLLOW SLIDING SCALE Q6HR SC 04/29/25 00:00 Dextrose 50 ml UD IV 04/28/25 22:00 Magnesium Sulfate/ Dextrose 100 ml @ 100 mls/hr Q1HR IV 04/28/25 22:00 04/28/25 23:59 04/28/25 22:42 100 MLS/HR objective Gen.: Patient lying in bed in no apparent distress. On supplemental oxygen. Head: Normocephalic, atraumatic. Eyes: EOMI/PERRLA. Ears: Normal hearing. Normal anatomy. Neck/trachea: Trachea midline, supple. Nose: Normal external anatomy. Mouth: Moist mucous membranes. Chest: Decreased air entry bilaterally. No wheezing or rhonchi. Cardiovascular: Positive S1, positive S2. Regular rate and rhythm. Abdomen: Positive bowel sounds in all 4 quadrants. Soft, non-tender, non- distended. : Deferred. Rectal: Deferred. Skin: Warm, dry. Intact. Extremities: 2+ radial pulses bilaterally. No lower extremity edema. Neuro: Awake, alert, oriented x3. No gross motor or sensory deficits. Cranial nerves II through XII intact. Gait not assessed. laboratory and microbiology Laboratory Tests 04/28/25 19:23 04/25/25 03:22 Test 04/28/25 19:23 Range/Units Serum Glucose 74 74-106 mg/dL Assessment/Plan Impression: Acute hypoxic respiratory failure Dependence on supplemental oxygen Septic shock Pneumonia Atelectasis Mucous plugging Events: Patient remains on supplemental oxygen Currently on 3 LPM Oxymizer Improved O2 requirements Continue to taper as tolerated. Swallow evaluation pending Head of bed elevation Aspiration precautions PICC line consult. Patient with episodes of tachypnea. Glycopyrrolate 0.2 mg IVP q.8 hours PRN upper airway secretions. Continue antibiotics Follow up cultures Keppra for antiepileptic TPN/Tube feedings for nutritional support IV fluids with 1/2 NS at 75 ml/hr Monitor hemoglobin - stable Monitor renal function Monitor electrolytes. Supplement as necessary. Potassium, magnesium supplementation Labs and imaging reviewed. Rest of plan as noted below. Plan: S/p extubation on 04/24/25, bridged with BiPAP On supplemental oxygen Titrate to keep O2 sats above 92%. S/p placement of right SCV central line. S/p bronchoscopy with RML BAL on 04/15/25 - mucous plugging removed from RUL, RML, RLL. Sent for bacterial cultures. Continue antibiotics. Follow up cultures. Pressors as necessary for hemodynamic support Titrate to keep mean arterial pressure greater than 65 mmHg. Monitor renal function Monitor electrolytes. Supplement as necessary. Monitor ins and outs. Monitor hemoglobin Transfuse if less than 7.0 g/dL. DVT prophylaxis - Lovenox SC. Prognosis: Poor given patient's multiple co-morbidities. Condition: Critical Rest of plan per hospitalist and other consultants. A total of 35 minutes of critical care time was spent reviewing the patient record, examining the patient, making a diagnostic and therapeutic plan, discussing this plan with the medical personnel, following up on diagnostic studies and following the patient for clinical stability excluding any and all procedures. At least 50% of this time was spent in direct, [id number] contact. Thank you, Dr. Rubio, for allowing me to participate in this patient's care. Further recommendations will depend on the patient's clinical course. Please do not hesitate to contact me if you have any questions or concerns. This medical document was created using an electronic medical record system with [employer] dictation system. Although these documentations are being carefully reviewed, there may still be some phonetic and typographical changes. The errors are purely typographical, due to imperfection on the software program, and do not reflect any compromise in the patient's medical care. Dietary Evaluation Review Comments: Nutrition Recommendation: 1) Consider TPN if NPO>7 days 2) Advance to [facility] 60gm + 2gm Na diet as medically feasible, per SPT approval 3) If feeding tube is placed, consider EN Glucerna 1.2 Eric @ 70ml/hr x 24hr(goal). Water flush 170ml Q6H if allowed, adjust PRN. TF at goal volume provides 2016 kcal (100%), 101gm protein (97%), and 2032 ml free water (including flush). 4) Naveen 1 pk BID, MVI w/ minerals 1 tab daily, VitC 500mg BID, Zinc sulfate 220mg BID x 10 days 5) Monitor NPO status, lab values, weight trend, and I/O Expected Outcomes/Goals: Intake to meet >75% estimated needs Lab values to improve Fu 2-3 days Plan discussed with: Patient, Other (GOMEZ Carroll) Critical Care Time(min): 35 [facility] Apr 28, 2025 23:48
[2025-04-29] VITALS (25 sets, daily range): BP systolic 126–170; BP diastolic 81–104; PULSE 79–96; RESP 9–26; TEMP 98.2–98.6; O2SAT 82–100
[2025-04-29 04:47] LABS: Alanine Aminotransferase 15 U/L (7-40); Alkaline Phosphatase 63 U/L (46-116); Anion Gap 11 (5-15); Bilirubin, Total 0.6 mg/dL (0.2-1.0); Magnesium 2.2 mg/dL (1.6-2.6); Sodium 139 mmol/L (136-145); Total Protein 5.8 g/dL (5.7-8.2)
[2025-04-29 04:48] LABS: Albumin 2.9 g/dL (3.2-4.8); BUN/Creatinine Ratio 8.5 (10.0-20.0); Blood Urea Nitrogen < 5 mg/dL (9-23); Calcium 8.1 mg/dL (8.7-10.4); Carbon Dioxide 31 mmol/L (20-31); Chloride 97 mmol/L (98-107); Glucose 120 mg/dL (74-106); Potassium 3.4 mmol/L (3.5-5.1)
[2025-04-29 05:02] LABS: Hematocrit 28.8 % (41.0-53.0); Hemoglobin 9.3 g/dL (13.5-17.5); Mean Corpuscular Hemoglobin 25.6 pg (28.0-32.0); Mean Corpuscular Volume 79.5 fL (80.0-100.0); Nucleated Red Blood Cells % 0.1 %
[2025-04-29] MEDS: POTASSIUM CHL 20MEQ/100ML 100 ML IV SCH (11:18)
--- NOTE | 2025-04-29 22:55 | DVHPN2 ---
Progress Note - Dictate Date Seen: Apr 29, 2025 Medical Necessity Reason Pt with a Central, PICC or Fol: Yes The following are medically ne: Bennett Catheter Reason for bennett catheter: Strict I&O Subjective Patient seen and examined at bedside. On supplemental oxygen Overnight events reviewed vital signs Vital Sign Date Time Temp Pulse Resp B/P (MAP) Pulse Ox O2 Delivery O2 Flow Rate FiO2 04/29/25 18:00 84 04/29/25 18:00 13 155/95 (115) 97 04/29/25 18:00 Oxymizer 4 N/A 04/29/25 16:00 98.4 98.4 Total Intake and Output 04/28/25 04/28/25 04/29/25 15:00 23:00 07:00 Intake Total 700 ml 700 ml 648 ml Output Total 1100 ml 1600 ml Balance 700 ml -400 ml -952 ml medications Current Medications Medications Dose Ordered Sig/Cora Route Start Time Stop Time Status Last Admin Dose Admin Acetaminophen 650 mg Q6HP PRN PO 04/14/25 19:15 04/17/25 20:33 650 MG Nitroglycerin 0.4 mg Q5MINP PRN SL 04/14/25 19:15 Dextrose 50 ml UD PRN IV 04/15/25 18:45 Cancel Levetiracetam 100 ml @ 400 mls/hr BID IV 04/16/25 22:00 04/29/25 21:30 400 MLS/HR Pantoprazole Sodium 40 mg DAILY IV 04/17/25 10:00 04/29/25 10:32 40 MG Sodium Chloride 1,000 ml @ 75 mls/hr [id number] IV 04/16/25 15:15 04/29/25 16:22 75 MLS/HR Albuterol 2.5 mg Q6HPRN PRN NEB 04/25/25 09:45 Hydralazine HCl 10 mg Q4HP PRN IV 04/25/25 17:00 04/28/25 11:46 10 MG Glycopyrrolate 0.2 mg Q8HR PRN IV 04/25/25 22:00 04/25/25 22:20 0.2 MG Diagnostic Test (Pha) 1 strip Q6HR 04/29/25 00:00 04/29/25 17:51 1 STRIP Insulin Human Regular FOLLOW SLIDING SCALE Q6HR SC 04/29/25 00:00 04/29/25 11:32 2 UNITS Dextrose 50 ml UD IV 04/28/25 22:00 objective Gen.: Patient lying in bed in no apparent distress. On supplemental oxygen. Head: Normocephalic, atraumatic. Eyes: EOMI/PERRLA. Ears: Normal hearing. Normal anatomy. Neck/trachea: Trachea midline, supple. Nose: Normal external anatomy. Mouth: Moist mucous membranes. Chest: Decreased air entry bilaterally. No wheezing or rhonchi. Cardiovascular: Positive S1, positive S2. Regular rate and rhythm. Abdomen: Positive bowel sounds in all 4 quadrants. Soft, non-tender, non- distended. : Deferred. Rectal: Deferred. Skin: Warm, dry. Intact. Extremities: 2+ radial pulses bilaterally. No lower extremity edema. Neuro: Awake, alert, oriented x3. No gross motor or sensory deficits. Cranial nerves II through XII intact. Gait not assessed. laboratory and microbiology Laboratory Tests 04/29/25 03:30 Test 04/29/25 03:30 Range/Units Serum Glucose 120 H 74-106 mg/dL Assessment/Plan Impression: Acute hypoxic respiratory failure Dependence on supplemental oxygen Septic shock Pneumonia Atelectasis Mucous plugging Events: Patient remains on supplemental oxygen Currently on 3 LPM Oxymizer Continue to taper as tolerated. Swallow evaluation done Head of bed elevation Aspiration precautions Recommend oral hygiene Pt underwent midline catheter placement Patient with episodes of tachypnea. Glycopyrrolate 0.2 mg IVP q.8 hours PRN upper airway secretions. Continue antibiotics Follow up cultures Keppra for antiepileptic TPN/Tube feedings for nutritional support IV fluids with 1/2 NS at 75 ml/hr Monitor hemoglobin - stable Monitor renal function Monitor electrolytes. Supplement as necessary. Potassium supplementation Labs and imaging reviewed. Rest of plan as noted below. Plan: S/p extubation on 04/24/25, bridged with BiPAP On supplemental oxygen Titrate to keep O2 sats above 92%. S/p placement of right SCV central line. S/p bronchoscopy with RML BAL on 04/15/25 - mucous plugging removed from RUL, RML, RLL. Sent for bacterial cultures. Continue antibiotics. Follow up cultures. Pressors as necessary for hemodynamic support Titrate to keep mean arterial pressure greater than 65 mmHg. Monitor renal function Monitor electrolytes. Supplement as necessary. Monitor ins and outs. Monitor hemoglobin Transfuse if less than 7.0 g/dL. DVT prophylaxis - Lovenox SC. Prognosis: Poor given patient's multiple co-morbidities. Condition: Critical Rest of plan per hospitalist and other consultants. A total of 35 minutes of critical care time was spent reviewing the patient record, examining the patient, making a diagnostic and therapeutic plan, discussing this plan with the medical personnel, following up on diagnostic studies and following the patient for clinical stability excluding any and all procedures. At least 50% of this time was spent in direct, [id number] contact. Thank you, Dr. Rubio, for allowing me to participate in this patient's care. Further recommendations will depend on the patient's clinical course. Please do not hesitate to contact me if you have any questions or concerns. This medical document was created using an electronic medical record system with [employer] dictation system. Although these documentations are being carefully reviewed, there may still be some phonetic and typographical changes. The errors are purely typographical, due to imperfection on the software program, and do not reflect any compromise in the patient's medical care. Dietary Evaluation Review Comments: Nutrition Recommendation: 1) Consider TPN if NPO>7 days 2) Advance to [facility] 60gm + 2gm Na diet as medically feasible, per SPT approval 3) If feeding tube is placed, consider EN Glucerna 1.2 Eric @ 70ml/hr x 24hr(goal). Water flush 170ml Q6H if allowed, adjust PRN. TF at goal volume provides 2016 kcal (100%), 101gm protein (97%), and 2032 ml free water (including flush). 4) Naveen 1 pk BID, MVI w/ minerals 1 tab daily, VitC 500mg BID, Zinc sulfate 220mg BID x 10 days 5) Monitor NPO status, lab values, weight trend, and I/O Expected Outcomes/Goals: Intake to meet >75% estimated needs Lab values to improve Fu 2-3 days Plan discussed with: Patient, Other (RN) Critical Care Time(min): 35 [facility] Apr 29, 2025 22:55
[2025-04-30] VITALS (26 sets, daily range): BP systolic 133–167; BP diastolic 83–108; PULSE 71–90; RESP 0–26; TEMP 97.6–98.8; O2SAT 86–100
[2025-04-30 04:34] LABS: Hematocrit 29.5 % (41.0-53.0); Hemoglobin 9.4 g/dL (13.5-17.5); Mean Corpuscular Hemoglobin 25.8 pg (28.0-32.0); Mean Corpuscular Volume 80.9 fL (80.0-100.0); Nucleated Red Blood Cells % 0.3 %
[2025-04-30 05:02] LABS: Alanine Aminotransferase 16 U/L (7-40); Alkaline Phosphatase 63 U/L (46-116); Anion Gap 9 (5-15); Bilirubin, Total 0.6 mg/dL (0.2-1.0); Chloride 100 mmol/L (98-107); Glucose 101 mg/dL (74-106); Potassium 3.5 mmol/L (3.5-5.1); Sodium 140 mmol/L (136-145); Total Protein 6.0 g/dL (5.7-8.2)
[2025-04-30 05:04] LABS: Albumin 3.0 g/dL (3.2-4.8); BUN/Creatinine Ratio 8.9 (10.0-20.0); Blood Urea Nitrogen < 5 mg/dL (9-23); Calcium 8.2 mg/dL (8.7-10.4); Carbon Dioxide 31 mmol/L (20-31)
--- NOTE | 2025-04-30 16:49 | DVHPN2 ---
Progress Note Date Seen: Apr 27, 2025 Medical Necessity Reason Pt with a Central, PICC or Fol: Yes The following are medically ne: Bennett Catheter Reason for bennett catheter: Strict I&O Objective vital signs Vital Sign Date Time Temp Pulse Resp B/P (MAP) Pulse Ox O2 Delivery O2 Flow Rate FiO2 04/30/25 16:00 18 100 Simple Mask* 6 50 04/30/25 16:00 97.9 71 158/98 (118) 97.9 Total Intake and Output 04/29/25 04/29/25 04/30/25 15:00 23:00 07:00 Intake Total 1228 ml 191 ml 200 ml Output Total 1725 ml 1275 ml Balance 1228 ml -1534 ml -1075 ml medications Current Medications Medications Dose Ordered Sig/Cora Route Start Time Stop Time Status Last Admin Dose Admin Acetaminophen 650 mg Q6HP PRN PO 04/14/25 19:15 04/17/25 20:33 650 MG Nitroglycerin 0.4 mg Q5MINP PRN SL 04/14/25 19:15 Dextrose 50 ml UD PRN IV 04/15/25 18:45 Cancel Levetiracetam 100 ml @ 400 mls/hr BID IV 04/16/25 22:00 04/30/25 11:31 400 MLS/HR Pantoprazole Sodium 40 mg DAILY IV 04/17/25 10:00 04/30/25 11:31 40 MG Sodium Chloride 1,000 ml @ 75 mls/hr [id number] IV 04/16/25 15:15 04/29/25 16:22 75 MLS/HR Albuterol 2.5 mg Q6HPRN PRN NEB 04/25/25 09:45 Hydralazine HCl 10 mg Q4HP PRN IV 04/25/25 17:00 04/28/25 11:46 10 MG Glycopyrrolate 0.2 mg Q8HR PRN IV 04/25/25 22:00 04/25/25 22:20 0.2 MG laboratory and microbiology Laboratory Tests 04/30/25 04:00 Test 04/30/25 04:00 Range/Units Serum Glucose 101 74-106 mg/dL Microbiology Date/Time Source Procedure Growth Status 04/15/25 21:10 Bronchial Washings Gram Stain - Final Complete 04/15/25 21:10 Bronchial Washings Respiratory Culture - Final Complete 04/15/25 02:32 Stool Clostridium difficile Toxin Assay - Final Complete 04/15/25 02:30 Nose MRSA Screen - Final Methicillin Resistant S.aureus Complete 04/14/25 12:52 Blood Blood Culture - Final Staphylococcus epidermidis Complete Labs and/or images reviewed: Image(s) reviewed by me Problem List/Assessment/Plan Problem List/Assessment/Plan 59M BIBA w/ prior MHx of TBI, Schizophrenia, Insomnia, Anxiety, Bed bound, 10L of O2 via mask and the c/c of Hypoxia. EMS report on the pt being at [facility] and being d/c to [facility] where they picked the pt up today. [facility] nurses informed EMS that they are sending the pt to [facility] due from the pt going to be admitted by Dr. Powell. On scene pt had a fever of 103. Denies any other symptoms at this time. Denies chills, fever, N/V/D, SOB, CP. Denies any other associated symptom's, modifiers, or recent injuries or sick contact at this time. sepstic shock with pna acute metabolic encephalopathy acute hypoxic resp failure Demand ischemia seizure hx obesity loren chronic anemia weakness, generalized deconditioning extubated, no speech therapy available at this time PT/OT to evaluate pt unable to transfer out of ICU due to still being encephalopathic, unable to swallow and walk, and labile mental status. pending PT and swallow evaluation. in the meantime, pt to continue with climix time: >45 minutes of time Plan discussed with: Other (nursing) Dietary Evaluation Review Comments: Nutrition Recommendation: 1) Consider TPN if NPO>7 days 2) Advance to [facility] 60gm + 2gm Na diet as medically feasible, per SPT approval 3) If feeding tube is placed, consider EN Glucerna 1.2 Eric @ 70ml/hr x 24hr(goal). Water flush 170ml Q6H if allowed, adjust PRN. TF at goal volume provides 2016 kcal (100%), 101gm protein (97%), and 2032 ml free water (including flush). 4) Naveen 1 pk BID, MVI w/ minerals 1 tab daily, VitC 500mg BID, Zinc sulfate 220mg BID x 10 days 5) Monitor NPO status, lab values, weight trend, and I/O Expected Outcomes/Goals: Intake to meet >75% estimated needs Lab values to improve Fu 2-3 days TARUN MARTINEZ DO Apr 30, 2025 16:49
--- NOTE | 2025-04-30 16:53 | DVHPN2 ---
Progress Note Date Seen: Apr 28, 2025 Medical Necessity Reason Pt with a Central, PICC or Fol: Yes The following are medically ne: Bennett Catheter Reason for bennett catheter: Strict I&O Objective vital signs Vital Sign Date Time Temp Pulse Resp B/P (MAP) Pulse Ox O2 Delivery O2 Flow Rate FiO2 04/30/25 16:00 18 100 Simple Mask* 6 50 04/30/25 16:00 97.9 71 158/98 (118) 97.9 Total Intake and Output 04/29/25 04/29/25 04/30/25 15:00 23:00 07:00 Intake Total 1228 ml 191 ml 200 ml Output Total 1725 ml 1275 ml Balance 1228 ml -1534 ml -1075 ml medications Current Medications Medications Dose Ordered Sig/Cora Route Start Time Stop Time Status Last Admin Dose Admin Acetaminophen 650 mg Q6HP PRN PO 04/14/25 19:15 04/17/25 20:33 650 MG Nitroglycerin 0.4 mg Q5MINP PRN SL 04/14/25 19:15 Dextrose 50 ml UD PRN IV 04/15/25 18:45 Cancel Levetiracetam 100 ml @ 400 mls/hr BID IV 04/16/25 22:00 04/30/25 11:31 400 MLS/HR Pantoprazole Sodium 40 mg DAILY IV 04/17/25 10:00 04/30/25 11:31 40 MG Sodium Chloride 1,000 ml @ 75 mls/hr [id number] IV 04/16/25 15:15 04/29/25 16:22 75 MLS/HR Albuterol 2.5 mg Q6HPRN PRN NEB 04/25/25 09:45 Hydralazine HCl 10 mg Q4HP PRN IV 04/25/25 17:00 04/28/25 11:46 10 MG Glycopyrrolate 0.2 mg Q8HR PRN IV 04/25/25 22:00 04/25/25 22:20 0.2 MG laboratory and microbiology Laboratory Tests 04/30/25 04:00 Test 04/30/25 04:00 Range/Units Serum Glucose 101 74-106 mg/dL Microbiology Date/Time Source Procedure Growth Status 04/15/25 21:10 Bronchial Washings Gram Stain - Final Complete 04/15/25 21:10 Bronchial Washings Respiratory Culture - Final Complete 04/15/25 02:32 Stool Clostridium difficile Toxin Assay - Final Complete 04/15/25 02:30 Nose MRSA Screen - Final Methicillin Resistant S.aureus Complete 04/14/25 12:52 Blood Blood Culture - Final Staphylococcus epidermidis Complete Labs and/or images reviewed: Labs reviewed by me, Image(s) reviewed by me Problem List/Assessment/Plan Problem List/Assessment/Plan 59M BIBA w/ prior MHx of TBI, Schizophrenia, Insomnia, Anxiety, Bed bound, 10L of O2 via mask and the c/c of Hypoxia. EMS report on the pt being at [facility] [place] [facility] and being d/c to [facility] where they picked the pt up today. [facility] nurses informed EMS that they are sending the pt to [facility] due from the pt going to be admitted by Dr. Powell. On scene pt had a fever of 103. Denies any other symptoms at this time. Denies chills, fever, N/V/D, SOB, CP. Denies any other associated symptom's, modifiers, or recent injuries or sick contact at this time. sepstic shock with pna acute metabolic encephalopathy acute hypoxic resp failure Demand ischemia seizure hx obesity loren chronic anemia weakness, generalized deconditioning extubated, no speech therapy available at this time PT/OT to evaluate pt unable to transfer out of ICU due to still being encephalopathic, unable to swallow and walk, and labile mental status. pending PT and swallow evaluation. in the meantime, pt to continue with climix 04/27/2025 pt unable to transfer out of ICU due to still being encephalopathic, unable to swallow and walk, and labile mental status. pending PT and swallow evaluation. in the meantime, pt to continue with climix 04/28/2025: pt de-sats from time to time, still not able to swallow. mental status slowly improving. remains in ICU for now time: >45 minutes of time Plan discussed with: Other (nursing) Dietary Evaluation Review Comments: Nutrition Recommendation: 1) Consider TPN if NPO>7 days 2) [facility] to [facility] + 2gm Na diet as medically feasible, per SPT approval 3) If feeding tube is placed, consider EN Glucerna 1.2 Eric @ 70ml/hr x 24hr(goal). Water flush 170ml Q6H if allowed, adjust PRN. TF at goal volume provides 2016 kcal (100%), 101gm protein (97%), and 2032 ml free water (including flush). 4) Naveen 1 pk BID, MVI w/ minerals 1 tab daily, VitC 500mg BID, Zinc sulfate 220mg BID x 10 days 5) Monitor NPO status, lab values, weight trend, and I/O Expected Outcomes/Goals: Intake to meet >75% estimated needs Lab values to improve Fu 2-3 days TARUN MARTINEZ DO Apr 30, 2025 16:53
--- NOTE | 2025-04-30 16:59 | DVHPN2 ---
Progress Note Date Seen: Apr 29, 2025 Medical Necessity Reason Pt with a Central, PICC or Fol: Yes The following are medically ne: Bennett Catheter Reason for bennett catheter: Strict I&O Subjective Review of Systems: HEENT:Normal, CVS:Normal, RESPIRATORY:Normal, GI:Normal, :Normal, MSK:Normal Objective vital signs Vital Sign Date Time Temp Pulse Resp B/P (MAP) Pulse Ox O2 Delivery O2 Flow Rate FiO2 04/30/25 16:00 18 100 Simple Mask* 6 50 04/30/25 16:00 97.9 71 158/98 (118) 97.9 Total Intake and Output 04/29/25 04/29/25 04/30/25 15:00 23:00 07:00 Intake Total 1228 ml 191 ml 200 ml Output Total 1725 ml 1275 ml Balance 1228 ml -1534 ml -1075 ml medications Current Medications Medications Dose Ordered Sig/Cora Route Start Time Stop Time Status Last Admin Dose Admin Acetaminophen 650 mg Q6HP PRN PO 04/14/25 19:15 04/17/25 20:33 650 MG Nitroglycerin 0.4 mg Q5MINP PRN SL 04/14/25 19:15 Dextrose 50 ml UD PRN IV 04/15/25 18:45 Cancel Levetiracetam 100 ml @ 400 mls/hr BID IV 04/16/25 22:00 04/30/25 11:31 400 MLS/HR Pantoprazole Sodium 40 mg DAILY IV 04/17/25 10:00 04/30/25 11:31 40 MG Sodium Chloride 1,000 ml @ 75 mls/hr [id number] IV 04/16/25 15:15 04/29/25 16:22 75 MLS/HR Albuterol 2.5 mg Q6HPRN PRN NEB 04/25/25 09:45 Hydralazine HCl 10 mg Q4HP PRN IV 04/25/25 17:00 04/28/25 11:46 10 MG Glycopyrrolate 0.2 mg Q8HR PRN IV 04/25/25 22:00 04/25/25 22:20 0.2 MG Examination: GENERAL:Normal, HEENT:Normal, NECK:Normal, LUNGS:Normal laboratory and microbiology Laboratory Tests 04/30/25 04:00 Test 04/30/25 04:00 Range/Units Serum Glucose 101 74-106 mg/dL Microbiology Date/Time Source Procedure Growth Status 04/15/25 21:10 Bronchial Washings Gram Stain - Final Complete 04/15/25 21:10 Bronchial Washings Respiratory Culture - Final Complete 04/15/25 02:32 Stool Clostridium difficile Toxin Assay - Final Complete 04/15/25 02:30 Nose MRSA Screen - Final Methicillin Resistant S.aureus Complete 04/14/25 12:52 Blood Blood Culture - Final Staphylococcus epidermidis Complete Labs and/or images reviewed: Labs reviewed by me, Image(s) reviewed by me Problem List/Assessment/Plan Problem List/Assessment/Plan 59M BIBA w/ prior MHx of TBI, Schizophrenia, Insomnia, Anxiety, Bed bound, 10L of O2 via mask and the c/c of Hypoxia. EMS report on the pt being at [facility] [place] and being d/c to [facility] where they picked the pt up today. [facility] nurses informed EMS that they are sending the pt to [facility] due from the pt going to be admitted by Dr. Powell. On scene pt had a fever of 103. Denies any other symptoms at this time. Denies chills, fever, N/V/D, SOB, CP. Denies any other associated symptom's, modifiers, or recent injuries or sick contact at this time. sepstic shock with pna acute metabolic encephalopathy acute hypoxic resp failure Demand ischemia seizure hx obesity olren chronic anemia weakness, generalized deconditioning extubated, no speech therapy available at this time PT/OT to evaluate pt unable to transfer out of ICU due to still being encephalopathic, unable to swallow and walk, and labile mental status. pending PT and swallow evaluation. in the meantime, pt to continue with climix 04/27/2025 pt unable to transfer out of ICU due to still being encephalopathic, unable to swallow and walk, and labile mental status. pending PT and swallow evaluation. in the meantime, pt to continue with climix 04/28/2025: pt de-sats from time to time, still not able to swallow. mental status slowly improving. remains in ICU for now 04/29/2025: pt now downgraded to Telemetry. Pt able to tolerate PO intake. will need PT/OT time: >45 minutes of time Plan discussed with: Patient My Orders My Orders Orders - TARUN MARTINEZ DO Procedure Category Date Status Time Transfer Orders XFER 04/30/25 Verified 16:58 Dietary Evaluation Review Comments: Nutrition Recommendation: 1) Consider TPN if NPO>7 days 2) Advance to [facility] 60gm + 2gm Na diet as medically feasible, per SPT approval 3) If feeding tube is placed, consider EN Glucerna 1.2 Eric @ 70ml/hr x 24hr(goal). Water flush 170ml Q6H if allowed, adjust PRN. TF at goal volume provides 2016 kcal (100%), 101gm protein (97%), and 2032 ml free water (including flush). 4) Naveen 1 pk BID, MVI w/ minerals 1 tab daily, VitC 500mg BID, Zinc sulfate 220mg BID x 10 days 5) Monitor NPO status, lab values, weight trend, and I/O Expected Outcomes/Goals: Intake to meet >75% estimated needs Lab values to improve Fu 2-3 days TARUN MARTINEZ DO Apr 30, 2025 16:59
--- NOTE | 2025-04-30 17:03 | DVHPN2 ---
Progress Note Date Seen: Apr 30, 2025 Medical Necessity Reason Pt with a Central, PICC or Fol: Yes The following are medically ne: Bennett Catheter Reason for bennett catheter: Strict I&O Objective vital signs Vital Sign Date Time Temp Pulse Resp B/P (MAP) Pulse Ox O2 Delivery O2 Flow Rate FiO2 04/30/25 16:00 18 100 Simple Mask* 6 50 04/30/25 16:00 97.9 71 158/98 (118) 97.9 Total Intake and Output 04/29/25 04/29/25 04/30/25 15:00 23:00 07:00 Intake Total 1228 ml 191 ml 200 ml Output Total 1725 ml 1275 ml Balance 1228 ml -1534 ml -1075 ml medications Current Medications Medications Dose Ordered Sig/Cora Route Start Time Stop Time Status Last Admin Dose Admin Acetaminophen 650 mg Q6HP PRN PO 04/14/25 19:15 04/17/25 20:33 650 MG Nitroglycerin 0.4 mg Q5MINP PRN SL 04/14/25 19:15 Dextrose 50 ml UD PRN IV 04/15/25 18:45 Cancel Levetiracetam 100 ml @ 400 mls/hr BID IV 04/16/25 22:00 04/30/25 11:31 400 MLS/HR Pantoprazole Sodium 40 mg DAILY IV 04/17/25 10:00 04/30/25 11:31 40 MG Sodium Chloride 1,000 ml @ 75 mls/hr [id number] IV 04/16/25 15:15 04/29/25 16:22 75 MLS/HR Albuterol 2.5 mg Q6HPRN PRN NEB 04/25/25 09:45 Hydralazine HCl 10 mg Q4HP PRN IV 04/25/25 17:00 04/28/25 11:46 10 MG Glycopyrrolate 0.2 mg Q8HR PRN IV 04/25/25 22:00 04/25/25 22:20 0.2 MG laboratory and microbiology Laboratory Tests 04/30/25 04:00 Test 04/30/25 04:00 Range/Units Serum Glucose 101 74-106 mg/dL Microbiology Date/Time Source Procedure Growth Status 04/15/25 21:10 Bronchial Washings Gram Stain - Final Complete 04/15/25 21:10 Bronchial Washings Respiratory Culture - Final Complete 04/15/25 02:32 Stool Clostridium difficile Toxin Assay - Final Complete 04/15/25 02:30 Nose MRSA Screen - Final Methicillin Resistant S.aureus Complete 04/14/25 12:52 Blood Blood Culture - Final Staphylococcus epidermidis Complete Labs and/or images reviewed: Labs reviewed by me, Image(s) reviewed by me Problem List/Assessment/Plan Problem List/Assessment/Plan 59M BIBA w/ prior MHx of TBI, Schizophrenia, Insomnia, Anxiety, Bed bound, 10L of O2 via mask and the c/c of Hypoxia. EMS report on the pt being at [facility] [place] and being d/c to [facility] where they picked the pt up today. [facility] nurses informed EMS that they are sending the pt to [facility] due from the pt going to be admitted by Dr. Powell. On scene pt had a fever of 103. Denies any other symptoms at this time. Denies chills, fever, N/V/D, SOB, CP. Denies any other associated symptom's, modifiers, or recent injuries or sick contact at this time. sepstic shock with pna acute metabolic encephalopathy acute hypoxic resp failure Demand ischemia seizure hx obesity loren chronic anemia weakness, generalized deconditioning extubated, no speech therapy available at this time PT/OT to evaluate pt unable to transfer out of ICU due to still being encephalopathic, unable to swallow and walk, and labile mental status. pending PT and swallow evaluation. in the meantime, pt to continue with climix 04/27/2025 pt unable to transfer out of ICU due to still being encephalopathic, unable to swallow and walk, and labile mental status. pending PT and swallow evaluation. in the meantime, pt to continue with climix 04/28/2025: pt de-sats from time to time, still not able to swallow. mental status slowly improving. remains in ICU for now 04/29/2025: pt now downgraded to Telemetry. Pt able to tolerate PO intake. will need PT/OT 04/30/2025: pending bed in Tele (pt de-sats at night) PT/OT to evaluate time: >45 minutes of time Plan discussed with: Patient My Orders My Orders Orders - TARUN MARTINEZ DO Procedure Category Date Status Time Transfer Orders XFER 04/30/25 Verified 16:58 Dietary Evaluation Review Comments: Nutrition Recommendation: 1) Consider TPN if NPO>7 days 2) Advance to [facility] 60gm + 2gm Na diet as medically feasible, per SPT approval 3) If feeding tube is placed, consider EN Glucerna 1.2 Eric @ 70ml/hr x 24hr(goal). Water flush 170ml Q6H if allowed, adjust PRN. TF at goal volume provides 2016 kcal (100%), 101gm protein (97%), and 2032 ml free water (including flush). 4) Naveen 1 pk BID, MVI w/ minerals 1 tab daily, VitC 500mg BID, Zinc sulfate 220mg BID x 10 days 5) Monitor NPO status, lab values, weight trend, and I/O Expected Outcomes/Goals: Intake to meet >75% estimated needs Lab values to improve Fu 2-3 days TARUN MARTINEZ DO Apr 30, 2025 17:03
--- NOTE | 2025-04-30 23:33 | DVHPN2 ---
Progress Note - Dictate Date Seen: Apr 30, 2025 Medical Necessity Reason Pt with a Central, PICC or Fol: Yes The following are medically ne: Bennett Catheter Reason for bennett catheter: Strict I&O Subjective Patient seen and examined at bedside. On supplemental oxygen Overnight events reviewed vital signs Vital Sign Date Time Temp Pulse Resp B/P (MAP) Pulse Ox O2 Delivery O2 Flow Rate FiO2 04/30/25 22:00 84 04/30/25 20:00 15 93 Simple Mask* 6 50 04/30/25 18:00 161/90 (113) 04/30/25 16:00 97.9 97.9 Total Intake and Output 04/29/25 04/29/25 04/30/25 15:00 23:00 07:00 Intake Total 1228 ml 191 ml 200 ml Output Total 1725 ml 1275 ml Balance 1228 ml -1534 ml -1075 ml medications Current Medications Medications Dose Ordered Sig/Cora Route Start Time Stop Time Status Last Admin Dose Admin Acetaminophen 650 mg Q6HP PRN PO 04/14/25 19:15 04/17/25 20:33 650 MG Nitroglycerin 0.4 mg Q5MINP PRN SL 04/14/25 19:15 Dextrose 50 ml UD PRN IV 04/15/25 18:45 Cancel Levetiracetam 100 ml @ 400 mls/hr BID IV 04/16/25 22:00 04/30/25 21:24 400 MLS/HR Pantoprazole Sodium 40 mg DAILY IV 04/17/25 10:00 04/30/25 11:31 40 MG Sodium Chloride 1,000 ml @ 75 mls/hr [id number] IV 04/16/25 15:15 04/30/25 19:50 75 MLS/HR Albuterol 2.5 mg Q6HPRN PRN NEB 04/25/25 09:45 Hydralazine HCl 10 mg Q4HP PRN IV 04/25/25 17:00 04/28/25 11:46 10 MG Glycopyrrolate 0.2 mg Q8HR PRN IV 04/25/25 22:00 04/25/25 22:20 0.2 MG objective Gen.: Patient lying in bed in no apparent distress. On supplemental oxygen. Head: Normocephalic, atraumatic. Eyes: EOMI/PERRLA. Ears: Normal hearing. Normal anatomy. Neck/trachea: Trachea midline, supple. Nose: Normal external anatomy. Mouth: Moist mucous membranes. Chest: Decreased air entry bilaterally. No wheezing or rhonchi. Cardiovascular: Positive S1, positive S2. Regular rate and rhythm. Abdomen: Positive bowel sounds in all 4 quadrants. Soft, non-tender, non- distended. : Deferred. Rectal: Deferred. Skin: Warm, dry. Intact. Extremities: 2+ radial pulses bilaterally. No lower extremity edema. Neuro: Awake, alert, oriented x3. No gross motor or sensory deficits. Cranial nerves II through XII intact. Gait not assessed. laboratory and microbiology Laboratory Tests 04/30/25 04:00 Test 04/30/25 04:00 Range/Units Serum Glucose 101 74-106 mg/dL Assessment/Plan Impression: Acute hypoxic respiratory failure Dependence on supplemental oxygen Septic shock Pneumonia Atelectasis Mucous plugging Events: Patient remains on supplemental oxygen Currently on 6 LPM simple mask Continue to taper as tolerated. Swallow evaluation done Head of bed elevation Aspiration precautions Recommend oral hygiene Pt underwent midline catheter placement Glycopyrrolate 0.2 mg IVP q.8 hours PRN upper airway secretions. Continue antibiotics Follow up cultures Keppra for antiepileptic Blood pressure control TPN/Tube feedings for nutritional support IV fluids with 1/2 NS at 75 ml/hr Monitor hemoglobin - stable at 9.4 g/dL Pain control Avoid oversedation Patient is stable for downgrade from the pulmonary standpoint. Labs and imaging reviewed. Rest of plan as noted below. Plan: S/p extubation on 04/24/25, bridged with BiPAP On supplemental oxygen Titrate to keep O2 sats above 92%. S/p placement of right SCV central line. S/p bronchoscopy with RML BAL on 04/15/25 - mucous plugging removed from RUL, RML, RLL. Sent for bacterial cultures. Continue antibiotics. Follow up cultures. Pressors as necessary for hemodynamic support Titrate to keep mean arterial pressure greater than 65 mmHg. Monitor renal function Monitor electrolytes. Supplement as necessary. Monitor ins and outs. Monitor hemoglobin Transfuse if less than 7.0 g/dL. DVT prophylaxis - Lovenox SC. Prognosis: Poor given patient's multiple co-morbidities. Condition: Critical Rest of plan per hospitalist and other consultants. A total of 35 minutes of critical care time was spent reviewing the patient record, examining the patient, making a diagnostic and therapeutic plan, discussing this plan with the medical personnel, following up on diagnostic studies and following the patient for clinical stability excluding any and all procedures. At least 50% of this time was spent in direct, [id number] contact. Thank you, Dr. Rubio, for allowing me to participate in this patient's care. Further recommendations will depend on the patient's clinical course. Please do not hesitate to contact me if you have any questions or concerns. This medical document was created using an electronic medical record system with [employer] dictation system. Although these documentations are being carefully reviewed, there may still be some phonetic and typographical changes. The errors are purely typographical, due to imperfection on the software program, and do not reflect any compromise in the patient's medical care. Dietary Evaluation Review Comments: Nutrition Recommendation: 1) Consider TPN if NPO>7 days 2) Advance to [facility] 60gm + 2gm Na diet as medically feasible, per SPT approval 3) If feeding tube is placed, consider EN Glucerna 1.2 Eric @ 70ml/hr x 24hr(goal). Water flush 170ml Q6H if allowed, adjust PRN. TF at goal volume provides 2016 kcal (100%), 101gm protein (97%), and 2032 ml free water (including flush). 4) Naveen 1 pk BID, MVI w/ minerals 1 tab daily, VitC 500mg BID, Zinc sulfate 220mg BID x 10 days 5) Monitor NPO status, lab values, weight trend, and I/O Expected Outcomes/Goals: Intake to meet >75% estimated needs Lab values to improve Fu 2-3 days Plan discussed with: Patient, Other (RN Kervin) Critical Care Time(min): 35 [facility] Apr 30, 2025 23:33
[2025-05-01] VITALS (10 sets, daily range): BP systolic 99–163; BP diastolic 80–102; PULSE 74–107; RESP 17–20; TEMP 97.7–99.1; O2SAT 92–100
[2025-05-02] VITALS (11 sets, daily range): BP systolic 139–152; BP diastolic 87–109; PULSE 82–91; RESP 17–19; TEMP 97–98.4; O2SAT 93–100
--- NOTE | 2025-05-02 15:52 | DVHPN2 ---
Progress Note Date Seen: May 01, 2025 Medical Necessity Reason Pt with a Central, PICC or Fol: Yes The following are medically ne: Bennett Catheter Reason for bennett catheter: Strict I&O Objective vital signs Vital Sign Date Time Temp Pulse Resp B/P (MAP) Pulse Ox O2 Delivery O2 Flow Rate FiO2 05/02/25 09:00 97.2 89 18 151/91 (111) 100 97.2 05/02/25 08:06 Simple Mask* 6 50 Total Intake and Output 05/01/25 05/01/25 05/02/25 15:00 23:00 07:00 Intake Total 625 ml Output Total 1300 ml Balance -675 ml medications Current Medications Medications Dose Ordered Sig/Cora Route Start Time Stop Time Status Last Admin Dose Admin Acetaminophen 650 mg Q6HP PRN PO 04/14/25 19:15 05/02/25 11:51 650 MG Nitroglycerin 0.4 mg Q5MINP PRN SL 04/14/25 19:15 Dextrose 50 ml UD PRN IV 04/15/25 18:45 Cancel Levetiracetam 100 ml @ 400 mls/hr BID IV 04/16/25 22:00 05/02/25 09:36 400 MLS/HR Pantoprazole Sodium 40 mg DAILY IV 04/17/25 10:00 05/02/25 09:36 40 MG Sodium Chloride 1,000 ml @ 75 mls/hr [id number] IV 04/16/25 15:15 05/02/25 06:38 75 MLS/HR Albuterol 2.5 mg Q6HPRN PRN NEB 04/25/25 09:45 Hydralazine HCl 10 mg Q4HP PRN IV 04/25/25 17:00 05/01/25 21:06 10 MG Glycopyrrolate 0.2 mg Q8HR PRN IV 04/25/25 22:00 04/25/25 22:20 0.2 MG laboratory and microbiology Laboratory Tests 04/30/25 04:00 Test 04/30/25 04:00 Range/Units Serum Glucose 101 74-106 mg/dL Microbiology Date/Time Source Procedure Growth Status 04/15/25 21:10 Bronchial Washings Gram Stain - Final Complete 04/15/25 21:10 Bronchial Washings Respiratory Culture - Final Complete 04/15/25 02:32 Stool Clostridium difficile Toxin Assay - Final Complete 04/15/25 02:30 Nose MRSA Screen - Final Methicillin Resistant S.aureus Complete 04/14/25 12:52 Blood Blood Culture - Final Staphylococcus epidermidis Complete Problem List/Assessment/Plan Problem List/Assessment/Plan 59M BIBA w/ prior MHx of TBI, Schizophrenia, Insomnia, Anxiety, Bed bound, 10L of O2 via mask and the c/c of Hypoxia. EMS report on [place] [facility]c to [facility] where they picked the pt up today. [facility] nurses informed EMS that they are sending the pt to [facility] due from the pt going to be admitted by Dr. Powell. On scene pt had a fever of 103. Denies any other symptoms at this time. Denies chills, fever, N/V/D, SOB, CP. Denies any other associated symptom's, modifiers, or recent injuries or sick contact at this time. sepstic shock with pna acute metabolic encephalopathy acute hypoxic resp failure Demand ischemia seizure hx obesity loren chronic anemia weakness, generalized deconditioning extubated, no speech therapy available at this time PT/OT to evaluate pt unable to transfer out of ICU due to still being encephalopathic, unable to swallow and walk, and labile mental status. pending PT and swallow evaluation. in the meantime, pt to continue with climix 04/27/2025 pt unable to transfer out of ICU due to still being encephalopathic, unable to swallow and walk, and labile mental status. pending PT and swallow evaluation. in the meantime, pt to continue with climix 04/28/2025: pt de-sats from time to time, still not able to swallow. mental status slowly improving. remains in ICU for now 04/29/2025: pt now downgraded to Telemetry. Pt able to tolerate PO intake. will need PT/OT 04/30/2025: pending bed in Tele (pt de-sats at night) PT/OT to evaluate time: >45 minutes of time My Orders My Orders Orders - TARUN MARTINEZ DO Procedure Category Date Status Time Pt Request For Service PT 05/02/25 Logged 15:19 Dietary Evaluation Review Comments: Nutrition Recommendation: 1) Consider TPN if NPO>7 days 2) Advance to [facility] 60gm + 2gm Na diet as medically feasible, per SPT approval 3) If feeding tube is placed, consider EN Glucerna 1.2 Eric @ 70ml/hr x 24hr(goal). Water flush 170ml Q6H if allowed, adjust PRN. TF at goal volume provides 2016 kcal (100%), 101gm protein (97%), and 203 ml free water (including flush). 4) Naveen 1 pk BID, MVI w/ minerals 1 tab daily, VitC 500mg BID, Zinc sulfate 220mg BID x 10 days 5) Monitor NPO status, lab values, weight trend, and I/O Expected Outcomes/Goals: Intake to meet >75% estimated needs Lab values to improve Fu 2-3 days TARUN MARTINEZ DO May 02, 2025 15:52
--- NOTE | 2025-05-02 15:52 | DVHDS2 ---
Discharge Summary Date of Admission Apr 14, 2025 at 19:12 Date of Discharge: Apr 17, 2025 Labs/Diagnostic Data: Laboratory Results Test 04/30/25 20:16 04/30/25 04:00 04/29/25 03:30 04/28/25 19:23 POC Glucose 102 mg/dl (70-106) White Blood Count 3.5 10^3/uL (4.4-10.8) Red Blood Count 3.65 10^6/uL (4.5-5.90) Hemoglobin 9.4 g/dL (13.5-17.5) Hematocrit 29.5 % (41.0-53.0) Mean Corpuscular Volume 80.9 fL (80.0-100.0) Mean Corpuscular Hemoglobin 25.8 pg (28.0-32.0) Mean Corpuscular Hemoglobin Concent 31.8 g/dL (32.0-36.0) Red Cell Distribution Width 15.7 % (11.8-14.3) Platelet Count 162 10^3/uL (140-450) Mean Platelet Volume 8.0 fL (6.9-10.8) Neutrophils (%) (Auto) 57.5 % (37.0-80.0) Lymphocytes (%) (Auto) 26.6 % (10.0-50.0) Monocytes (%) (Auto) 10.7 % (0.0-12.0) Eosinophils (%) (Auto) 4.3 % (0.0-7.0) Basophils (%) (Auto) 0.9 % (0.0-2.0) Neutrophils # (Auto) 2.0 10 ^3/uL (1.6-8.6) Lymphocytes # (Auto) 0.9 10 ^3/uL (0.4-5.4) Monocytes # (Auto) 0.4 10 ^3/uL (0-1.3) Eosinophils # (Auto) 0.1 10 ^3/uL (0-0.8) Basophils # (Auto) 0 10 ^3/uL (0-0.2) Nucleated Red Blood Cells 0.3 % Sodium Level 140 mmol/L (136-145) Potassium Level 3.5 mmol/L (3.5-5.1) Chloride Level 100 mmol/L (98-107) Carbon Dioxide Level 31 mmol/L (20-31) Anion Gap 9 (5-15) Blood Urea Nitrogen < 5 mg/dL (9-23) Creatinine 0.56 mg/dL (0.700-1.30) Glomerular Filtration Rate Calc 115 mL/min (>90) BUN/Creatinine Ratio 8.9 (10.0-20.0) Serum Glucose 101 mg/dL (74-106) Calcium Level 8.2 mg/dL (8.7-10.4) Total Bilirubin 0.6 mg/dL (0.2-1.0) Aspartate Amino Transferase (AST) 20 U/L (13-40) Alanine Aminotransferase (ALT) 16 U/L (7-40) Alkaline Phosphatase 63 U/L (46-116) Total Protein 6.0 g/dL (5.7-8.2) Albumin 3.0 g/dL (3.2-4.8) Phosphorus Level 3.5 mg/dL (2.4-5.1) Magnesium Level 2.2 mg/dL (1.6-2.6) Prothrombin Time 12.9 sec (9.3-11.8) Prothrombin Time INR 1.24 (0.9-1.15) Test 04/25/25 17:32 04/24/25 09:16 04/24/25 06:37 04/17/25 16:17 Blood Gas Specimen Type Arterial Blood Gas Sample Site Left radial Blood Gas Patient Temperature 37.0 Arterial Blood Date Drawn [id number] Arterial Blood pH 7.441 (7.350-7.450) Arterial Blood Partial Pressure CO2 37.0 mmHg (35.0-48.0) Arterial Blood Partial Pressure O2 99.1 mmHg (83.0-108.0) Arterial Blood HCO3 24.6 mmol/L (21.0-28.0) Arterial Blood Oxygen Saturation 97.2 % (94.0-98.0) Arterial Blood Base Excess 0.7 mmol/L (-2.0-3.0) Arterial Blood Oxyhemoglobin 97.0 % (94.0-98.0) Arterial Blood Carboxyhemoglobin 0.0 % (0.5-1.5) Arterial Blood Methemoglobin 0.2 % (0.0-1.5) Arun Test Yes Blood Gas Total Hemoglobin 11.30 g/dL (13.5-17.5) Blood Gas Liter Flow 5.00 Blood Gas Modality Oxymizer FiO2 % 46.0 Blood Gas Spontaneous Rate 17 Blood Gas Tidal Volume 414.0 Blood Gas Pressure Support 8 Blood Gas PEEP or CPAP 5.0 Blood Gas Set Respiration Rate 16.0 Blood Gas Spontaneous Tidal Volume 405 Test 04/14/25 16:27 04/14/25 13:40 04/14/25 12:57 04/14/25 12:44 Troponin I High Sensitivity 90 ng/L (</=54) Creatine Kinase 133 U/L (46-171) Urine Color Yellow (Yellow) Urine Clarity Ex.turbid (Clear) Urine pH 5.5 (5.0-9.0) Urine Specific Golf 1.025 (1.001-1.035) Urine Protein 1+ (Negative) Urine Ketones Negative (Negative) Urine Blood 2+ /uL (Negative) Urine Nitrite Negative (Negative) Urine Bilirubin Negative (Negative) Urine Urobilinogen Normal mg/dL (Negative) Urine Leukocyte Esterase Negative /uL (Negative) Urine RBC 97 /hpf (0 - 3) Urine Microscopic WBC 4 /HPF (0-3) Urine Squamous Epithelial Cells Few /hpf (<5) Urine Uric Acid Crystals Many /hpf (None Seen) Urine Bacteria None seen /hpf (None Seen) Urine Mucus Few (None Seen) Urine Glucose Normal mg/dL (Normal) Lactic Acid Level 1.5 mmol/L (0.4-2.0) Other Laboratory Tests 04/30/25 04:00 Brief Hx & Hospital Course: 59M BIBA w/ prior MHx of TBI, Schizophrenia, Insomnia, Anxiety, Bed bound, 10L of O2 via mask and the c/c of Hypoxia. EMS report on the pt being [place] [facility] [place] d/c to [facility] where they picked the pt up today. [facility] nurses informed EMS that they are sending the pt to [facility] due from the pt going to be admitted by Dr. Powell. On scene pt had a fever of 103. Denies any other symptoms at this time. Denies chills, fever, N/V/D, SOB, CP. Denies any other associated symptom's, modifiers, or recent injuries or sick contact at this time. sepstic shock with pna acute metabolic encephalopathy acute hypoxic resp failure Demand ischemia seizure hx obesity loren chronic anemia Condition at Discharge: Fair Final Diagnosis/Problems List see above Discharge Disposition: Home Discharge Instruct/Medications Scheduled Aspirin (Aspirin 81), 81 MG PO DAILY, (Reported) Atorvastatin Calcium (Atorvastatin Calcium), 40 MG PO HS, (Reported) Carisoprodol (Soma), 350 MG PO TIDP, (Reported) Docusate Sodium (Docusate Sodium), 250 MG PO DAILY, (Reported) Ferrous Sulfate (Ferosul), 325 MG PO DAILY, (Reported) Fluoxetine HCl (Pmdd) (Fluoxetine HCl), 10 MG PO DAILY, (Reported) Folic Acid (Folic Acid), 1 MG PO DAILY, (Reported) Hydrochlorothiazide (Hydrochlorothiazide), 1 CAP PO DAILY, (Reported) Insulin Glargine (Lantus Solostar), 10 UNIT SC DAILY, (Reported) Levetiracetam (Keppra Tablet), 500 MG PO BID Levetiracetam (Keppra), 1 TAB PO BID Lorazepam (Ativan Tablet), 0.5 MG PO Q6HPRN, (Reported) Melatonin (Kp Melatonin), 3 MG PO QHSP, (Reported) Metformin Hydrochloride (Metformin Hcl), 1 TAB PO BID, (Reported) Naproxen (Naprosyn Tablet), 250 MG PO TIDP, (Reported) Pantoprazole Sodium Sesquihydr (Pantoprazole Sodium Dr), 40 MG PO DAILY Quetiapine Fumerate (Quetiapine Fumarate), 12.5 MG PO BID, (Reported) Sucralfate (Carafate), 1 GM OR BID Scheduled PRN Acetaminophen (Acetaminophen), 325 MG PO Q6HR PRN for PAIN SCALE 1 THRU 6, (Reported) Miscellaneous Medications Diclofenac Sodium (Topical) (Voltaren Arthritis Pain), 1 % EX, (Reported) Insulin Regular (Human) (Humulin R), 100 UNIT SUBCUT, (Reported) Discharge Statement: "Patient was advised to return to the ER or call 911 if any headaches, dizziness, shortness of breath, chest pain, abdominal pain, bleeding, fevers, or worsening of medical condition. Patient was counseled about treatment plan, medications, possible side effects, patientverbalized understanding. All questions were answered to the best of my ability. This discharge took greater then 30 minutes in planning, reviewing documentation, counseling the patient, and discussing with other team members." ASSESSMENT ASSESSMENT Hospital Course 59M BIBA w/ prior MHx of TBI, Schizophrenia, Insomnia, Anxiety, Bed bound, 10L of O2 via mask and the c/c of Hypoxia. EMS report on the pt being at [facility] and being d/c to [facility] where they picked the pt up today. [facility] nurses informed EMS that they are sending the pt to [facility] due from the pt going to be admitted by Dr. Powell. On scene pt had a fever of 103. Denies any other symptoms at this time. Denies chills, fever, N/V/D, SOB, CP. Denies any other associated symptom's, modifiers, or recent injuries or sick contact at this time. sepstic shock with pna acute metabolic encephalopathy acute hypoxic resp failure Demand ischemia seizure hx obesity loren chronic anemia Assessment see above TARUN MARTINEZ DO May 02, 2025 15:52
[2025-05-02] MEDS ORDERED: LEVE100012 PO (15:54)
[2025-05-03] VITALS (9 sets, daily range): BP systolic 130–169; BP diastolic 77–104; PULSE 72–104; RESP 15–19; TEMP 97.8–99; O2SAT 90–100
[2025-05-04] VITALS (9 sets, daily range): BP systolic 138–160; BP diastolic 88–104; PULSE 91–104; RESP 15–20; TEMP 97.5–98.4; O2SAT 92–99
[2025-05-05] VITALS (7 sets, daily range): BP systolic 128–172; BP diastolic 84–101; PULSE 93–109; RESP 18–19; TEMP 97.4–97.6; O2SAT 94–97
--- NOTE | 2025-05-09 09:49 | DVH ---
INDICATION: INTUBATED,RESP FAILURE TECHNIQUE: Single frontal view of the chest was obtained COMPARISON: XY CHEST PORTABLE on DOS: 04/21/25, XY CHEST PORTABLE on DOS: 04/20/25, XY CHEST PORTABLE on DOS: 04/19/25, XY CHEST PORTABLE on DOS: 04/18/25, XY CHEST XRAY 1 VIEW on DOS: 04/17/25, XY CHEST PORTABLE on DOS: 04/21/25 FINDINGS: Lines and Tubes: Slight interval advancement of endotracheal tube such that the tip now projects approximately 3.6 cm above the level of the alexander. Remaining lines and tubes unchanged. Lungs: Diminished lung volumes with concomitant crowding of the pulmonary vasculature. No evidence of focal consolidation. Pleura: No effusion. No pneumothorax. Cardiomediastinal contours: Unremarkable Bones: Unremarkable IMPRESSION: 1. Slight interval advancement of endotracheal tube such that the tip now projects approximately 3.6 cm above the level of the alexander. Remaining lines and tubes unchanged. 2. Otherwise no significant change compared to prior exam. AN GORMAN
== END 2025-05-05 14:08 | DRG 870 ==
LOC: EDBD 12:11 → ER 12:11 → OVERFLOW 19:12 → UNDOADMIN 19:12 → OVERFLOW 23:53 → TELE-CENTR 23:53 → ICU WEST 04-15 02:07 → TELE-EAST 04-30 20:55
PROVIDERS: ADMIT Internal Medicine; ATTEND Internal Medicine
PROC: 5A1955Z Respiratory Ventilation, Greater than 96 Consecutive Hours (ICD-10-PCS; principal; 2025-04-15)
PROC: 0B9D8ZX Drainage of Right Middle Lung Lobe, Via Natural or Artificial Opening Endoscopic, Diagnostic (ICD-10-PCS; 2025-04-15)
PROC: 0BH18EZ Insertion of Endotracheal Airway into Trachea, Via Natural or Artificial Opening Endoscopic (ICD-10-PCS; 2025-04-15)
PROC: 0B998ZZ Drainage of Lingula Bronchus, Via Natural or Artificial Opening Endoscopic (ICD-10-PCS; 2025-04-15)
PROC: 0B988ZZ Drainage of Left Upper Lobe Bronchus, Via Natural or Artificial Opening Endoscopic (ICD-10-PCS; 2025-04-15)
PROC: 0B938ZZ Drainage of Right Main Bronchus, Via Natural or Artificial Opening Endoscopic (ICD-10-PCS; 2025-04-15)
PROC: 0B9B8ZZ Drainage of Left Lower Lobe Bronchus, Via Natural or Artificial Opening Endoscopic (ICD-10-PCS; 2025-04-15)
PROC: 02HV33Z Insertion of Infusion Device into Superior Vena Cava, Percutaneous Approach (ICD-10-PCS; 2025-04-15)
PROC: B548ZZA Ultrasonography of Superior Vena Cava, Guidance (ICD-10-PCS; 2025-04-15)
PROC: 02HV33Z Insertion of Infusion Device into Superior Vena Cava, Percutaneous Approach (ICD-10-PCS; 2025-04-15)
PROC: B548ZZA Ultrasonography of Superior Vena Cava, Guidance (ICD-10-PCS; 2025-04-15)
PROC: 5A09357 Assistance with Respiratory Ventilation, Less than 24 Consecutive Hours, Continuous Positive Airway Pressure (ICD-10-PCS; 2025-04-24)
PROC: 05HD33Z Insertion of Infusion Device into Right Cephalic Vein, Percutaneous Approach (ICD-10-PCS; 2025-04-29)
PROC: B54MZZA Ultrasonography of Right Upper Extremity Veins, Guidance (ICD-10-PCS; 2025-04-29)
DX: A41.9 Sepsis, unspecified organism (principal); G93.41 Metabolic encephalopathy; J96.01 Acute respiratory failure with hypoxia; R65.21 Severe sepsis with septic shock; J96.02 Acute respiratory failure with hypercapnia; J18.9 Pneumonia, unspecified organism; I24.89 Other forms of acute ischemic heart disease; N17.9 Acute kidney failure, unspecified; E66.9 Obesity, unspecified; F20.9 Schizophrenia, unspecified; D64.9 Anemia, unspecified; J98.11 Atelectasis; F41.9 Anxiety disorder, unspecified; G47.00 Insomnia, unspecified; Z87.820 Personal history of traumatic brain injury; Z99.81 Dependence on supplemental oxygen; Z74.01 Bed confinement status; Z79.899 Other long term (current) drug therapy
CPT/HCPCS: 36415; 36600; 71045; 80048; 80053; 81001; 82550; 82805; 82962; 83605; 83735; 84100; 84484; 85025; 85610; 87040; 87070; 87077; 87081; 87186; 87205; 87493; 92610; 94002; 94003; 94640; 94660; 96365; 96368; 96372; 96375; 97110; 97163; 97530; 99291; 99292; C1724; G0378; J0131; J1815; J2470; J3480